=== PATIENT | female | born 1935 | race Caucasian/White ===

== ENCOUNTER → 2016-06-16 | Outpatient (CLI) | payer OTHER ==
[~2016-06-16] MED LIST: ACET-1175 PO; ASPI81TA28 PO; LVQ250 PO; METO100T7 PO; OMEP40CA PO; PRAV40TA PO; SERT50TA PO; TZCSR180 PO
--- NOTE | 2016-06-16 11:29 | DIAGNOSTIC IMAGING REPORT ---
CHEST 2 VIEWS ROUTINE CLINICAL HISTORY: COUGH COMPARISON STUDY: No previous studies for comparison. FINDINGS: The heart remains enlarged. There is no lobar consolidation. There is mild pulmonary vascular congestion/fluid overload. Trace pleural effusions are suspected.[ IMPRESSION: Cardiomegaly and radiographic evidence of mild congestive failure/fluid overload. Trace pleural effusions. No lobar consolidation. Electronically signed by: Ernst Mclean M.D. 06/16/2016 11:28 AM Dictated Date/Time: 06/16/2016 11:27 AM
== END | disposition home or self-care (01) ==
LOC: C.RAD1850 11:15
PROVIDERS: ATTEND Family Medicine
DX: J45.901 Unspecified asthma with (acute) exacerbation (principal); I51.7 Cardiomegaly

== ENCOUNTER 2018-05-10 12:03 | Inpatient (IN) ==
--- NOTE | 2018-05-10 12:42 | XRay Report ---
XR chest 1V portable CLINICAL HISTORY: cough COMPARISON STUDY: 04/03/2016 FINDINGS: The heart remains enlarged. There is persistent elevation of the interstitium. Diagnostic c onsiderations include mild congestive failure versus chronic interstitial lung disease. There is no l obar consolidation. There are no large pleural effusions.[ IMPRESSION: 1. Cardiomegaly 2. Persistent elevation of the interstitium. Diagnostic considerations include mild congestive failur e versus chronic interstitial lung disease. Electronically signed by: Ernst Mclean M.D. 05/10/2018 12:41 PM
[2018-05-10 13:11] LABS: Alanine Aminotransferase 13 U/L (12-78); Albumin Level 3.2 gm/dl (3.4-5.0); Aspartate Aminotransferase 19 U/L (15-37); BUN Creatinine Ratio 12.7 (10-20); Blood Urea Nitrogen 11 mg/dl (7-18); Calcium 8.3 mg/dl (8.5-10.1); Carbon Dioxide 28 mmol/L (21-32); Chloride 103 mmol/L (98-107); Est GFR (Non-African American) 60.4; Glucose 131 mg/dl (70-99); INR 3.4 (0.9-1.1); Partial Thromboplastin Ratio 1.6; Partial Thromboplastin Time 42.5 Seconds (21.0-31.0); Potassium 3.1 mmol/L (3.5-5.1); Prothrombin Time 32.4 Seconds (9.0-12.0); Sodium 137 mmol/L (136-145)
[2018-05-10 13:15] LABS: Albumin Globulin Ratio 0.6 (0.9-2); Alkaline Phosphatase 166 U/L (45-117); Bilirubin,Total 0.8 mg/dl (0.2-1); Globulin 5.1 gm/dl (2.5-4.0); Total Protein 8.3 gm/dl (6.4-8.2); Troponin I < 0.015 ng/ml (0-0.045)
[2018-05-10 13:17] LABS: Hemoglobin 14.6 g/dL (12.0-16.0); Mean Corpuscular Hgb Conc 32.4 g/dL (32-36); Mean Corpuscular Volume 89.3 fL (80-100); RDW Coefficient of Variation 15.1 % (11.5-14.5); RDW Standard Deviation 48.4 fL (36.4-46.3); Red Blood Count 5.04 M/uL (4.2-5.4); White Blood Count 3.44 K/uL (4.8-10.8)
[2018-05-10 13:28] LABS: Platelet Count 74 K/uL (130-400)
[2018-05-10 13:32] LABS: Basophils # (auto) 0.01 K/uL (0-0.2); Basophils % (auto) 0.3 %; Immature Granulocytes # (auto) 0.02 K/uL (0.00-0.02); Immature Granulocytes % (auto) 0.6 %; Lymphocytes # (auto) 0.96 K/uL (1.2-3.4); Lymphocytes % (auto) 27.9 %; Monocytes # (auto) 0.97 K/uL (0.11-0.59); Monocytes % (auto) 28.2 %; Neutrophils # (auto) 1.48 K/uL (1.4-6.5); Toxic Vacuolation 1+
[2018-05-10] MEDS ORDERED: POTASSIUM CHLORIDE 20 MEQ TABCR PO STA (14:04)
[2018-05-10] MEDS ORDERED: ALBUT/IPRATROP 3MG/0.5MG NEB 3 ML VIAL NEB STA (14:04)
[2018-05-10] MEDS ORDERED: FUROSEMIDE 40 MG/4 ML VIAL IV STA (15:00)
--- NOTE | 2018-05-10 17:01 | History & Physical Report ---
Date of Service May 10, 2018 Assessment & Plan (1) Acute on chronic diastolic heart failure: EF on echo in 2016 showed EF 70% with moderate LVH and Grade 1 diastolic dysfunction. No baseline Lasix needed, though has had prior exacerbations. No known exacerbator for this episode. - Lasix 40mg IV given in ED - Monitor I&Os; weights - Tele - Low salt, fluid restricted diet - Monitor electrolytes & Cr (2) COPD exacerbation: Prior PFTs in note indicate FEV 0.5L, 29% predicted; severe obstructive defect. Not 100% a COPD exacerbation given she only has increased shortness of breath and cough, but no increased sputum production; however, given the severe nature, will treat. - Azithryomycin - Prednisone - DuoNebs standing & PRN - Procalcitonin to be sure it's not pneumonia (3) Hypoxia: No home O2. Likely due to above. - Monitor O2 - Wean as able (4) A-fib: With RVR. Normally her rates are 80-100 bpm per patient. Currently 110- 130. - Short-acting PO dilt, titrated to effect - Diltiazem IV pushes PRN - Continue home beta-scot; could increase as well if needed - Continue warfarin; INR was 3.4 on admission without signs of bleeding (5) HTN (hypertension): BP was 150/110 in the ED. She reports it is usually normal at home. - Monitor while on diltiazem and beta-scot - Diltiazem IV should help (6) Thrombocytopenia: Platelets were 74 on admission. Priors in my chart from 2016 were low- normal at ~120-140. Diff on admission did not show any morphologic issues. Likely due to acute illness. Low likelihood of destructive process with normal hemoglobin, kidney function, no fevers, and no signs of clots/bleeding. - Monitor platelets - If they don't return to normal by discharge, consider hematology consult (7) DVT prophylaxis: On warfarin for afib History of Present Illness Chief Complaint: Shortness of breath Primary Care Provider: Audrey Johnson PA-C 82yo F w/ hx of afib, CHF, and asthma who presents with shortness of breath over the last 3 weeks. Reports that shortness of breath waxes and wanes all the time, but it has been worse in the last 3 weeks after hurting her back the week before [place]. She reports that she came in because she saw her PCP today and she was told to come in. Reports some cough as well, though nothing productive. Has been using her Breo as prescribed and not using her DuoNebs too often. Otherwise denies fevers or chills. Allergies Allergy/AdvReac Type Severity Reaction Status Date / Time amoxicillin Allergy Intermediate SWELLING Unverified 05/10/18 14:26 Home Medications Home Medications Medication Instructions Recorded Confirmed Type acetaminophen [Tylenol] 325 mg PO Q4 PRN 05/10/18 05/10/18 History diltiazem HCl [Cartia XT] 240 mg PO QAM 05/10/18 05/10/18 History metoprolol succinate 25 mg PO QAM 05/10/18 05/10/18 History omeprazole 40 mg PO QAM 05/10/18 05/10/18 History pravastatin 40 mg PO QAM 05/10/18 05/10/18 History sertraline 50 mg PO HS 05/10/18 05/10/18 History warfarin 2.5 mg PO 5XWK 05/10/18 05/10/18 History warfarin 5 mg PO 2XWK 05/10/18 05/10/18 History Past Med/Surg History Medical History HTN (hypertension) (Chronic) SVT (supraventricular tachycardia) (Chronic) A-fib (Chronic) Acute respiratory failure (Acute 04/26/13) PNA (pneumonia) (Resolved) CHF (congestive heart failure) (Acute) COPD exacerbation (Acute) Acute kidney injury superimposed on chronic kidney disease Acute on chronic diastolic heart failure Surgical History Previous section (Resolved) Social History Feels Safe at Home: Yes Smoking Status: Never smoker Review of Systems Constitutional: no fever, no chills and no sweats Eyes: no diplopia Ear, Nose, Mouth, Throat: no ear trauma, no nasal discharge and no dental pain Respiratory: + cough and + dyspnea; no chest congestion Cardiovascular: no chest pain, no dyspnea on exertion, no palpitations and no syncope Gastrointestinal: no abdominal pain, no belching, no constipation, no diarrhea/ loose stools, no blood in stools and no melena Musculoskeletal: no back pain, no joint pain and no muscle weakness Integumentary: no rash, no skin ulcer and no erythema Neurologic: no generalized weakness, no loss of sensation, no numbness and no paresthesia Psychiatric: no depression and no anxiety Endocrine: no fatigue, no polydipsia and no polyphagia Physical Exam 2 Vital Signs (Past 24 Hours): Last Vital Signs Temp 36.7 C 05/10/18 12:15 Pulse 111 H 05/10/18 15:56 Resp 33 H 05/10/18 15:56 BP 152/117 H 05/10/18 15:56 Pulse Ox 96 05/10/18 15:56 Constitutional: WD/WN, vitals as above Eyes: EOM intact bilaterally; no conjunctival abnormality ENMT: external ear and nose normal, oropharynx normal Neck: trachea midline, no thyromegaly normal visual inspection Respiratory: + labored breathing, + cough and + tachypneic; no respiratory distress and no retractions Auscultation: + crackles, + rales and + wheezes Cardiovascular: Rate/Rhythm: + tachycardic; + abnormal rhythm Heart Sounds : normal S1 and normal S2 Vessels: no JVD Extremities: no edema Gastrointestinal (Abdomen): Inspection/Auscultation: abdomen normal to inspection; abdomen not distended Musculoskeletal: no cyanosis or clubbing, extremities motor strength 5/5 Skin: no rashes, warm and dry Neurologic: moves all extremities and awake Psychiatric: Orientation: alert, oriented to person and cooperative _ (1) A-fib Atrial fibrillation type: permanent Qualified Code(s): I48.2 - Chronic atrial fibrillation (2) HTN (hypertension) Hypertension type: essential hypertension Qualified Code(s): I10 - Essential (primary) hypertension
[2018-05-10] MEDS ORDERED: AZITHROMYCIN 250 MG TAB PO ONE (18:57)
[2018-05-10] MEDS ORDERED: dilTIAZem HCl 5 MG/ML 5 ML VIAL IV PRN (18:57)
[2018-05-10] MEDS ORDERED: ACETAMINOPHEN 325 MG TAB PO PRN (18:57)
[2018-05-10] MEDS: ALBUT/IPRATROP 3MG/0.5MG NEB 3 ML VIAL NEB SCH (19:46)
[2018-05-10] MEDS: predniSONE 20 MG TAB PO SCH (20:42)
[2018-05-10] MEDS: SERTRALINE HCL 50 MG TABLET PO SCH (20:42)
[2018-05-10] MEDS: dilTIAZem HCl 60 MG TAB PO SCH (20:43)
[2018-05-10] MEDS: PROMETHAZINE HCL 12.5 MG in SODIUM CHLORIDE 0.9% 50 ML IV PRN (21:32)
[2018-05-11] MEDS: dilTIAZem HCl 60 MG TAB PO SCH ×4 (01:39→21:07)
[2018-05-11 06:06] LABS: INR 2.9 (0.9-1.1); Prothrombin Time 27.6 Seconds (9.0-12.0)
[2018-05-11 06:26] LABS: Hematocrit (blood only) 42.6 % (37-47); Hemoglobin 13.5 g/dL (12.0-16.0); Mean Corpuscular Hgb Conc 31.7 g/dL (32-36); Mean Corpuscular Volume 89.9 fL (80-100); Mean Platelet Volume 13.2 fL (7.4-10.4); Platelet Count 85 K/uL (130-400); RDW Coefficient of Variation 15.1 % (11.5-14.5); Red Blood Count 4.74 M/uL (4.2-5.4); White Blood Count 2.14 K/uL (4.8-10.8)
[2018-05-11 06:27] LABS: BUN Creatinine Ratio 13.9 (10-20); Calcium 7.9 mg/dl (8.5-10.1); Creatinine Clr Calc Pharmacy 37.6 ml/min; Est GFR (Non-African American) 41.4; Magnesium 1.4 mg/dl (1.8-2.4); Potassium 3.6 mmol/L (3.5-5.1)
[2018-05-11] MEDS: ALBUT/IPRATROP 3MG/0.5MG NEB 3 ML VIAL NEB SCH ×4 (07:30→19:08)
[2018-05-11] MEDS: METOPROLOL SUCC 25MG EXT REL TAB PO SCH (08:19)
[2018-05-11] MEDS: PRAVASTATIN SOD 40 MG TAB PO SCH (08:19)
[2018-05-11] MEDS: predniSONE 20 MG TAB PO SCH (08:19)
[2018-05-11] MEDS: PANTOprazole 40 MG TAB PO SCH (08:19)
[2018-05-11] MEDS: MAGNESIUM SULFATE / D5W 1 GM/100 ML BAG IV SCH ×2 (08:20→09:32)
--- NOTE | 2018-05-11 13:13 | Hospitalist Progress Note ---
Date of Service May 11, 2018 Assessment & Plan (1) COPD exacerbation: Prior PFTs in note indicate FEV 0.5L, 29% predicted; severe obstructive defect. Not 100% a COPD exacerbation given she only has increased shortness of breath and cough, but no increased sputum production; however, given the severe nature, will treat. - Azithryomycin - Prednisone - DuoNebs standing & PRN - Continue home Breo - Procalcitonin was negative on 05/10, so will not adjust abx at this time (2) Acute on chronic diastolic heart failure: EF on echo in 2016 showed EF 70% with moderate LVH and Grade 1 diastolic dysfunction. No baseline Lasix needed, though has had prior exacerbations. No known exacerbator for this episode. - Lasix 40mg IV given in ED - Monitor I&Os; weights - Tele - Low salt, fluid restricted diet - Monitor electrolytes & Cr - On 05/11, appears to be euvolemic vs. mildly hypovolemic after the single ED dose - Hold any further Lasix (3) Hypoxia: No home O2. Likely due to above. - Monitor O2 - Wean as able (4) A-fib: With RVR. Normally her rates are 80-100 bpm per patient. Currently 110- 130. - Short-acting PO dilt, titrated to effect - Diltiazem IV pushes PRN - Continued home beta-scot; could increase as well if needed - Continue warfarin; INR was 3.4 on admission without signs of bleeding (5) HTN (hypertension): BP was 150/110 in the ED. She reports it is usually normal at home. - Monitor while on diltiazem and beta-scot - Improved as of 05/11 (6) CKD (chronic kidney disease) stage 2, GFR 60-89 ml/min: Baseline Cr. ~1.0 with eGRR ~60. At baseline on admission. - Monitor Cr - Avoid nephrotoxic medications (7) Thrombocytopenia: Platelets were 74 on admission. Priors in my chart from 2016 were low- normal at ~120-140. Diff on admission did not show any morphologic issues. Likely due to acute illness. Low likelihood of destructive process with normal hemoglobin, kidney function, no fevers, and no signs of clots/bleeding. - Monitor platelets - If they don't return to normal by discharge, consider hematology consult - Improving as of 05/11 (8) DVT prophylaxis: On warfarin for afib Physical Exam 2 Vital Signs (Past 24 Hours): Last Vital Signs Temp 36.7 C 05/11/18 11:45 Pulse 112 H 05/11/18 11:45 Resp 23 05/11/18 11:45 BP 132/74 05/11/18 11:45 Pulse Ox 93 05/11/18 11:45 Constitutional: WD/WN, vitals as above Eyes: EOM intact bilaterally; no conjunctival abnormality ENMT: external ear and nose normal, oropharynx normal Neck: trachea midline, no thyromegaly normal visual inspection Respiratory: + labored breathing, + cough and + tachypneic; no respiratory distress and no retractions Auscultation: + crackles, + rales and + wheezes Cardiovascular: Rate/Rhythm: + tachycardic; + abnormal rhythm Heart Sounds : normal S1 and normal S2 Vessels: no JVD Extremities: no edema Gastrointestinal (Abdomen): Inspection/Auscultation: abdomen normal to inspection; abdomen not distended Musculoskeletal: no cyanosis or clubbing, extremities motor strength 5/5 Skin: no rashes, warm and dry Neurologic: moves all extremities and awake Psychiatric: Orientation: alert, oriented to person and cooperative _ (1) A-fib Atrial fibrillation type: permanent Qualified Code(s): I48.2 - Chronic atrial fibrillation (2) HTN (hypertension) Hypertension type: essential hypertension Qualified Code(s): I10 - Essential (primary) hypertension
[2018-05-11] MEDS: FLUTICASONE/SALMETEROL 100/50 (ADVAIR) 14 PUFF/1 INHALER INH SCH (21:07)
[2018-05-11] MEDS: SERTRALINE HCL 50 MG TABLET PO SCH (21:08)
--- NOTE | 2018-05-11 22:40 | Emergency Department Note ---
Entered by Anson Bryan acting as a scribe for Precious Pedroza DO History of Present Illness General Chief complaint: Respiratory Problems Stated complaint: HARD BREATHING, COUGHING Time Seen by Provider: 05/10/18 13:49 Source: patient Limitations: no limitations History of Present Illness Provider complaint: SOB Onset (ago): month(s) (1) Location: chest (SOB) Pain Consistency: + other (worsening) Quality: + other (SOB) Associated symptoms: no chest pain and no fever/chills The patient is an 82 year old female who presents to the Emergency Room with complaints of worsening shortness of breath. The patient states that her breathing has been worsening since , 1 month ago. She then noticed an acute exacerbation of her breathing this past weekend, 5 days ago. The patient notes that she has nebulizers and inhalers at home, but has not been using them. She notes that she has been around her grandchildren recently, who may have been sick. She did get the influenza and pneumonia vaccinations in the past. The patient has been hospitalized for shortness of breath in the past, but has never needed to be intubated. She is on Coumadin secondary to a history of atrial fibrillation. Pt denies any additional cardiac hx including CHF. States she used to see a rn hemo dialysis but stopped going and her PCP writes for her medications. States she did get a flu shot this year and has previously had a pneumonia shot. Home Medications Home Medications Medication Instructions Recorded Confirmed Type acetaminophen [Tylenol] 325 mg PO Q4 PRN 05/10/18 05/10/18 History diltiazem HCl [Cartia XT] 240 mg PO QAM 05/10/18 05/10/18 History metoprolol succinate 25 mg PO QAM 05/10/18 05/10/18 History omeprazole 40 mg PO QAM 05/10/18 05/10/18 History pravastatin 40 mg PO QAM 05/10/18 05/10/18 History sertraline 50 mg PO HS 05/10/18 05/10/18 History warfarin 2.5 mg PO 5XWK 05/10/18 05/10/18 History warfarin 5 mg PO 2XWK 05/10/18 05/10/18 History fluticasone-vilanterol [Breo 1 inh INHALATION DAILY 05/11/18 05/11/18 History Ellipta] Allergies Allergy/AdvReac Type Severity Reaction Status Date / Time amoxicillin Allergy Intermediate SWELLING Verified 05/10/18 19:38 Past Med/Surg History Medical History HTN (hypertension) (Chronic) SVT (supraventricular tachycardia) (Chronic) A-fib (Chronic) Acute respiratory failure (Acute 04/26/13) PNA (pneumonia) (Resolved) CHF (congestive heart failure) (Acute) COPD exacerbation (Acute) Acute kidney injury superimposed on chronic kidney disease Acute on chronic diastolic heart failure Surgical History Previous section (Resolved) Family History Other Asthma Depression History of total knee replacement Hypertension Social History Current Living Situation: Family Other Information That Helps Us Care for You: No Feels Safe at Home: Yes Smoking Status: Never smoker Do You Dip or Chew Tobacco: No Second Hand Exposure: No Tobacco Cessation Education Requested by Patient: No Hx Alcohol Use: No Hx Substance Use: No Beliefs That Will Affect Care: None 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 and A total of 10 systems reviewed and were otherwise negative Physical Exam Vital Signs Vital Signs - 24 hr 05/11/18 00:13 05/11/18 03:59 05/11/18 07:31 Temperature 37.1 C 36.6 C Temperature Source Oral Oral Pulse Rate [Apical] 103 H 100 H Pulse Rate [Radial] 93 H Pulse Rhythm [Radial] Pulse Strength [Radial] Respiratory Rate 16 19 20 Respiratory Effort / Characteristics Spontaneous Respiratory Depth Respiratory Pattern Blood Pressure [Right Arm] 129/82 133/78 Blood Pressure Mean [Right Arm] 97 96 Blood Pressure Position [Right Arm] Lying Lying Pulse Oximetry 93 93 92 Pulse Oximetry [At Rest] Pulse Oximetry [Post Treatment/Recovery] Pulse Oximetry [with Activity] Oxygen Delivery Method Nasal Cannula Nasal Cannula Nasal Cannula Oxygen Flow Rate 3 2.5 3 Oxygen Flow Rate [At Rest] Oxygen Flow Rate [Post Treatment/Recovery] Oxygen Flow Rate [with Activity] 05/11/18 08:00 05/11/18 11:09 05/11/18 11:45 Temperature 36.5 C 36.7 C Temperature Source Oral Oral Pulse Rate [Apical] Pulse Rate [Radial] 119 H 87 112 H Pulse Rhythm [Radial] Regular Pulse Strength [Radial] Normal Respiratory Rate 18 20 23 Respiratory Effort / Characteristics Non-Labored Spontaneous Non-Labored Spontaneous Respiratory Depth Normal Respiratory Pattern Regular Blood Pressure [Right Arm] 133/87 132/74 Blood Pressure Mean [Right Arm] 102 93 Blood Pressure Position [Right Arm] Lying Pulse Oximetry 90 92 93 Pulse Oximetry [At Rest] Pulse Oximetry [Post Treatment/Recovery] Pulse Oximetry [with Activity] Oxygen Delivery Method Nasal Cannula Nasal Cannula Nasal Cannula Oxygen Flow Rate 3 3 Oxygen Flow Rate [At Rest] Oxygen Flow Rate [Post Treatment/Recovery] Oxygen Flow Rate [with Activity] 05/11/18 13:29 05/11/18 15:55 05/11/18 15:59 Temperature Temperature Source Pulse Rate [Apical] Pulse Rate [Radial] 86 Pulse Rhythm [Radial] Pulse Strength [Radial] Respiratory Rate 16 Respiratory Effort / Characteristics Spontaneous Respiratory Depth Respiratory Pattern Blood Pressure [Right Arm] Blood Pressure Mean [Right Arm] Blood Pressure Position [Right Arm] Pulse Oximetry 95 96 Pulse Oximetry [At Rest] 94 Pulse Oximetry [Post Treatment/Recovery] 94 Pulse Oximetry [with Activity] 87 L Oxygen Delivery Method Nasal Cannula Oxygen Flow Rate 3 Oxygen Flow Rate [At Rest] 3 Oxygen Flow Rate [Post Treatment/Recovery] 3 Oxygen Flow Rate [with Activity] 3 05/11/18 16:18 05/11/18 19:08 05/11/18 19:24 Temperature 36.7 C 36.5 C Temperature Source Oral Oral Pulse Rate [Apical] Pulse Rate [Radial] 102 H 104 H 108 H Pulse Rhythm [Radial] Pulse Strength [Radial] Respiratory Rate 23 18 21 Respiratory Effort / Characteristics Non-Labored Spontaneous Respiratory Depth Respiratory Pattern Blood Pressure [Right Arm] 120/67 116/74 Blood Pressure Mean [Right Arm] 84 88 Blood Pressure Position [Right Arm] Sitting Sitting Pulse Oximetry 97 95 94 Pulse Oximetry [At Rest] Pulse Oximetry [Post Treatment/Recovery] Pulse Oximetry [with Activity] Oxygen Delivery Method Nasal Cannula Nasal Cannula Nasal Cannula Oxygen Flow Rate 3.5 3 3.5 Oxygen Flow Rate [At Rest] Oxygen Flow Rate [Post Treatment/Recovery] Oxygen Flow Rate [with Activity] 05/11/18 20:00 Temperature Temperature Source Pulse Rate [Apical] Pulse Rate [Radial] Pulse Rhythm [Radial] Pulse Strength [Radial] Respiratory Rate Respiratory Effort / Characteristics Non-Labored Spontaneous Respiratory Depth Normal Respiratory Pattern Regular Blood Pressure [Right Arm] Blood Pressure Mean [Right Arm] Blood Pressure Position [Right Arm] Pulse Oximetry Pulse Oximetry [At Rest] Pulse Oximetry [Post Treatment/Recovery] Pulse Oximetry [with Activity] Oxygen Delivery Method Nasal Cannula Oxygen Flow Rate 3.5 Oxygen Flow Rate [At Rest] Oxygen Flow Rate [Post Treatment/Recovery] Oxygen Flow Rate [with Activity] GENERAL: alert, well appearing, well nourished, no distress, non-toxic EYE EXAM: normal conjunctiva, PERRL and EOM's grossly intact OROPHARYNX: no exudate, no erythema, lips, buccal mucosa, and tongue normal and mucous membranes are moist NECK: supple, no nuchal rigidity, no adenopathy, non-tender LUNGS: Coarse breath sounds bilaterally. Normal chest wall mechanics. No wheezes , rhonchi, or rales. HEART: no murmurs, S1 normal and S2 normal ABDOMEN: abdomen soft, non-tender, normo-active bowel sounds, no masses, no rebound or guarding. BACK: Back is symmetrical on inspection and there is no deformity, no midline tenderness, no CVA tenderness. SKIN: no rashes and no bruising UPPER EXTREMITIES: upper extremities are grossly normal. FROM, nml pulses b/l. LOWER EXTREMITIES: No pitting edema. FROM, nml pulses b/l. NEURO EXAM: Normal sensorium, cranial nerves II-XII grossly intact, normal speech, no gross weakness of arms, no gross weakness of legs. Course 1355: Past medical records reviewed. The patient was evaluated in room C11B, and a complete history and physical examination were performed. 1518: I updated the patient at this time. She is agreeable to hospital admission. Pt with increased HR likely from neb tx. 1544: I reviewed the patient's case with Dr. Blanca URBANO Hospitalist . she will evaluate the patient for further management. Lasix IV ordered. Reevaluation(s) Reevaluation #1: 1544: I reviewed the patient's case with Dr. Blanca URBANO Hospitalist . she will evaluate the patient for further management. Administered Medications Albuterol (Duoneb) 3 ml NEB QIDR [facility]AC[facility] Stop: 06/09/18 19:59 Last Admin: 05/11/18 19:08 Dose: 3 ml Admin: 05/11/18 15:55 Dose: 3 ml Admin: 05/11/18 11:08 Dose: 3 ml Admin: 05/11/18 07:30 Dose: 3 ml Admin: 05/10/18 19:46 Dose: 3 ml Diltiazem HCl (Cardizem) 60 mg PO Q6H [facility] Stop: 06/09/18 19:59 Last Admin: 05/11/18 21:07 Dose: 60 mg Admin: 05/11/18 14:10 Dose: 60 mg Admin: 05/11/18 08:19 Dose: 60 mg Admin: 05/11/18 01:39 Dose: 60 mg Admin: 05/10/18 20:43 Dose: 60 mg Promethazine HCl 12.5 mg/ (Sodium Chloride) 50.5 mls @ 204 mls/hr IV Q6H PRN PRN Reason: Nausea And Vomiting Stop: 06/09/18 20:33 Last Infusion: 05/10/18 21:59 Dose: 0 mls/hr Admin: 05/10/18 21:32 Dose: 204 mls/hr Metoprolol Succinate (Toprol Xl) [facility] [place] Stop: 06/10/18 08:59 Last Admin: 05/11/18 08:19 Dose: 25 mg Pantoprazole Sodium (Protonix) 40 mg PO QAM [facility] Stop: 06/10/18 08:59 Last Admin: 05/11/18 08:19 Dose: 40 mg Pravastatin Sodium (Pravachol) 40 mg PO QAM [facility] Stop: 06/10/18 08:59 Last Admin: 05/11/18 08:19 Dose: 40 mg Prednisone (Prednisone) 40 mg PO DAILY [facility] Stop: 06/09/18 18:56 Last Admin: 05/11/18 08:19 Dose: 40 mg Admin: 05/10/18 20:42 Dose: 40 mg Fluticasone/Salmeterol (Advair Diskus 100/50) 1 puffs INH BID [facility] Stop: 06/10/18 20:59 Last Admin: 05/11/18 21:07 Dose: 1 puffs Sertraline HCl (Zoloft) 50 mg PO HS [facility] Stop: 06/09/18 20:59 Last Admin: 05/11/18 21:08 Dose: 50 mg Admin: 05/10/18 20:42 Dose: 50 mg Discontinued Medications Albuterol (Duoneb) 3 ml NEB NOW STA Stop: 05/10/18 14:05 Last Admin: 05/10/18 14:17 Dose: 3 ml Azithromycin (Zithromax) 500 mg PO NOW ONE Stop: 05/10/18 18:58 Last Admin: 05/10/18 20:43 Dose: 500 mg Furosemide (Lasix) 40 mg IV NOW STA Stop: 05/10/18 15:01 Last Admin: 05/10/18 15:56 Dose: 40 mg Magnesium Sulfate/Dextrose (Magnesium Sulfate / D5w) 1 gm in 100 mls @ 100 mls/ hr IV Q1H [facility] Stop: 05/11/18 09:59 Last Infusion: 05/11/18 10:46 Dose: 0 mls/hr Admin: 05/11/18 09:32 Dose: 100 mls/hr Infusion: 05/11/18 09:32 Dose: 0 mls/hr Admin: 05/11/18 08:20 Dose: 100 mls/hr Potassium Chloride (Klor-Con M20) 40 meq PO NOW STA Stop: 05/10/18 14:05 Last Admin: 05/10/18 14:15 Dose: 40 meq Medical Decision Making Differential Diagnosis Differential diagnosis: Etiologies such as infections, reactive airway disease, COPD, pneumonia, pleural effusion, pulmonary edema, ARDS, pneumothorax, CHF, cardiac ischemia, cardiac tamponade, dysrhythmia, anemia, pulmonary embolism, musculoskeletal, gastrointestinal process, as well as others were entertained. Home Medications Current Medication List: was personally reviewed by me Laboratory Data Attestation: I reviewed the patient's lab results. Result diagrams: 05/11/18 05:21 05/11/18 05:21 Lab Results 05/10/18 05/10/18 05/10/18 Range/Units 12:25 12:25 12:25 WBC 3.44 L (4.8-10.8) K/uL RBC 5.04 (4.2-5.4) M/uL Hgb 14.6 (12.0-16.0) g/dL Hct 45.0 (37-47) % MCV 89.3 (80-100) fL MCH 29.0 (25-34) pg MCHC 32.4 (32-36) g/dL RDW Std Deviation 48.4 H (36.4-46.3) fL RDW Coeff of Kathleen 15.1 H (11.5-14.5) % Plt Count 74 L (130-400) K/uL MPV 13.0 H (7.4-10.4) fL Immature Gran % (Auto) 0.6 % Neut % (Auto) 43.0 % Lymph % (Auto) 27.9 % [place] % (Auto) 28.2 % Eos % (Auto) 0.0 % Baso % (Auto) 0.3 % Immature Gran # (Auto) 0.02 (0.00-0.02) K/uL Neut # (Auto) 1.48 (1.4-6.5) K/uL Lymph # (Auto) 0.96 L (1.2-3.4) K/uL [place] # (Auto) 0.97 H (0.11-0.59) K/uL Eos # (Auto) 0.00 (0-0.5) K/uL Baso # (Auto) 0.01 (0-0.2) K/uL Toxic Vacuolation 1+ Platelet Estimate Decreased (Normal) PT 32.4 H (9.0-12.0) Seconds INR 3.4 H (0.9-1.1) APTT 42.5 H (21.0-31.0) Seconds PTT Ratio 1.6 Sodium 137 (136-145) mmol/L Potassium 3.1 L (3.5-5.1) mmol/L Chloride 103 (98-107) mmol/L Carbon Dioxide 28 (21-32) mmol/L Anion Gap 6.0 (3-11) BUN 11 (7-18) mg/dl Creatinine 0.90 (0.6-1.2) mg/dl Est Cr Clr Drug Dosing Not Reportable Est GFR ( Amer) 70.0 Est GFR (Non-Af Amer) 60.4 BUN/Creatinine Ratio 12.7 (10-20) Glucose 131 H (70-99) mg/dl Calcium 8.3 L (8.5-10.1) mg/dl Magnesium (1.8-2.4) mg/dl Total Bilirubin 0.8 (0.2-1) mg/dl AST 19 (15-37) U/L ALT 13 (12-78) U/L Alkaline Phosphatase 166 H (45-117) U/L Troponin I < 0.015 (0-0.045) ng/ml NT-Pro-B Natriuret Pep (0-1800) pg/ml Total Protein 8.3 H (6.4-8.2) gm/dl Albumin 3.2 L (3.4-5.0) gm/dl Globulin 5.1 H (2.5-4.0) gm/dl Albumin/Globulin Ratio 0.6 L (0.9-2) Procalcitonin 05/10/18 05/10/18 05/10/18 Range/Units 12:25 19:08 20:03 WBC (4.8-10.8) K/uL RBC (4.2-5.4) M/uL Hgb (12.0-16.0) g/dL Hct (37-47) % MCV (80-100) fL MCH (25-34) pg MCHC (32-36) g/dL RDW Std Deviation (36.4-46.3) fL RDW Coeff of Kathleen (11.5-14.5) % Plt Count (130-400) K/uL MPV (7.4-10.4) fL Immature Gran % (Auto) % Neut % (Auto) % Lymph % (Auto) % [place] % (Auto) % Eos % (Auto) % Baso % (Auto) % Immature Gran # (Auto) (0.00-0.02) K/uL Neut # (Auto) (1.4-6.5) K/uL Lymph # (Auto) (1.2-3.4) K/uL [place] # (Auto) (0.11-0.59) K/uL Eos # (Auto) (0-0.5) K/uL Baso # (Auto) (0-0.2) K/uL Toxic Vacuolation Platelet Estimate (Normal) PT (9.0-12.0) Seconds INR (0.9-1.1) APTT (21.0-31.0) Seconds PTT Ratio Sodium (136-145) mmol/L Potassium (3.5-5.1) mmol/L Chloride (98-107) mmol/L Carbon Dioxide (21-32) mmol/L Anion Gap (3-11) BUN (7-18) mg/dl Creatinine (0.6-1.2) mg/dl Est Cr Clr Drug Dosing Est GFR ( Amer) Est GFR (Non-Af Amer) BUN/Creatinine Ratio (10-20) Glucose (70-99) mg/dl Calcium (8.5-10.1) mg/dl Magnesium (1.8-2.4) mg/dl Total Bilirubin (0.2-1) mg/dl AST (15-37) U/L ALT (12-78) U/L Alkaline Phosphatase (45-117) U/L Troponin I (0-0.045) ng/ml NT-Pro-B Natriuret Pep 6633 H (0-1800) pg/ml Total Protein (6.4-8.2) gm/dl Albumin (3.4-5.0) gm/dl Globulin (2.5-4.0) gm/dl Albumin/Globulin Ratio (0.9-2) Procalcitonin Cancelled < 0.05 05/11/18 05/11/18 05/11/18 Range/Units 05:21 05:21 05:21 WBC 2.14 L (4.8-10.8) K/uL RBC 4.74 (4.2-5.4) M/uL Hgb 13.5 (12.0-16.0) g/dL Hct 42.6 (37-47) % MCV 89.9 (80-100) fL MCH 28.5 (25-34) pg MCHC 31.7 L (32-36) g/dL RDW Std Deviation 50.0 H (36.4-46.3) fL RDW Coeff of Kathleen 15.1 H (11.5-14.5) % Plt Count 85 L (130-400) K/uL MPV 13.2 H (7.4-10.4) fL Immature Gran % (Auto) % Neut % (Auto) % Lymph % (Auto) % [place] % (Auto) % Eos % (Auto) % Baso % (Auto) % Immature Gran # (Auto) (0.00-0.02) K/uL Neut # (Auto) (1.4-6.5) K/uL Lymph # (Auto) (1.2-3.4) K/uL [place] # (Auto) (0.11-0.59) K/uL Eos # (Auto) (0-0.5) K/uL Baso # (Auto) (0-0.2) K/uL Toxic Vacuolation Platelet Estimate Decreased (Normal) PT 27.6 H (9.0-12.0) Seconds INR 2.9 H (0.9-1.1) APTT (21.0-31.0) Seconds PTT Ratio Sodium 138 (136-145) mmol/L Potassium 3.6 D (3.5-5.1) mmol/L Chloride 102 (98-107) mmol/L Carbon Dioxide 31 (21-32) mmol/L Anion Gap 5.0 (3-11) BUN 17 D (7-18) mg/dl Creatinine 1.23 H D (0.6-1.2) mg/dl Est Cr Clr Drug Dosing 37.6 Est GFR ( Amer) 48.0 Est GFR (Non-Af Amer) 41.4 BUN/Creatinine Ratio 13.9 (10-20) Glucose 144 H (70-99) mg/dl Calcium 7.9 L (8.5-10.1) mg/dl Magnesium 1.4 L (1.8-2.4) mg/dl Total Bilirubin (0.2-1) mg/dl AST (15-37) U/L ALT (12-78) U/L Alkaline Phosphatase (45-117) U/L Troponin I (0-0.045) ng/ml NT-Pro-B Natriuret Pep (0-1800) pg/ml Total Protein (6.4-8.2) gm/dl Albumin (3.4-5.0) gm/dl Globulin (2.5-4.0) gm/dl Albumin/Globulin Ratio (0.9-2) Procalcitonin Imaging Data Attestation: I personally reviewed and interpreted this imaging study as follows : Radiologist's Impression: XR chest 1V portable CLINICAL HISTORY: cough COMPARISON STUDY: 04/03/2016 FINDINGS: The heart remains enlarged. There is persistent elevation of the interstitium. Diagnostic considerations include mild congestive failure versus chronic interstitial lung disease. There is no lobar consolidation. There are no large pleural effusions.[ IMPRESSION: 1. Cardiomegaly 2. Persistent elevation of the interstitium. Diagnostic considerations include mild congestive failure versus chronic interstitial lung disease. Electronically signed by: Ernst Mclean M.D. 05/10/2018 12:41 PM ECG Data Attestation: I personally reviewed and interpreted this ECG as follows: Indication: SOB/dyspnea Rate (beats per minute): 125 Rhythm: atrial fibrillation Findings: + other (prolonged QTC); no acute ischemic change Blood Pressure Blood Pressure Findings: Elevated blood pressure Blood Pressure Disposition: further management by hospitalist MDM Narrative Pt presented with SOB and coarse breath sounds that are possible multifactorial. No signoficant improvement with duoneb and cxr and elevated BNP suggestive of CHF. Given age and cardiac hx as well as chronicity of symptoms, I feel CHF is more likely. Potassium was repleted and IV lasix given in the ED. Pt was hypoxic on RA and doesn't wear oxygen at home. INR supratherapeutic here making PE less likely. Pt afebrile and no evidence of focal consolidation. I think pneumonia less likely. Pt felt improved with oxygen in place. Some RVR noted with her chronic a.fib, likely some iatrogenic from neb tx. Pt and family aware of all results and were in agreement with the plan. Case discussed with hospitalist for additional evaluation and treatment. Impression & Plan Dyspnea, CHF (congestive heart failure), Hypoxia, Thrombocytopenia, Atrial fibrillation, Acute hypokalemia Discharge Plan Visit Data *Final* Discharge Date/Time: 05/10/18 17:42 Chief Complaint: Respiratory Problems Stated Complaint: HARD BREATHING, COUGHING ED Provider: Precious Pedroza Discharge Problem: Dyspnea, CHF (congestive heart failure), Hypoxia, Thrombocytopenia, Atrial fibrillation, Acute hypokalemia Patient Disposition: Admitted As Inpatient Discharge Instructions Interventions: ED Discharge Assessment Last Done: 05/10/18 17:42 The scribe's documentation has been prepared under my direction and personally reviewed by me in its entirety. I confirm that the note above accurately reflects all work, treatment, procedures, and medical decision making performed by me.
[2018-05-12] MEDS: dilTIAZem HCl 60 MG TAB PO SCH ×4 (02:34→20:07)
[2018-05-12 06:08] LABS: INR 2.1 (0.9-1.1)
[2018-05-12 06:16] LABS: BUN Creatinine Ratio 19.2 (10-20); Calcium 7.8 mg/dl (8.5-10.1); Creatinine Clr Calc Pharmacy 24.9 ml/min; Est GFR (African American) 28.9; Est GFR (Non-African American) 24.9; Potassium 3.4 mmol/L (3.5-5.1)
[2018-05-12 06:18] LABS: Hematocrit (blood only) 40.9 % (37-47); Hemoglobin 13.1 g/dL (12.0-16.0); Mean Corpuscular Volume 89.3 fL (80-100); Mean Platelet Volume 11.6 fL (7.4-10.4); Platelet Count 77 K/uL (130-400); RDW Coefficient of Variation 15.4 % (11.5-14.5); RDW Standard Deviation 49.5 fL (36.4-46.3); Red Blood Count 4.58 M/uL (4.2-5.4); White Blood Count 5.81 K/uL (4.8-10.8)
[2018-05-12] MEDS: ALBUT/IPRATROP 3MG/0.5MG NEB 3 ML VIAL NEB SCH ×4 (07:02→19:07)
[2018-05-12] MEDS ORDERED: SODIUM CHLORIDE 0.9% 1000ML 500 ML IV ONE (07:27)
[2018-05-12] MEDS: PRAVASTATIN SOD 40 MG TAB PO SCH (07:52)
[2018-05-12] MEDS: predniSONE 20 MG TAB PO SCH (07:52)
[2018-05-12] MEDS: PANTOprazole 40 MG TAB PO SCH (07:52)
[2018-05-12] MEDS: FLUTICASONE/SALMETEROL 100/50 (ADVAIR) 14 PUFF/1 INHALER INH SCH ×2 (07:52→20:07)
[2018-05-12] MEDS: METOPROLOL SUCC 25MG EXT REL TAB PO SCH (07:52)
[2018-05-12] MEDS: PROMETHAZINE HCL 12.5 MG in SODIUM CHLORIDE 0.9% 50 ML IV PRN (08:40)
[2018-05-12] MEDS ORDERED: METOPROLOL SUCC 25MG EXT REL TAB PO STA (08:43)
[2018-05-12] MEDS: METOPROLOL SUCC 50MG EXT REL TAB PO SCH ×3 (10:04→11:59)
--- NOTE | 2018-05-12 11:43 | Pulmonary Consultation ---
Date of Consultation May 12, 2018 Assessment & Plan (1) CHF (congestive heart failure): Impression: 1. Chronic persistent asthma. 2. Congestive heart failure, pulmonary vascular congestion noted on the CAT scan. 3. Mucoid impaction. 4. Tracheal bronchomalacia. 5. 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 6. History of A. fib. 7. Multiple pulmonary nodules, of unknown etiology. too small to evaluate. 8. AK I. Plan: 1. Change steroids to IV Solu-Medrol 40 mg IV every 6 hours. Expect slow progression. The patient has been feeling ill for the past 8 days. 2. Treatment of CHF and A. fib as you are doing. 3. Add low-dose of Xanax 0.25 mg p.o. twice daily. 4. Given her tracheomalacia, she would benefit from positive pressure ventilation nocturnally. 5. Continue with oxygen. 6. The patient last admission to the hospital with respiratory distress was 2 years ago, does not appear to be frequent, likely she will represent grade A. Obstructive lung disease. 7. Watch BUN and creatinine, hold off diuresis. Thank you, will follow. Heart failure chronicity: unspecified Heart failure type: unspecified Qualified Code(s): I50.9 - Heart failure, unspecified History of Present Illness Reason for Consultation: Shortness of breath Requesting Physician: Dr. Stein Attending Physician: Alonzo Stein MD History of Present Illness Dear Dr. Stein: Thank you for the kind referral of Mrs. gonzalez to pulmonary service. This is 82- year-old female with a history of asthma, has been followed by Dr. ospina as an outpatient, history of CHF, A. fib, chronic kidney disease, presented to the hospital with increasing shortness of breath for the past 8 days, as well as found to have persistent wheezing. The patient started on prednisone 40 mg p.o. daily, admitted to the hospital for further management. She did have a dry cough and difficulty raising her sputum, her exercise capacity was even for a few feet. The patient could not sleep in supine position and she has to raise her head with a pillow. She denies any chest pain, no epigastric pain, no heartburn, no abdominal pain, no change in bowel movements or urine habits. Denies any increased swelling in her lower extremities although she did have edema in the past. No constitutional symptoms, no fever, no recent travel or sick contact. She has been taking her medications properly, and she does have bronchodilators on as-needed basis. Recently was prescribed Advair but it made her feel worse. Review of system was unremarkable except for the above, patient is non-smoker lifetime but she does have secondhand exposure to smoking Via her family whom she lived with for 40 years. She lives with her son who is non-smoker as well. Denies any industrial exposure in the past. Family history is not contributing to her current illness. Allergies Allergy/AdvReac Type Severity Reaction Status Date / Time amoxicillin Allergy Intermediate SWELLING Verified 05/10/18 19:38 Home Medications Home Medications Medication Instructions Recorded Confirmed Type acetaminophen [Tylenol] 325 mg PO Q4 PRN 05/10/18 05/10/18 History diltiazem HCl [Cartia XT] 240 mg PO QAM 05/10/18 05/10/18 History metoprolol succinate 25 mg PO QAM 05/10/18 05/10/18 History omeprazole 40 mg PO QAM 05/10/18 05/10/18 History pravastatin 40 mg PO QAM 05/10/18 05/10/18 History sertraline 50 mg PO HS 05/10/18 05/10/18 History warfarin 2.5 mg PO 5XWK 05/10/18 05/10/18 History warfarin 5 mg PO 2XWK 05/10/18 05/10/18 History fluticasone-vilanterol [Breo 1 inh INHALATION DAILY 05/11/18 05/11/18 History Ellipta] Patient History Medical History HTN (hypertension) (Chronic) SVT (supraventricular tachycardia) (Chronic) A-fib (Chronic) Acute respiratory failure (Acute 04/26/13) PNA (pneumonia) (Resolved) CHF (congestive heart failure) (Acute) COPD exacerbation (Acute) Acute kidney injury superimposed on chronic kidney disease Acute on chronic diastolic heart failure Surgical History Previous section (Resolved) Family History Other Asthma Depression History of total knee replacement Hypertension Social History Current Living Situation: Family Other Information That Helps Us Care for You: No Feels Safe at Home: Yes Smoking Status: Never smoker Do You Dip or Chew Tobacco: No Second Hand Exposure: No Tobacco Cessation Education Requested by Patient: No Hx Alcohol Use: No Hx Substance Use: No Beliefs That Will Affect Care: None 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 Physical Exam 2 Vital Signs (Past 24 Hours): Last Vital Signs Temp 36.7 C 05/12/18 06:55 Pulse 108 H 05/12/18 11:08 Resp 16 05/12/18 11:08 BP 136/87 05/12/18 06:55 Pulse Ox 93 05/12/18 11:08 Physical Exam: Vital signs are stable, S1-S2, A. fib, bilateral diffuse wheezing, upper airway louder wheezing was audible, abdomen is benign, no edema , arthritic changes in the periphery. No rash. Neurologically she is competent and intact. Results & Data Laboratory Results Labs has been reviewed which showed stable CBC, INR is 2.1, BUN and creatinine 36 and 1.87. This is increasing from her admission creatinine which was normal. Diagnostic Findings CAT scan of the chest was reviewed which showed bronchiectatic changes, pulmonary hypertension, pulmonary vascular congestion, loculated old pleural effusion on the right, mucoid impaction. Tracheal bronchomalacia.
[2018-05-12] MEDS: methylPREDNISolone 40 MG in SYRINGE 0 ML IV SCH ×3 (11:59→22:10)
[2018-05-12] MEDS: ALPRAZolam 0.25 MG TABLET PO SCH ×2 (12:00→22:10)
--- NOTE | 2018-05-12 12:01 | CT Scan Report ---
CT chest wo con CT DOSE: 752.04 mGy.cm CLINICAL HISTORY: 82 years-old Female with high resolution for ILD. Chronic shortness of breath with reported interstitial lung disease and chronic cough TECHNIQUE: Multiaxial CT images of the chest were performed without contrast. A dose lowering techni que was utilized adhering to the principles of ALARA. COMPARISON: Chest radiographs 05/10/2018 an chest radiographs 06/16/2016. FINDINGS: Heterogeneous appearance of the thyroid. Mild multichamber cardiac enlargement with minimal coronary arterial calcifications. Mild calcification of the thoracic aorta. No aneurysm. Dilation of the main pulmonary artery, measuring 3.5 cm transversely. There are several prominent air tracheal lymph nodes measuring up to 1.7 x 0.8 cm, likely physiologic. Trace right pleural effusion. No pneumothorax. Bilateral bronchial wall thickening with multifocal mu cus plugging. Decreased AP dimension about the distal thoracic trachea may reflect underlying tracheo malacia. Calcifications of the tracheobronchial tree are noted. Areas of mild bibasilar traction bron chiectasis are noted in addition to subpleural reticulation which is most pronounced within the mid a nd lower lung zones. 5 mm solid nodule of the left lower lobe, image 146 series 4. Multifocal scatter ed tree-in-bud nodules with ill-defined centrilobular groundglass opacities are noted throughout the right lung there are a few scattered calcified granulomata noted. Scattered calcified granulomata. Mi ld mosaic attenuation about the lung bases suggest air-trapping. No significant honeycombing. With ad ditional scattered solid nodules throughout the left lung are seen measuring up to 3 mm. No acute process of the imaged upper abdomen. Soft tissues appear to be within normal limits. The min eralized appearance of the bones with degenerative changes of the shoulders and spine. Healed remote bilateral rib fractures. Burst fracture of the T6 vertebral body with moderate paravertebral edema valentine ggests acute etiology. 5 mm retropulsion about the superior aspect of the posterior endplate results in mild central canal and moderate bilateral foraminal narrowing at C6-C7 level. This finding is new from comparison radiographs. T4 and T5 compression deformities a technically age-indeterminate howeve r appear similar to comparison radiographs. IMPRESSION: 1. Multifocal tree-in-bud nodules with ill-defined centrilobular groundglass opacities are noted pred ominantly throughout the right lung suggestive of bronchiolitis with nonspecific infectious or inflam matory pneumonitis. Correlate clinically to exclude aspiration pneumonitis. 2. Trace right pleural effusion. 3. Moderate tracheobronchial secretions with suggested tracheomalacia. 4. Mid and lower lung zone subpleural reticulation with mild bibasilar traction bronchiectasis sugges ts NSIP pattern of interstitial lung disease. No associated honeycombing. 5. Mild air trapping of the bilateral lung bases. 6. Cardiomegaly. 7. Acute appearing burst fracture of the T6 vertebral body with 5 mm retropulsion results in mild janny tral canal and moderate bilateral foraminal narrowing. Electronically signed by: Ben Dyer M.D. 05/12/2018 12:01 PM
--- NOTE | 2018-05-12 13:31 | Hospitalist Progress Note ---
Date of Service May 12, 2018 Assessment & Plan (1) COPD exacerbation: Prior PFTs in note indicate FEV 0.5L, 29% predicted; severe obstructive defect. Not 100% a COPD exacerbation given she only has increased shortness of breath and cough, but no increased sputum production; however, given the severe nature, will treat. - Azithryomycin - Steroids - DuoNebs standing & PRN - Continue home Breo (Advair in our formulary) - Procalcitonin was negative on 05/10, so will not adjust abx at this time - O2 PRN - Noctural positive pressure for tracheomalacia (2) Acute on chronic diastolic heart failure: EF on echo on 05/11 showed EF 55-60% with moderate LVH and Grade 1 diastolic dysfunction. No baseline Lasix needed, though has had prior exacerbations. No known exacerbator for this episode. - Lasix 40mg IV given in ED - Monitor I&Os; weights - Tele - Low salt, fluid restricted diet - Monitor electrolytes & Cr - On 05/12, appears to be euvolemic after the single ED dose - Hold any further Lasix given YULIANA (3) Hypoxia: No home O2. Likely due to above. - Monitor O2 - Wean as able (4) CKD (chronic kidney disease) stage 2, GFR 60-89 ml/min: Baseline Cr. ~1.0 with eGRR ~60. At baseline on admission. Now with YULIANA as Cr up to 1.9 on 05/12. Only received the 1 dose of IV Lasix in the ED. - Gentle IV bolus - Monitor Cr - Avoid nephrotoxic medications (5) A-fib: With RVR. Normally her rates are 80-100 bpm per patient. Currently 100- 130. - Short-acting PO dilt, titrated to effect - Diltiazem IV pushes PRN - Continued home beta-scot; increased to 50mg daily on 05/12 - Continued warfarin; INR was 3.4 on admission without signs of bleeding (6) HTN (hypertension): BP was 150/110 in the ED. She reports it is usually normal at home. - Monitor while on diltiazem and beta-scot - Improved as of 05/11 (7) Thrombocytopenia: Platelets were 74 on admission. Priors in my chart from 2016 were low- normal at ~120-140. Diff on admission did not show any morphologic issues. Likely due to acute illness. Low likelihood of destructive process with normal hemoglobin, no fevers, and no signs of clots/bleeding. - Monitor platelets - If they don't return to normal by discharge, consider hematology consult or outpatient follow up (8) DVT prophylaxis: On warfarin for afib Subjective 82yo F w/ hx of COPD and CHF who presents with shortness of breath. Still not feeling dramatically better. Still with stable shortness of breath. Reports no fevers/chills, chest pain, abdominal pain, nausea, or vomiting. Physical Exam 2 Vital Signs (Past 24 Hours): Last Vital Signs Temp 37 C 05/12/18 12:00 Pulse 118 H 05/12/18 12:00 Resp 22 05/12/18 12:00 BP 118/85 05/12/18 12:00 Pulse Ox 94 05/12/18 12:00 Constitutional: WD/WN, vitals as above Eyes: EOM intact bilaterally; no conjunctival abnormality ENMT: external ear and nose normal, oropharynx normal Neck: trachea midline, no thyromegaly normal visual inspection Respiratory: + labored breathing, + cough and + tachypneic; no respiratory distress and no retractions Auscultation: + crackles, + rales and + wheezes Cardiovascular: Rate/Rhythm: + tachycardic; + abnormal rhythm Heart Sounds : normal S1 and normal S2 Vessels: no JVD Extremities: no edema Gastrointestinal (Abdomen): Inspection/Auscultation: abdomen normal to inspection; abdomen not distended Musculoskeletal: no cyanosis or clubbing, extremities motor strength 5/5 Skin: no rashes, warm and dry Neurologic: moves all extremities and awake Psychiatric: Orientation: alert, oriented to person and cooperative _ (1) A-fib Atrial fibrillation type: permanent Qualified Code(s): I48.2 - Chronic atrial fibrillation (2) HTN (hypertension) Hypertension type: essential hypertension Qualified Code(s): I10 - Essential (primary) hypertension
[2018-05-12 15:41] LABS: Creatinine Clr Calc Pharmacy 21.8 ml/min; Est GFR (African American) 24.7; Est GFR (Non-African American) 21.3
[2018-05-12] MEDS ORDERED: WARFARIN SOD 2.5 MG TAB PO SCH (16:00)
[2018-05-12] MEDS: SERTRALINE HCL 50 MG TABLET PO SCH (20:07)
[2018-05-13] MEDS: dilTIAZem HCl 60 MG TAB PO SCH ×4 (02:04→20:13)
[2018-05-13 06:25] LABS: INR 1.6 (0.9-1.1); Prothrombin Time 15.6 Seconds (9.0-12.0)
[2018-05-13] MEDS: methylPREDNISolone 40 MG in SYRINGE 0 ML IV SCH ×4 (06:26→22:21)
[2018-05-13 06:31] LABS: Hematocrit (blood only) 41.3 % (37-47); Hemoglobin 13.1 g/dL (12.0-16.0); Mean Corpuscular Hgb Conc 31.7 g/dL (32-36); Mean Corpuscular Volume 91.2 fL (80-100); Mean Platelet Volume 13.3 fL (7.4-10.4); Platelet Count 82 K/uL (130-400); RDW Coefficient of Variation 15.2 % (11.5-14.5); RDW Standard Deviation 50.9 fL (36.4-46.3); Red Blood Count 4.53 M/uL (4.2-5.4); White Blood Count 4.48 K/uL (4.8-10.8)
[2018-05-13 06:39] LABS: BUN Creatinine Ratio 24.5 (10-20); Calcium 7.9 mg/dl (8.5-10.1); Creatinine Clr Calc Pharmacy 26.9 ml/min; Est GFR (African American) 30.9; Est GFR (Non-African American) 26.7; Magnesium 2.1 mg/dl (1.8-2.4); Potassium 3.8 mmol/L (3.5-5.1)
[2018-05-13] MEDS: ALBUT/IPRATROP 3MG/0.5MG NEB 3 ML VIAL NEB SCH ×2 (06:56→11:13)
[2018-05-13] MEDS: PRAVASTATIN SOD 40 MG TAB PO SCH (07:29)
[2018-05-13] MEDS: PANTOprazole 40 MG TAB PO SCH (07:29)
[2018-05-13] MEDS: FLUTICASONE/SALMETEROL 100/50 (ADVAIR) 14 PUFF/1 INHALER INH SCH ×2 (07:29→20:13)
[2018-05-13] MEDS: METOPROLOL SUCC 50MG EXT REL TAB PO SCH (07:29)
[2018-05-13] MEDS: ALPRAZolam 0.25 MG TABLET PO SCH ×2 (10:43→22:21)
--- NOTE | 2018-05-13 15:03 | Hospitalist Progress Note ---
Date of Service May 13, 2018 Assessment & Plan (1) COPD exacerbation: Prior PFTs in note indicate FEV 0.5L, 29% predicted; severe obstructive defect. Not 100% a COPD exacerbation given she only has increased shortness of breath and cough, but no increased sputum production; however, given the severe nature, will treat. - Azithryomycin - Steroids - Continue Advair (On home Breo, but Advair in our formulary) - Xopenex PRN - Procalcitonin was negative on 05/10, so will not adjust abx at this time - Noctural positive pressure for tracheomalacia recommended by pulm and declined by patient. - O2 PRN - On 05/13, still needed O2 to stay above 89% with ambulation. Will likely need home O2 on discharge. - Dr. Veliz thinks she can go to oral steroid taper on 05/14 and possibly discharge. (2) Acute on chronic diastolic heart failure: EF on echo on 05/11 showed EF 55-60% with moderate LVH and Grade 1 diastolic dysfunction. No baseline Lasix needed, though has had prior exacerbations. - Lasix 40mg IV given in ED on 05/10 - On 05/12, appeared to be euvolemic after the single ED dose of Lasix - Hold any further Lasix given YULIANA - On 05/13, feeling much better. Honestly, don't feel there was much component of CHF to her shortness of breath. Mostly COPD as above. (3) Hypoxia: No home O2. Likely due to above. - Monitor O2 - Wean as able (4) CKD (chronic kidney disease) stage 2, GFR 60-89 ml/min: Baseline Cr. ~1.0 with eGRR ~60. At baseline on admission. With YULIANA as Cr up to 1.9 on 05/12. Only received the 1 dose of IV Lasix in the ED. - Gentle IV bolus on 05/12 - Cr improved as of 05/13. Holding any further IV Lasix. (5) A-fib: With RVR. Normally her rates are 80-100 bpm per patient. Currently 100- 130. - Short-acting PO dilt, titrated to effect - Diltiazem IV pushes PRN - Continued home beta-scot; increased to 50mg daily on 05/12 - Switched DuoNeb to Xopenex on 05/13 as her HR was still tough to control on the DuoNebs - Consider cards consult if still not able to control HR on Xopenex only - Continued warfarin; INR was 3.4 on admission without signs of bleeding -> INR downtrending; will increase warfarin to 5mg daily until back to therapeutic. Should discharge on home dosing with close [facility] follow up. (6) HTN (hypertension): BP was 150/110 in the ED. She reports it is usually normal at home. - Monitor while on diltiazem and beta-scot - Improved as of 05/11 (7) Thrombocytopenia: Platelets were 74 on admission. Priors in my chart from 2016 were low- normal at ~120-140. Diff on admission did not show any morphologic issues. Likely due to acute illness. Low likelihood of destructive process with normal hemoglobin, no fevers, and no signs of clots/bleeding. - Monitor platelets - If they don't return to normal by discharge, consider hematology consult or outpatient follow up (8) DVT prophylaxis: On warfarin for afib Dispo: Would like to go home tomorrow (05/14). Will need to control HR and probably need to arrange home O2. Subjective 82yo F w/ hx of COPD and CHF who presents with shortness of breath. Feeling significantly better today. Would really like to go home. Reports no fevers/chills, chest pain, abdominal pain, nausea, or vomiting. Physical Exam 2 Vital Signs (Past 24 Hours): Last Vital Signs Temp 37.1 C 05/13/18 11:36 Pulse 113 H 05/13/18 11:36 Resp 33 H 05/13/18 11:36 BP 132/83 05/13/18 11:36 Pulse Ox 89 L 05/13/18 11:36 Constitutional: WD/WN, vitals as above Eyes: EOM intact bilaterally; no conjunctival abnormality ENMT: external ear and nose normal, oropharynx normal Neck: trachea midline, no thyromegaly normal visual inspection Respiratory: + labored breathing, + cough and + tachypneic; no respiratory distress and no retractions Auscultation: + crackles, + rales and + wheezes Cardiovascular: Rate/Rhythm: + tachycardic; + abnormal rhythm Heart Sounds : normal S1 and normal S2 Vessels: no JVD Extremities: no edema Gastrointestinal (Abdomen): Inspection/Auscultation: abdomen normal to inspection; abdomen not distended Musculoskeletal: no cyanosis or clubbing, extremities motor strength 5/5 Skin: no rashes, warm and dry Neurologic: moves all extremities and awake Psychiatric: Orientation: alert, oriented to person and cooperative _ (1) A-fib Atrial fibrillation type: permanent Qualified Code(s): I48.2 - Chronic atrial fibrillation (2) HTN (hypertension) Hypertension type: essential hypertension Qualified Code(s): I10 - Essential (primary) hypertension
[2018-05-13] MEDS ORDERED: LEVALBUTEROL 0.31MG/3 ML VIAL NEB PRN (15:13)
[2018-05-13] MEDS ORDERED: WARFARIN SOD 7.5 MG TAB PO ONE (16:00)
--- NOTE | 2018-05-13 16:56 | Pulmonology Progress Note ---
Date of Service May 13, 2018 Assessment & Plan (1) CHF (congestive heart failure): Impression: 1. Chronic persistent asthma. 2. Congestive heart failure, pulmonary vascular congestion noted on the CAT scan. 3. Mucoid impaction. 4. Tracheal bronchomalacia. 5. 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 6. History of A. fib. 7. Multiple pulmonary nodules, of unknown etiology. too small to evaluate. 8. AK I. Plan: 1. Continue Solu-Medrol 40 mg IV every 6 hours for another 24 hours. 2. Treatment of CHF and A. fib as you are doing. 3. Xanax 0.25 mg p.o. twice daily seems to help her. It can be stopped after 5 days. 4. Given her tracheomalacia, she would benefit from positive pressure ventilation nocturnally, evaluation as an outpatient. 5. Two-step trending pulse oximetry. 6. Continue bronchodilators. 7. Anticipate discharge soon. Thank you, will follow. Heart failure chronicity: unspecified Heart failure type: unspecified Qualified Code(s): I50.9 - Heart failure, unspecified Subjective Feeling better today, she had the best night sleep according to her, denies any pain, cough without sputum production, still having wheezing with movement. Physical Exam 2 Vital Signs (Past 24 Hours): Last Vital Signs Temp 36.7 C 05/13/18 15:02 Pulse 108 H 05/13/18 15:02 Resp 24 05/13/18 15:02 BP 116/67 05/13/18 15:02 Pulse Ox 90 05/13/18 15:02 Physical Exam: Vital signs are stable, S1-S2 A. fib, lungs with scattered wheezing, abdomen is benign, no edema. Results & Data Laboratory Results Labs were reviewed which showed leukopenia, INR 4.6, BUN and creatinine 43 and 1.7.
[2018-05-13] MEDS: SERTRALINE HCL 50 MG TABLET PO SCH (20:13)
[2018-05-14] MEDS: dilTIAZem HCl 60 MG TAB PO SCH ×4 (02:03→19:36)
[2018-05-14] MEDS: methylPREDNISolone 40 MG in SYRINGE 0 ML IV SCH ×4 (05:40→22:09)
[2018-05-14 08:01] LABS: Hematocrit (blood only) 44.9 % (37-47); Hemoglobin 14.2 g/dL (12.0-16.0); Mean Corpuscular Hgb Conc 31.6 g/dL (32-36); Mean Platelet Volume 12.9 fL (7.4-10.4); Platelet Count 102 K/uL (130-400); RDW Coefficient of Variation 15.2 % (11.5-14.5); RDW Standard Deviation 49.8 fL (36.4-46.3); Red Blood Count 4.99 M/uL (4.2-5.4); White Blood Count 6.76 K/uL (4.8-10.8)
[2018-05-14 08:08] LABS: INR 2.2 (0.9-1.1); Prothrombin Time 20.9 Seconds (9.0-12.0)
[2018-05-14] MEDS: PANTOprazole 40 MG TAB PO SCH (08:12)
[2018-05-14] MEDS: FLUTICASONE/SALMETEROL 100/50 (ADVAIR) 14 PUFF/1 INHALER INH SCH ×2 (08:12→19:37)
[2018-05-14] MEDS: PRAVASTATIN SOD 40 MG TAB PO SCH (08:12)
[2018-05-14] MEDS: METOPROLOL SUCC 50MG EXT REL TAB PO SCH (08:13)
[2018-05-14 08:39] LABS: BUN Creatinine Ratio 25.2 (10-20); Calcium 8.5 mg/dl (8.5-10.1); Creatinine Clr Calc Pharmacy 21.5 ml/min; Est GFR (African American) 22.9; Est GFR (Non-African American) 19.7; Potassium 3.7 mmol/L (3.5-5.1)
[2018-05-14 08:46] LABS: Calcium 8.4 mg/dl (8.5-10.1); Creatinine Clr Calc Pharmacy 21.7 ml/min; Est GFR (African American) 23.1; Est GFR (Non-African American) 19.9; Potassium 3.6 mmol/L (3.5-5.1)
[2018-05-14] MEDS: ALPRAZolam 0.25 MG TABLET PO SCH ×2 (11:20→22:09)
--- NOTE | 2018-05-14 11:51 | Progress Note ---
DATE: 05/14/2018 TIME: 11:20 a.m. SUBJECTIVE: The patient states that she is feeling better. She indicates she is less short of breath. She states she has very little cough. She does not bring up any phlegm. She denies chest pains. The patient reportedly was able to ambulate to the restroom without too much difficulty, even though she has had a lot of wheezing. She admits to having numerous falls over the course of several years. Complicating this is she has been on long-term warfarin therapy. The patient has had breathing troubles for somewhere between 6 and 10 years. She pretty much uses just p.r.n. medicines at home. She states she usually does not wheeze like she is currently. OBJECTIVE: GENERAL: The patient was in a recliner chair. She was comfortable at rest. VITAL SIGNS: Temperature is 36.5. She has had no fevers during this hospital stay. NECK: The patient has a very large neck. She has a dorsal kyphosis. HEART: Heart rate is 98 per minute. The rhythm is irregular and reflects atrial fibrillation. Blood pressure 122/85. Respiratory rate is 20 breaths per minute. LUNGS: Diffuse wheezes are heard bilaterally, both anteriorly and posteriorly. She sounds very tight. Saturation is 94% on 2 liters. EXTREMITIES: Showed no cyanosis, clubbing or edema. LABORATORY DATA: White count is 6.76. Hemoglobin 14.2. Platelets 102,000. INR is 2.2. Electrolytes show sodium 136, potassium 3.6, chloride 97, bicarbonate 30. BUN 58, creatinine 2.25. It is notable that the creatinine was 1.23 on admission. BUN on admission was 17. Blood sugar this morning was up to 182. ProBNP was severely elevated at 4263. CAT scan of the chest was reviewed. It does show what appears to be mucus plugging. It does suggest tracheomalacia. There is a small nodule in the left lower lobe measuring 5 mm. Bronchiolitis was suggested. Interstitial lung disease was also suggested. Echocardiogram was done soon after admission. This showed ejection fraction of 55-60%. There was normal RV size and function. The study was borderline for pulmonary hypertension with estimated pulmonary artery systolic pressure of 35-40. Diastolic dysfunction was reported. There is severe left atrial enlargement. IMPRESSION: 1. Asthma with exacerbation. 2. Diastolic congestive heart failure. 3. Bronchiolitis. 4. Interstitial lung disease. 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 COMMENTS: The patient did have a sleep study done back on 08/27/2014. Unfortunately, she had no sleep at all and no information was obtained. Pulmonary function testing last done 12/24/2015 showed a forced vital capacity of 44% with an FEV1 of 40% and the FEV1/FVC ratio was mildly reduced to 68%. This reflects a combined pattern of obstruction and restriction. The patient remains very tight. She has neb treatments ordered, but only p.r.n. I believe she should be on levalbuterol and ipratropium every 6 hours. This was discussed with Dr. Mcdonnell. Her renal function is markedly abnormal. She is not on diuretic therapy. She may need a renal evaluation or at least some mild hydration 1st as a trial. Would continue the methylprednisolone in light of the severe wheezing, but would consider decreasing perhaps to every 8 or 12 hours. This may improve the blood sugars and might also improve the renal dysfunction. The patient is anxious for discharge today, but she clearly is not ready for that.
[2018-05-14] MEDS ORDERED: SODIUM CHLORIDE 0.9% 1000ML 1,000 ML IV ONE (12:10)
[2018-05-14] MEDS ORDERED: SODIUM CHLORIDE 0.9% 1000ML 1,000 ML IV SCH (12:15)
[2018-05-14] MEDS ORDERED: PHARMACY GLYCEMIC MGMT CONSULT PRN (13:38)
[2018-05-14] MEDS: IPRATROPIUM BROMIDE NEB SOLN 0.02% 2.5 ML VIAL INH SCH ×2 (13:51→18:48)
[2018-05-14] MEDS: LEVALBUTEROL HCL 0.63 MG/3 ML NEB NEB SCH ×2 (13:51→18:48)
[2018-05-14] MEDS ORDERED: DEXTROSE 50% 50 ML SYRINGE IV PRN (13:52)
[2018-05-14] MEDS ORDERED: CARBOHYDRATES FOR HYPOGLYCEMIA PO PRN (13:52)
[2018-05-14] MEDS ORDERED: GLUCOSE 10 TABS/TUBE PO PRN (13:52)
[2018-05-14] MEDS ORDERED: GLUCOSE 40% GEL 15 GM TUBE PO PRN (13:52)
[2018-05-14] MEDS ORDERED: GLUCAGON FOR INJ 1 MG VIAL SQ PRN (13:52)
[2018-05-14] MEDS ORDERED: XOPENEX/ATROVENT 0.63mg/0.5MG NEB COMBO NEB SCH (14:00)
--- NOTE | 2018-05-14 14:04 | Pharmacy Report ---
Glycemic Control Consultation - Date of Service May 14, 2018 - Scope Scope: Glycemic Pharmacist consulted by Dr Mcdonnell on 05/14/17 for glycemic control and to write orders per [facility] inpatient glycemic control protocol - Objective Weight: 104.1 kg Accuchecks BSG (last 24hrs): 05/14/18 05/14/18 07:20 07:54 Glucose 155 H 182 H Laboratory Data (last 24hrs): 05/14/18 05/14/18 07:20 07:54 Potassium 3.7 3.6 Carbon Dioxide 28 30 Anion Gap 11.0 9.0 Creatinine 2.27 H D 2.25 H Est Cr Clr Drug Dosing 21.5 21.7 - Recent Pertinent Medications Outpatient Anti-diabetic Regimen: * N/A * A1c = PENDING Risk Factors for Insulin Resistance: * Steroids: solumedrol IV 40 mg q6H/ possible taper? * Diet: Heart Healthy - Assessment & Plan Assessment & Plan: ASSESSMENT: * 82 yo female admitted on solumedrol 40 mg q6H for COPD exacerbation * Fasting BSGs have been trending up and were 182 this AM. No other BSGs obtained * Possible taper of steroids soon and limited knowledge of BSGs/outpatient control, not known to be diabetic , therefore do not want to be aggressive initially * Will start with scale lantus up to weight based stress dose of 1 and add correction factor for now. If post-prandial BSGs elevated start carb ratio of 1 g unit per 10 grams of CHO consumed PLAN FOR INPATIENT GLYCEMIC CONTROL: * Basal insulin * Lantus * Hold if BSG <140 * If BSG 140-180: 5 units * If BSG >180: 10 units * Bolus insulin * NovoLog per scale ACHS or Q6hrs while NPO * Goal Range: Low 110 mg/dL - High 160 mg/dL * Correction Factor: 25 mg/dL/unit * Nutritional / Prandial insulin per carb ratio of 1 unit per 10 grams CHO consumed if post-prandial BSGs elevated * Please note that the plan above was derived based on current level of insulin resistance and hospital stress. These recommendations are appropriate for inpatient admission only. Plan of care upon discharge will need to be reassessed to avoid potential outpatient hypo/hyperglycemia. Thank you.
[2018-05-14] MEDS: INSULIN GLARGINE 100 UNIT/ML VIAL SC SCH ×2 (14:41→21:04)
--- NOTE | 2018-05-14 15:09 | Hospitalist Progress Note ---
Date of Service May 14, 2018 Assessment & Plan (1) COPD exacerbation: (2) Acute on chronic diastolic heart failure: (3) Hypoxia: (4) CKD (chronic kidney disease) stage 2, GFR 60-89 ml/min: (5) A-fib: (6) HTN (hypertension): (7) Thrombocytopenia: (8) DVT prophylaxis: 82yo F w/ hx of afib, CHF, and asthma admitted on May 10, 2018 because of COPD exacerbation associated with shortness of breath over the last 3 weeks. Was thought to have acute on chronic diastolic heart failure upon admission however currently patient looks dry and worsening kidney function EF on echo in 2016 showed EF 70% with moderate LVH and Grade 1 diastolic dysfunction. No baseline Lasix needed, though has had prior exacerbations. No known exacerbator for this episode. Lasix 40mg IV given in ED, Monitor I&Os; weights, recommend fluid intake and will give gentle IV fluid because of worsening kidney function and she looks dry COPD exacerbation: I believe this is the major since upon this admission, patient still has diffused wheezing, Prior PFTs in note indicate FEV 0.5L, 29% predicted; severe obstructive defect. Make sure Xopenex and Atrovent scheduled every 6 hours . continue steroid for now Continue Azithryomycin, Prednisone, Hypoxia: Likely secondary to COPD exacerbation, see above A-fib With RVR. Normally her rates are 80-100 bpm per patient. Currently 110- 130., cont Short-acting PO dilt, titrated to effect Diltiazem IV pushes PRN, Continue home beta-scot; could increase as well if needed, Continue warfarin; INR was 3.4 on admission without signs of bleeding HTN accelerated upon admission is better, Possible acute on chronic kidney failure, with elevated BUN/creatinine, which she has been continue getting higher, will encourage oral intake, give gentle IV fluid, follow-up renal function Thrombocytopenia: Stable will continue follow-up, DVT prophylaxis: On warfarin for afib Discussed with the patient, answered all questions, Subjective Sitting up in a chair, Conversational, however has diffuse wheezing, occasional cough, denies any back pain, denies any recent fall Denied fevers/chills, chest pain, abdominal pain, nausea, or vomiting. Review of Systems Constitutional: Positive weakness, or fatigue Respiratory: See HPI, Cardiac: No chest pain, No orthopnea, No PND, No claudication, No palpitations , Abdomen: No pain, No nausea, No vomiting, No diarrhea, Musculoskeletal: No joint pain, No muscle pain, No swelling, : No dysuria, No urinary frequency, No incontinence, No hematuria Neurologic: No paralysis, No weakness, No numbness/tingling, Heme: No abnormal bleeding/bruising, No clotting problems, No swollen lymph nodes, No night sweats Skin: No rash, No itch, No new/changing skin lesions, No color change, No bleeding Respiratory: + cough and + dyspnea; no chest congestion Physical Exam 2 Vital Signs (Past 24 Hours): Last Vital Signs Temp 36.5 C 05/14/18 12:11 Pulse 92 H 05/14/18 13:51 Resp 18 05/14/18 13:51 BP 135/68 05/14/18 12:11 Pulse Ox 95 05/14/18 13:51 Physical Exam: General Appearance: WD/WN, no apparent distress, pleasant conversational, Eyes: normal inspection, PERRL, EOMI, sclerae normal ENT: normal ENT inspection, hearing grossly normal, pharynx normal Neck: Obvious kyphosis, supple, no adenopathy, thyroid normal, no JVD, Respiratory/Chest: chest non-tender, decreased breath sounds, diffused wheezing , no crackle Cardiovascular: regular rate, rhythm, no JVD, no murmur Abdomen: normal bowel sounds, non tender, soft, no organomegaly, Extremities: normal range of motion, non-tender, normal inspection, no pedal edema, no calf tenderness, normal capillary refill , pelvis stable, Neurologic/Psychiatric: flake drier II-XII nml as tested, no motor/sensory deficits, alert, normal mood/affect, oriented x 3 Skin: normal color, warm/dry, no rash Lymphatic: no adenopathy Results & Data Laboratory Results Laboratory Results - last 24 hr 05/14/18 05/14/18 05/14/18 07:20 07:20 07:20 WBC 6.76 RBC 4.99 Hgb 14.2 Hct 44.9 MCV 90.0 MCH 28.5 MCHC 31.6 L RDW Std Deviation 49.8 H RDW Coeff of Kathleen 15.2 H Plt Count 102 L MPV 12.9 H PT 20.9 H INR 2.2 H Sodium 137 Potassium 3.7 Chloride 99 Carbon Dioxide 28 Anion Gap 11.0 BUN 57 H Creatinine 2.27 H D Est Cr Clr Drug Dosing 21.5 Est GFR ( Amer) 22.9 Est GFR (Non-Af Amer) 19.7 BUN/Creatinine Ratio 25.2 H Glucose 155 H POC Glucose Calcium 8.5 NT-Pro-B Natriuret Pep 4210 H 05/14/18 05/14/18 07:54 14:14 WBC RBC Hgb Hct MCV MCH MCHC RDW Std Deviation RDW Coeff of Kathleen Plt Count MPV PT INR Sodium 136 Potassium 3.6 Chloride 97 L Carbon Dioxide 30 Anion Gap 9.0 BUN 58 H Creatinine 2.25 H Est Cr Clr Drug Dosing 21.7 Est GFR ( Amer) 23.1 Est GFR (Non-Af Amer) 19.9 BUN/Creatinine Ratio 26.0 H Glucose 182 H POC Glucose 172 H Calcium 8.4 L NT-Pro-B Natriuret Pep 4263 H _ (1) A-fib Atrial fibrillation type: permanent Qualified Code(s): I48.2 - Chronic atrial fibrillation (2) HTN (hypertension) Hypertension type: essential hypertension Qualified Code(s): I10 - Essential (primary) hypertension
[2018-05-14] MEDS ORDERED: WARFARIN SOD 5 MG TAB PO SCH (16:00)
[2018-05-14] MEDS: INSULIN ASPART 100 UNITS/ML 3 ML PEN SC SCH ×2 (17:16→21:04)
[2018-05-14] MEDS: SERTRALINE HCL 50 MG TABLET PO SCH (19:37)
[2018-05-14] MEDS ORDERED: COUGH DROP (SUGAR FREE) LOZ 24 LOZ/1 BOX BUCCAL STA (22:07)
[2018-05-14] MEDS ORDERED: COUGH DROP (SUGAR FREE) LOZ 24 LOZ/1 BOX BUCCAL ONE (22:08)
[2018-05-15] MEDS: LEVALBUTEROL HCL 0.63 MG/3 ML NEB NEB SCH ×4 (01:53→19:13)
[2018-05-15] MEDS: IPRATROPIUM BROMIDE NEB SOLN 0.02% 2.5 ML VIAL INH SCH ×4 (01:53→19:12)
[2018-05-15] MEDS: dilTIAZem HCl 60 MG TAB PO SCH ×4 (01:59→20:36)
[2018-05-15] MEDS: methylPREDNISolone 40 MG in SYRINGE 0 ML IV SCH ×3 (06:00→23:34)
[2018-05-15 06:34] LABS: INR 3.2 (0.9-1.1); Prothrombin Time 30.6 Seconds (9.0-12.0)
[2018-05-15 06:59] LABS: BUN Creatinine Ratio 31.9 (10-20); Creatinine Clr Calc Pharmacy 24.1 ml/min; Est GFR (African American) 27.1; Est GFR (Non-African American) 23.4; Magnesium 2.1 mg/dl (1.8-2.4)
[2018-05-15 07:01] LABS: Hematocrit (blood only) 42.7 % (37-47); Hemoglobin 13.5 g/dL (12.0-16.0); Mean Corpuscular Hgb Conc 31.6 g/dL (32-36); Mean Corpuscular Volume 90.5 fL (80-100); Mean Platelet Volume 12.7 fL (7.4-10.4); Platelet Count 101 K/uL (130-400); RDW Coefficient of Variation 14.9 % (11.5-14.5); RDW Standard Deviation 49.2 fL (36.4-46.3); Red Blood Count 4.72 M/uL (4.2-5.4); White Blood Count 6.06 K/uL (4.8-10.8)
[2018-05-15 07:02] LABS: Immature Granulocytes # (auto) 0.05 K/uL (0.00-0.02); Immature Granulocytes % (auto) 0.8 %; Lymphocytes # (auto) 0.22 K/uL (1.2-3.4); Lymphocytes % (auto) 3.6 %; Monocytes # (auto) 0.14 K/uL (0.11-0.59); Monocytes % (auto) 2.3 %; Neutrophils # (auto) 5.65 K/uL (1.4-6.5); Neutrophils % (auto) 93.3 %
[2018-05-15 07:04] LABS: Phosphorus 3.8 mg/dl (2.5-4.9)
[2018-05-15 08:09] LABS: Estimated Average Glucose 134 mg/dl
[2018-05-15] MEDS: METOPROLOL SUCC 50MG EXT REL TAB PO SCH (08:12)
[2018-05-15] MEDS: FLUTICASONE/SALMETEROL 100/50 (ADVAIR) 14 PUFF/1 INHALER INH SCH ×2 (08:13→20:37)
[2018-05-15] MEDS: PRAVASTATIN SOD 40 MG TAB PO SCH (08:13)
[2018-05-15] MEDS: PANTOprazole 40 MG TAB PO SCH (08:13)
[2018-05-15] MEDS: INSULIN ASPART 100 UNITS/ML 3 ML PEN SC SCH ×4 (08:14→20:38)
[2018-05-15] MEDS: ALPRAZolam 0.25 MG TABLET PO SCH ×2 (10:56→20:45)
--- NOTE | 2018-05-15 12:44 | Hospitalist Progress Note ---
Date of Service May 15, 2018 Assessment & Plan (1) COPD exacerbation: (2) Acute on chronic diastolic heart failure: (3) Hypoxia: (4) CKD (chronic kidney disease) stage 2, GFR 60-89 ml/min: (5) A-fib: (6) HTN (hypertension): (7) Thrombocytopenia: (8) DVT prophylaxis: 82yo F w/ hx of afib, CHF, and asthma admitted on May 10, 2018 because of COPD exacerbation associated with shortness of breath over the last 3 weeks. Has been continue stable and improving Was thought to have acute on chronic diastolic heart failure upon admission however currently patient looks dry and worsening kidney function EF on echo in 2016 showed EF 70% with moderate LVH and Grade 1 diastolic dysfunction. No baseline Lasix needed, though has had prior exacerbations. Lasix 40mg IV given in ED, Monitor I&Os; weights, Yesterday recommended fluid intake and will give gentle IV fluid because of worsening kidney function and she looks dry Renal function improving therefore will discontinue IV fluid, COPD exacerbation: I believe this is the major since upon this admission, patient still has diffused wheezing, Was having significant wheezing yesterday, improved today Prior PFTs in note indicate FEV 0.5L, 29% predicted; severe obstructive defect. Make sure Xopenex and Atrovent scheduled every 6 hours . continue steroid for now Continue Azithryomycin, Prednisone, Hypoxia: Likely secondary to COPD exacerbation, see above, now is 90% in room air, possible need to two-step evaluation prior to discharge to home A-fib With RVR. Normally her rates are 80-100 bpm per patient. Currently 110-130., cont Short-acting PO dilt, titrated to effect Diltiazem IV pushes PRN, Continue home beta-scot, Continue warfarin; INR today is 3.2, will continue monitoring HTN accelerated upon admission is better, Possible acute on chronic kidney failure, with elevated BUN/creatinine, which she has been continue getting higher, Kidney function improves after IV fluid and encourage fluid intake, will encourage oral intake, Dc'ed IV fluid, follow-up renal function Thrombocytopenia: Stable will continue follow-up, DVT prophylaxis: On warfarin for afib Discussed with the patient, answered all questions, PT OT feel okay to go home with home health care, Continue increase activity out of bed and walk, need assessment of oxygen need upon discharge, Transfer to [facility] today Subjective Generally feeling better, conversational, less wheezing, occasional cough, However reported dyspnea on exertions when up and walk associated with wheezing , denies any back pain, denies any recent fall Denied fevers/chills, chest pain, abdominal pain, nausea, or vomiting. Review of Systems Constitutional: Positive weakness, or fatigue Respiratory: See HPI, Cardiac: No chest pain, No orthopnea, No PND, No claudication, No palpitations , Abdomen: No pain, No nausea, No vomiting, No diarrhea, Musculoskeletal: No joint pain, No muscle pain, No swelling, : No dysuria, No urinary frequency, No incontinence, No hematuria Neurologic: No paralysis, No weakness, No numbness/tingling, Heme: No abnormal bleeding/bruising, No clotting problems, No swollen lymph nodes, No night sweats Skin: No rash, No itch, No new/changing skin lesions, No color change, No bleeding Respiratory: + cough and + dyspnea; no chest congestion Physical Exam 2 Vital Signs (Past 24 Hours): Last Vital Signs Temp 36.7 C 05/15/18 11:29 Pulse 98 H 05/15/18 11:29 Resp 22 05/15/18 11:29 BP 134/84 05/15/18 11: Pulse Ox 90 05/15/18 11:29 Physical Exam: General Appearance: WD/WN, no apparent distress, pleasant conversational, Eyes: normal inspection, PERRL, EOMI, sclerae normal ENT: normal ENT inspection, hearing grossly normal, pharynx normal Neck: Obvious kyphosis, supple, no adenopathy, thyroid normal, no JVD, Respiratory/Chest: chest non-tender, decreased breath sounds, occasional wheezing, no crackle Cardiovascular: regular rate, rhythm, no JVD, no murmur Abdomen: normal bowel sounds, non tender, soft, no organomegaly, Extremities: normal range of motion, non-tender, normal inspection, Trace edema, no calf tenderness, normal capillary refill, pelvis stable, 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, no motor/sensory deficits, alert, normal mood/affect, oriented x 3 Skin: normal color, warm/dry, no rash Lymphatic: no adenopathy Results & Data Laboratory Results Laboratory Results - last 24 hr 05/14/18 05/14/18 05/14/18 14:14 16:16 21:02 WBC RBC Hgb Hct MCV MCH MCHC RDW Std Deviation RDW Coeff of Kathleen Plt Count MPV Immature Gran % (Auto) Neut % (Auto) Lymph % (Auto) [place] % (Auto) Eos % (Auto) Baso % (Auto) Immature Gran # (Auto) Neut # (Auto) Lymph # (Auto) [place] # (Auto) Eos # (Auto) Baso # (Auto) Platelet Estimate PT INR Sodium Potassium Chloride Carbon Dioxide Anion Gap BUN Creatinine Est Cr Clr Drug Dosing Est GFR ( Amer) Est GFR (Non-Af Amer) BUN/Creatinine Ratio Glucose POC Glucose 172 H 176 H 224 H Estimat Average Glucose Hemoglobin A1c Calcium Phosphorus Magnesium NT-Pro-B Natriuret Pep 05/15/18 05/15/18 05/15/18 05:54 05:54 05:54 WBC 6.06 RBC 4.72 Hgb 13.5 Hct 42.7 MCV 90.5 MCH 28.6 MCHC 31.6 L RDW Std Deviation 49.2 H RDW Coeff of Kathleen 14.9 H Plt Count 101 L MPV 12.7 H Immature Gran % (Auto) 0.8 Neut % (Auto) 93.3 Lymph % (Auto) 3.6 [place] % (Auto) 2.3 Eos % (Auto) 0.0 Baso % (Auto) 0.0 Immature Gran # (Auto) 0.05 H Neut # (Auto) 5.65 Lymph # (Auto) 0.22 L [place] # (Auto) 0.14 Eos # (Auto) 0.00 Baso # (Auto) 0.00 Platelet Estimate Decreased PT 30.6 H INR 3.2 H Sodium 137 Potassium 4.0 Chloride 101 Carbon Dioxide 29 Anion Gap 7.0 BUN 63 H Creatinine 1.97 H Est Cr Clr Drug Dosing 24.1 Est GFR ( Amer) 27.1 Est GFR (Non-Af Amer) 23.4 BUN/Creatinine Ratio 31.9 H Glucose 173 H POC Glucose Estimat Average Glucose Hemoglobin A1c Calcium 8.0 L Phosphorus 3.8 Magnesium 2.1 NT-Pro-B Natriuret Pep 4233 H 05/15/18 05/15/18 05/15/18 05:54 07:32 11:09 WBC RBC Hgb Hct MCV MCH MCHC RDW Std Deviation RDW Coeff of Kathleen Plt Count MPV Immature Gran % (Auto) Neut % (Auto) Lymph % (Auto) [place] % (Auto) Eos % (Auto) Baso % (Auto) Immature Gran # (Auto) Neut # (Auto) Lymph # (Auto) [place] # (Auto) Eos # (Auto) Baso # (Auto) Platelet Estimate PT INR Sodium Potassium Chloride Carbon Dioxide Anion Gap BUN Creatinine Est Cr Clr Drug Dosing Est GFR ( Amer) Est GFR (Non-Af Amer) BUN/Creatinine Ratio Glucose POC Glucose 154 H 179 H Estimat Average Glucose 134 Hemoglobin A1c 6.3 H Calcium Phosphorus Magnesium NT-Pro-B Natriuret Pep _ (1) A-fib Atrial fibrillation type: permanent Qualified Code(s): I48.2 - Chronic atrial fibrillation (2) HTN (hypertension) Hypertension type: essential hypertension Qualified Code(s): I10 - Essential (primary) hypertension
[2018-05-15] MEDS ORDERED: INSULIN GLARGINE SOLOSTAR 100 UNITS/ML 3 ML PEN SC ONE (12:45)
--- NOTE | 2018-05-15 15:15 | Pharmacy Report ---
Pharmacy Glycemic Short Note 2 - Date of Service May 15, 2018 - Glycemic Short BSG Results (Last 24 hours): 05/14/18 05/14/18 05/15/18 16:16 21:02 05:54 Glucose 173 H POC Glucose 176 H 224 H 05/15/18 05/15/18 07:32 11:09 Glucose POC Glucose 154 H 179 H OUTPATIENT ANTIDIABETIC REGIMEN: * N/A * HbA1c 6.3%- represent pre-diabetes ASSESSMENT: * Patient's A1c 6.3%- suggests pre-diabetes but given patient's age may be appropriate without outpatient intervention * BSGs 172-224 over last 24 hours, patient received 15 units of lantus * Fasting BSG still elevated this morning- will increase lantus today * Will tighten carb ratio slightly due to BSGs above goal PLAN FOR INPATIENT GLYCEMIC CONTROL: * Hold outpatient oral diabetes medications * Basal insulin * Lantus scale * 5 units <140 mg/dl * 10 units >180 mg/dl * Bolus insulin * NovoLog per scale ACHS or Q6hrs while NPO * Goal Range: Low 110 mg/dL - High 160 mg/dL * Correction Factor: 25 mg/dL/unit * Nutritional / Prandial insulin per carb ratio of 1 unit per 12 grams CHO consumed PLAN FOR DISCHARGE: * Patient's A1c 6.3%- suggests pre-diabetes, given patient age diet A1c may be appropriate. * Conversation with patient's outpatient provider regarding diet/lifestyle changes if needed.
[2018-05-15] MEDS ORDERED: WARFARIN SOD 2.5 MG TAB PO SCH (16:00)
--- NOTE | 2018-05-15 17:35 | Progress Note ---
DATE: 05/15/2018 Time is 5:40 p.m. SUBJECTIVE: The patient states she feels much better today. She states she is less short of breath. She states her cough is less. OBJECTIVE: GENERAL: The patient was sleeping when I came in to the room. She awakened readily and she oriented. VITAL SIGNS: Temperature is 36.5. She has had no fevers. CARDIOVASCULAR: Heart rate was 106. Rhythm was irregular. It was compatible with atrial fibrillation. Blood pressure 115/74. RESPIRATORY: Respiratory rate is 20. She continues to have moderate wheezes bilaterally, these are slightly less than yesterday. Saturation today is 91% on 2 L. EXTREMITIES: Showed nonpitting edema bilaterally. LABORATORY DATA: White count is 6.06, hemoglobin 13.5, platelets 101,000. INR today is 3.2. Electrolytes show sodium 137, potassium 4, chloride 101, bicarbonate 29, BUN was 63, with a creatinine of 1.97. Prior creatinine was 2.25, so it did reflect some improvement. Prior BUN had been 58 and thus that had increased today. IMPRESSION: 1. Asthma exacerbation. 2. Diastolic congestive heart failure. 3. Bronchiolitis. 4. Interstitial lung disease. 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 COMMENTS AND RECOMMENDATIONS: The patient is slightly improved. I believe the methylprednisolone can be decreased to q.12 h. She is getting the levalbuterol and ipratropium every 6 hours, and I believe that is helping her as well. She has been getting alprazolam q.12 h. I believe that should be decreased or made just p.r.n.
[2018-05-15] MEDS: SERTRALINE HCL 50 MG TABLET PO SCH (20:37)
[2018-05-15] MEDS: INSULIN GLARGINE 100 UNIT/ML VIAL SC SCH (20:37)
[2018-05-16] MEDS: dilTIAZem HCl 60 MG TAB PO SCH ×4 (01:49→20:34)
[2018-05-16] MEDS: LEVALBUTEROL HCL 0.63 MG/3 ML NEB NEB SCH ×4 (01:50→19:21)
[2018-05-16] MEDS: IPRATROPIUM BROMIDE NEB SOLN 0.02% 2.5 ML VIAL INH SCH ×4 (01:50→19:21)
[2018-05-16 07:16] LABS: Basophils # (auto) 0.01 K/uL (0-0.2); Basophils % (auto) 0.1 %; Hematocrit (blood only) 43.7 % (37-47); Hemoglobin 14.1 g/dL (12.0-16.0); Immature Granulocytes # (auto) 0.11 K/uL (0.00-0.02); Immature Granulocytes % (auto) 1.4 %; Lymphocytes # (auto) 0.35 K/uL (1.2-3.4); Lymphocytes % (auto) 4.4 %; Mean Corpuscular Hgb Conc 32.3 g/dL (32-36); Mean Corpuscular Volume 89.7 fL (80-100); Mean Platelet Volume 11.5 fL (7.4-10.4); Monocytes # (auto) 0.23 K/uL (0.11-0.59); Monocytes % (auto) 2.9 %; Neutrophils # (auto) 7.24 K/uL (1.4-6.5); Neutrophils % (auto) 91.2 %; Platelet Count 105 K/uL (130-400); RDW Coefficient of Variation 15.1 % (11.5-14.5); RDW Standard Deviation 49.8 fL (36.4-46.3); Red Blood Count 4.87 M/uL (4.2-5.4); White Blood Count 7.94 K/uL (4.8-10.8)
[2018-05-16 07:40] LABS: Prothrombin Time 38.6 Seconds (9.0-12.0)
[2018-05-16 07:41] LABS: INR 4.1 (0.9-1.1)
[2018-05-16 07:50] LABS: BUN Creatinine Ratio 30.9 (10-20); Calcium 8.1 mg/dl (8.5-10.1); Creatinine Clr Calc Pharmacy 23.7 ml/min; Est GFR (African American) 26.7; Magnesium 2.2 mg/dl (1.8-2.4); Potassium 4.1 mmol/L (3.5-5.1)
[2018-05-16 07:55] LABS: Phosphorus 4.1 mg/dl (2.5-4.9)
[2018-05-16] MEDS: FLUTICASONE/SALMETEROL 100/50 (ADVAIR) 14 PUFF/1 INHALER INH SCH ×2 (07:58→20:34)
[2018-05-16] MEDS: METOPROLOL SUCC 50MG EXT REL TAB PO SCH (08:27)
[2018-05-16] MEDS: PRAVASTATIN SOD 40 MG TAB PO SCH (08:27)
[2018-05-16] MEDS: PANTOprazole 40 MG TAB PO SCH (08:27)
[2018-05-16] MEDS: INSULIN GLARGINE 100 UNIT/ML VIAL SC SCH ×2 (08:31→20:35)
[2018-05-16] MEDS: INSULIN ASPART 100 UNITS/ML 3 ML PEN SC SCH ×4 (08:32→20:35)
[2018-05-16] MEDS: ALPRAZolam 0.25 MG TABLET PO SCH ×2 (10:34→20:35)
[2018-05-16] MEDS: methylPREDNISolone 40 MG in SYRINGE 0 ML IV SCH (12:09)
--- NOTE | 2018-05-16 14:18 | Progress Note ---
DATE: 05/16/2018 TIME: 1:30 p.m. SUBJECTIVE: The patient claims that she is feeling better. Her nurse thinks that she is a little less short of breath walking to the bathroom. Nursing staff did notice that her saturations are down to 86% or 87% after coming back from the bathroom. She does recover fairly quickly. Patient is very anxious for discharge. I think she tends to minimize her symptoms, however. OBJECTIVE: GENERAL: The patient appeared comfortable at rest. She told me she has been walking in the hallway with therapy or someone. She claims she did fine. VITAL SIGNS: Temperature is 36.2. CARDIOVASCULAR: Heart rate is 102. The rhythm is irregularly irregular and compatible with atrial fibrillation. Blood pressure 128/84. RESPIRATORY: Respiratory rate is 20. Oxygen saturation on room air at rest is 92%. Diffuse wheezes are again heard bilaterally on expiration. They might be slightly improved compared with yesterday in terms of better airflow. GASTROINTESTINAL: The abdomen is soft. She is obese. EXTREMITIES: Show no cyanosis or clubbing. LABORATORY DATA: White count of 7.94, hemoglobin 14.1, platelets 105,000. The platelets appear to be chronically low. INR today is 4.1. Glucose is 146. BUN today is 62 with a creatinine of 2.0. These are very similar to yesterday. The proBNP today is 4534. Yesterday it was 4233. IMPRESSION: 1. Asthma exacerbation. 2. Diastolic congestive heart failure. 3. Tracheomalacia. 4. Bronchiolitis. 5. Interstitial lung disease. COMMENTS/RECOMMENDATIONS: Patient is improving slowly. She is still on methylprednisolone 40 q.12. She is anticipating discharge tomorrow. She obviously will need some prednisone at the time of discharge. It remains to be seen how well she will be tomorrow. I will repeat a chest x-ray. Would suggest doing a 2 step. She seems somewhat resistant to having oxygen at home, but if her saturations go very low, I would think she should have it. The patient for now is on nebulizer treatments. She appears to probably need a nebulizer at home unless she improves a lot between now and the time of discharge.
--- NOTE | 2018-05-16 14:19 | Pharmacy Report ---
Pharmacy Glycemic Short Note 2 - Date of Service May 16, 2018 - Glycemic Short BSG Results (Last 24 hours): 05/15/18 05/15/18 05/16/18 17:16 20:04 07:03 Glucose 158 H POC Glucose 138 H 168 H 05/16/18 05/16/18 07:19 11:37 Glucose POC Glucose 160 H 146 H OUTPATIENT ANTIDIABETIC REGIMEN: * N/A * HbA1c 6.3%- represent pre-diabetes ASSESSMENT: * Ms. Navarro's BSGs over the previous 24hrs have been well controlled: 179-138- 280-692-570ts/dL. She required 32 units of insulin yesterday, 05/15/18. GCs have been reduced to SM 40mg q12. PLAN FOR INPATIENT GLYCEMIC CONTROL: * Basal insulin * Lantus scale * 5 units <140 mg/dl * 10 units >/=140 mg/dl * Bolus insulin * NovoLog per scale ACHS or Q6hrs while NPO * Goal Range: Low 110 mg/dL - High 160 mg/dL * Correction Factor: 25 mg/dL/unit * Nutritional / Prandial insulin per carb ratio of 1 unit per 12 grams CHO consumed PLAN FOR DISCHARGE: * Patient's A1c 6.3%- suggests pre-diabetes, given patient age A1c may be appropriate. * Conversation with patient's outpatient provider regarding diet/lifestyle changes if needed.
--- NOTE | 2018-05-16 15:26 | Hospitalist Progress Note ---
Date of Service May 16, 2018 Assessment & Plan (1) COPD exacerbation: (2) Acute on chronic diastolic heart failure: (3) Hypoxia: (4) CKD (chronic kidney disease) stage 2, GFR 60-89 ml/min: (5) A-fib: (6) HTN (hypertension): (7) Thrombocytopenia: (8) DVT prophylaxis: 82yo F w/ hx of afib, CHF, and asthma admitted on May 10, 2018 because of COPD exacerbation associated with shortness of breath over the last 3 weeks. Has been continue stable and improving Was thought to have acute on chronic diastolic heart failure upon admission however currently patient looks dry and worsening kidney function EF on echo in 2016 showed EF 70% with moderate LVH and Grade 1 diastolic dysfunction. No baseline Lasix needed, though has had prior exacerbations. Lasix 40mg IV given in ED, Monitor I&Os; weights, 2 days ago, recommendeded fluid intake and will give gentle IV fluid because of worsening kidney function and she looks dry Renal function, improving, IV fluid, DC'ed, yesterday creatinine 1.9 today 2.0 COPD exacerbation: I believe this is the major since upon this admission, patient still has diffused wheezing, Was having significant wheezing yesterday, improved today Prior PFTs in note indicate FEV 0.5L, 29% predicted; severe obstructive defect. Make sure Xopenex and Atrovent scheduled every 6 hours . continue steroid for now Continue Azithryomycin, Prednisone, current dose of prednisone is 30 twice daily, Hypoxia: Likely secondary to COPD exacerbation, see above, now is 90% in room air, possible need to two-step evaluation prior to discharge to home A-fib With RVR. Normally her rates are 80-100 bpm per patient. Currently 110-130., cont Short-acting PO dilt, titrated to effect Diltiazem IV pushes PRN, Continue home beta-scot, Hypertherapeutic INR, INR today is 4.1, will continue monitoring, hold Coumadin , tomorrow morning lab ordered, HTN accelerated upon admission is better, Possible acute on chronic kidney failure, with elevated BUN/creatinine, which she has been continu relative to stable Kidney function improves after IV fluid and encourage fluid intake, will encourage oral intake, Dc'ed IV fluid, follow-up renal function Thrombocytopenia: Stable will continue follow-up, DVT prophylaxis: On warfarin for afib Discussed with the patient, answered all questions, PT OT feel okay to go home with home health care, Continue increase activity out of bed and walk, need assessment of oxygen need upon discharge, Transfer to [facility] today Subjective Generally continue doing good, conversational, less wheezing, occasional cough , still have dyspnea on exertions when up and walk associated with wheezing, denies any back pain, denies any recent fall Denies any sign of bleeding or bluish Denied fevers/chills, chest pain, abdominal pain, nausea, or vomiting. Review of Systems Constitutional: Positive weakness, or fatigue Respiratory: See HPI, Cardiac: No chest pain, No orthopnea, No PND, No claudication, No palpitations , Abdomen: No pain, No nausea, No vomiting, No diarrhea, Musculoskeletal: No joint pain, No muscle pain, No swelling, : No dysuria, No urinary frequency, No incontinence, No hematuria Neurologic: No paralysis, No weakness, No numbness/tingling, Heme: No abnormal bleeding/bruising, No clotting problems, No swollen lymph nodes, No night sweats Skin: No rash, No itch, No new/changing skin lesions, No color change, No bleeding Physical Exam 2 Vital Signs (Past 24 Hours): Last Vital Signs Temp 36.2 C L 05/16/18 07:10 Pulse 90 05/16/18 14:16 Resp 20 05/16/18 14:16 BP 128/84 05/16/18 13:30 Pulse Ox 91 05/16/18 14:16 Physical Exam: General Appearance: WD/WN, no apparent distress, pleasant conversational, Eyes: normal inspection, PERRL, EOMI, sclerae normal ENT: normal ENT inspection, hearing grossly normal, pharynx normal Neck: Obvious kyphosis, supple, no adenopathy, thyroid normal, no JVD, Respiratory/Chest: chest non-tender, decreased breath sounds, occasional wheezing, no crackle Cardiovascular: regular rate, rhythm, no JVD, no murmur Abdomen: normal bowel sounds, non tender, soft, no organomegaly, Extremities: normal range of motion, non-tender, normal inspection, no pedal edema, no calf tenderness, normal capillary refill , pelvis stable, 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, no motor/sensory deficits, alert, normal mood/affect, oriented x 3 Skin: normal color, warm/dry, no rash Lymphatic: no adenopathy Results & Data Laboratory Results Laboratory Results - last 24 hr 05/15/18 05/15/18 05/16/18 17:16 20:04 07:03 WBC 7.94 RBC 4.87 Hgb 14.1 Hct 43.7 MCV 89.7 MCH 29.0 MCHC 32.3 RDW Std Deviation 49.8 H RDW Coeff of Kathleen 15.1 H Plt Count 105 L MPV 11.5 H Immature Gran % (Auto) 1.4 Neut % (Auto) 91.2 Lymph % (Auto) 4.4 [place] % (Auto) 2.9 Eos % (Auto) 0.0 Baso % (Auto) 0.1 Immature Gran # (Auto) 0.11 H Neut # (Auto) 7.24 H Lymph # (Auto) 0.35 L [place] # (Auto) 0.23 Eos # (Auto) 0.00 Baso # (Auto) 0.01 PT INR Sodium Potassium Chloride Carbon Dioxide Anion Gap BUN Creatinine Est Cr Clr Drug Dosing Est GFR ( Amer) Est GFR (Non-Af Amer) BUN/Creatinine Ratio Glucose POC Glucose 138 H 168 H Calcium Phosphorus Magnesium NT-Pro-B Natriuret Pep 05/16/18 05/16/18 05/16/18 07:03 07:03 07:19 WBC RBC Hgb Hct MCV MCH MCHC RDW Std Deviation RDW Coeff of Kathleen Plt Count MPV Immature Gran % (Auto) Neut % (Auto) Lymph % (Auto) [place] % (Auto) Eos % (Auto) Baso % (Auto) Immature Gran # (Auto) Neut # (Auto) Lymph # (Auto) [place] # (Auto) Eos # (Auto) Baso # (Auto) PT 38.6 H INR 4.1 H Sodium 139 Potassium 4.1 Chloride 103 Carbon Dioxide 28 Anion Gap 8.0 BUN 62 H Creatinine 2.00 H Est Cr Clr Drug Dosing 23.7 Est GFR ( Amer) 26.7 Est GFR (Non-Af Amer) 23.0 BUN/Creatinine Ratio 30.9 H Glucose 158 H POC Glucose 160 H Calcium 8.1 L Phosphorus 4.1 Magnesium 2.2 NT-Pro-B Natriuret Pep 4534 H 05/16/18 11:37 WBC RBC Hgb Hct MCV MCH MCHC RDW Std Deviation RDW Coeff of Kathleen Plt Count MPV Immature Gran % (Auto) Neut % (Auto) Lymph % (Auto) [place] % (Auto) Eos % (Auto) Baso % (Auto) Immature Gran # (Auto) Neut # (Auto) Lymph # (Auto) [place] # (Auto) Eos # (Auto) Baso # (Auto) PT INR Sodium Potassium Chloride Carbon Dioxide Anion Gap BUN Creatinine Est Cr Clr Drug Dosing Est GFR ( Amer) Est GFR (Non-Af Amer) BUN/Creatinine Ratio Glucose POC Glucose 146 H Calcium Phosphorus Magnesium NT-Pro-B Natriuret Pep _ (1) A-fib Atrial fibrillation type: permanent Qualified Code(s): I48.2 - Chronic atrial fibrillation (2) HTN (hypertension) Hypertension type: essential hypertension Qualified Code(s): I10 - Essential (primary) hypertension
[2018-05-16] MEDS: SERTRALINE HCL 50 MG TABLET PO SCH (20:33)
[2018-05-16] MEDS: predniSONE 10 MG TABLET PO SCH (20:33)
[2018-05-17] MEDS: IPRATROPIUM BROMIDE NEB SOLN 0.02% 2.5 ML VIAL INH SCH ×2 (01:33→07:06)
[2018-05-17] MEDS: LEVALBUTEROL HCL 0.63 MG/3 ML NEB NEB SCH ×2 (01:33→07:06)
[2018-05-17] MEDS: dilTIAZem HCl 60 MG TAB PO SCH ×3 (01:40→14:15)
[2018-05-17 06:40] LABS: INR 3.7 (0.9-1.1)
[2018-05-17 07:00] LABS: BUN Creatinine Ratio 33.2 (10-20); Calcium 8.3 mg/dl (8.5-10.1); Creatinine Clr Calc Pharmacy 26.3 ml/min; Est GFR (African American) 30.5; Est GFR (Non-African American) 26.3; Potassium 3.7 mmol/L (3.5-5.1)
[2018-05-17 07:01] LABS: Phosphorus 3.8 mg/dl (2.5-4.9)
[2018-05-17] MEDS: FLUTICASONE/SALMETEROL 100/50 (ADVAIR) 14 PUFF/1 INHALER INH SCH (08:15)
[2018-05-17] MEDS: PRAVASTATIN SOD 40 MG TAB PO SCH (08:15)
[2018-05-17] MEDS: predniSONE 10 MG TABLET PO SCH (08:15)
[2018-05-17] MEDS: METOPROLOL SUCC 50MG EXT REL TAB PO SCH (08:15)
[2018-05-17] MEDS: PANTOprazole 40 MG TAB PO SCH (08:15)
--- NOTE | 2018-05-17 08:19 | XRay Report ---
XR chest 2V routine HISTORY: wheezing COMPARISON: Chest 05/10/2018. FINDINGS: Old, healed bilateral rib fractures. The heart is normal in size. No new focal lung consoli dations to suggest pneumonia. No evidence for pulmonary edema. Mild right lateral pleural thickening. Mild interstitial thickening most pronounced at the lung bases. This is similar to the prior study a nd favors chronic interstitial change. Severe compression fractures within the upper thoracic spine r emain unchanged. Therefore, these are considered to be old. IMPRESSION: No significant change compared to the prior study. No acute process. Chronic changes as described abo ve. Electronically signed by: Savage Melendez M.D. 05/17/2018 8:18 AM
[2018-05-17] MEDS: INSULIN GLARGINE 100 UNIT/ML VIAL SC SCH (08:52)
[2018-05-17] MEDS: INSULIN ASPART 100 UNITS/ML 3 ML PEN SC SCH ×2 (08:54→12:49)
[2018-05-17] MEDS: ALPRAZolam 0.25 MG TABLET PO SCH (11:00)
--- NOTE | 2018-05-17 12:49 | Discharge Summary ---
Date of Service May 17, 2018 Admission HPI Per Admitting Provider 82yo F w/ hx of afib, CHF, and asthma who presents with shortness of breath over the last 3 weeks. Reports that shortness of breath waxes and wanes all the time, but it has been worse in the last 3 weeks after hurting her back the week before [facility]. She reports that she came in because she saw her PCP today and she was told to come in. Reports some cough as well, though nothing productive. Has been using her Breo as prescribed and not using her DuoNebs too often. Otherwise denies fevers or chills. Principal Diagnosis no Discharge Data Allergies Allergy/AdvReac Type Severity Reaction Status Date / Time amoxicillin Allergy Intermediate SWELLING Verified 05/10/18 19:38 Consultations 05/10/18 15:46 ED Decision to Admit Stat 05/12/18 08:43 Consult Pulmonology Routine Ordered Studies 05/12/18 10:29 CT chest wo con Routine Hospital Course (1) COPD exacerbation: (2) Acute on chronic diastolic heart failure: (3) Hypoxia: (4) CKD (chronic kidney disease) stage 2, GFR 60-89 ml/min: (5) A-fib: (6) HTN (hypertension): (7) Thrombocytopenia: (8) DVT prophylaxis: 82yo F w/ hx of afib, CHF, and asthma admitted on May 10, 2018 because of COPD exacerbation associated with shortness of breath over the last 3 weeks. Has been continue stable and improving Was thought to have acute on chronic diastolic heart failure upon admission however currently patient looks dry and worsening kidney function EF on echo in 2016 showed EF 70% with moderate LVH and Grade 1 diastolic dysfunction. No baseline Lasix needed, though has had prior exacerbations. Lasix 40mg IV given in ED, Monitor I&Os; weights, no more Lasix, have been watch renal function, creatinine 1.6 today from 1.9 from 2.0 COPD exacerbation: I believe this is the major since upon this admission, patient still has some wheezing, Was having significant wheezing yesterday, improves Prior PFTs in note indicate FEV 0.5L, 29% predicted; severe obstructive defect. Make sure Xopenex and Atrovent scheduled every 6 hours . had been on Azithryomycin, Prednisone, cwas on prednisone is 30 twice daily, will discharge home with 30 mg prednisone p.o. daily need to continue nebulizing treatment with Xopenex and Atrovent scheduled every 6 hours after discharging gave Rx of nebulizing machine to use at home you do not need oxygen to home now Prior to discharge, 2 step was done, A-fib With RVR. Normally her rates are 80-100 bpm per patient. Currently 110-130., cont Short-acting PO dilt, titrated to effect Diltiazem IV pushes PRN, Continue home beta-scot, Hypertherapeutic INR, yesteday was 4.1, today is 3.7, recommedn to hold coumadin today, can restart home dose tomorrow, need to check INR , BMP on monday home health care, need to send the results to pcp, Have give prescription to have lab studies on Monday per home health care, and report the results to the PCP, home health care also teach make sure patient doing nebulizer treatment at home, HTN accelerated upon admission is better, Possible acute on chronic kidney failure, with elevated BUN/creatinine, which she has been continu relative to stable Kidney function improves after IV fluid and encourage fluid intake, will encourage oral intake, Dc'ed IV fluid, follow-up renal function, which has been improving, Thrombocytopenia: Stable will continue follow-up, need to keep him on patient on Coumadin, PCP please really follow-up DVT prophylaxis: On warfarin for afib Discussed with the patient, answered all questions, PT OT feel okay to go home with home health care, Will discharge patient home today Subjective upon discharge Generally continue doing good, conversational, less wheezing, occasional cough , no dyspnea on exertions denies any back pain, denies any recent fall Denies any sign of bleeding or bluish Denied fevers/chills, chest pain, abdominal pain, nausea, or vomiting. Review of Systems Constitutional: Positive weakness, or fatigue Respiratory: See HPI, Cardiac: No chest pain, No orthopnea, No PND, No claudication, No palpitations , Abdomen: No pain, No nausea, No vomiting, No diarrhea, Musculoskeletal: No joint pain, No muscle pain, No swelling, : No dysuria, No urinary frequency, No incontinence, No hematuria Neurologic: No paralysis, No weakness, No numbness/tingling, Heme: No abnormal bleeding/bruising, No clotting problems, No swollen lymph nodes, No night sweats Skin: No rash, No itch, No new/changing skin lesions, No color change, No bleeding Physical Exam upon discharge General Appearance: WD/WN, no apparent distress, pleasant conversational, Eyes: normal inspection, PERRL, EOMI, sclerae normal ENT: normal ENT inspection, hearing grossly normal, pharynx normal Neck: Obvious kyphosis, supple, no adenopathy, thyroid normal, no JVD, Respiratory/Chest: chest non-tender, decreased breath sounds, occasional wheezing, no crackle Cardiovascular: regular rate, rhythm, no JVD, no murmur Abdomen: normal bowel sounds, non tender, soft, no organomegaly, Extremities: normal range of motion, non-tender, normal inspection, no pedal edema, no calf tenderness, normal capillary refill , pelvis stable, Neurologic/Psychiatric: contract officer II-XII nml as tested, no motor/sensory deficits, alert, normal mood/affect, oriented x 3 Skin: normal color, warm/dry, no rash Lymphatic: no adenopathy Laboratory Results - last 24 hr 05/16/18 05/16/18 05/17/18 16:22 20:28 05:50 PT 35.0 H INR 3.7 H Sodium Potassium Chloride Carbon Dioxide Anion Gap BUN Creatinine Est Cr Clr Drug Dosing Est GFR ( Amer) Est GFR (Non-Af Amer) BUN/Creatinine Ratio Glucose POC Glucose 159 H 143 H Calcium Phosphorus Magnesium 05/17/18 05/17/18 05/17/18 05:50 05:50 07:40 PT INR Sodium 140 Cancelled Potassium 3.7 Cancelled Chloride 103 Cancelled Carbon Dioxide 26 Cancelled Anion Gap 10.0 Cancelled BUN 59 H Cancelled Creatinine 1.78 H Cancelled Est Cr Clr Drug Dosing 26.3 Cancelled Est GFR ( Amer) 30.5 Cancelled Est GFR (Non-Af Amer) 26.3 Cancelled BUN/Creatinine Ratio 33.2 H Cancelled Glucose 151 H Cancelled POC Glucose 131 H Calcium 8.3 L Cancelled Phosphorus 3.8 Magnesium 2.2 05/17/18 11:43 PT INR Sodium Potassium Chloride Carbon Dioxide Anion Gap BUN Creatinine Est Cr Clr Drug Dosing Est GFR ( Amer) Est GFR (Non-Af Amer) BUN/Creatinine Ratio Glucose POC Glucose 181 H Calcium Phosphorus Magnesium Total Time Total Time Spent Total Time Spent (In Minutes): 35 Total Time Includes: Examination of the Patient, Discharge Planning, Medication Reconciliation and Communication With Other Providers Discharge Plan Discharge Items Patient Disposition: Home - Home Health Services Reason For Visit: CHF EXACERBATION Discharge Diagnosis: copd exac Hypertherapeutic INR Condition: Fair Discharge Goals: Decrease discomfort, Diagnostic testing and Improve disease control Activity: Resume your previous activity Non-emergency contact: Primary Care Provider and Drop Tester Call non-emergency contact if: you have any medication questions and your temperature is above 100.5 Follow-up/Referrals: Audrey Johnson PA-C [Primary Care Provider] - 05/24/18 4:10 pm (Please, follow up with Audrey Johnson PA-C on May 24 at 4:10 pm. *If you need to change this appointment, call the office at [phone].) Diet: Heart Healthy Addtl Provider Instructions: you have COPD exacerbation: you need to continue nebulizing treatment with Xopenex and Atrovent scheduled every 6 hours after discharging I give you Rx of nebulizing machine to use at home will continue prednisone is 30 daily for 6 days you do not need oxygen to home now you was having Hypertherapeutic INR, yesteday was 4.1, today is 3.7, recommedn to hold coumadin today, can restart home dose tomorrow, need to check INR , BMP on monday with pcp, report the result to pcp Have give prescription to have lab studies on Monday per home health care, and report the results to the PCP, home health care also teach make sure patient doing nebulizer treatment at home, you need to follow up with your primary care physician in 1 week, - take medication as instructed, never overdose or any misuse, or take with alcohol, because misuse of medicine may cause organ damage or , call me , or your primary care physician if have questions of discharge medicaitons. - call your primary care physician, or go to local emergency room if has any fever/chill, chest pain, shortness of breathing, nausea/vomiting/abdominal pain , facial droop/slurry speech/local weakness, or if has any questions. - fall precaution - diet as instructed - you need to follow up with your subspecialist, such as Dr. Prakash Prescriptions: New prednisone 10 mg Tablet 30 mg PO DAILY 6 Days Qty: 18 RF: 0 alprazolam 0.25 mg Tablet 0.25 mg PO HS PRN (Reason: anxiety) 3 Days Qty: 3 RF: 0 levalbuterol HCl 0.63 mg/3 mL Solution For Nebulization 0.63 mg NEB Q6R 14 Days Qty: 30 RF: 0 ipratropium bromide 0.02 % Solution 0.5 mg Inhalation Q6R 14 Days Qty: 14 RF: 0 Continue pravastatin 40 mg tablet 40 mg PO QAM RF: 0 diltiazem HCl 240 mg capsule,extended release 24hr 240 mg PO QAM RF: 0 warfarin 2.5 mg tablet 2.5 mg PO 5XWK RF: 0 omeprazole 40 mg capsule,delayed release(DR/EC) 40 mg PO QAM RF: 0 warfarin 5 mg tablet 5 mg PO 2XWK RF: 0 metoprolol succinate 25 mg tablet extended release 24 hr 25 mg PO QAM RF: 0 sertraline 50 mg tablet 50 mg PO HS RF: 0 acetaminophen [Tylenol] 325 mg Capsule 325 mg PO Q4 PRN (Reason: Pain) RF: 0 fluticasone-vilanterol 100-25 mcg/dose blister with device 1 inh Inhalation DAILY RF: 0 Stand-Alone Forms: [facility] Discharge Orders: Discharge Order (Routine); Ordered 05/17/18 Ordered By: Josh Mcdonnell Admission Data Admit Date/Time: 05/10/18 16:53 Attending Provider: Josh Mcdonnell Admit Provider: Alonzo Stein Primary Care Provider: Audrey Johnson Other Providers: Alonzo Stein ; Eleni Rios ; Anette Veliz Service: Medical Other Interventions: Discharge Summary Assessment (RN) Last Done: 05/17/18 12:18
== END 2018-05-17 16:48 | disposition home health service (06) | DRG 190 ==
LOC: ED 12:03 → SUATTDRO 16:53 → 2E 16:53 → 4E 05-15 14:03

== ENCOUNTER 2018-05-28 13:28 | Inpatient (IN) ==
[2018-05-28] MEDS ORDERED: ONDANSETRON INJ 2 MG/ML 2 ML VIAL ONE (13:59)
[2018-05-28] MEDS ORDERED: SODIUM CHLORIDE 0.9% 1000ML 500 ML IV ONE ×3 (14:20→16:04)
[2018-05-28 14:26] LABS: Albumin Level 2.1 gm/dl (3.4-5.0); BUN Creatinine Ratio 17.2 (10-20); Calcium 7.4 mg/dl (8.5-10.1); Creatinine Clr Calc Pharmacy 10.1 ml/min; Est GFR (African American) 10.3; Est GFR (Non-African American) 8.9; Potassium 3.2 mmol/L (3.5-5.1)
[2018-05-28 14:29] LABS: Albumin Globulin Ratio 0.4 (0.9-2); Globulin 4.7 gm/dl (2.5-4.0); Total Protein 6.8 gm/dl (6.4-8.2)
[2018-05-28 14:31] LABS: Hematocrit (blood only) 42.1 % (37-47); Hemoglobin 14.5 g/dL (12.0-16.0); Mean Corpuscular Hgb Conc 34.4 g/dL (32-36); Mean Corpuscular Volume 86.1 fL (80-100); RDW Coefficient of Variation 15.5 % (11.5-14.5); RDW Standard Deviation 47.7 fL (36.4-46.3); Red Blood Count 4.89 M/uL (4.2-5.4); White Blood Count 40.73 K/uL (4.8-10.8)
[2018-05-28 14:43] LABS: Magnesium 1.6 mg/dl (1.8-2.4); Troponin I 0.049 ng/ml (0-0.045)
--- NOTE | 2018-05-28 14:43 | XRay Report ---
XR chest 1V portable CLINICAL HISTORY: Weakness dyspnea COMPARISON STUDY: 05/17/2017 FINDINGS: Slightly progressive left basilar parenchymal infiltrate. Chronic changes right base. Mild cardiomegaly. Pulmonary apices are clear. IMPRESSION: Developing and are slightly progressive left basilar parenchymal infiltrate. Mild cardio megaly. The above report was generated using voice recognition software. It may contain grammatical, syntax or spelling errors. Electronically signed by: Jose Simon M.D. 05/28/2018 2:42 PM
[2018-05-28 14:47] LABS: Platelet Count 83 K/uL (130-400)
[2018-05-28 14:49] LABS: ALC (manual) 0.41 K/uL (1.2-3.4); Lymphocytes # (manual) 0.41 K/uL (1.2-3.4); Monocytes # (manual) 4.07 K/uL (0.11-0.59); RBC Morphology Unremarkable
[2018-05-28 14:50] LABS: Partial Thromboplastin Ratio 2.8
--- NOTE | 2018-05-28 14:54 | Emergency Department Note ---
Entered by Anson Bryan acting as a scribe for Jones Sainz DO History of Present Illness General Chief complaint: Weakness Stated complaint: WEAKNESS Source: patient Limitations: no limitations History of Present Illness Provider complaint: Diarrhea Onset (ago): day(s) (3) Location: buttocks (diarrhea) Pain Consistency: + intermittent Quality: + other (diarrhea) Associated symptoms: + loss of appetite Treatments prior to arrival: other (Immodium) The patient is an 83 year old female who presents to the Emergency Room with complaints of intermittent diarrhea for the past 3 days. The patient estimates that she has been having 6 bouts of diarrhea per day and feels generally unwell. She did take some Immodium and does feel that the diarrhea has "slowed down." The patient is currently complaining of nausea. The son at bedside adds that she has lost her appetite and has not eaten much in the past several days. They tried to feed her a piece of toast yesterday, which she quickly vomited back up. She was able to keep down some JELL-O this morning. Home Medications Home Medications Medication Instructions Recorded Confirmed Type acetaminophen [Tylenol] 325 mg PO Q4 PRN 05/10/18 05/28/18 History diltiazem HCl 240 mg PO QAM 05/10/18 05/28/18 History omeprazole 40 mg PO QAM 05/10/18 05/28/18 History pravastatin 40 mg PO QAM 05/10/18 05/28/18 History sertraline 50 mg PO QAM 05/10/18 05/28/18 History warfarin 2.5 mg PO [id number] 05/10/18 05/28/18 History warfarin 5 mg PO [id number] 05/10/18 05/28/18 History fluticasone-vilanterol 1 inh INHALATION DAILY 05/11/18 05/28/18 History ipratropium bromide 0.5 mg INHALATION Q6R 14 Days #14 05/17/18 05/28/18 Rx ml levalbuterol HCl 0.63 mg NEB Q6R 14 Days #30 ml 05/17/18 05/28/18 Rx metoprolol succinate 50 mg PO DAILY 05/28/18 05/28/18 History Allergies Allergy/AdvReac Type Severity Reaction Status Date / Time amoxicillin Allergy Intermediate SWELLING Verified 05/28/18 15:44 Past Med/Surg History Medical History HTN (hypertension) (Chronic) SVT (supraventricular tachycardia) (Chronic) A-fib (Chronic) Acute respiratory failure (Acute 04/26/13) PNA (pneumonia) (Resolved) CHF (congestive heart failure) (Acute) COPD exacerbation (Acute) Acute kidney injury superimposed on chronic kidney disease Acute on chronic diastolic heart failure Surgical History Previous section (Resolved) Family History Other Asthma Depression History of total knee replacement Hypertension Social History Current Living Situation: Family Current Living Situation Comment: Lives with son Other Information That Helps Us Care for You: No Feels Safe at Home: Yes Safety Concerns: Feels Safe At This Time Smoking Status: Never smoker Second Hand Exposure: No Hx Alcohol Use: No Hx Substance Use: No Beliefs That Will Affect Care: None Communication Ability: Effective Primer Charger Required: No Review of Systems See HPI for pertinent positives & negatives. and A total of 10 systems reviewed and were otherwise negative Physical Exam Vital Signs Vital Signs - 24 hr 05/28/18 13:49 05/28/18 14:03 05/28/18 14:30 Temperature 36.5 C Temperature Source Oral Sepsis Recent Fever Within 48 Hours No Sepsis New/Unexplained Change in Mental Status No Sepsis Action Taken by Nursing No Action Required Pulse Rate 116 H 125 H 120 H Pulse Rate [Finger] Pulse Rhythm Irregular Pulse Rhythm [Finger] Pulse Strength Normal Pulse Strength [Finger] Respiratory Rate 24 23 24 Respiratory Effort / Characteristics Non-Labored Spontaneous Respiratory Depth Normal Respiratory Pattern Regular Blood Pressure 109/59 L 103/77 Blood Pressure [Right Arm] Blood Pressure Mean 75 85 Blood Pressure Mean [Right Arm] Blood Pressure Position Lying Blood Pressure Position [Right Arm] Pulse Oximetry 95 92 90 Oxygen Delivery Method Nasal Cannula Nasal Cannula Nasal Cannula Oxygen Flow Rate 4 4 4 05/28/18 14:31 05/28/18 14:32 05/28/18 15:08 Temperature Temperature Source Sepsis Recent Fever Within 48 Hours Sepsis New/Unexplained Change in Mental Status Sepsis Action Taken by Nursing Pulse Rate 116 H 117 H 108 H Pulse Rate [Finger] Pulse Rhythm Pulse Rhythm [Finger] Pulse Strength Pulse Strength [Finger] Respiratory Rate 24 24 26 H Respiratory Effort / Characteristics Respiratory Depth Respiratory Pattern Blood Pressure 109/72 Blood Pressure [Right Arm] Blood Pressure Mean 84 Blood Pressure Mean [Right Arm] Blood Pressure Position Blood Pressure Position [Right Arm] Pulse Oximetry 94 93 Oxygen Delivery Method Nasal Cannula Oxygen Flow Rate 4 05/28/18 15:10 05/28/18 15:30 05/28/18 16:00 Temperature Temperature Source Sepsis Recent Fever Within 48 Hours Sepsis New/Unexplained Change in Mental Status Sepsis Action Taken by Nursing Pulse Rate 108 H 120 H Pulse Rate [Finger] 123 H Pulse Rhythm Pulse Rhythm [Finger] Pulse Strength Pulse Strength [Finger] Respiratory Rate 19 24 23 Respiratory Effort / Characteristics Respiratory Depth Respiratory Pattern Blood Pressure Blood Pressure [Right Arm] Blood Pressure Mean Blood Pressure Mean [Right Arm] Blood Pressure Position Blood Pressure Position [Right Arm] Pulse Oximetry Oxygen Delivery Method Oxygen Flow Rate 05/28/18 16:15 05/28/18 16:30 05/28/18 16:45 Temperature Temperature Source Sepsis Recent Fever Within 48 Hours Sepsis New/Unexplained Change in Mental Status Sepsis Action Taken by Nursing Pulse Rate 115 H 113 H 114 H Pulse Rate [Finger] Pulse Rhythm Pulse Rhythm [Finger] Pulse Strength Pulse Strength [Finger] Respiratory Rate 24 24 24 Respiratory Effort / Characteristics Respiratory Depth Respiratory Pattern Blood Pressure Blood Pressure [Right Arm] Blood Pressure Mean Blood Pressure Mean [Right Arm] Blood Pressure Position Blood Pressure Position [Right Arm] Pulse Oximetry Oxygen Delivery Method Oxygen Flow Rate 05/28/18 16:50 05/28/18 17:00 05/28/18 17:01 Temperature Temperature Source Sepsis Recent Fever Within 48 Hours Sepsis New/Unexplained Change in Mental Status Sepsis Action Taken by Nursing Pulse Rate 113 H 127 H 125 H Pulse Rate [Finger] Pulse Rhythm Pulse Rhythm [Finger] Pulse Strength Pulse Strength [Finger] Respiratory Rate 24 27 H 26 H Respiratory Effort / Characteristics Respiratory Depth Respiratory Pattern Blood Pressure 74/42 L 75/51 L Blood Pressure [Right Arm] Blood Pressure Mean 52 59 Blood Pressure Mean [Right Arm] Blood Pressure Position Blood Pressure Position [Right Arm] Pulse Oximetry Oxygen Delivery Method Oxygen Flow Rate 05/28/18 17:15 05/28/18 17:30 05/28/18 17:31 Temperature Temperature Source Sepsis Recent Fever Within 48 Hours Sepsis New/Unexplained Change in Mental Status Sepsis Action Taken by Nursing Pulse Rate 131 H 110 H 126 H Pulse Rate [Finger] Pulse Rhythm Pulse Rhythm [Finger] Pulse Strength Pulse Strength [Finger] Respiratory Rate 23 27 H 24 Respiratory Effort / Characteristics Respiratory Depth Respiratory Pattern Blood Pressure 79/61 L Blood Pressure [Right Arm] Blood Pressure Mean 67 Blood Pressure Mean [Right Arm] Blood Pressure Position Blood Pressure Position [Right Arm] Pulse Oximetry Oxygen Delivery Method Oxygen Flow Rate 05/28/18 17:45 05/28/18 17:46 05/28/18 17:47 Temperature Temperature Source Sepsis Recent Fever Within 48 Hours Sepsis New/Unexplained Change in Mental Status Sepsis Action Taken by Nursing Pulse Rate 117 H 129 H Pulse Rate [Finger] 122 H Pulse Rhythm Pulse Rhythm [Finger] Pulse Strength Pulse Strength [Finger] Respiratory Rate 25 H 26 H 18 Respiratory Effort / Characteristics Respiratory Depth Normal Respiratory Pattern Blood Pressure 100/75 Blood Pressure [Right Arm] 100/75 Blood Pressure Mean 83 Blood Pressure Mean [Right Arm] 83 Blood Pressure Position Blood Pressure Position [Right Arm] Pulse Oximetry 95 94 Oxygen Delivery Method Nasal Cannula Oxygen Flow Rate 3 05/28/18 18:00 05/28/18 18:01 05/28/18 18:04 Temperature Temperature Source Sepsis Recent Fever Within 48 Hours Sepsis New/Unexplained Change in Mental Status Sepsis Action Taken by Nursing Pulse Rate 124 H 130 H 118 H Pulse Rate [Finger] Pulse Rhythm Pulse Rhythm [Finger] Pulse Strength Pulse Strength [Finger] Respiratory Rate 21 53 H 25 H Respiratory Effort / Characteristics Respiratory Depth Respiratory Pattern Blood Pressure 79/45 L 80/60 L Blood Pressure [Right Arm] Blood Pressure Mean 56 66 Blood Pressure Mean [Right Arm] Blood Pressure Position Blood Pressure Position [Right Arm] Pulse Oximetry 92 94 Oxygen Delivery Method Oxygen Flow Rate 05/28/18 18:09 05/28/18 18:15 05/28/18 18:30 Temperature Temperature Source Sepsis Recent Fever Within 48 Hours Sepsis New/Unexplained Change in Mental Status Sepsis Action Taken by Nursing Pulse Rate 117 H 124 H Pulse Rate [Finger] 120 H Pulse Rhythm Pulse Rhythm [Finger] Pulse Strength Pulse Strength [Finger] Respiratory Rate 47 H 15 Respiratory Effort / Characteristics Respiratory Depth Respiratory Pattern Blood Pressure Blood Pressure [Right Arm] 80/60 L Blood Pressure Mean Blood Pressure Mean [Right Arm] 66 Blood Pressure Position Blood Pressure Position [Right Arm] Pulse Oximetry 96 94 90 Oxygen Delivery Method Nasal Cannula Oxygen Flow Rate 3 05/28/18 18:31 05/28/18 18:44 05/28/18 18:45 Temperature Temperature Source Sepsis Recent Fever Within 48 Hours Sepsis New/Unexplained Change in Mental Status Sepsis Action Taken by Nursing Pulse Rate 129 H 135 H Pulse Rate [Finger] 122 H Pulse Rhythm Pulse Rhythm [Finger] Pulse Strength Pulse Strength [Finger] Respiratory Rate 23 24 53 H Respiratory Effort / Characteristics Respiratory Depth Normal Respiratory Pattern Blood Pressure 79/54 L Blood Pressure [Right Arm] 79/54 L Blood Pressure Mean 62 Blood Pressure Mean [Right Arm] 62 Blood Pressure Position Blood Pressure Position [Right Arm] Pulse Oximetry 94 96 88 L Oxygen Delivery Method Oxymask Oxygen Flow Rate 3 05/28/18 18:46 05/28/18 19:00 05/28/18 19:01 Temperature Temperature Source Sepsis Recent Fever Within 48 Hours Sepsis New/Unexplained Change in Mental Status Sepsis Action Taken by Nursing Pulse Rate 119 H 128 H 110 H Pulse Rate [Finger] Pulse Rhythm Pulse Rhythm [Finger] Pulse Strength Pulse Strength [Finger] Respiratory Rate 53 H 53 H 52 H Respiratory Effort / Characteristics Respiratory Depth Respiratory Pattern Blood Pressure 111/36 L 95/60 L Blood Pressure [Right Arm] Blood Pressure Mean 61 71 Blood Pressure Mean [Right Arm] Blood Pressure Position Blood Pressure Position [Right Arm] Pulse Oximetry 93 94 Oxygen Delivery Method Oxygen Flow Rate 05/28/18 19:55 Temperature 36.3 C L Temperature Source Oral Sepsis Recent Fever Within 48 Hours Sepsis New/Unexplained Change in Mental Status Sepsis Action Taken by Nursing Pulse Rate Pulse Rate [Finger] 120 H Pulse Rhythm Pulse Rhythm [Finger] Regular Pulse Strength Pulse Strength [Finger] Normal Respiratory Rate 22 Respiratory Effort / Characteristics Non-Labored Spontaneous Respiratory Depth Normal Respiratory Pattern Regular Blood Pressure Blood Pressure [Right Arm] 113/74 Blood Pressure Mean Blood Pressure Mean [Right Arm] 87 Blood Pressure Position Blood Pressure Position [Right Arm] Lying Pulse Oximetry 93 Oxygen Delivery Method Nasal Cannula Oxygen Flow Rate 3 GENERAL: Patient is awake alert in no acute distress patient is resting comfortably and showing no signs of anxiety EYES: The conjunctivae are clear. The pupils are round and reactive. EARS, NOSE, MOUTH AND THROAT: Mucous members are dry. NECK: The neck is nontender and supple. RESPIRATORY: Shallow respirations were noted throughout. There were diminished breath sounds noted throughout with rales in all lung alaniz. CARDIOVASCULAR: Regular rate and rhythm noted there no murmurs rubs or gallops normal S1 normal S2 GASTROINTESTINAL: The abdomen is mildly distended and diffusely tender. There is no guarding or rigidity. MUSCULOSKELETAL/EXTREMITIES: There is no evidence of gross deformity full range of motion is noted in the hips and shoulders SKIN: There is no obvious evidence of any rash. Trace pedal edema was noted bilaterally. NEUROLOGIC: Patient is awake alert and oriented x3. Course 1434: Past medical records reviewed. The patient was evaluated in room A7, and a complete history and physical examination were performed. 1531: I Updated the patient at this time. She is resting in bed. 1550: I reviewed the patient's case with Dr. Denny URBANO Hospitalist. She will evaluate the patient for further management. Reevaluation(s) Reevaluation #1: 1550: I reviewed the patient's case with Dr. Denny URBANO Hospitalist. She will evaluate the patient for further management. Administered Medications Sodium Chloride (Nss 1000ml) 1,000 mls @ 125 mls/hr IV .Q8H JACOB Stop: 06/27/18 18:59 Last Admin: 05/28/18 19:13 Dose: 125 mls/hr Aztreonam 1,000 mg/ Dextrose 110 mls @ 100 mls/hr IV Q8H JACOB; Protocol Stop: 06/04/18 19:59 Last Admin: 05/28/18 20:18 Dose: 100 mls/hr Vancomycin HCl 1,750 mg/ (Sodium Chloride) 535 mls @ 200 mls/hr IV ONE ONE Stop: 05/28/18 22:55 Last Admin: 05/28/18 20:19 Dose: 200 mls/hr Phytonadione 5 mg/ Sodium (Chloride) 50.5 mls @ 101 mls/hr IV ONE ONE Stop: 05/28/18 20:59 Last Admin: 05/28/18 20:26 Dose: 101 mls/hr Discontinued Medications Sodium Chloride (Nss 1000ml) 500 mls @ 999 mls/hr IV .Q31M ONE Stop: 05/28/18 14:50 Last Infusion: 05/28/18 15:12 Dose: 0 mls/hr Admin: 05/28/18 14:23 Dose: 999 mls/hr Sodium Chloride (Nss 1000ml) 500 mls @ 999 mls/hr IV .Q31M ONE Stop: 05/28/18 15:28 Last Infusion: 05/28/18 15:52 Dose: 0 mls/hr Admin: 05/28/18 15:11 Dose: 999 mls/hr Cefoxitin Sodium (Mefoxin) 2,000 mg in 60 mls @ 100 mls/hr IV NOW STA Stop: 05/28/18 16:25 Last Infusion: 05/28/18 16:53 Dose: 0 mls/hr Admin: 05/28/18 16:14 Dose: 100 mls/hr Magnesium Sulfate/Dextrose (Magnesium Sulfate / D5w) 1 gm in 100 mls @ 100 mls/ hr IV ONE ONE Stop: 05/28/18 16:50 Last Infusion: 05/28/18 17:56 Dose: 0 mls/hr Admin: 05/28/18 16:44 Dose: 100 mls/hr Sodium Chloride (Nss 1000ml) 500 mls @ 999 mls/hr IV .Q31M ONE Stop: 05/28/18 16:34 Last Infusion: 05/28/18 17:29 Dose: 0 mls/hr Admin: 05/28/18 16:57 Dose: 999 mls/hr Magnesium Sulfate/Dextrose (Magnesium Sulfate / D5w) 1 gm in 100 mls @ 100 mls/ hr IV ONE ONE Stop: 05/28/18 19:59 Last Admin: 05/28/18 19:14 Dose: 100 mls/hr Pantoprazole Sodium 40 mg/ (Syringe) 10 mls @ 5 mls/min IV NOW ONE Stop: 05/28/18 19:16 Last Admin: 05/28/18 20:18 Dose: 5 mls/min Magnesium Sulfate/Dextrose (Magnesium Sulfate / D5w) Confirm Administered Dose 1 gm IV .STK-MED ONE Stop: 05/28/18 18:54 Last Admin: 05/28/18 20:03 Dose: Not Given Ondansetron HCl (Zofran) Confirm Administered Dose 4 mg .ROUTE .STK-MED ONE Stop: 05/28/18 14:00 Last Admin: 05/28/18 14:02 Dose: 4 mg Potassium Chloride (Klor-Con M10) 10 meq PO NOW STA Stop: 05/28/18 19:17 Last Admin: 05/28/18 20:28 Dose: 10 meq Raspberry (Raspberry) 5 ml PO ONE ONE Stop: 05/28/18 16:16 Last Admin: 05/28/18 16:34 Dose: 5 ml Vancomycin HCl (Vancomycin Hcl) 125 mg PO NOW STA Stop: 05/28/18 16:05 Last Admin: 05/28/18 16:34 Dose: 125 mg Medical Decision Making Differential Diagnosis Differential diagnosis: Etiologies such as gastroenteritis, food borne illness, infections, appendicitis , diverticulitis, inflammatory bowel disease, obstruction, GI bleed, biliary pathology, cardiac process, intracranial process, as well as others were entertained Medical Records Attestation: I reviewed the patient's medical records. Home Medications Current Medication List: was personally reviewed by me Laboratory Data Attestation: I reviewed the patient's lab results. Result diagrams: 05/28/18 13:56 05/28/18 13:56 Lab Results 05/28/18 05/28/18 05/28/18 Range/Units 13:56 13:56 13:56 WBC 40.73 H* (4.8-10.8) K/uL RBC 4.89 (4.2-5.4) M/uL Hgb 14.5 (12.0-16.0) g/dL Hct 42.1 (37-47) % MCV 86.1 (80-100) fL MCH 29.7 (25-34) pg MCHC 34.4 (32-36) g/dL RDW Std Deviation 47.7 H (36.4-46.3) fL RDW Coeff of Kathleen 15.5 H (11.5-14.5) % Plt Count 83 L (130-400) K/uL Neutrophils % (Manual) 89.0 % Lymphocytes % (Manual) 1.0 % Monocytes % (Manual) 10.0 % Neutrophils # (Manual) 36.25 H (1.4-6.5) K/uL Total Absolute Neuts 36.25 H (1.4-6.5) K/uL Lymphocytes # (Manual) 0.41 L (1.2-3.4) K/uL Total Abs Lymphocytes 0.41 L (1.2-3.4) K/uL Monocytes # (Manual) 4.07 H (0.11-0.59) K/uL RBC Morphology Unremarkable PT 100.0 H (9.0-12.0) Seconds INR > 11.0 H* (0.9-1.1) APTT 73.4 H* (21.0-31.0) Seconds PTT Ratio 2.8 Sodium 134 L (136-145) mmol/L Potassium 3.2 L (3.5-5.1) mmol/L Chloride 96 L (98-107) mmol/L Carbon Dioxide 20 L (21-32) mmol/L Anion Gap 18.0 H (3-11) BUN 75 H (7-18) mg/dl Creatinine 4.36 H (0.6-1.2) mg/dl Est Cr Clr Drug Dosing 10.1 ml/min Est GFR ( Amer) 10.3 Est GFR (Non-Af Amer) 8.9 BUN/Creatinine Ratio 17.2 (10-20) Glucose 136 H (70-99) mg/dl Lactate (0.4-2.0) mmol/L Calcium 7.4 L (8.5-10.1) mg/dl Magnesium 1.6 L (1.8-2.4) mg/dl Total Bilirubin 1.0 (0.2-1) mg/dl AST 10 L (15-37) U/L ALT 12 (12-78) U/L Alkaline Phosphatase 136 H (45-117) U/L Troponin I 0.049 H* (0-0.045) ng/ml Total Protein 6.8 (6.4-8.2) gm/dl Albumin 2.1 L (3.4-5.0) gm/dl Globulin 4.7 H (2.5-4.0) gm/dl Albumin/Globulin Ratio 0.4 L (0.9-2) Lipase (73-393) U/L TSH 1.060 (0.300-4.500) uIu/ml Urine Color Urine Appearance (Clear) Urine pH (4.5-7.5) Ur Specific [place] (1.000-1.030) Urine Protein (Negative) Urine Glucose (UA) (Negative) Urine Ketones (Negative) Urine Blood (Negative) Urine Nitrite (Negative) Urine Bilirubin (Negative) Urine Urobilinogen (Negative) Ur Leukocyte Esterase (Negative) Urine RBC (0-4) /hpf Urine WBC (0-5) /hpf Ur Epithelial Cells (0-5) /lpf Ur Renal Epithelial Cell (0-5) /lpf Amorphous Sediment (None Prsent) Urine Bacteria (Negative) 05/28/18 05/28/18 05/28/18 Range/Units 13:56 16:05 19:38 WBC (4.8-10.8) K/uL RBC (4.2-5.4) M/uL Hgb (12.0-16.0) g/dL Hct (37-47) % MCV (80-100) fL MCH (25-34) pg MCHC (32-36) g/dL RDW Std Deviation (36.4-46.3) fL RDW Coeff of Kathleen (11.5-14.5) % Plt Count (130-400) K/uL Neutrophils % (Manual) % Lymphocytes % (Manual) % Monocytes % (Manual) % Neutrophils # (Manual) (1.4-6.5) K/uL Total Absolute Neuts (1.4-6.5) K/uL Lymphocytes # (Manual) (1.2-3.4) K/uL Total Abs Lymphocytes (1.2-3.4) K/uL Monocytes # (Manual) (0.11-0.59) K/uL RBC Morphology PT (9.0-12.0) Seconds INR (0.9-1.1) APTT (21.0-31.0) Seconds PTT Ratio Sodium (136-145) mmol/L Potassium (3.5-5.1) mmol/L Chloride (98-107) mmol/L Carbon Dioxide (21-32) mmol/L Anion Gap (3-11) BUN (7-18) mg/dl Creatinine (0.6-1.2) mg/dl Est Cr Clr Drug Dosing ml/min Est GFR ( Amer) Est GFR (Non-Af Amer) BUN/Creatinine Ratio (10-20) Glucose (70-99) mg/dl Lactate (0.4-2.0) mmol/L Calcium (8.5-10.1) mg/dl Magnesium Cancelled (1.8-2.4) mg/dl Total Bilirubin (0.2-1) mg/dl AST (15-37) U/L ALT (12-78) U/L Alkaline Phosphatase (45-117) U/L Troponin I (0-0.045) ng/ml Total Protein (6.4-8.2) gm/dl Albumin (3.4-5.0) gm/dl Globulin (2.5-4.0) gm/dl Albumin/Globulin Ratio (0.9-2) Lipase 40 L (73-393) U/L TSH (0.300-4.500) uIu/ml Urine Color Brown Urine Appearance Slightly Cloudy H (Clear) Urine pH (4.5-7.5) Ur Specific [place] 1.023 (1.000-1.030) Urine Protein (Negative) Urine Glucose (UA) (Negative) Urine Ketones (Negative) Urine Blood (Negative) Urine Nitrite (Negative) Urine Bilirubin (Negative) Urine Urobilinogen (Negative) Ur Leukocyte Esterase (Negative) Urine RBC >30 H (0-4) /hpf Urine WBC 10-30 H (0-5) /hpf Ur Epithelial Cells >30 H (0-5) /lpf Ur Renal Epithelial Cell 5-10 H (0-5) /lpf Amorphous Sediment Present H (None Prsent) Urine Bacteria 1+ H (Negative) 05/28/18 Range/Units 19:39 WBC (4.8-10.8) K/uL RBC (4.2-5.4) M/uL Hgb (12.0-16.0) g/dL Hct (37-47) % MCV (80-100) fL MCH (25-34) pg MCHC (32-36) g/dL RDW Std Deviation (36.4-46.3) fL RDW Coeff of Kathleen (11.5-14.5) % Plt Count (130-400) K/uL Neutrophils % (Manual) % Lymphocytes % (Manual) % Monocytes % (Manual) % Neutrophils # (Manual) (1.4-6.5) K/uL Total Absolute Neuts (1.4-6.5) K/uL Lymphocytes # (Manual) (1.2-3.4) K/uL Total Abs Lymphocytes (1.2-3.4) K/uL Monocytes # (Manual) (0.11-0.59) K/uL RBC Morphology PT (9.0-12.0) Seconds INR (0.9-1.1) APTT (21.0-31.0) Seconds PTT Ratio Sodium (136-145) mmol/L Potassium (3.5-5.1) mmol/L Chloride (98-107) mmol/L Carbon Dioxide (21-32) mmol/L Anion Gap (3-11) BUN (7-18) mg/dl Creatinine (0.6-1.2) mg/dl Est Cr Clr Drug Dosing ml/min Est GFR ( Amer) Est GFR (Non-Af Amer) BUN/Creatinine Ratio (10-20) Glucose (70-99) mg/dl Lactate 2.5 H* (0.4-2.0) mmol/L Calcium (8.5-10.1) mg/dl Magnesium (1.8-2.4) mg/dl Total Bilirubin (0.2-1) mg/dl AST (15-37) U/L ALT (12-78) U/L Alkaline Phosphatase (45-117) U/L Troponin I (0-0.045) ng/ml Total Protein (6.4-8.2) gm/dl Albumin (3.4-5.0) gm/dl Globulin (2.5-4.0) gm/dl Albumin/Globulin Ratio (0.9-2) Lipase (73-393) U/L TSH (0.300-4.500) uIu/ml Urine Color Urine Appearance (Clear) Urine pH (4.5-7.5) Ur Specific [place] (1.000-1.030) Urine Protein (Negative) Urine Glucose (UA) (Negative) Urine Ketones (Negative) Urine Blood (Negative) Urine Nitrite (Negative) Urine Bilirubin (Negative) Urine Urobilinogen (Negative) Ur Leukocyte Esterase (Negative) Urine RBC (0-4) /hpf Urine WBC (0-5) /hpf Ur Epithelial Cells (0-5) /lpf Ur Renal Epithelial Cell (0-5) /lpf Amorphous Sediment (None Prsent) Urine Bacteria (Negative) Imaging Data Attestation: I personally reviewed and interpreted this imaging study as follows : Radiologist's Impression: CT SCAN OF THE ABDOMEN AND PELVIS WITHOUT CONTRAST CLINICAL HISTORY: Diffuse abdominal pain and diarrhea COMPARISON STUDY: No previous studies for comparison. TECHNIQUE: CT scan of the abdomen and pelvis was performed from the lung bases to the proximal femurs. Images are reviewed in the axial, sagittal, and coronal planes. IV contrast was not administered for this examination. A dose lowering technique was utilized adhering to the principles of ALARA. CT DOSE: 1498.17 mGy.cm FINDINGS: Lower chest: There are by basilar opacities, likely representing areas of atelectasis/scarring. Liver: The unenhanced liver is normal in size, contour, and attenuation. There is no intrahepatic biliary ductal dilatation. Gallbladder: The gallbladder is distended. No calculi are visualized. Spleen: Normal in size and attenuation. Pancreas: Unremarkable. Adrenal glands: Unremarkable. Kidneys: The unenhanced kidneys are normal in size without hydronephrosis. There is no contour deforming renal mass lesion. No renal calculi are identified. Bowel: Apparent gastric wall thickening is likely secondary to a nondistended stomach. There are no findings to indicate acute diverticulitis. There are no findings to indicate acute appendicitis. There is gaseous distention of the right and transverse colon. There is a transition zone at the left mid abdominal level. No discrete mass is visualized on this study performed without the benefit of intravenous or oral contrast. There is no small bowel dilatation. There is fluid present within the rectosigmoid. Peritoneum: There is no intraperitoneal free air or abdominal ascites. Vasculature: The abdominal aorta is normal in course and caliber. Adenopathy: None. Pelvic viscera: There is a 21 mm left ovarian cyst Skeletal structures: There is an old right ischio pubic ring fracture. There is right iliopsoas atrophy. IMPRESSION: 1. Gaseous distention of the right and transverse colon measuring up to 7 cm. No obstructing mass is visualized given the limitations of a study performed without intravenous or oral contrast. 2. No evidence of small bowel dilatation 3. Distended gallbladder. No calculi identified. 4. No evidence of acute appendicitis. No evidence of acute diverticulitis. 5. 21 mm left ovarian cyst Electronically signed by: Ernst Mclean M.D. 05/28/2018 3:20 PM XR chest 1V portable CLINICAL HISTORY: Weakness dyspnea COMPARISON STUDY: 05/17/2017 FINDINGS: Slightly progressive left basilar parenchymal infiltrate. Chronic changes right base. Mild cardiomegaly. Pulmonary apices are clear. IMPRESSION: Developing and are slightly progressive left basilar parenchymal infiltrate. Mild cardiomegaly. The above report was generated using voice recognition software. It may contain grammatical, syntax or spelling errors. Electronically signed by: Jose Simon M.D. 05/28/2018 2:42 PM ECG Data Attestation: I personally reviewed and interpreted this ECG as follows: Rate (beats per minute): 113 Rhythm: atrial fibrillation Findings: no ST depression, no ST elevation and no ectopy Comparison ECG Date: from (02/23/2017) Change: no significant change Blood Pressure Blood Pressure Findings: Normal blood pressure MDM Narrative The patient is an 83-year-old female who presented to the emergency department for an evaluation of diarrhea. The patient's had ongoing diarrhea ever since discharge from our facility. She appears to be having signs of renal failure as well as severe dehydration but also has a history of pulmonary edema. The patient was given IV fluids in the emergency department. She was reevaluated multiple times. A Payne catheter was placed. The patient was also found to have a very high white blood cell count. She was treated with IV antibiotics. I am also very concerned that this may represent C. difficile infection. I discussed the patient's laboratory and radiographic studies with her. I discussed her case with the on-call [facility] hospitalist as well as the magneto repairer. Impression & Plan Renal failure, Diarrhea, Abdominal pain, Acute dehydration, Elevated INR Discharge Plan Visit Data *Final* Discharge Date/Time: 05/28/18 19:22 Chief Complaint: Weakness Stated Complaint: WEAKNESS ED Provider: Jones Sainz Discharge Problem: Renal failure, Diarrhea, Abdominal pain, Acute dehydration, Elevated INR Patient Disposition: Admitted As Inpatient Discharge Instructions Interventions: ED Discharge Assessment Last Done: 05/28/18 19:22 The scribe's documentation has been prepared under my direction and personally reviewed by me in its entirety. I confirm that the note above accurately reflects all work, treatment, procedures, and medical decision making performed by me.
[2018-05-28 15:20] LABS: INR > 11.0 (0.9-1.1)
[2018-05-28 15:21] LABS: Partial Thromboplastin Time 73.4 Seconds (21.0-31.0)
--- NOTE | 2018-05-28 15:21 | CT Scan Report ---
CT SCAN OF THE ABDOMEN AND PELVIS WITHOUT CONTRAST CLINICAL HISTORY: Diffuse abdominal pain and diarrhea COMPARISON STUDY: No previous studies for comparison. TECHNIQUE: CT scan of the abdomen and pelvis was performed from the lung bases to the proximal femurs . Images are reviewed in the axial, sagittal, and coronal planes. IV contrast was not administered fo r this examination. A dose lowering technique was utilized adhering to the principles of ALARA. CT DOSE: 1498.17 mGy.cm FINDINGS: Lower chest: There are by basilar opacities, likely representing areas of atelectasis/scarring. Liver: The unenhanced liver is normal in size, contour, and attenuation. There is no intrahepatic zeus iary ductal dilatation. Gallbladder: The gallbladder is distended. No calculi are visualized. Spleen: Normal in size and attenuation. Pancreas: Unremarkable. Adrenal glands: Unremarkable. Kidneys: The unenhanced kidneys are normal in size without hydronephrosis. There is no contour deform ing renal mass lesion. No renal calculi are identified. Bowel: Apparent gastric wall thickening is likely secondary to a nondistended stomach. There are no f indings to indicate acute diverticulitis. There are no findings to indicate acute appendicitis. There is gaseous distention of the right and transverse colon. There is a transition zone at the left mid abdominal level. No discrete mass is visualized on this study performed without the benefit of intrav enous or oral contrast. There is no small bowel dilatation. There is fluid present within the rectosi gmoid. Peritoneum: There is no intraperitoneal free air or abdominal ascites. Vasculature: The abdominal aorta is normal in course and caliber. Adenopathy: None. Pelvic viscera: There is a 21 mm left ovarian cyst Skeletal structures: There is an old right ischio pubic ring fracture. There is right iliopsoas atrop hy. IMPRESSION: 1. Gaseous distention of the right and transverse colon measuring up to 7 cm. No obstructing mass is visualized given the limitations of a study performed without intravenous or oral contrast. 2. No evidence of small bowel dilatation 3. Distended gallbladder. No calculi identified. 4. No evidence of acute appendicitis. No evidence of acute diverticulitis. 5. 21 mm left ovarian cyst Electronically signed by: Ernst Mclean M.D. 05/28/2018 3:20 PM
[2018-05-28] MEDS ORDERED: cefOXitin 2,000 MG/60 ML BAG IV STA (15:50)
[2018-05-28] MEDS ORDERED: MAGNESIUM SULFATE / D5W 1 GM/100 ML BAG IV ONE ×2 (15:51→19:00)
[2018-05-28] MEDS ORDERED: VANCOMYCIN HCL 125 MG/2.5ML SOLN PO STA (16:04)
[2018-05-28] MEDS ORDERED: RASPBERRY SYRUP 5 ML UDP PO ONE (16:15)
[2018-05-28 16:29] LABS: Appearance Urine Slightly Cloudy (Clear); Color Urine Brown
[2018-05-28 16:30] LABS: Specific Gravity Urine 1.023 (1.000-1.030)
[2018-05-28 16:32] LABS: Bacteria Urine 1+ (Negative); RBC Urine >30 /hpf (0-4)
[2018-05-28 16:33] LABS: Amorphous Sediment Urine Present (None Prsent)
[2018-05-28] MEDS ORDERED: RASPBERRY SYRUP 5 ML UDP PO SCH (18:00)
[2018-05-28] MEDS ORDERED: LEVALBUTEROL HCL 1.25 MG/3 ML NEB NEB PRN (18:37)
[2018-05-28] MEDS ORDERED: LEVALBUTEROL HCL 0.63 MG/3 ML NEB NEB SCH (18:45)
[2018-05-28] MEDS ORDERED: ICU PROTOCOL FOR HYPERGLYCEMIA PRN ×2 (18:49→20:04)
[2018-05-28] MEDS ORDERED: ICU ELECTROLYTE REPLACEMENT PROTOCOL PRN (18:49)
[2018-05-28] MEDS ORDERED: MAGNESIUM SULFATE 1GM / D5W BAG IV ONE (18:53)
[2018-05-28] MEDS ORDERED: SODIUM CHLORIDE 0.9% 1000ML 1,000 ML IV SCH (19:00)
[2018-05-28] MEDS ORDERED: PANTOprazole 40 MG in SYRINGE 0 ML IV ONE (19:15)
[2018-05-28] MEDS ORDERED: POTASSIUM CHLORIDE 10 MEQ TABCR PO STA (19:16)
--- NOTE | 2018-05-28 19:26 | Critical Care Consultation ---
Date of Consultation May 28, 2018 Assessment & Plan (1) Renal failure: (2) Diarrhea: 83yoF with hx of COPD, Diastolic CHF, Afib on warfarin, CKD stage 2 and HTN presented with weakness in the setting of diarrhea x 1 week. Admitted to the ICU for concern of septic shock likely in the setting of C. diff colitis. NEURO: CAM ICU: negative CARDIAC/VASCULAR: Hypotension likely septic shock in the setting of C.diff colitis; Elevated troponin in the setting of likely demand ischemia and Afib w/ RVR PMHx: CHF and Afib on coumadin ECHO 05/11/18: Ef 55-60%, diastolic dysfunction, borderline pulm hypertension PASP 34-40mmHG, severe LA enlargement, mild concentric LVH, mild MR EKG: Rate 113 AFib with RVR QTc 567 Troponin elevated to 0.049 Received 1.5L of NS bolus On Normosol 100mls/hr Start on phenylephrine Continue to trend troponin PULM: Hx of COPD (not on oxygen yet but per son had appt for 2 step tomorrow) Prior PFTs - FEV 0.5L, 29% predicted; severe obstructive defect On 3L NC CXR: mild cardiomegaly, L basilar parenchymal infiltrate? Continue levalbuterol and ipratropium GI: Concern for C.diff colitis WBC 40.7 LFT wnl except Alk phos of 166 (but improved from 186 of previous admission) C.diff and Lipase pending Abdomen/pelvis CT: gaseous distention of R and transverse colon 7cm, gall bladder distension Started on vanc PO 500mg Q6H and flagyl IV On protonix 40mg daily HH diet Surgery consulted RENAL/LYTES: Acute on chronic RF likely in the setting of septic shock PMHX: CKD stage 2 BUN/Cr 75/4.36 (baseline Cr 1.7) On Normosol 100mls/hr Monitor BMP : Payne - draining tea colored urine ENDO: TSH wnl BSG checks and SSI per ICU protocol HEME: Coagulopathy in the setting of sepsis PMHx: thrombocytopenia H&H wnl Plt ct 83 (around baseline) INR 11, PT 100, PTT 73.4 On Warfarin at home for Afib - held Monitor Coags closely ID: Concern for septic shock in the setting of C.diff colitis WBC 40.7 Lactate pending Blood and urine cultures pending MRSA swab pending On PO Vanc and IV flagyl for C.diff concern On Aztreonam 1g Q8H LINES: Will obtain central line in addition to PIVs and Kailee to closely monitor BP DVT prop: SCDs only, chemical contraindicated Code status: DNR Dispo: pending clinical improvement (3) CHF (congestive heart failure): (4) Thrombocytopenia: (5) Atrial fibrillation: (6) Acute hypokalemia: (7) CKD (chronic kidney disease) stage 2, GFR 60-89 ml/min: (8) Hypoxia: (9) HTN (hypertension): (10) COPD (chronic obstructive pulmonary disease): Supervising Physician Co-Signing Physician Notes Dr. Jackson was resident physician during care of patient. I separately evaluated patient for mane portions of the history and the exam. I was present during the critical portion of medical decision making, and I discussed the case with the resident. I generally agree with the findings and plan. Patient with presumptive severe C. difficile colitis with septic shock given high gap metabolic acidosis. Volume expansion has increased patient's blood pressure. We will initially use phenylephrine for vasoactive support in the setting of A. fib with RVR. Last echo was reassuring approximately 3 weeks ago however there is a history of congestive heart failure will place CVL to trend CVP's. Had extensive discussion with the patient and the patient's son regarding CODE STATUS as well as long-term wishes. She would not want dialysis under any circumstances she is comfortable with short-term mechanical ventilation should it be a correctable situation and she is also comfortable with exploratory laparotomy with total colectomy in the event she becomes worse with fulminant C. difficile colitis. I did emphasize to the patient and the family that she would be a poor surgical candidate and this would be a last ditch effort and attempt to save her life and she would be likely be facing a permanent colostomy and she understands the risks. I have personally spent 85 minutes of critical care time in the direct management of this patient. This is a life/limb threatening event. This includes time spent evaluating patient, direct bedside care, chart review, placing orders, interpretation of diagnostic studies, discussion with consultants, patient, and/or family members regarding treatment decisions, as well as other required patient management activities. This time is exclusive of all separately billable procedures, and teaching time and separate from and in addition to any other critical care service time. History of Present Illness History of Present Illness 83yoF with hx of COPD, CHF, Afib, CKD stage 2 and HTN presented with weakness in the setting of diarrhea. Per patient had diarrhea for the past week. Was having about 4 loose watery, foul smelling, brown BMs per day. Bowel movements were not dark brown or black or bloody. A/w nausea, fatigue, decreased appetite , chronic dry cough. Last urinated about 2 days ago. Denies any f/c, sore throat , rhinorrhea, cp, palpitations, sob, abdominal pain, vomiting, EDWARDS/dizziness. Of note: pt was recently hospitalized for dyspnea and discharged on 05/17. Allergies Allergy/AdvReac Type Severity Reaction Status Date / Time amoxicillin Allergy Intermediate SWELLING Verified 05/28/18 15:44 Home Medications Home Medications Medication Instructions Recorded Confirmed Type acetaminophen [Tylenol] 325 mg PO Q4 PRN 05/10/18 05/28/18 History diltiazem HCl 240 mg PO QAM 05/10/18 05/28/18 History omeprazole 40 mg PO QAM 05/10/18 05/28/18 History pravastatin 40 mg PO QAM 05/10/18 05/28/18 History sertraline 50 mg PO QAM 05/10/18 05/28/18 History warfarin 2.5 mg PO 6XWK 05/10/18 05/28/18 History warfarin 5 mg PO 2XWK 05/10/18 05/28/18 History fluticasone-vilanterol 1 inh INHALATION DAILY 05/11/18 05/28/18 History ipratropium bromide 0.5 mg INHALATION Q6R 14 Days #14 05/17/18 05/28/18 Rx ml levalbuterol HCl 0.63 mg NEB Q6R 14 Days #30 ml 05/17/18 05/28/18 Rx metoprolol succinate 50 mg PO DAILY 05/28/18 05/28/18 History Patient History Medical History HTN (hypertension) (Chronic) SVT (supraventricular tachycardia) (Chronic) A-fib (Chronic) Acute respiratory failure (Acute 04/26/13) PNA (pneumonia) (Resolved) CHF (congestive heart failure) (Acute) COPD exacerbation (Acute) Acute kidney injury superimposed on chronic kidney disease Acute on chronic diastolic heart failure Surgical History Previous section (Resolved) Family History Other Asthma Depression History of total knee replacement Hypertension Social History Current Living Situation: Family Current Living Situation Comment: Lives with son Other Information That Helps Us Care for You: No Feels Safe at Home: Yes Safety Concerns: Feels Safe At This Time Smoking Status: Never smoker Second Hand Exposure: No Hx Alcohol Use: No Hx Substance Use: No Beliefs That Will Affect Care: None Communication Ability: Effective Seismic Engineer Required: No Review of Systems As per HPI Physical Exam 2 Vital Signs (Past 24 Hours): Last Vital Signs Temp 36.5 C 05/28/18 13:49 Pulse 110 H 05/28/18 19:01 Resp 52 H 05/28/18 19:01 BP 95/60 L 05/28/18 19:01 Pulse Ox 94 05/28/18 19:01 Physical Exam: General: In NAD, speaking in full sentences and resting in bed CV: tachycardic with irregular rhythm, no m/r/g Pulm: diffuse rhonchi, equal but coarse breath sounds Abdomen: +BS, distended, tympanic, non-TTP in all quadrants LE: No LE edema or calf tenderness Neuro: Alert and oriented x 4 Results & Data Laboratory Results Abnormal lab results 05/28/18 05/28/18 05/28/18 Range/Units 13:56 13:56 13:56 WBC 40.73 H* (4.8-10.8) K/uL RDW Std Deviation 47.7 H (36.4-46.3) fL RDW Coeff of Kathleen 15.5 H (11.5-14.5) % Plt Count 83 L (130-400) K/uL Neutrophils # (Manual) 36.25 H (1.4-6.5) K/uL Total Absolute Neuts 36.25 H (1.4-6.5) K/uL Lymphocytes # (Manual) 0.41 L (1.2-3.4) K/uL Total Abs Lymphocytes 0.41 L (1.2-3.4) K/uL Monocytes # (Manual) 4.07 H (0.11-0.59) K/uL PT 100.0 H (9.0-12.0) Seconds INR > 11.0 H* (0.9-1.1) APTT 73.4 H* (21.0-31.0) Seconds Sodium 134 L (136-145) mmol/L Potassium 3.2 L (3.5-5.1) mmol/L Chloride 96 L (98-107) mmol/L Carbon Dioxide 20 L (21-32) mmol/L Anion Gap 18.0 H (3-11) BUN 75 H (7-18) mg/dl Creatinine 4.36 H (0.6-1.2) mg/dl Glucose 136 H (70-99) mg/dl Calcium 7.4 L (8.5-10.1) mg/dl Magnesium 1.6 L (1.8-2.4) mg/dl AST 10 L (15-37) U/L Alkaline Phosphatase 136 H (45-117) U/L Troponin I 0.049 H* (0-0.045) ng/ml Albumin 2.1 L (3.4-5.0) gm/dl Globulin 4.7 H (2.5-4.0) gm/dl Albumin/Globulin Ratio 0.4 L (0.9-2) Urine Appearance (Clear) Urine RBC (0-4) /hpf Urine WBC (0-5) /hpf Ur Epithelial Cells (0-5) /lpf Ur Renal Epithelial Cell (0-5) /lpf Amorphous Sediment (None Prsent) Urine Bacteria (Negative) 05/28/18 Range/Units 16:05 WBC (4.8-10.8) K/uL RDW Std Deviation (36.4-46.3) fL RDW Coeff of Kathleen (11.5-14.5) % Plt Count (130-400) K/uL Neutrophils # (Manual) (1.4-6.5) K/uL Total Absolute Neuts (1.4-6.5) K/uL Lymphocytes # (Manual) (1.2-3.4) K/uL Total Abs Lymphocytes (1.2-3.4) K/uL Monocytes # (Manual) (0.11-0.59) K/uL PT (9.0-12.0) Seconds INR (0.9-1.1) APTT (21.0-31.0) Seconds Sodium (136-145) mmol/L Potassium (3.5-5.1) mmol/L Chloride (98-107) mmol/L Carbon Dioxide (21-32) mmol/L Anion Gap (3-11) BUN (7-18) mg/dl Creatinine (0.6-1.2) mg/dl Glucose (70-99) mg/dl Calcium (8.5-10.1) mg/dl Magnesium (1.8-2.4) mg/dl AST (15-37) U/L Alkaline Phosphatase (45-117) U/L Troponin I (0-0.045) ng/ml Albumin (3.4-5.0) gm/dl Globulin (2.5-4.0) gm/dl Albumin/Globulin Ratio (0.9-2) Urine Appearance Slightly Cloudy H (Clear) Urine RBC >30 H (0-4) /hpf Urine WBC 10-30 H (0-5) /hpf Ur Epithelial Cells >30 H (0-5) /lpf Ur Renal Epithelial Cell 5-10 H (0-5) /lpf Amorphous Sediment Present H (None Prsent) Urine Bacteria 1+ H (Negative) Diagnostic Findings CT SCAN OF THE ABDOMEN AND PELVIS WITHOUT CONTRAST CLINICAL HISTORY: Diffuse abdominal pain and diarrhea COMPARISON STUDY: No previous studies for comparison. TECHNIQUE: CT scan of the abdomen and pelvis was performed from the lung bases to the proximal femurs. Images are reviewed in the axial, sagittal, and coronal planes. IV contrast was not administered for this examination. A dose lowering technique was utilized adhering to the principles of ALARA. CT DOSE: 1498.17 mGy.cm FINDINGS: Lower chest: There are by basilar opacities, likely representing areas of atelectasis/scarring. Liver: The unenhanced liver is normal in size, contour, and attenuation. There is no intrahepatic biliary ductal dilatation. Gallbladder: The gallbladder is distended. No calculi are visualized. Spleen: Normal in size and attenuation. Pancreas: Unremarkable. Adrenal glands: Unremarkable. Kidneys: The unenhanced kidneys are normal in size without hydronephrosis. There is no contour deforming renal mass lesion. No renal calculi are identified. Bowel: Apparent gastric wall thickening is likely secondary to a nondistended stomach. There are no findings to indicate acute diverticulitis. There are no findings to indicate acute appendicitis. There is gaseous distention of the right and transverse colon. There is a transition zone at the left mid abdominal level. No discrete mass is visualized on this study performed without the benefit of intravenous or oral contrast. There is no small bowel dilatation. There is fluid present within the rectosigmoid. Peritoneum: There is no intraperitoneal free air or abdominal ascites. Vasculature: The abdominal aorta is normal in course and caliber. Adenopathy: None. Pelvic viscera: There is a 21 mm left ovarian cyst Skeletal structures: There is an old right ischio pubic ring fracture. There is right iliopsoas atrophy. IMPRESSION: 1. Gaseous distention of the right and transverse colon measuring up to 7 cm. No obstructing mass is visualized given the limitations of a study performed without intravenous or oral contrast. 2. No evidence of small bowel dilatation 3. Distended gallbladder. No calculi identified. 4. No evidence of acute appendicitis. No evidence of acute diverticulitis. 5. 21 mm left ovarian cyst XR chest 1V portable CLINICAL HISTORY: Weakness dyspnea COMPARISON STUDY: 05/17/2017 FINDINGS: Slightly progressive left basilar parenchymal infiltrate. Chronic changes right base. Mild cardiomegaly. Pulmonary apices are clear. IMPRESSION: Developing and are slightly progressive left basilar parenchymal infiltrate. Mild cardiomegaly. Medications Administered Current Inpatient Medications Sodium Chloride (Nss 1000ml) 1,000 mls @ 125 mls/hr IV .Q8H [facility] Stop: 06/27/18 18:59 Last Admin: 05/28/18 19:13 Dose: 125 mls/hr Aztreonam 1,000 mg/ Dextrose 110 mls @ 100 mls/hr IV Q8H [facility] Stop: 06/04/18 18:44 Magnesium Sulfate/Dextrose (Magnesium Sulfate / D5w) 1 gm in 100 mls @ 100 mls/ hr IV ONE ONE Stop: 05/28/18 19:59 Last Admin: 05/28/18 19:14 Dose: 100 mls/hr Pantoprazole Sodium 40 mg/ (Syringe) 10 mls @ 5 mls/min IV DAILY@1100 JACOB Stop: 06/28/18 10:59 Ipratropium [place] (Atrovent 0.02% 0.5mg/2.5ml) 0.5 mg INH UD JACOB Stop: 06/27/18 18:44 Levalbuterol HCl (Xopenex 1.25mg/0.5ml Neb) 1.25 mg NEB Q6H PRN PRN Reason: wheezing Stop: 06/27/18 18:44 Levalbuterol HCl (Xopenex 1.25mg/3ml Neb) 1.25 mg NEB Q6R [facility]ACOB Stop: 06/27/18 19:59 Miscellaneous (Levalbuterol/Ipratropium 0.63mg) 1 ea NEB Q6R [facility]AC[facility] Stop: 06/27/18 19:59 Miscellaneous ([facility] Electrolyte Replacement Protocol) 1 ea N/A UD PRN PRN Reason: for e-lyte repletion Stop: 06/04/18 18:48 Miscellaneous ([facility] Protocol For Hyperglycemia) 1 ea N/A PRN PRN; Protocol PRN Reason: Hyperglycemia Protocol Stop: 05/30/18 18:48 Miscellaneous Information (Pharmacy Consult) 1 ea N/A NOW STA Stop: 05/28/18 19:00 Raspberry (Raspberry) 5 ml PO Q6 JACOB Stop: 06/11/18 17:59 ECG Rate (beats per minute): 113 Rhythm: atrial fibrillation Resident Activity Tracking Resident Involvement: Resident Care Provided Care Provided: Adult [facility] Medicine _ (1) CHF (congestive heart failure) Heart failure chronicity: unspecified Heart failure type: unspecified Qualified Code(s): I50.9 - Heart failure, unspecified (2) Atrial fibrillation Atrial fibrillation type: chronic Qualified Code(s): I48.2 - Chronic atrial fibrillation (3) Diarrhea Diarrhea type: (4) Renal failure Acute renal failure type: Chronic kidney disease stage: Renal failure chronicity: (5) HTN (hypertension) Hypertension type: essential hypertension Qualified Code(s): I10 - Essential (primary) hypertension
[2018-05-28] MEDS ORDERED: VANCOMYCIN CONSULT ACTIVE PRN (19:43)
[2018-05-28] MEDS ORDERED: XOPENEX/ATROVENT 0.63mg/0.5MG NEB COMBO NEB SCH (20:00)
[2018-05-28] MEDS ORDERED: ACETAMINOPHEN 325 MG TAB PO PRN (20:04)
[2018-05-28] MEDS ORDERED: VANCOMYCIN HCL 1,750 MG in SODIUM CHLORIDE 0.9% 500 ML IV ONE (20:15)
[2018-05-28] MEDS: AZTREONAM 1,000 MG in DEXTROSE 5% 100 ML IV SCH (20:18)
[2018-05-28] MEDS ORDERED: PHYTONADIONE 5 MG in SODIUM CHLORIDE 0.9% 50 ML IV ONE (20:30)
[2018-05-28] MEDS: IPRATROPIUM BROMIDE NEB SOLN 0.02% 2.5 ML VIAL INH SCH (20:43)
[2018-05-28] MEDS: LEVALBUTEROL HCL 1.25 MG/3 ML NEB NEB SCH (20:44)
[2018-05-28 20:47] LABS: Troponin I 0.049 ng/ml (0-0.045)
--- NOTE | 2018-05-28 20:56 | History and Physical Report ---
DATE OF ADMISSION: 05/28/2018 This is a level 3 inpatient admission, 35 minutes. CHIEF COMPLAINT: Diarrhea for 3 days, abdominal pain. HISTORY OF PRESENT ILLNESS: The patient is an 83-year-old white female with a significant past medical history of CHF, thrombocytopenia, AFib on Coumadin, hypokalemia, CKD stage II, hypertension, broken wrist, SVT, asthma, kidney stone, COPD. Comes to the hospital Emergency Department because of the above chief complaint. Patient was admitted to this hospital and was discharged on 05/17/2018 which was 11 days ago because of CHF exacerbation and COPD exacerbation. She was having AFib with rapid ventricular response as well. She was having ytbhl-qi-swszanw kidney failure in a previous admission. The patient reported after discharge she has been doing fair until 3 days ago she developed intermittent diarrhea associated with diffuse abdominal pain. There was 3 bouts of diarrhea every day. She was feeling generalized weakness. She tried some Imodium, was not of help. Associated with nauseation, no vomiting. She also reported not able to keep food down. In the Emergency Room, the patient was found hypotensive, blood pressure at 80s, heart rate up to 128-140. She was found to have pneumonia and antibiotic was started. She is getting IV fluid. She was found to have vjpil-yz-nwthqir kidney failure, BUN 75, creatinine 4.3. Associated with troponin mild elevation. She was found to have elevated INR as well. When I interviewed with the patient, she was awake, alert, orientated, conversational, confirmed me the above information. Denied fever, chills, mild nauseation, no vomiting. Still has mild diffuse abdominal pain and diarrhea, denied blood in the stool, denied any sign of bleeding. Denied chest pain, palpitation, or lower extremity swelling. Patient did report some cough, some white sputum. Denied blood. Denied yellow sputum. Denied facial droop, slurry speeches, or local weakness. Denied dysuria, urgency, or frequencies. Denied skin rashes. REVIEW OF SYSTEMS: Please see HPI, otherwise 14-point organ system review were negative. PAST MEDICAL HISTORY: Like I mentioned above include, 1. Hypertension, chronic SVT, atrial fibrillation on Coumadin. 2. History of acute respiratory failure. 3. History of pneumonia. 4. Congestive heart failure exacerbation. 5. Chronic obstructive pulmonary disease exacerbation. 6. History of mahrd-qt-rvwtten kidney injury. 7. History of lphbo-ku-jgyhcfw diastolic CHF. SOCIAL HISTORY: Denied history of tobacco abuse disorder, denied history of alcohol abuse disorder, denied illicit drug abuse. The patient currently lives with family. PAST SURGICAL HISTORY: Includes history of . FAMILY HISTORY: Include asthma, depression, total knee replacement, and hypertension. MEDICATIONS: Currently she is taking at home, which include Tylenol 325 mg p.o. 4 hours p.r.n. for fever or pain, Cardizem 240 mg p.o. q.a.m., fluticasone vilanterol one inhaler daily, ipratropium bromide 0.5 mg inhaler q. 6 hours, Xopenex 0.63 mg nebulizer treatment q. 6 hours as needed, Toprol 50 mg p.o. daily, omeprazole 40 mg p.o. q.a.m., pravastatin 40 mg p.o. q.a.m., Sertraline 50 mg p.o. q.a.m., Coumadin 2.5 mg p.o. 6 times per week and then 5 mg p.o. 1 time per week. ALLERGIES: AMOXICILLIN. PHYSICAL EXAMINATION: VITAL SIGNS: Temperature is 36.5, heart rate is 125, respiratory rate 24, pulse ox was 96% on 4 liter, blood pressure currently is 80/60. GENERAL: The patient is a white female, awake, alert and orientated, conversational, follows all commands. HEAD: Normocephalic. EYES: Pupils equal, round, responds to light. EARS: Normal. NOSE: Normal. NECK: Supple. Thyroid no enlargement. LUNGS: There was wet cough and rales. The patient had sporadic wheezing. Bilateral lower lungs have fine crackle. ABDOMEN: Mildly distended, mildly tender. No rebounds. No guarding. Bilateral CVA was nontender. LOWER EXTREMITIES: No obvious swelling. There was no clubbing, no cyanosis, NEUROLOGICAL EVALUATION: Cranial nerves II-XII was intact. There were no focal deficits. SKIN: Has no rashes. LABORATORY STUDIES: WBC 14, hemoglobin 14, platelet 83,000. Sodium 134, potassium 3.2, BUN 75, creatinine 4.3. Blood glucose 136, troponin 0.049, total protein 6.8, albumin 2.1. TSH 1.06. EKG shows AFib with rapid ventricular response, heart rate at 113. IMAGING STUDIES: Chest x-ray shows developing and slightly progressive left base parenchymal infiltration. Abdominal CT studies shows gaseous distention on the right and transverse colon measuring up to 7 cm. No obstruction. No obstructing mass. No evidence of small bowel dilatation. There was distended gallbladder. No calculi identified. No evidence of acute appendicitis or evidence of diverticulitis. There was 21 mm left ovarian cyst. Lower chest CT studies shows basilar opacity likely representing atelectasis or scarring. ASSESSMENT: An 83-year-old white female with the conditions as seen below: 1. Possible sepsis associated with hypotension, severe leukocytosis with possible source of pneumonia or C. diff from diarrhea. 2. Leukocytosis, possible pneumonia. 3. Abdominal pain, diarrhea with recent hospital stay, is checking for C. diff now. 4. Tfexp-dj-lehwfyo kidney failure with significant elevated BUN and creatinine. Currently, BUN 75, creatinine 4.3 from recent creatinine was 1.24. 5. Thrombocytopenia. 6. Coumadin coagulopathy with INR more than 11. 7. Hypokalemia. 8. Hypomagnesemia. 9. Elevated troponin likely from troponin leakage secondary to acute kidney failure. 10. Atrial fibrillation with rapid ventricular response. 11. Hypotensive. 12. History of congestive heart failure. 13. History of hypertension. 14. History of kidney stone. 15. History of chronic obstructive pulmonary disease. PLAN: 1. Because patient has possible multiple organ failure with yutvr-af-mskafjy kidney failure and severe leukocytosis with possible source of infection, associated with hypotensive, plus her age and other comorbidities such as significant elevated INR, I feel patient is critically ill and needs to be admitted to the ICU. Had communication with ICU service, has requested metal template maker consultation. 2. ED physician has started IV fluid, so far 1.5 liter. In terms of sepsis, need to be on plenty of fluid resuscitation. However, patient's bilateral lower lung has some fine crackles already, so will give gentle IV fluid infusion. 3. Patient possibly has hospital acquired pneumonia with recent hospital stay. Will send blood culture, urine culture, sputum culture. Continue antibiotic with vancomycin and Zosyn. Because of allergy to amoxicillin, I will give vancomycin and Azactam. 4. For the diarrhea, we will send stool culture, check stool Hemoccult, follow up C. diff results. 5. We will continue nebulizer treatment with Xopenex. Because has AFib with tachycardia, AFib with rapid ventricular response, want to avoid albuterol and will use Xopenex. 6. We will replace potassium cautiously because of kxjms-pc-kqvnecm kidney failure, for now. 7. Because no obvious signs of bleeding or bluish, INR is 11, I will not give any vitamin K or FFP for now, however, we will monitor INR level. 8. We will monitor kidney function, acute kidney failure likely because of dehydration secondary to diarrhea. We will continue gentle IV fluid and follow up renal function. Will watch electrolytes. Like I mentioned, elevated troponin with history of CHF and currently is on bnupl-nr-kahvxdc kidney failure. Troponin likely is from the leakage of the troponin. However, I will follow up troponin level in 2-3 sets. 9. Gastrointestinal prophylaxis will be Protonix IV. Deep venous thrombosis prophylaxis, will not need it for now because INR is more than 11. 10. The patient was to follow up with PCP, was supposed to have a 2-step oxygen level evaluated to assess the need of home O2 or not by PCP tomorrow, however, not able to do it for now. We will keep in mind and have it arranged or evaluated before discharge, Has sign out to ICU team. I discussed with patient and patient's son Shad at the bedside. The patient requested DNR. MESSI
[2018-05-28] MEDS: NORMOSOL-R 1,000 ML IV SCH (21:30)
[2018-05-28] MEDS: metroNIDAZOLE 500 MG/100 ML BAG IV SCH (21:31)
--- NOTE | 2018-05-28 22:27 | Procedure Note ---
Procedure Note Date of Service May 28, 2018 Procedure: Internal Jugular Central Line Placement Attending: Dr. Erickson APC: Ashish Renee PA-C Indication: Central Drug Administration, Poor Venous Access, Multiple Lab Draws Necessary, etc. Anesthesia: Lidocaine 1% Consent was signed and placed on the chart prior to procedure. Indication, risks , and benefits were explained at length. A time-out was completed verifying correct patient, procedure, site, positioning , and implants(s) or special equipment if applicable. Patients RIGHT Neck was cleansed and draped in the typical sterile fashion using Chloraprep. The Internal Jugular Vein and Carotid Artery were identified using ultrasound. The superficial tissue was anesthetized using 5 mL of 1% lidocaine without epinephrine under direct visualization with the ultrasound. After adequate anesthetization was achieved, the Internal Jugular vein was cannulated under direct ultrasound guidance using an introducer needle on a syringe. Good venous blood return was maintained prior to removal of syringe from introducer needle. Using Seldinger Technique, a guide wire was advanced through the introducer needle without resistance. The introducer needle was removed and ultrasound images were obtained of the guide wire within the Internal Jugular Vein and saved to the patients medical record. No skin incision was made given the patient's thin skin and elevated INR with risk for persistent bleeding. The dilator was advanced to the vessel without resistance. The dilator was exchanged for the triple lumen catheter which was advanced into the vessel without resistance. The guide wire was removed intact from the catheter without issue. Claves were placed on each catheter tip with confirmation of good blood flow from each lumen. Each port was easily flushed with sterile saline. The catheter was placed at 15 cm and sutured in place. BioPatch was applied to the catheter and a sterile Tegaderm dressing was applied over the catheter with careful attention to sterility. Patient tolerated procedure well. No immediate complications were met. Post procedure x-ray was completed, placement was appropriate and no pneumothorax was noted. Images obtained are saved for permanent record Procedural Ultrasound Guidance: Procedure Date: 05/28/2018 Indication: CVP Monitoring, Pressors, Multiple Labs Attending: Dr. Erickson APC: Ashish Renee PA-C Artery AND Vein visualized: YES Compressible Vein: YES Guidewire or Short Catheter seen in vein prior to dilation: YES Line confirmed in Vein with ultrasound: YES Images obtained are saved for permanent record.
--- NOTE | 2018-05-28 22:34 | XRay Report ---
SINGLE VIEW CHEST CLINICAL HISTORY: Central venous catheter placement. FINDINGS: An AP, portable, upright chest radiograph is compared to study performed earlier the same d ay 05/28/2018. Correlation is made with chest CT dated 05/12/2018. The examination is degraded by ellen ble technique and patient rotation. A right internal jugular central venous catheter has been placed. The tip projects over the SVC. The heart is enlarged and there is atherosclerotic calcification of t he thoracic aorta. The pulmonary vasculature is noncongested. Chronic interstitial thickening is fadi lar to previous. There is bibasilar scarring/atelectasis. No airspace consolidation or large pleural effusion is identified. No pneumothorax is seen. The skeletal structures are osteopenic. There are he aled bilateral rib fractures. IMPRESSION: 1. A right internal jugular central venous catheter has been placed as above. No pneumothorax is seen post procedure. 2. Cardiomegaly without radiographic evidence of congestive failure. 3. No airspace consolidation or large pleural effusion is identified. Electronically signed by: João Banegas M.D. 05/28/2018 10:33 PM
[2018-05-28] MEDS ORDERED: ONDANSETRON INJ 2 MG/ML 2 ML VIAL IV STA (23:04)
--- NOTE | 2018-05-28 23:05 | Procedure Note ---
Procedure Note Date of Service May 28, 2018 Procedure: Arterial Line Placement Attending: Dr. Erickson APC: Ashish Renee PA-C Indication: Monitoring on Pressors Anesthesia: Lidocaine 1% Consent was signed and placed on the chart prior to procedure. Indication, risks , and benefits were explained at length. A time-out was completed verifying correct patient, procedure, site, positioning , and implant(s) or special equipment if applicable. Allens test was performed to ensure adequate perfusion. Patients RIGTH wrist was prepped and draped in the usual sterile fashion. Ultrasound guidance was used to aid needle placement. A 20g Arrow arterial line was introduced into the RIGHT Radial artery. I was unable to thread catheter successfully. 3 separate attempts were made without success. Procedure was aborted. Blood Loss: Minimal Complications: None Procedural Ultrasound Guidance: Procedure Date: 05/28/2018 Indication: Pressure Monitoring Attending: Dr. Erickson APC: Ashish Renee PA-C Artery Identified: YES Line confirmed in Artery with ultrasound: NO Complications: NONE Patient tolerated procedure: WELL
[2018-05-28] MEDS: VANCOMYCIN HCL 500 MG/10 ML SOLN PO SCH (23:26)
[2018-05-28] MEDS: RASPBERRY SYRUP 5 ML UDP PO SCH (23:26)
[2018-05-28] MEDS ORDERED: NORMOSOL-R 500 ML IV ONE (23:59)
[2018-05-29] MEDS ORDERED: NORMOSOL-R 500 ML IV ONE ×4 (00:54→13:41)
[2018-05-29] MEDS: LEVALBUTEROL HCL 1.25 MG/3 ML NEB NEB SCH ×4 (03:01→19:10)
[2018-05-29] MEDS: IPRATROPIUM BROMIDE NEB SOLN 0.02% 2.5 ML VIAL INH SCH ×4 (03:01→19:09)
[2018-05-29] MEDS: AZTREONAM 1,000 MG in DEXTROSE 5% 100 ML IV SCH (03:46)
[2018-05-29] MEDS: NORMOSOL-R 1,000 ML IV SCH ×2 (03:47→09:08)
[2018-05-29 04:42] LABS: Hematocrit (blood only) 36.2 % (37-47); Hemoglobin 11.9 g/dL (12.0-16.0); Mean Corpuscular Hgb Conc 32.9 g/dL (32-36); Mean Platelet Volume 12.4 fL (7.4-10.4); Platelet Count 79 K/uL (130-400); RDW Coefficient of Variation 15.5 % (11.5-14.5); Red Blood Count 4.21 M/uL (4.2-5.4); White Blood Count 26.64 K/uL (4.8-10.8)
[2018-05-29 04:47] LABS: INR 1.7 (0.9-1.1); Prothrombin Time 16.4 Seconds (9.0-12.0)
[2018-05-29 05:10] LABS: Albumin Level 1.7 gm/dl (3.4-5.0); BUN Creatinine Ratio 15.5 (10-20); Bilirubin Direct 0.6 mg/dl (0-0.2); Calcium 6.5 mg/dl (8.5-10.1); Creatinine Clr Calc Pharmacy 9.7 ml/min; Est GFR (African American) 9.5; Est GFR (Non-African American) 8.2; Magnesium 2.3 mg/dl (1.8-2.4); Phosphorus 5.5 mg/dl (2.5-4.9); Potassium 3.2 mmol/L (3.5-5.1); Total Protein 5.3 gm/dl (6.4-8.2); Troponin I 0.04 ng/ml (0-0.045)
[2018-05-29] MEDS ORDERED: POTASSIUM CHLORIDE / WTR 20 MEQ/100 ML PLCT IV ONE (05:30)
[2018-05-29] MEDS ORDERED: Heparin IV Standard *NO* Bolus IV ONE (05:33)
[2018-05-29 05:38] LABS: ALC (manual) 0.24 K/uL (1.2-3.4); Hypogranular Neutrophils 1+; Lymphocytes # (manual) 0.24 K/uL (1.2-3.4); Lymphocytes % (manual) 0.9 %; Monocytes # (manual) 3.97 K/uL (0.11-0.59); Monocytes % (manual) 14.9 %; Neutrophils % (manual) 84.2 %
[2018-05-29 05:44] LABS: Partial Thromboplastin Ratio 1.6; Partial Thromboplastin Time 41.8 Seconds (21.0-31.0)
[2018-05-29] MEDS: metroNIDAZOLE 500 MG/100 ML BAG IV SCH ×3 (05:45→21:51)
[2018-05-29] MEDS: RASPBERRY SYRUP 5 ML UDP PO SCH ×4 (05:46→23:12)
[2018-05-29] MEDS: VANCOMYCIN HCL 500 MG/10 ML SOLN PO SCH ×4 (05:46→23:12)
[2018-05-29] MEDS: HEPARIN STANDARD DEXTROSE 25,000 UNITS/500 ML IV SCH (05:59)
--- NOTE | 2018-05-29 06:47 | Surgery Consultation ---
Date of Consultation May 29, 2018 Assessment & Plan (1) Renal failure: pt is a 83 year old female who was admitted to ICU for acute renal failure , IMP: acute renal failure, caused ? now pt has no abdominal pain, no bloody stool, no diarrhea for last 12 hours, lactate down to 1.7 from 2.6, WBC down to 26,000 from 40,000, BUN 70, Cr, 4.6 no surgical intervention now, ID consult GI consult, pt has refused dialysis catheter insertion will F/U (2) Diarrhea: History of Present Illness Attending Physician: Josh Mcdonnell MD, PhD, [facility] COMPLAINT: Diarrhea for 3 days, abdominal pain. HISTORY OF PRESENT ILLNESS: The patient is an 83-year-old white female with a significant past medical history of CHF, thrombocytopenia, AFib on Coumadin, hypokalemia, CKD stage II, hypertension, broken wrist, SVT, asthma, kidney stone, COPD. Comes to the hospital Emergency Department because of the above chief complaint. Patient was admitted to this hospital and was discharged on 05/17/2018 which was 11 days ago because of CHF exacerbation and COPD exacerbation. She was having AFib with rapid ventricular response as well. She was having [id number] kidney failure in a previous admission. The patient reported after discharge she has been doing fair until 3 days ago she developed intermittent diarrhea associated with diffuse abdominal pain. There was 3 bouts of diarrhea every day. She was feeling generalized weakness. She tried some Imodium, was not of help. Associated with nauseation, no vomiting. She also reported not able to keep food down. In the Emergency Room, the patient was found hypotensive, blood pressure at 80s, heart rate up to 128-140. She was found to have pneumonia and antibiotic was started. She is getting IV fluid. She was found to have [id number] kidney failure, BUN 75, creatinine 4.3. Associated with troponin mild elevation. She was found to have elevated INR as well. When I interviewed with the patient, she was awake, alert, orientated, conversational, confirmed me the above information. Denied fever, chills, mild nauseation, no vomiting. Still has mild diffuse abdominal pain and diarrhea, denied blood in the stool, denied any sign of bleeding. Denied chest pain, palpitation, or lower extremity swelling. Patient did report some cough, some white sputum. Denied blood. Denied yellow sputum. Denied facial droop, slurry speeches, or local weakness. Denied dysuria, urgency, or frequencies. Denied skin rashes. I reviewed pt's H/P with pt, now, pt has no abdominal pain, some nausea, no vomiting, no diarrhea since in ICU, no fever, no bloody stool, pt refused for dialysis catheter insertion. REVIEW OF SYSTEMS: Please see HPI, otherwise 14-point organ system review were negative. PAST MEDICAL HISTORY: Like I mentioned above include, 1. Hypertension, chronic SVT, atrial fibrillation on Coumadin. 2. History of acute respiratory failure. 3. History of pneumonia. 4. Congestive heart failure exacerbation. 5. Chronic obstructive pulmonary disease exacerbation. 6. History of utpli-bq-dfsvqzo kidney injury. 7. History of ekmla-fb-[id number] diastolic CHF. SOCIAL HISTORY: Denied history of tobacco abuse disorder, denied history of alcohol abuse disorder, denied illicit drug abuse. The patient currently lives with family. PAST SURGICAL HISTORY: Includes history of . FAMILY HISTORY: Include asthma, depression, total knee replacement, and hypertension. MEDICATIONS: Currently she is taking at home, which include Tylenol 325 mg p.o. 4 hours p.r.n. for fever or pain, Cardizem 240 mg p.o. q.a.m., fluticasone vilanterol one inhaler daily, ipratropium bromide 0.5 mg inhaler q. 6 hours, Xopenex 0.63 mg nebulizer treatment q. 6 hours as needed, Toprol 50 mg p.o. daily, omeprazole 40 mg p.o. q.a.m., pravastatin 40 mg p.o. q.a.m., Sertraline 50 mg p.o. q.a.m., Coumadin 2.5 mg p.o. 6 times per week and then 5 mg p.o. 1 time per week. ALLERGIES: AMOXICILLIN. Allergies Allergy/AdvReac Type Severity Reaction Status Date / Time amoxicillin Allergy Intermediate SWELLING Verified 05/28/18 15:44 Home Medications Home Medications Medication Instructions Recorded Confirmed Type acetaminophen [Tylenol] 325 mg PO Q4 PRN 05/10/18 05/28/18 History diltiazem HCl 240 mg PO QAM 05/10/18 05/28/18 History omeprazole 40 mg PO QAM 05/10/18 05/28/18 History pravastatin 40 mg PO QAM 05/10/18 05/28/18 History sertraline 50 mg PO QAM 05/10/18 05/28/18 History warfarin 2.5 mg PO 6XWK 05/10/18 05/28/18 History warfarin 5 mg PO 2XWK 05/10/18 05/28/18 History fluticasone-vilanterol 1 inh INHALATION DAILY 05/11/18 05/28/18 History ipratropium bromide 0.5 mg INHALATION Q6R 14 Days #14 05/17/18 05/28/18 Rx ml levalbuterol HCl 0.63 mg NEB Q6R 14 Days #30 ml 05/17/18 05/28/18 Rx metoprolol succinate 50 mg PO DAILY 05/28/18 05/28/18 History Patient History Medical History HTN (hypertension) (Chronic) SVT (supraventricular tachycardia) (Chronic) A-fib (Chronic) Acute respiratory failure (Acute 04/26/13) PNA (pneumonia) (Resolved) CHF (congestive heart failure) (Acute) COPD exacerbation (Acute) Acute kidney injury superimposed on chronic kidney disease Acute on chronic diastolic heart failure Surgical History Previous section (Resolved) Family History Other Asthma Depression History of total knee replacement Hypertension Social History Current Living Situation: Family Current Living Situation Comment: Lives with son Other Information That Helps Us Care for You: No Feels Safe at Home: Yes Safety Concerns: Feels Safe At This Time Smoking Status: Never smoker Second Hand Exposure: No Hx Alcohol Use: No Hx Substance Use: No Beliefs That Will Affect Care: None Communication Ability: Effective Stenciler Required: No Review of Systems Constitutional: as per Subjective / HPI Ear, Nose, Mouth, Throat: as per Subjective / HPI Respiratory: as per Subjective / HPI COPD, respiratory failure Cardiovascular: as per Subjective / HPI Additional Comments: CHF, SVT, A-Fib Gastrointestinal: as per Subjective / HPI Genitourinary (Female): as per Subjective / HPI Musculoskeletal: as per Subjective / HPI Neurologic: as per Subjective / HPI Psychiatric: as per Subjective / HPI Endocrine: as per Subjective / HPI DM Hematologic / Lymphatic: as per Subjective / HPI Physical Exam 2 Vital Signs (Past 24 Hours): Last Vital Signs Temp 36.8 C 05/29/18 04:00 Pulse 118 H 05/29/18 06:00 Resp 22 05/29/18 06:00 BP 106/64 05/29/18 06:00 Pulse Ox 94 05/29/18 06:00 Constitutional: WD/WN, vitals as above well developed and well nourished Neck: trachea midline, no thyromegaly a central line at right side neck Respiratory: normal respiratory effort, lungs clear to auscultation normal respiratory effort Cardiovascular: RRR, no murmur, no edema Rate/Rhythm: + tachycardic Heart Sounds: normal S1 and normal S2 Gastrointestinal (Abdomen): normal bowel sounds, soft, nontender, no hepatosplenomegaly Percussion/Palpation: abdomen soft abdomen, no tenderness, no distend, BS+ Musculoskeletal: no edema at lower legs Skin: no rashes, warm and dry Neurologic: awake Psychiatric: Orientation: alert and oriented x 3 Lymphatic: no cervical or axillary lymphadenopathy Results & Data Laboratory Results Abnormal lab results 05/28/18 05/28/18 05/28/18 Range/Units 13:56 13:56 13:56 WBC 40.73 H* (4.8-10.8) K/uL Hgb (12.0-16.0) g/dL Hct (37-47) % RDW Std Deviation 47.7 H (36.4-46.3) fL RDW Coeff of Kathleen 15.5 H (11.5-14.5) % Plt Count 83 L (130-400) K/uL MPV (7.4-10.4) fL Neutrophils # (Manual) 36.25 H (1.4-6.5) K/uL Total Absolute Neuts 36.25 H (1.4-6.5) K/uL Lymphocytes # (Manual) 0.41 L (1.2-3.4) K/uL Total Abs Lymphocytes 0.41 L (1.2-3.4) K/uL Monocytes # (Manual) 4.07 H (0.11-0.59) K/uL PT 100.0 H (9.0-12.0) Seconds INR > 11.0 H* (0.9-1.1) APTT 73.4 H* (21.0-31.0) Seconds Sodium 134 L (136-145) mmol/L Potassium 3.2 L (3.5-5.1) mmol/L Chloride 96 L (98-107) mmol/L Carbon Dioxide 20 L (21-32) mmol/L Anion Gap 18.0 H (3-11) BUN 75 H (7-18) mg/dl Creatinine 4.36 H (0.6-1.2) mg/dl Glucose 136 H (70-99) mg/dl POC Glucose (70-99) Lactate (0.4-2.0) mmol/L Calcium 7.4 L (8.5-10.1) mg/dl Phosphorus (2.5-4.9) mg/dl Magnesium 1.6 L (1.8-2.4) mg/dl Direct Bilirubin (0-0.2) mg/dl AST 10 L (15-37) U/L ALT (12-78) U/L Alkaline Phosphatase 136 H (45-117) U/L Troponin I 0.049 H* (0-0.045) ng/ml Total Protein (6.4-8.2) gm/dl Albumin 2.1 L (3.4-5.0) gm/dl Globulin 4.7 H (2.5-4.0) gm/dl Albumin/Globulin Ratio 0.4 L (0.9-2) Lipase (73-393) U/L Urine Appearance (Clear) Urine RBC (0-4) /hpf Urine WBC (0-5) /hpf Ur Epithelial Cells (0-5) /lpf Ur Renal Epithelial Cell (0-5) /lpf Amorphous Sediment (None Prsent) Urine Bacteria (Negative) 05/28/18 05/28/18 05/28/18 Range/Units 16:05 19:38 19:39 WBC (4.8-10.8) K/uL Hgb (12.0-16.0) g/dL Hct (37-47) % RDW Std Deviation (36.4-46.3) fL RDW Coeff of Kathleen (11.5-14.5) % Plt Count (130-400) K/uL MPV (7.4-10.4) fL Neutrophils # (Manual) (1.4-6.5) K/uL Total Absolute Neuts (1.4-6.5) K/uL Lymphocytes # (Manual) (1.2-3.4) K/uL Total Abs Lymphocytes (1.2-3.4) K/uL Monocytes # (Manual) (0.11-0.59) K/uL PT (9.0-12.0) Seconds INR (0.9-1.1) APTT (21.0-31.0) Seconds Sodium (136-145) mmol/L Potassium (3.5-5.1) mmol/L Chloride (98-107) mmol/L Carbon Dioxide (21-32) mmol/L Anion Gap (3-11) BUN (7-18) mg/dl Creatinine (0.6-1.2) mg/dl Glucose (70-99) mg/dl POC Glucose (70-99) Lactate 2.5 H* (0.4-2.0) mmol/L Calcium (8.5-10.1) mg/dl Phosphorus (2.5-4.9) mg/dl Magnesium (1.8-2.4) mg/dl Direct Bilirubin (0-0.2) mg/dl AST (15-37) U/L ALT (12-78) U/L Alkaline Phosphatase (45-117) U/L Troponin I 0.049 H* (0-0.045) ng/ml Total Protein (6.4-8.2) gm/dl Albumin (3.4-5.0) gm/dl Globulin (2.5-4.0) gm/dl Albumin/Globulin Ratio (0.9-2) Lipase 40 L (73-393) U/L Urine Appearance Slightly Cloudy H (Clear) Urine RBC >30 H (0-4) /hpf Urine WBC 10-30 H (0-5) /hpf Ur Epithelial Cells >30 H (0-5) /lpf Ur Renal Epithelial Cell 5-10 H (0-5) /lpf Amorphous Sediment Present H (None Prsent) Urine Bacteria 1+ H (Negative) 05/28/18 05/29/18 05/29/18 Range/Units 21:35 04:29 04:29 WBC (4.8-10.8) K/uL Hgb (12.0-16.0) g/dL Hct (37-47) % RDW Std Deviation (36.4-46.3) fL RDW Coeff of Kathleen (11.5-14.5) % Plt Count (130-400) K/uL MPV (7.4-10.4) fL Neutrophils # (Manual) (1.4-6.5) K/uL Total Absolute Neuts (1.4-6.5) K/uL Lymphocytes # (Manual) (1.2-3.4) K/uL Total Abs Lymphocytes (1.2-3.4) K/uL Monocytes # (Manual) (0.11-0.59) K/uL PT 16.4 H (9.0-12.0) Seconds INR 1.7 H (0.9-1.1) APTT (21.0-31.0) Seconds Sodium 134 L (136-145) mmol/L Potassium 3.2 L (3.5-5.1) mmol/L Chloride (98-107) mmol/L Carbon Dioxide (21-32) mmol/L Anion Gap 12.0 H (3-11) BUN 72 H (7-18) mg/dl Creatinine 4.65 H* (0.6-1.2) mg/dl Glucose 125 H (70-99) mg/dl POC Glucose 148 H (70-99) Lactate (0.4-2.0) mmol/L Calcium 6.5 L (8.5-10.1) mg/dl Phosphorus 5.5 H (2.5-4.9) mg/dl Magnesium (1.8-2.4) mg/dl Direct Bilirubin 0.6 H (0-0.2) mg/dl AST 11 L (15-37) U/L ALT 9 L (12-78) U/L Alkaline Phosphatase (45-117) U/L Troponin I (0-0.045) ng/ml Total Protein 5.3 L D (6.4-8.2) gm/dl Albumin 1.7 L (3.4-5.0) gm/dl Globulin (2.5-4.0) gm/dl Albumin/Globulin Ratio (0.9-2) Lipase (73-393) U/L Urine Appearance (Clear) Urine RBC (0-4) /hpf Urine WBC (0-5) /hpf Ur Epithelial Cells (0-5) /lpf Ur Renal Epithelial Cell (0-5) /lpf Amorphous Sediment (None Prsent) Urine Bacteria (Negative) 05/29/18 05/29/18 Range/Units 04:29 04:29 WBC 26.64 H D (4.8-10.8) K/uL Hgb 11.9 L (12.0-16.0) g/dL Hct 36.2 L (37-47) % RDW Std Deviation 48.0 H (36.4-46.3) fL RDW Coeff of Kathleen 15.5 H (11.5-14.5) % Plt Count 79 L (130-400) K/uL MPV 12.4 H (7.4-10.4) fL Neutrophils # (Manual) 22.43 H (1.4-6.5) K/uL Total Absolute Neuts 22.43 H (1.4-6.5) K/uL Lymphocytes # (Manual) 0.24 L (1.2-3.4) K/uL Total Abs Lymphocytes 0.24 L (1.2-3.4) K/uL Monocytes # (Manual) 3.97 H (0.11-0.59) K/uL PT (9.0-12.0) Seconds INR (0.9-1.1) APTT 41.8 H (21.0-31.0) Seconds Sodium (136-145) mmol/L Potassium (3.5-5.1) mmol/L Chloride (98-107) mmol/L Carbon Dioxide (21-32) mmol/L Anion Gap (3-11) BUN (7-18) mg/dl Creatinine (0.6-1.2) mg/dl Glucose (70-99) mg/dl POC Glucose (70-99) Lactate (0.4-2.0) mmol/L Calcium (8.5-10.1) mg/dl Phosphorus (2.5-4.9) mg/dl Magnesium (1.8-2.4) mg/dl Direct Bilirubin (0-0.2) mg/dl AST (15-37) U/L ALT (12-78) U/L Alkaline Phosphatase (45-117) U/L Troponin I (0-0.045) ng/ml Total Protein (6.4-8.2) gm/dl Albumin (3.4-5.0) gm/dl Globulin (2.5-4.0) gm/dl Albumin/Globulin Ratio (0.9-2) Lipase (73-393) U/L Urine Appearance (Clear) Urine RBC (0-4) /hpf Urine WBC (0-5) /hpf Ur Epithelial Cells (0-5) /lpf Ur Renal Epithelial Cell (0-5) /lpf Amorphous Sediment (None Prsent) Urine Bacteria (Negative) Diagnostic Findings CT SCAN OF THE ABDOMEN AND PELVIS WITHOUT CONTRAST CLINICAL HISTORY: Diffuse abdominal pain and diarrhea COMPARISON STUDY: No previous studies for comparison. TECHNIQUE: CT scan of the abdomen and pelvis was performed from the lung bases to the proximal femurs. Images are reviewed in the axial, sagittal, and coronal planes. IV contrast was not administered for this examination. A dose lowering technique was utilized adhering to the principles of ALARA. CT DOSE: 1498.17 mGy.cm FINDINGS: Lower chest: There are by basilar opacities, likely representing areas of atelectasis/scarring. Liver: The unenhanced liver is normal in size, contour, and attenuation. There is no intrahepatic biliary ductal dilatation. Gallbladder: The gallbladder is distended. No calculi are visualized. Spleen: Normal in size and attenuation. Pancreas: Unremarkable. Adrenal glands: Unremarkable. Kidneys: The unenhanced kidneys are normal in size without hydronephrosis. There is no contour deforming renal mass lesion. No renal calculi are identified. Bowel: Apparent gastric wall thickening is likely secondary to a nondistended stomach. There are no findings to indicate acute diverticulitis. There are no findings to indicate acute appendicitis. There is gaseous distention of the right and transverse colon. There is a transition zone at the left mid abdominal level. No discrete mass is visualized on this study performed without the benefit of intravenous or oral contrast. There is no small bowel dilatation. There is fluid present within the rectosigmoid. Peritoneum: There is no intraperitoneal free air or abdominal ascites. Vasculature: The abdominal aorta is normal in course and caliber. Adenopathy: None. Pelvic viscera: There is a 21 mm left ovarian cyst Skeletal structures: There is an old right ischio pubic ring fracture. There is right iliopsoas atrophy. IMPRESSION: 1. Gaseous distention of the right and transverse colon measuring up to 7 cm. No obstructing mass is visualized given the limitations of a study performed without intravenous or oral contrast. 2. No evidence of small bowel dilatation 3. Distended gallbladder. No calculi identified. 4. No evidence of acute appendicitis. No evidence of acute diverticulitis. 5. 21 mm left ovarian cyst _ (1) Renal failure Acute renal failure type: Chronic kidney disease stage: Renal failure chronicity: (2) Diarrhea Diarrhea type:
[2018-05-29] MEDS ORDERED: METOPROLOL TARTRATE 1 MG/ML VIAL IV STA (08:42)
--- NOTE | 2018-05-29 09:10 | Critical Care Progress Note ---
Date of Service May 29, 2018 Assessment & Plan (1) Renal failure: (2) Diarrhea: 83yoF with hx of COPD, Diastolic CHF, Afib on warfarin, CKD stage 2 and HTN presented with weakness in the setting of diarrhea x 1 week. Admitted to the ICU for concern of septic shock likely in the setting of C. diff colitis. NEURO: CAM ICU: negative CARDIAC/VASCULAR: Improving hypotension but remains tachycardic in the setting of Afib. Initial concern for septic shock in the setting of C.diff colitis; Elevated troponin in the setting of likely demand ischemia and Afib w/RVR - downtrended PMHx: CHF and Afib on coumadin ECHO 05/11/18: Ef 55-60%, diastolic dysfunction, borderline pulm hypertension PASP 34-40mmHG, severe LA enlargement, mild concentric LVH, mild MR EKG: Rate 113 AFib with RVR QTc 567 -> repeat 119 Afib with RVR QTc 475 Troponin elevated to 0.049 -> 0.040 Received 1.5L of NS bolus On Normosol 100mls/hr On Heparin drip for Afib Restarted on home rate control medications: Diltiazem 60mg QID and metoprolol succinate 50mg daily PULM: Hx of COPD (not on oxygen yet but per son had appt for 2 step 05/29) Prior PFTs - FEV 0.5L, 29% predicted; severe obstructive defect On 3L NC CXR: mild cardiomegaly without concern of congestive failure Continue levalbuterol and ipratropium GI: Concern for C.diff colitis WBC 40.7 -> 26.6 LFT wnl except direct bilirubin of 0.6 Lipase wnl C.diff pending Continue vanc PO 500mg Q6H and flagyl IV 500mg Q8H On protonix 40mg daily Given compazine 10mg IV for nausea x 1 HH diet Surgery consulted: no intervention at this time for possible C.diff colitis RENAL/LYTES: Acute on chronic RF likely in the setting of septic shock PMHX: CKD stage 2 BUN/Cr 75/4.36 -> 72/4.65 (baseline Cr 1.7) UOP 348cc rate 0.24cc/kg/hr (gradually decreasing UOP 8cc so far this shift) On Normosol 100mls/hr Renal US ordered Nephrology consulted Monitor BMP : Oliguric Payne in place ENDO: TSH wnl BSG checks and SSI per ICU protocol HEME: Improving coagulopathy in the setting of sepsis PMHx: thrombocytopenia Hgb 14.5 -> 11.9 (pt likely hemoconcentrated on arrival in the setting of signficant dehydration) Plt ct 83 -> 79 (around baseline) INR 11 -> 1.7, PT 100 -> 64, PTT 73.4 -> 41.8 On Warfarin at home for Afib - held Received Vit K 5mg x 1 Monitor CBC and Coags closely ID: Concern for septic shock in the setting of C.diff colitis WBC 40.7 -> 26.6 Lactate 2.5 -> 1.7 Blood and urine cultures pending MRSA swab neg Influenza neg On PO Vanc and IV flagyl for C.diff concern LINES: R IJ Central Line PIV x 1 DVT prop: SCDs only, chemical contraindicated Code status: DNR Dispo: pending clinical improvement (3) CHF (congestive heart failure): (4) Thrombocytopenia: (5) Atrial fibrillation: (6) Acute hypokalemia: (7) CKD (chronic kidney disease) stage 2, GFR 60-89 ml/min: (8) Hypoxia: (9) HTN (hypertension): (10) COPD (chronic obstructive pulmonary disease): Supervising Physician Co-Signing Physician Notes Dr. Jackson was resident physician during care of patient. I separately evaluated patient for mane portions of the history and the exam. I was present during the critical portion of medical decision making, and I discussed the case with the resident. I generally agree with the findings and plan. Hemodynamics improved will restart home rate control medications. Started heparin for atrial fibrillation. Discontinued all antibiotics with the exception of treatment for presumptive C. difficile. Reviewed general surgery consult. Awaiting results of influenza screening cautious fluid repletion trending CVP's. I have personally spent 45 minutes of critical care time in the direct management of this patient. This is a life/limb threatening event. This includes time spent evaluating patient, direct bedside care, chart review, placing orders, interpretation of diagnostic studies, discussion with consultants, patient, and/or family members regarding treatment decisions, as well as other required patient management activities. This time is exclusive of all separately billable procedures, and teaching time and separate from and in addition to any other critical care service time. Subjective This AM pt reported feeling tired and cold. She was also nauseous with breakfast but denied any fever, EDWARDS/dizziness, cp, sob, vomiting, diarrhea, abdominal pain. Payne: UOP 50cc ON and 8cc so far this shift +7.2L Physical Exam 2 Vital Signs (Past 24 Hours): Last Vital Signs Temp 36.8 C 05/29/18 04:00 Pulse 133 H 05/29/18 09:09 Resp 16 05/29/18 07:13 BP 103/71 05/29/18 09:09 Pulse Ox 114 H 05/29/18 07:13 Physical Exam: General: In NAD, speaking in full sentences and resting in bed CV: tachycardic with irregular rhythm, no m/r/g Pulm: bibasilar crackles appreciated, equal breath sounds bilaterally Abdomen: +BS, less-distended, non-TTP in all quadrants LE: No LE edema or calf tenderness Neuro: Alert and oriented x 4 Results & Data Laboratory Results Abnormal lab results 05/28/18 05/28/18 05/28/18 Range/Units 13:56 13:56 13:56 WBC 40.73 H* (4.8-10.8) K/uL Hgb (12.0-16.0) g/dL Hct (37-47) % RDW Std Deviation 47.7 H (36.4-46.3) fL RDW Coeff of Kathleen 15.5 H (11.5-14.5) % Plt Count 83 L (130-400) K/uL MPV (7.4-10.4) fL Neutrophils # (Manual) 36.25 H (1.4-6.5) K/uL Total Absolute Neuts 36.25 H (1.4-6.5) K/uL Lymphocytes # (Manual) 0.41 L (1.2-3.4) K/uL Total Abs Lymphocytes 0.41 L (1.2-3.4) K/uL Monocytes # (Manual) 4.07 H (0.11-0.59) K/uL PT 100.0 H (9.0-12.0) Seconds INR > 11.0 H* (0.9-1.1) APTT 73.4 H* (21.0-31.0) Seconds Sodium 134 L (136-145) mmol/L Potassium 3.2 L (3.5-5.1) mmol/L Chloride 96 L (98-107) mmol/L Carbon Dioxide 20 L (21-32) mmol/L Anion Gap 18.0 H (3-11) BUN 75 H (7-18) mg/dl Creatinine 4.36 H (0.6-1.2) mg/dl Glucose 136 H (70-99) mg/dl POC Glucose (70-99) Lactate (0.4-2.0) mmol/L Calcium 7.4 L (8.5-10.1) mg/dl Phosphorus (2.5-4.9) mg/dl Magnesium 1.6 L (1.8-2.4) mg/dl Direct Bilirubin (0-0.2) mg/dl AST 10 L (15-37) U/L ALT (12-78) U/L Alkaline Phosphatase 136 H (45-117) U/L Troponin I 0.049 H* (0-0.045) ng/ml Total Protein (6.4-8.2) gm/dl Albumin 2.1 L (3.4-5.0) gm/dl Globulin 4.7 H (2.5-4.0) gm/dl Albumin/Globulin Ratio 0.4 L (0.9-2) Lipase (73-393) U/L Urine Appearance (Clear) Urine RBC (0-4) /hpf Urine WBC (0-5) /hpf Ur Epithelial Cells (0-5) /lpf Ur Renal Epithelial Cell (0-5) /lpf Amorphous Sediment (None Prsent) Urine Bacteria (Negative) 05/28/18 05/28/18 05/28/18 Range/Units 16:05 19:38 19:39 WBC (4.8-10.8) K/uL Hgb (12.0-16.0) g/dL Hct (37-47) % RDW Std Deviation (36.4-46.3) fL RDW Coeff of Kathleen (11.5-14.5) % Plt Count (130-400) K/uL MPV (7.4-10.4) fL Neutrophils # (Manual) (1.4-6.5) K/uL Total Absolute Neuts (1.4-6.5) K/uL Lymphocytes # (Manual) (1.2-3.4) K/uL Total Abs Lymphocytes (1.2-3.4) K/uL Monocytes # (Manual) (0.11-0.59) K/uL PT (9.0-12.0) Seconds INR (0.9-1.1) APTT (21.0-31.0) Seconds Sodium (136-145) mmol/L Potassium (3.5-5.1) mmol/L Chloride (98-107) mmol/L Carbon Dioxide (21-32) mmol/L Anion Gap (3-11) BUN (7-18) mg/dl Creatinine (0.6-1.2) mg/dl Glucose (70-99) mg/dl POC Glucose (70-99) Lactate 2.5 H* (0.4-2.0) mmol/L Calcium (8.5-10.1) mg/dl Phosphorus (2.5-4.9) mg/dl Magnesium (1.8-2.4) mg/dl Direct Bilirubin (0-0.2) mg/dl AST (15-37) U/L ALT (12-78) U/L Alkaline Phosphatase (45-117) U/L Troponin I 0.049 H* (0-0.045) ng/ml Total Protein (6.4-8.2) gm/dl Albumin (3.4-5.0) gm/dl Globulin (2.5-4.0) gm/dl Albumin/Globulin Ratio (0.9-2) Lipase 40 L (73-393) U/L Urine Appearance Slightly Cloudy H (Clear) Urine RBC >30 H (0-4) /hpf Urine WBC 10-30 H (0-5) /hpf Ur Epithelial Cells >30 H (0-5) /lpf Ur Renal Epithelial Cell 5-10 H (0-5) /lpf Amorphous Sediment Present H (None Prsent) Urine Bacteria 1+ H (Negative) 05/28/18 05/29/18 05/29/18 Range/Units 21:35 04:29 04:29 WBC (4.8-10.8) K/uL Hgb (12.0-16.0) g/dL Hct (37-47) % RDW Std Deviation (36.4-46.3) fL RDW Coeff of Kathleen (11.5-14.5) % Plt Count (130-400) K/uL MPV (7.4-10.4) fL Neutrophils # (Manual) (1.4-6.5) K/uL Total Absolute Neuts (1.4-6.5) K/uL Lymphocytes # (Manual) (1.2-3.4) K/uL Total Abs Lymphocytes (1.2-3.4) K/uL Monocytes # (Manual) (0.11-0.59) K/uL PT 16.4 H (9.0-12.0) Seconds INR 1.7 H (0.9-1.1) APTT (21.0-31.0) Seconds Sodium 134 L (136-145) mmol/L Potassium 3.2 L (3.5-5.1) mmol/L Chloride (98-107) mmol/L Carbon Dioxide (21-32) mmol/L Anion Gap 12.0 H (3-11) BUN 72 H (7-18) mg/dl Creatinine 4.65 H* (0.6-1.2) mg/dl Glucose 125 H (70-99) mg/dl POC Glucose 148 H (70-99) Lactate (0.4-2.0) mmol/L Calcium 6.5 L (8.5-10.1) mg/dl Phosphorus 5.5 H (2.5-4.9) mg/dl Magnesium (1.8-2.4) mg/dl Direct Bilirubin 0.6 H (0-0.2) mg/dl AST 11 L (15-37) U/L ALT 9 L (12-78) U/L Alkaline Phosphatase (45-117) U/L Troponin I (0-0.045) ng/ml Total Protein 5.3 L D (6.4-8.2) gm/dl Albumin 1.7 L (3.4-5.0) gm/dl Globulin (2.5-4.0) gm/dl Albumin/Globulin Ratio (0.9-2) Lipase (73-393) U/L Urine Appearance (Clear) Urine RBC (0-4) /hpf Urine WBC (0-5) /hpf Ur Epithelial Cells (0-5) /lpf Ur Renal Epithelial Cell (0-5) /lpf Amorphous Sediment (None Prsent) Urine Bacteria (Negative) 05/29/18 05/29/18 Range/Units 04:29 04:29 WBC 26.64 H D (4.8-10.8) K/uL Hgb 11.9 L (12.0-16.0) g/dL Hct 36.2 L (37-47) % RDW Std Deviation 48.0 H (36.4-46.3) fL RDW Coeff of Kathleen 15.5 H (11.5-14.5) % Plt Count 79 L (130-400) K/uL MPV 12.4 H (7.4-10.4) fL Neutrophils # (Manual) 22.43 H (1.4-6.5) K/uL Total Absolute Neuts 22.43 H (1.4-6.5) K/uL Lymphocytes # (Manual) 0.24 L (1.2-3.4) K/uL Total Abs Lymphocytes 0.24 L (1.2-3.4) K/uL Monocytes # (Manual) 3.97 H (0.11-0.59) K/uL PT (9.0-12.0) Seconds INR (0.9-1.1) APTT 41.8 H (21.0-31.0) Seconds Sodium (136-145) mmol/L Potassium (3.5-5.1) mmol/L Chloride (98-107) mmol/L Carbon Dioxide (21-32) mmol/L Anion Gap (3-11) BUN (7-18) mg/dl Creatinine (0.6-1.2) mg/dl Glucose (70-99) mg/dl POC Glucose (70-99) Lactate (0.4-2.0) mmol/L Calcium (8.5-10.1) mg/dl Phosphorus (2.5-4.9) mg/dl Magnesium (1.8-2.4) mg/dl Direct Bilirubin (0-0.2) mg/dl AST (15-37) U/L ALT (12-78) U/L Alkaline Phosphatase (45-117) U/L Troponin I (0-0.045) ng/ml Total Protein (6.4-8.2) gm/dl Albumin (3.4-5.0) gm/dl Globulin (2.5-4.0) gm/dl Albumin/Globulin Ratio (0.9-2) Lipase (73-393) U/L Urine Appearance (Clear) Urine RBC (0-4) /hpf Urine WBC (0-5) /hpf Ur Epithelial Cells (0-5) /lpf Ur Renal Epithelial Cell (0-5) /lpf Amorphous Sediment (None Prsent) Urine Bacteria (Negative) Medications Administered Current Inpatient Medications Acetaminophen (Tylenol) 325 mg PO Q4 PRN PRN Reason: Pain Diltiazem HCl (Cardizem) 60 mg PO QID JACOB Stop: 06/28/18 10:14 Metronidazole (Flagyl) 500 mg in 100 mls @ 100 mls/hr IV Q8 JACOB Stop: 06/07/18 20:44 Last Infusion: 05/29/18 07:01 Dose: Infused Parenteral Electrolytes (Normosol-R) 1,000 mls @ 100 mls/hr IV .Q10H JACOB Stop: 06/27/18 20:44 Last Admin: 05/29/18 09:08 Dose: 100 mls/hr Heparin Sodium/Dextrose (Heparin Sodium/Dextrose) 25,000 units in 500 mls @ 23 mls/hr IV .[id number] JACOB; Protocol Stop: 06/28/18 05:42 Last Titration: 05/29/18 07:02 Dose: 1,150 units/hr, 23 mls/hr Ipratropium [place] (Atrovent 0.02% 0.5mg/2.5ml) 0.5 mg INH Q6R JACOB Stop: 06/27/18 19:59 Last Admin: 05/29/18 07:09 Dose: 0.5 mg Levalbuterol HCl (Xopenex 1.25mg/3ml Neb) 1.25 mg NEB Q6H PRN PRN Reason: wheezing Stop: 06/27/18 18:44 Levalbuterol HCl (Xopenex 1.25mg/3ml Neb) 1.25 mg NEB Q6R JACOB Stop: 06/27/18 19:59 Last Admin: 05/29/18 07:09 Dose: 1.25 mg Metoprolol Succinate (Toprol Xl) 50 mg PO QAM [facility] Stop: 06/28/18 10:14 Miscellaneous (Icu Protocol For Hyperglycemia) 1 ea N/A PRN PRN; Protocol PRN Reason: Hyperglycemia Protocol Stop: 05/30/18 20:03 Raspberry (Raspberry) 5 ml PO Q6 [facility] Stop: 06/12/18 00:00 Last Admin: 05/29/18 05:46 Dose: 5 ml Vancomycin HCl (Vancomycin Hcl) 500 mg PO Q6 [facility] Stop: 06/08/18 00:00 Last Admin: 05/29/18 05:46 Dose: 500 mg Resident Activity Tracking Resident Involvement: Resident Care Provided Care Provided: [facility] Medicine _ (1) CHF (congestive heart failure) Heart failure chronicity: unspecified Heart failure type: unspecified Qualified Code(s): I50.9 - Heart failure, unspecified (2) Atrial fibrillation Atrial fibrillation type: chronic Qualified Code(s): I48.2 - Chronic atrial fibrillation (3) Diarrhea Diarrhea type: (4) Renal failure Acute renal failure type: Chronic kidney disease stage: Renal failure chronicity: (5) HTN (hypertension) Hypertension type: essential hypertension Qualified Code(s): I10 - Essential (primary) hypertension
[2018-05-29] MEDS ORDERED: PROCHLORPERAZINE 10 MG in SYRINGE 8 ML IV ONE (10:30)
[2018-05-29] MEDS ORDERED: PANTOprazole 40 MG in SYRINGE 0 ML IV SCH (11:00)
[2018-05-29] MEDS: METOPROLOL SUCC 50MG EXT REL TAB PO SCH (11:28)
[2018-05-29] MEDS: dilTIAZem HCl 60 MG TAB PO SCH ×4 (11:28→21:51)
--- NOTE | 2018-05-29 11:47 | Ultrasound Report ---
RENAL ULTRASOUND HISTORY: anuric, elevated BUN/Cr COMPARISON: Abdomen and pelvis CT 05/28/2018. FINDINGS: Right kidney: 10.9 cm. No hydronephrosis. Normal corticomedullary differentiation. Mild cortical thin ramy/scarring. Left kidney: 11.1 cm. No hydronephrosis. Normal corticomedullary differentiation. Mild cortical thinn ing/scarring. Bladder: Decompressed by a Payne catheter and not well visualized. Distended gallbladder, unchanged. IMPRESSION: 1. No hydronephrosis. 2. Mild bilateral cortical thinning/scarring. 3. Distended gallbladder, unchanged. Electronically signed by: Savage Melendez M.D. 05/29/2018 11:46 AM
[2018-05-29 12:22] LABS: Partial Thromboplastin Time 52.5 Seconds (21.0-31.0)
[2018-05-29 12:28] LABS: Hemoglobin 12.9 g/dL (12.0-16.0); Mean Corpuscular Hgb Conc 33.1 g/dL (32-36); Mean Corpuscular Volume 86.7 fL (80-100); Mean Platelet Volume 12.8 fL (7.4-10.4); Platelet Count 84 K/uL (130-400); RDW Coefficient of Variation 15.6 % (11.5-14.5); RDW Standard Deviation 48.4 fL (36.4-46.3); White Blood Count 31.81 K/uL (4.8-10.8)
[2018-05-29 12:29] LABS: BUN Creatinine Ratio 14.5 (10-20); Calcium 7.4 mg/dl (8.5-10.1); Creatinine Clr Calc Pharmacy 9.2 ml/min; Est GFR (African American) 8.8; Est GFR (Non-African American) 7.6; Potassium 3.6 mmol/L (3.5-5.1)
[2018-05-29 12:31] LABS: ALC (manual) 0.25 K/uL (1.2-3.4); Echinocytes 1+; Hypogranular Neutrophils 1+; Lymphocytes # (manual) 0.25 K/uL (1.2-3.4); Lymphocytes % (manual) 0.8 %; Monocytes # (manual) 3.79 K/uL (0.11-0.59); Monocytes % (manual) 11.9 %; Neutrophils % (manual) 87.3 %
--- NOTE | 2018-05-29 12:52 | Hospitalist Progress Note ---
Date of Service May 29, 2018 Assessment & Plan (1) Renal failure: (2) Abdominal pain: (3) Acute dehydration: (4) Elevated INR: (5) COPD (chronic obstructive pulmonary disease): (6) Diarrhea: (7) CHF (congestive heart failure): (8) Thrombocytopenia: (9) Atrial fibrillation: (10) CKD (chronic kidney disease) stage 2, GFR 60-89 ml/min: (11) Acute hypokalemia: (12) Thrombocytopenia: An 83-year-old white female admitted to ICU on May 28, 2018 because of acute kidney failure with diarrhea severe leukocytosis and Coumadin intoxication Possible sepsis upon admission associated with hypotension, severe leukocytosis with possible C. diff from diarrhea. Leukocytosis, Source of infection could be pneumonia , however in abdominal CT in the emergency room, in the lower lung there was no obvious infiltration Abdominal pain, diarrhea with recent hospital stay, ICU team has started contact isolation and empirically treatment for possible C. difficile, no more abdominal pain no more diarrhea, [id number] kidney failure with significant elevated BUN and creatinine, today's worsening yesterday, Has ordered a nephrology consult and renal ultrasound, Thrombocytopenia. Coumadin coagulopathy with INR more than 11 0.11 today's INR is 1.7, she got 1 dose of vitamin K last night abn lytes: Hypokalemia. Hypomagnesemia. Elevated troponin upon admission likely from troponin leakage secondary to acute kidney, failure, or from sepsis Atrial fibrillation with rapid ventricular response, Cardizem drip if needed, and will have heparin drip when INR subtherapeutic Hypotensive on admission blood pressure improved History of congestive heart failure, need to watch fluid overload, History of hypertension. History of kidney stone. History of chronic obstructive pulmonary disease. Discussed with ICU team continue current care, with oral Vanco and IV Flagyl, keep reminding of other source of infection if no C. difficile, Patient's diarrhea significantly improved compared to yesterday, Patient is do not resuscitation Subjective Generally feeling better, however reports significant tired, And no appetite and not eating drinking yet No more diarrhea no more abdominal pain Review of Systems Constitutional: Positive weakness, or fatigue Respiratory: Occasional cough, sputum, no wheezing, or dyspnea on exertion Cardiac: No chest pain, No orthopnea, No PND, No claudication, No palpitations , Abdomen: No pain, No nausea, No vomiting, No diarrhea, No constipation, No GI bleeding Musculoskeletal: No joint pain, No muscle pain, No swelling, No calf pain, No problem reported : No dysuria, No urinary frequency, No incontinence, No hematuria Neurologic: No paralysis, No weakness, No numbness/tingling, No vertigo, No balance problems Psychiatric: No depression symptoms, No anhedonism, Heme: No abnormal bleeding/bruising, No clotting problems Skin: No rash, No itch, No new/changing skin lesions, No color change, No bleeding Physical Exam 2 Vital Signs (Past 24 Hours): Last Vital Signs Temp 36.5 C 05/29/18 08:00 Pulse 134 H 05/29/18 11:00 Resp 26 H 05/29/18 11:00 BP 132/81 05/29/18 11:00 Pulse Ox 92 05/29/18 11:00 Physical Exam: General Appearance: No acute distress, however look tired, WD/ WN, Eyes: normal inspection, PERRL, EOMI, sclerae normal ENT: normal ENT inspection, hearing grossly normal, pharynx normal Neck: Right IJ in place, supple, no adenopathy, thyroid normal, no JVD, Respiratory/Chest: chest non-tender, , no respiratory distress, no accessory muscle use, mild decrease breath sounds, no rales, wheezing Cardiovascular: regular rate, rhythm, no JVD, no murmur Abdomen: normal bowel sounds, non tender, soft, no organomegaly, Extremities: normal range of motion, non-tender, normal inspection, no pedal edema, no calf tenderness, normal capillary refill , pelvis stable, joint has no limited range of motion, capillary refill is normal, no cyanosis clubbing Neurologic/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, no motor/sensory deficits, alert, normal mood/affect, oriented x 3 Skin: normal color, warm/dry, no rash Lymphatic: no adenopathy Results & Data Laboratory Results Laboratory Results - last 24 hr 05/28/18 05/28/18 05/28/18 13:56 13:56 13:56 WBC 40.73 H* RBC 4.89 Hgb 14.5 Hct 42.1 MCV 86.1 MCH 29.7 MCHC 34.4 RDW Std Deviation 47.7 H RDW Coeff of Kathleen 15.5 H Plt Count 83 L MPV Neutrophils % (Manual) 89.0 Lymphocytes % (Manual) 1.0 Monocytes % (Manual) 10.0 Neutrophils # (Manual) 36.25 H Total Absolute Neuts 36.25 H Lymphocytes # (Manual) 0.41 L Total Abs Lymphocytes 0.41 L Monocytes # (Manual) 4.07 H Hypogranular Neuts Platelet Estimate RBC Morphology Unremarkable Echinocytes PT 100.0 H INR > 11.0 H* APTT 73.4 H* PTT Ratio 2.8 Sodium 134 L Potassium 3.2 L Chloride 96 L Carbon Dioxide 20 L Anion Gap 18.0 H BUN 75 H Creatinine 4.36 H Est Cr Clr Drug Dosing 10.1 Est GFR ( Amer) 10.3 Est GFR (Non-Af Amer) 8.9 BUN/Creatinine Ratio 17.2 Glucose 136 H POC Glucose Lactate Calcium 7.4 L Ionized Calcium Phosphorus Magnesium 1.6 L Total Bilirubin 1.0 Direct Bilirubin AST 10 L ALT 12 Alkaline Phosphatase 136 H Troponin I 0.049 H* Total Protein 6.8 Albumin 2.1 L Globulin 4.7 H Albumin/Globulin Ratio 0.4 L Lipase TSH 1.060 Urine Color Urine Appearance Urine pH Ur Specific [place] Urine Protein Urine Glucose (UA) Urine Ketones Urine Blood Urine Nitrite Urine Bilirubin Urine Urobilinogen Ur Leukocyte Esterase Urine RBC Urine WBC Ur Epithelial Cells Ur Renal Epithelial Cell Amorphous Sediment Urine Bacteria Nasal Screen MRSA (PCR) Random Vancomycin Influenza Type A Ag Influenza Type B Ag Blood Type Antibody Screen 05/28/18 05/28/18 05/28/18 13:56 16:05 19:30 WBC RBC Hgb Hct MCV MCH MCHC RDW Std Deviation RDW Coeff of Kathleen Plt Count MPV Neutrophils % (Manual) Lymphocytes % (Manual) Monocytes % (Manual) Neutrophils # (Manual) Total Absolute Neuts Lymphocytes # (Manual) Total Abs Lymphocytes Monocytes # (Manual) Hypogranular Neuts Platelet Estimate RBC Morphology Echinocytes PT INR APTT PTT Ratio Sodium Potassium Chloride Carbon Dioxide Anion Gap BUN Creatinine Est Cr Clr Drug Dosing Est GFR ( Amer) Est GFR (Non-Af Amer) BUN/Creatinine Ratio Glucose POC Glucose Lactate Calcium Ionized Calcium Phosphorus Magnesium Cancelled Total Bilirubin Direct Bilirubin AST ALT Alkaline Phosphatase Troponin I Total Protein Albumin Globulin Albumin/Globulin Ratio Lipase TSH Urine Color Brown Urine Appearance Slightly Cloudy H Urine pH Ur Specific [place] 1.023 Urine Protein Urine Glucose (UA) Urine Ketones Urine Blood Urine Nitrite Urine Bilirubin Urine Urobilinogen Ur Leukocyte Esterase Urine RBC >30 H Urine WBC 10-30 H Ur Epithelial Cells >30 H Ur Renal Epithelial Cell 5-10 H Amorphous Sediment Present H Urine Bacteria 1+ H Nasal Screen MRSA (PCR) Negative Random Vancomycin Influenza Type A Ag Influenza Type B Ag Blood Type Antibody Screen 05/28/18 05/28/18 05/28/18 19:38 19:39 21:35 WBC RBC Hgb Hct MCV MCH MCHC RDW Std Deviation RDW Coeff of Kathleen Plt Count MPV Neutrophils % (Manual) Lymphocytes % (Manual) Monocytes % (Manual) Neutrophils # (Manual) Total Absolute Neuts Lymphocytes # (Manual) Total Abs Lymphocytes Monocytes # (Manual) Hypogranular Neuts Platelet Estimate RBC Morphology Echinocytes PT INR APTT PTT Ratio Sodium Potassium Chloride Carbon Dioxide Anion Gap BUN Creatinine Est Cr Clr Drug Dosing Est GFR ( Amer) Est GFR (Non-Af Amer) BUN/Creatinine Ratio Glucose POC Glucose 148 H Lactate 2.5 H* Calcium Ionized Calcium Phosphorus Magnesium Total Bilirubin Direct Bilirubin AST ALT Alkaline Phosphatase Troponin I 0.049 H* Total Protein Albumin Globulin Albumin/Globulin Ratio Lipase 40 L TSH Urine Color Urine Appearance Urine pH Ur Specific [place] Urine Protein Urine Glucose (UA) Urine Ketones Urine Blood Urine Nitrite Urine Bilirubin Urine Urobilinogen Ur Leukocyte Esterase Urine RBC Urine WBC Ur Epithelial Cells Ur Renal Epithelial Cell Amorphous Sediment Urine Bacteria Nasal Screen MRSA (PCR) Random Vancomycin Influenza Type A Ag Influenza Type B Ag Blood Type Antibody Screen 05/28/18 05/29/18 05/29/18 21:37 01:32 04:29 WBC RBC Hgb Hct MCV MCH MCHC RDW Std Deviation RDW Coeff of [place] Plt Count MPV Neutrophils % (Manual) Lymphocytes % (Manual) Monocytes % (Manual) Neutrophils # (Manual) Total Absolute Neuts Lymphocytes # (Manual) Total Abs Lymphocytes Monocytes # (Manual) Hypogranular Neuts Platelet Estimate RBC Morphology Echinocytes PT 16.4 H INR 1.7 H APTT PTT Ratio Sodium Potassium Chloride Carbon Dioxide Anion Gap BUN Creatinine Est Cr Clr Drug Dosing Est GFR ( Amer) Est GFR (Non-Af Amer) BUN/Creatinine Ratio Glucose POC Glucose Lactate 1.8 Calcium Ionized Calcium Phosphorus Magnesium Total Bilirubin Direct Bilirubin AST ALT Alkaline Phosphatase Troponin I Total Protein Albumin Globulin Albumin/Globulin Ratio Lipase TSH Urine Color Urine Appearance Urine pH Ur Specific [place] Urine Protein Urine Glucose (UA) Urine Ketones Urine Blood Urine Nitrite Urine Bilirubin Urine Urobilinogen Ur Leukocyte Esterase Urine RBC Urine WBC Ur Epithelial Cells Ur Renal Epithelial Cell Amorphous Sediment Urine Bacteria Nasal Screen MRSA (PCR) Random Vancomycin Influenza Type A Ag Influenza Type B Ag Blood Type A Positive Antibody Screen NEGATIVE 05/29/18 05/29/18 05/29/18 04:29 04:29 04:29 WBC 26.64 H D RBC 4.21 Hgb 11.9 L Hct 36.2 L MCV 86.0 MCH 28.3 MCHC 32.9 RDW Std Deviation 48.0 H RDW Coeff of Kathleen 15.5 H Plt Count 79 L MPV 12.4 H Neutrophils % (Manual) 84.2 Lymphocytes % (Manual) 0.9 Monocytes % (Manual) 14.9 Neutrophils # (Manual) 22.43 H Total Absolute Neuts 22.43 H Lymphocytes # (Manual) 0.24 L Total Abs Lymphocytes 0.24 L Monocytes # (Manual) 3.97 H Hypogranular Neuts 1+ Platelet Estimate RBC Morphology Echinocytes PT INR APTT PTT Ratio Sodium 134 L Potassium 3.2 L Chloride 100 Carbon Dioxide 22 Anion Gap 12.0 H BUN 72 H Creatinine 4.65 H* Est Cr Clr Drug Dosing 9.7 Est GFR ( Amer) 9.5 Est GFR (Non-Af Amer) 8.2 BUN/Creatinine Ratio 15.5 Glucose 125 H POC Glucose Lactate Calcium 6.5 L Ionized Calcium Phosphorus 5.5 H Magnesium 2.3 Total Bilirubin 1.0 Direct Bilirubin 0.6 H AST 11 L ALT 9 L Alkaline Phosphatase 110 Troponin I 0.040 Total Protein 5.3 L D Albumin 1.7 L Globulin Albumin/Globulin Ratio Lipase TSH Urine Color Urine Appearance Urine pH Ur Specific [place] Urine Protein Urine Glucose (UA) Urine Ketones Urine Blood Urine Nitrite Urine Bilirubin Urine Urobilinogen Ur Leukocyte Esterase Urine RBC Urine WBC Ur Epithelial Cells Ur Renal Epithelial Cell Amorphous Sediment Urine Bacteria Nasal Screen MRSA (PCR) Random Vancomycin 23.0 Influenza Type A Ag Influenza Type B Ag Blood Type Antibody Screen 05/29/18 05/29/18 05/29/18 04:29 04:29 11:54 WBC 31.81 H* RBC 4.50 Hgb 12.9 Hct 39.0 MCV 86.7 MCH 28.7 MCHC 33.1 RDW Std Deviation 48.4 H RDW Coeff of [place] 15.6 H Plt Count 84 L MPV 12.8 H Neutrophils % (Manual) 87.3 Lymphocytes % (Manual) 0.8 Monocytes % (Manual) 11.9 Neutrophils # (Manual) 27.77 H Total Absolute Neuts 27.77 H Lymphocytes # (Manual) 0.25 L Total Abs Lymphocytes 0.25 L Monocytes # (Manual) 3.79 H Hypogranular Neuts 1+ Platelet Estimate Decreased RBC Morphology Echinocytes 1+ PT INR APTT 41.8 H PTT Ratio 1.6 Sodium Potassium Chloride Carbon Dioxide Anion Gap BUN Creatinine Est Cr Clr Drug Dosing Est GFR ( Amer) Est GFR (Non-Af Amer) BUN/Creatinine Ratio Glucose POC Glucose Lactate 1.7 Calcium Ionized Calcium Phosphorus Magnesium Total Bilirubin Direct Bilirubin AST ALT Alkaline Phosphatase Troponin I Total Protein Albumin Globulin Albumin/Globulin Ratio Lipase TSH Urine Color Urine Appearance Urine pH Ur Specific [place] Urine Protein Urine Glucose (UA) Urine Ketones Urine Blood Urine Nitrite Urine Bilirubin Urine Urobilinogen Ur Leukocyte Esterase Urine RBC Urine WBC Ur Epithelial Cells Ur Renal Epithelial Cell Amorphous Sediment Urine Bacteria Nasal Screen MRSA (PCR) Random Vancomycin Influenza Type A Ag Influenza Type B Ag Blood Type Antibody Screen 05/29/18 05/29/18 05/29/18 11:54 11:54 11:54 WBC RBC Hgb Hct MCV MCH MCHC RDW Std Deviation RDW Coeff of [place] Plt Count MPV Neutrophils % (Manual) Lymphocytes % (Manual) Monocytes % (Manual) Neutrophils # (Manual) Total Absolute Neuts Lymphocytes # (Manual) Total Abs Lymphocytes Monocytes # (Manual) Hypogranular Neuts Platelet Estimate RBC Morphology Echinocytes PT INR APTT PTT Ratio Sodium 134 L Potassium 3.6 Chloride 98 Carbon Dioxide 22 Anion Gap 14.0 H BUN 72 H Creatinine 4.95 H* D Est Cr Clr Drug Dosing 9.2 Est GFR ( Amer) 8.8 Est GFR (Non-Af Amer) 7.6 BUN/Creatinine Ratio 14.5 Glucose 130 H POC Glucose Lactate 2.4 H* Calcium 7.4 L Ionized Calcium 0.90 L Phosphorus Magnesium Total Bilirubin Direct Bilirubin AST ALT Alkaline Phosphatase Troponin I Total Protein Albumin Globulin Albumin/Globulin Ratio Lipase TSH Urine Color Urine Appearance Urine pH Ur Specific [place] Urine Protein Urine Glucose (UA) Urine Ketones Urine Blood Urine Nitrite Urine Bilirubin Urine Urobilinogen Ur Leukocyte Esterase Urine RBC Urine WBC Ur Epithelial Cells Ur Renal Epithelial Cell Amorphous Sediment Urine Bacteria Nasal Screen MRSA (PCR) Random Vancomycin Influenza Type A Ag Influenza Type B Ag Blood Type Antibody Screen 05/29/18 05/29/18 11:55 Unknown WBC RBC Hgb Hct MCV MCH MCHC RDW Std Deviation RDW Coeff of Kathleen Plt Count MPV Neutrophils % (Manual) Lymphocytes % (Manual) Monocytes % (Manual) Neutrophils # (Manual) Total Absolute Neuts Lymphocytes # (Manual) Total Abs Lymphocytes Monocytes # (Manual) Hypogranular Neuts Platelet Estimate RBC Morphology Echinocytes PT INR APTT 52.5 H* PTT Ratio 2.0 Sodium Potassium Chloride Carbon Dioxide Anion Gap BUN Creatinine Est Cr Clr Drug Dosing Est GFR ( Amer) Est GFR (Non-Af Amer) BUN/Creatinine Ratio Glucose POC Glucose Lactate Calcium Ionized Calcium Phosphorus Magnesium Total Bilirubin Direct Bilirubin AST ALT Alkaline Phosphatase Troponin I Total Protein Albumin Globulin Albumin/Globulin Ratio Lipase TSH Urine Color Urine Appearance Urine pH Ur Specific [place] Urine Protein Urine Glucose (UA) Urine Ketones Urine Blood Urine Nitrite Urine Bilirubin Urine Urobilinogen Ur Leukocyte Esterase Urine RBC Urine WBC Ur Epithelial Cells Ur Renal Epithelial Cell Amorphous Sediment Urine Bacteria Nasal Screen MRSA (PCR) Random Vancomycin Influenza Type A Ag Neg for Influ A Influenza Type B Ag Neg for Influ B Blood Type Antibody Screen Microbiology 05/28/18 16:05 Urine,Indwelling Cath Urine Culture - Preliminary Pin-point growth present, reincubating. _ (1) Renal failure Acute renal failure type: Chronic kidney disease stage: Renal failure chronicity: (2) Abdominal pain Abdominal location: (3) Diarrhea Diarrhea type: (4) CHF (congestive heart failure) Heart failure chronicity: unspecified Heart failure type: unspecified Qualified Code(s): I50.9 - Heart failure, unspecified (5) Atrial fibrillation Atrial fibrillation type: chronic Qualified Code(s): I48.2 - Chronic atrial fibrillation
--- NOTE | 2018-05-29 13:51 | Nephrology Consultation ---
Date of Consultation May 29, 2018 Assessment & Plan (1) Renal failure: Kayy has oligoanuric YULIANA on CKD. Metabolic profile is otherwise acceptable. CT abd/plv and renal US do not demonstrate obtstruction (studies were presonally reviewed). Baseline creatinine is 1.3 mg/dL. Clinical presentation is consistent with prerenal physiology related to decreased EAV in the setting of dehydration and sepsis, as well as septic ATN. UA/microscopy is notable for microscopic hematuria, pyuria, and 1+ bacteria following Payne placement. The patient has known dCHF and remains in atrial fibrillation at an increased rate. Overall, volume status appears acceptable. She does not demonstrate significant evidence of decompensated CHF by exam or CXR. Cautious use of IVF to encourage a continued positive fluid balance is encouraged. I would suggest avoiding mIVF. Suggest providing IV bolus of normosol for MAP < 65 or HR > 110 bpm, as tolerated. Unfortunately, CVP is unlikely to be a very accurate target for therapy. There is no emergent indication for dialysis. Potential indications for BENEFITS COORDINATOR were discussed in detail with the patient today. The procedure was reviewed. Kayy was clear in her refusal of dialysis. I/O's and metabolic profile will be provided regularly. UA/microscopy to be repeated within 24 hours. Medications are currently appropriately dosed for renal dysfunction. (2) Thrombocytopenia: -- Chronic -- No evidence of hemolytic anemic -- Continue to monitor (3) Atrial fibrillation: (4) COPD (chronic obstructive pulmonary disease): (5) Diarrhea: -- Clinical presentation consistent severe (life threatening) C diff colitis, unfortunately a stool sample has not been able to be obtained raising the concern for associated ileus -- ID consult pending -- Serial abdominal exams are being provided and surgical consultation is following -- Prognosis is guarded -- Current treatment includes IV metronidazole and PO vanco -- OK vanco to be considered if adequate response to current therapy is not achieved (6) CKD (chronic kidney disease) stage 2, GFR 60-89 ml/min: History of Present Illness Reason for Consultation: Acute renal insufficiency Requesting Physician: Josh Mcdonnell MD, PhD, [facility] Attending Physician: Josh Mcdonnell MD, PhD, [facility] History of Present Illness Kayy Navarro is a frail 83-year-old female admitted to the ICU with severe sepsis. She presented to the ICU yesterday with complaints of abdominal pain and diarrhea. Kayy describes 3-4 days of diarrhea, nausea, anorexia and abdominal discomfort. She denies fevers or chills. She denies melena or hematochezia. Oral intake has been poor. She denies sick contacts. She reports 3+ loose stool per day for 1-2 days. Approximately 2 days ago, she started to treat the symptoms with Imodium. The patient took 2 tablets per day. She has not had a bowel movement since prior to admission. She denies any vomiting. Currently, she is tolerating some fluids. Kayy was evaluated in the ICU this afternoon for evaluation of acute oligoanuric kidney injury. Baseline creatinine previously 1.3 mg/dL based on blood work obtained earlier this month. Creatinine was 4.3 mg/dL on presentation yesterday and has increased to ~5 mg/dL today. Thankfully, metabolic profile remains otherwise acceptable. The patient has been maintained in a net positive fluid balance with IV saline and normosol (+7.5 L). Past medical history is notable for diastolic CHF which does not require daily maintenance diuretic therapy, atrial fibrillation on chronic anticoagulation with Coumadin, COPD, chronic thrombocytopenia, dyslipidemia, hypertension. She was admitted to [facility] last month (discharged less than 2 weeks ago) with acute COPD and CHF exacerbation complicated by YULIANA. Creatinine improved to baseline with supportive care. The patient was hypotensive on admission. She remains tachypneic and tachycardic. BP has responded to IVF. Serum lactic acid initially improved from 2.5 to 1.7 mmol/L. It has increased slightly since that time. WBC count has also increased (40,000 --> 26,000 --> 21,000). Kayy is very tired. She was sleeping when I entered the room. She is not in distress. When awake she answers questions appropriately and demonstrates appropriate insight. She has repeatedly refused hemodialysis since admission. We discussed renal replacement therapy in YULIANA. She continues to refuse to consider dialysis. Kayy notes that her [id number] was treated with hemodialysis for ESRD and Kayy has decided that this treatment is not consistent with personal goals of care. She is DNR. Allergies Allergy/AdvReac Type Severity Reaction Status Date / Time amoxicillin Allergy Intermediate SWELLING Verified 05/28/18 15:44 Home Medications Home Medications Medication Instructions Recorded Confirmed Type acetaminophen [Tylenol] 325 mg PO Q4 PRN 05/10/18 05/28/18 History diltiazem HCl 240 mg PO QAM 05/10/18 05/28/18 History omeprazole 40 mg PO QAM 05/10/18 05/28/18 History pravastatin 40 mg PO QAM 05/10/18 05/28/18 History sertraline 50 mg PO QAM 05/10/18 05/28/18 History warfarin 2.5 mg PO [id number] 05/10/18 05/28/18 History warfarin 5 mg PO [id number] 05/10/18 05/28/18 History fluticasone-vilanterol 1 inh INHALATION DAILY 05/11/18 05/28/18 History ipratropium bromide 0.5 mg INHALATION Q6R 14 Days #14 05/17/18 05/28/18 Rx ml levalbuterol HCl 0.63 mg NEB Q6R 14 Days #30 ml 05/17/18 05/28/18 Rx metoprolol succinate 50 mg PO DAILY 05/28/18 05/28/18 History Patient History Medical History Renal failure (Acute) Diarrhea (Acute) HTN (hypertension) (Chronic) SVT (supraventricular tachycardia) (Chronic) A-fib (Chronic) Acute respiratory failure (Acute 04/26/13) PNA (pneumonia) (Resolved) CHF (congestive heart failure) (Acute) COPD exacerbation (Acute) Acute kidney injury superimposed on chronic kidney disease Acute on chronic diastolic heart failure Surgical History Previous section (Resolved) Family History Other Asthma Depression History of total knee replacement Hypertension Social History Current Living Situation: Family Current Living Situation Comment: Lives with son Other Information That Helps Us Care for You: No Feels Safe at Home: Yes Safety Concerns: Feels Safe At This Time Smoking Status: Never smoker Second Hand Exposure: No Hx Alcohol Use: No Hx Substance Use: No Beliefs That Will Affect Care: None Communication Ability: Effective Review of Systems Constitutional: + fatigue, + weakness and + anorexia; no fever Eyes: no problem reported Ear, Nose, Mouth, Throat: no problem reported Respiratory: no dyspnea and no problem reported Cardiovascular: + orthopnea; no chest pain and no palpitations Gastrointestinal: as per Subjective / HPI Genitourinary (Female): no problem reported Payne intact Musculoskeletal: no problem reported Integumentary: no problem reported Neurologic: no problem reported Psychiatric: no problem reported Hematologic / Lymphatic: no problem reported Physical Exam 2 Vital Signs (Past 24 Hours): Last Vital Signs Temp 36.5 C 05/29/18 08:00 Pulse 134 H 05/29/18 11:00 Resp 26 H 05/29/18 11:00 BP 132/81 05/29/18 11:00 Pulse Ox 92 05/29/18 11:00 Constitutional: + obese and + frail appearing; no acute distress Eyes: + anicteric sclerae; no conjunctival abnormality ENMT: Ears: no hearing impairment Mouth: + dry oral mucous membranes Neck: normal visual inspection and trachea midline Respiratory: + tachypneic; does not use accessory muscles Auscultation: lungs clear to auscultation bilaterally and + rales (few basilar) Cardiovascular: Rate/Rhythm: + tachycardic; + abnormal rhythm Heart Sounds : normal S1 and normal S2 Vessels: no JVD Extremities: no edema Gastrointestinal (Abdomen): Inspection/Auscultation: + abdomen distended and + hypoactive bowel sounds Percussion/Palpation: + abdomen tender (mild diffuse abdominal tenderness), abdomen soft and + tympanic to percussion; no guarding and abdomen not rigid Musculoskeletal: Extremities: no cyanosis and no petechiae Skin: normal turgor; no rashes Neurologic: Motor/Sensory: no tremor and no asterixis Results & Data Laboratory Results Laboratory Results - last 24 hr 05/28/18 05/28/18 05/28/18 13:56 13:56 13:56 WBC 40.73 H* RBC 4.89 Hgb 14.5 Hct 42.1 MCV 86.1 MCH 29.7 MCHC 34.4 RDW Std Deviation 47.7 H RDW Coeff of Kathleen 15.5 H Plt Count 83 L MPV Neutrophils % (Manual) 89.0 Lymphocytes % (Manual) 1.0 Monocytes % (Manual) 10.0 Neutrophils # (Manual) 36.25 H Total Absolute Neuts 36.25 H Lymphocytes # (Manual) 0.41 L Total Abs Lymphocytes 0.41 L Monocytes # (Manual) 4.07 H Hypogranular Neuts Platelet Estimate RBC Morphology Unremarkable Echinocytes PT 100.0 H INR > 11.0 H* APTT 73.4 H* PTT Ratio 2.8 Sodium 134 L Potassium 3.2 L Chloride 96 L Carbon Dioxide 20 L Anion Gap 18.0 H BUN 75 H Creatinine 4.36 H Est Cr Clr Drug Dosing 10.1 Est GFR ( Amer) 10.3 Est GFR (Non-Af Amer) 8.9 BUN/Creatinine Ratio 17.2 Glucose 136 H POC Glucose Lactate Calcium 7.4 L Ionized Calcium Phosphorus Magnesium 1.6 L Total Bilirubin 1.0 Direct Bilirubin AST 10 L ALT 12 Alkaline Phosphatase 136 H Troponin I 0.049 H* Total Protein 6.8 Albumin 2.1 L Globulin 4.7 H Albumin/Globulin Ratio 0.4 L Lipase TSH 1.060 Urine Color Urine Appearance Urine pH Ur Specific Hartman Urine Protein Urine Glucose (UA) Urine Ketones Urine Blood Urine Nitrite Urine Bilirubin Urine Urobilinogen Ur Leukocyte Esterase Urine RBC Urine WBC Ur Epithelial Cells Ur Renal Epithelial Cell Amorphous Sediment Urine Bacteria Nasal Screen MRSA (PCR) Random Vancomycin Influenza Type A Ag Influenza Type B Ag Blood Type Antibody Screen 05/28/18 05/28/18 05/28/18 13:56 16:05 19:30 WBC RBC Hgb Hct MCV MCH MCHC RDW Std Deviation RDW Coeff of Kathleen Plt Count MPV Neutrophils % (Manual) Lymphocytes % (Manual) Monocytes % (Manual) Neutrophils # (Manual) Total Absolute Neuts Lymphocytes # (Manual) Total Abs Lymphocytes Monocytes # (Manual) Hypogranular Neuts Platelet Estimate RBC Morphology Echinocytes PT INR APTT PTT Ratio Sodium Potassium Chloride Carbon Dioxide Anion Gap BUN Creatinine Est Cr Clr Drug Dosing Est GFR ( Amer) Est GFR (Non-Af Amer) BUN/Creatinine Ratio Glucose POC Glucose Lactate Calcium Ionized Calcium Phosphorus Magnesium Cancelled Total Bilirubin Direct Bilirubin AST ALT Alkaline Phosphatase Troponin I Total Protein Albumin Globulin Albumin/Globulin Ratio Lipase TSH Urine Color Brown Urine Appearance Slightly Cloudy H Urine pH Ur Specific Hartman 1.023 Urine Protein Urine Glucose (UA) Urine Ketones Urine Blood Urine Nitrite Urine Bilirubin Urine Urobilinogen Ur Leukocyte Esterase Urine RBC >30 H Urine WBC 10-30 H Ur Epithelial Cells >30 H Ur Renal Epithelial Cell 5-10 H Amorphous Sediment Present H Urine Bacteria 1+ H Nasal Screen MRSA (PCR) Negative Random Vancomycin Influenza Type A Ag Influenza Type B Ag Blood Type Antibody Screen 05/28/18 05/28/18 05/28/18 19:38 19:39 21:35 WBC RBC Hgb Hct MCV MCH MCHC RDW Std Deviation RDW Coeff of Kathleen Plt Count MPV Neutrophils % (Manual) Lymphocytes % (Manual) Monocytes % (Manual) Neutrophils # (Manual) Total Absolute Neuts Lymphocytes # (Manual) Total Abs Lymphocytes Monocytes # (Manual) Hypogranular Neuts Platelet Estimate RBC Morphology Echinocytes PT INR APTT PTT Ratio Sodium Potassium Chloride Carbon Dioxide Anion Gap BUN Creatinine Est Cr Clr Drug Dosing Est GFR ( Amer) Est GFR (Non-Af Amer) BUN/Creatinine Ratio Glucose POC Glucose 148 H Lactate 2.5 H* Calcium Ionized Calcium Phosphorus Magnesium Total Bilirubin Direct Bilirubin AST ALT Alkaline Phosphatase Troponin I 0.049 H* Total Protein Albumin Globulin Albumin/Globulin Ratio Lipase 40 L TSH Urine Color Urine Appearance Urine pH Ur Specific Hartman Urine Protein Urine Glucose (UA) Urine Ketones Urine Blood Urine Nitrite Urine Bilirubin Urine Urobilinogen Ur Leukocyte Esterase Urine RBC Urine WBC Ur Epithelial Cells Ur Renal Epithelial Cell Amorphous Sediment Urine Bacteria Nasal Screen MRSA (PCR) Random Vancomycin Influenza Type A Ag Influenza Type B Ag Blood Type Antibody Screen 05/28/18 05/29/18 05/29/18 21:37 01:32 04:29 WBC RBC Hgb Hct MCV MCH MCHC RDW Std Deviation RDW Coeff of Kathleen Plt Count MPV Neutrophils % (Manual) Lymphocytes % (Manual) Monocytes % (Manual) Neutrophils # (Manual) Total Absolute Neuts Lymphocytes # (Manual) Total Abs Lymphocytes Monocytes # (Manual) Hypogranular Neuts Platelet Estimate RBC Morphology Echinocytes PT 16.4 H INR 1.7 H APTT PTT Ratio Sodium Potassium Chloride Carbon Dioxide Anion Gap BUN Creatinine Est Cr Clr Drug Dosing Est GFR ( Amer) Est GFR (Non-Af Amer) BUN/Creatinine Ratio Glucose POC Glucose Lactate 1.8 Calcium Ionized Calcium Phosphorus Magnesium Total Bilirubin Direct Bilirubin AST ALT Alkaline Phosphatase Troponin I Total Protein Albumin Globulin Albumin/Globulin Ratio Lipase TSH Urine Color Urine Appearance Urine pH Ur Specific Hartman Urine Protein Urine Glucose (UA) Urine Ketones Urine Blood Urine Nitrite Urine Bilirubin Urine Urobilinogen Ur Leukocyte Esterase Urine RBC Urine WBC Ur Epithelial Cells Ur Renal Epithelial Cell Amorphous Sediment Urine Bacteria Nasal Screen MRSA (PCR) Random Vancomycin Influenza Type A Ag Influenza Type B Ag Blood Type A Positive Antibody Screen NEGATIVE 05/29/18 05/29/18 05/29/18 04:29 04:29 04:29 WBC 26.64 H D RBC 4.21 Hgb 11.9 L Hct 36.2 L MCV 86.0 MCH 28.3 MCHC 32.9 RDW Std Deviation 48.0 H RDW Coeff of Kathleen 15.5 H Plt Count 79 L MPV 12.4 H Neutrophils % (Manual) 84.2 Lymphocytes % (Manual) 0.9 Monocytes % (Manual) 14.9 Neutrophils # (Manual) 22.43 H Total Absolute Neuts 22.43 H Lymphocytes # (Manual) 0.24 L Total Abs Lymphocytes 0.24 L Monocytes # (Manual) 3.97 H Hypogranular Neuts 1+ Platelet Estimate RBC Morphology Echinocytes PT INR APTT PTT Ratio Sodium 134 L Potassium 3.2 L Chloride 100 Carbon Dioxide 22 Anion Gap 12.0 H BUN 72 H Creatinine 4.65 H* Est Cr Clr Drug Dosing 9.7 Est GFR ( Amer) 9.5 Est GFR (Non-Af Amer) 8.2 BUN/Creatinine Ratio 15.5 Glucose 125 H POC Glucose Lactate Calcium 6.5 L Ionized Calcium Phosphorus 5.5 H Magnesium 2.3 Total Bilirubin 1.0 Direct Bilirubin 0.6 H AST 11 L ALT 9 L Alkaline Phosphatase 110 Troponin I 0.040 Total Protein 5.3 L D Albumin 1.7 L Globulin Albumin/Globulin Ratio Lipase TSH Urine Color Urine Appearance Urine pH Ur Specific Hartman Urine Protein Urine Glucose (UA) Urine Ketones Urine Blood Urine Nitrite Urine Bilirubin Urine Urobilinogen Ur Leukocyte Esterase Urine RBC Urine WBC Ur Epithelial Cells Ur Renal Epithelial Cell Amorphous Sediment Urine Bacteria Nasal Screen MRSA (PCR) Random Vancomycin 23.0 Influenza Type A Ag Influenza Type B Ag Blood Type Antibody Screen 05/29/18 05/29/18 05/29/18 04:29 04:29 11:54 WBC 31.81 H* RBC 4.50 Hgb 12.9 Hct 39.0 MCV 86.7 MCH 28.7 MCHC 33.1 RDW Std Deviation 48.4 H RDW Coeff of Kathleen 15.6 H Plt Count 84 L MPV 12.8 H Neutrophils % (Manual) 87.3 Lymphocytes % (Manual) 0.8 Monocytes % (Manual) 11.9 Neutrophils # (Manual) 27.77 H Total Absolute Neuts 27.77 H Lymphocytes # (Manual) 0.25 L Total Abs Lymphocytes 0.25 L Monocytes # (Manual) 3.79 H Hypogranular Neuts 1+ Platelet Estimate Decreased RBC Morphology Echinocytes 1+ PT INR APTT 41.8 H PTT Ratio 1.6 Sodium Potassium Chloride Carbon Dioxide Anion Gap BUN Creatinine Est Cr Clr Drug Dosing Est GFR ( Amer) Est GFR (Non-Af Amer) BUN/Creatinine Ratio Glucose POC Glucose Lactate 1.7 Calcium Ionized Calcium Phosphorus Magnesium Total Bilirubin Direct Bilirubin AST ALT Alkaline Phosphatase Troponin I Total Protein Albumin Globulin Albumin/Globulin Ratio Lipase TSH Urine Color Urine Appearance Urine pH Ur Specific Hartman Urine Protein Urine Glucose (UA) Urine Ketones Urine Blood Urine Nitrite Urine Bilirubin Urine Urobilinogen Ur Leukocyte Esterase Urine RBC Urine WBC Ur Epithelial Cells Ur Renal Epithelial Cell Amorphous Sediment Urine Bacteria Nasal Screen MRSA (PCR) Random Vancomycin Influenza Type A Ag Influenza Type B Ag Blood Type Antibody Screen 05/29/18 05/29/18 05/29/18 11:54 11:54 11:54 WBC RBC Hgb Hct MCV MCH MCHC RDW Std Deviation RDW Coeff of Kathleen Plt Count MPV Neutrophils % (Manual) Lymphocytes % (Manual) Monocytes % (Manual) Neutrophils # (Manual) Total Absolute Neuts Lymphocytes # (Manual) Total Abs Lymphocytes Monocytes # (Manual) Hypogranular Neuts Platelet Estimate RBC Morphology Echinocytes PT INR APTT PTT Ratio Sodium 134 L Potassium 3.6 Chloride 98 Carbon Dioxide 22 Anion Gap 14.0 H BUN 72 H Creatinine 4.95 H* D Est Cr Clr Drug Dosing 9.2 Est GFR ( Amer) 8.8 Est GFR (Non-Af Amer) 7.6 BUN/Creatinine Ratio 14.5 Glucose 130 H POC Glucose Lactate 2.4 H* Calcium 7.4 L Ionized Calcium 0.90 L Phosphorus Magnesium Total Bilirubin Direct Bilirubin AST ALT Alkaline Phosphatase Troponin I Total Protein Albumin Globulin Albumin/Globulin Ratio Lipase TSH Urine Color Urine Appearance Urine pH Ur Specific Hartman Urine Protein Urine Glucose (UA) Urine Ketones Urine Blood Urine Nitrite Urine Bilirubin Urine Urobilinogen Ur Leukocyte Esterase Urine RBC Urine WBC Ur Epithelial Cells Ur Renal Epithelial Cell Amorphous Sediment Urine Bacteria Nasal Screen MRSA (PCR) Random Vancomycin Influenza Type A Ag Influenza Type B Ag Blood Type Antibody Screen 05/29/18 05/29/18 11:55 Unknown WBC RBC Hgb Hct MCV MCH MCHC RDW Std Deviation RDW Coeff of Kathlene Plt Count MPV Neutrophils % (Manual) Lymphocytes % (Manual) Monocytes % (Manual) Neutrophils # (Manual) Total Absolute Neuts Lymphocytes # (Manual) Total Abs Lymphocytes Monocytes # (Manual) Hypogranular Neuts Platelet Estimate RBC Morphology Echinocytes PT INR APTT 52.5 H* PTT Ratio 2.0 Sodium Potassium Chloride Carbon Dioxide Anion Gap BUN Creatinine Est Cr Clr Drug Dosing Est GFR ( Amer) Est GFR (Non-Af Amer) BUN/Creatinine Ratio Glucose POC Glucose Lactate Calcium Ionized Calcium Phosphorus Magnesium Total Bilirubin Direct Bilirubin AST ALT Alkaline Phosphatase Troponin I Total Protein Albumin Globulin Albumin/Globulin Ratio Lipase TSH Urine Color Urine Appearance Urine pH Ur Specific Hartman Urine Protein Urine Glucose (UA) Urine Ketones Urine Blood Urine Nitrite Urine Bilirubin Urine Urobilinogen Ur Leukocyte Esterase Urine RBC Urine WBC Ur Epithelial Cells Ur Renal Epithelial Cell Amorphous Sediment Urine Bacteria Nasal Screen MRSA (PCR) Random Vancomycin Influenza Type A Ag Neg for Influ A Influenza Type B Ag Neg for Influ B Blood Type Antibody Screen _ (1) Renal failure Acute renal failure type: Chronic kidney disease stage: Renal failure chronicity: (2) Atrial fibrillation Atrial fibrillation type: chronic Qualified Code(s): I48.2 - Chronic atrial fibrillation (3) Diarrhea Diarrhea type:
[2018-05-30] MEDS: IPRATROPIUM BROMIDE NEB SOLN 0.02% 2.5 ML VIAL INH SCH ×4 (01:58→19:54)
[2018-05-30] MEDS: LEVALBUTEROL HCL 1.25 MG/3 ML NEB NEB SCH ×3 (01:58→15:10)
[2018-05-30] MEDS: NORMOSOL-R 1,000 ML IV SCH ×2 (02:12→19:58)
[2018-05-30] MEDS ORDERED: NORMOSOL-R 500 ML IV ONE (03:22)
[2018-05-30] MEDS: HEPARIN STANDARD DEXTROSE 25,000 UNITS/500 ML IV SCH (04:07)
[2018-05-30 04:58] LABS: Platelet Count 75 K/uL (130-400)
[2018-05-30 05:00] LABS: INR 1.3 (0.9-1.1); Prothrombin Time 12.9 Seconds (9.0-12.0)
[2018-05-30 05:03] LABS: Hematocrit (blood only) 35.5 % (37-47); Hemoglobin 11.7 g/dL (12.0-16.0); Mean Corpuscular Volume 87.2 fL (80-100); Mean Platelet Volume 11.7 fL (7.4-10.4); RDW Coefficient of Variation 15.6 % (11.5-14.5); RDW Standard Deviation 49.2 fL (36.4-46.3); Red Blood Count 4.07 M/uL (4.2-5.4); White Blood Count 23.83 K/uL (4.8-10.8)
[2018-05-30 05:05] LABS: ALC (manual) 0.21 K/uL (1.2-3.4); Dohle Bodies 1+; Echinocytes 3+; Hypogranular Neutrophils 2+; Lymphocytes # (manual) 0.21 K/uL (1.2-3.4); Lymphocytes % (manual) 0.9 %; Monocytes # (manual) 2.07 K/uL (0.11-0.59); Monocytes % (manual) 8.7 %; Neutrophils % (manual) 90.4 %
[2018-05-30] MEDS: metroNIDAZOLE 500 MG/100 ML BAG IV SCH (05:12)
[2018-05-30] MEDS: VANCOMYCIN HCL 500 MG/10 ML SOLN PO SCH (05:12)
[2018-05-30] MEDS: RASPBERRY SYRUP 5 ML UDP PO SCH ×3 (05:12→18:21)
[2018-05-30 05:32] LABS: Albumin Level 1.7 gm/dl (3.4-5.0); BUN Creatinine Ratio 13.9 (10-20); Bilirubin Direct 0.5 mg/dl (0-0.2); Bilirubin,Total 0.8 mg/dl (0.2-1); Calcium 7.2 mg/dl (8.5-10.1); Creatinine Clr Calc Pharmacy 9.1 ml/min; Est GFR (African American) 8.8; Est GFR (Non-African American) 7.6; Magnesium 2.4 mg/dl (1.8-2.4); Phosphorus 5.6 mg/dl (2.5-4.9); Potassium 3.4 mmol/L (3.5-5.1); Total Protein 5.6 gm/dl (6.4-8.2)
[2018-05-30] MEDS ORDERED: POTASSIUM CHLORIDE / WTR 20 MEQ/100 ML PLCT IV ONE (06:00)
[2018-05-30 06:14] LABS: Partial Thromboplastin Ratio 3.2
[2018-05-30 06:21] LABS: Partial Thromboplastin Time 83.9 Seconds (21.0-31.0)
--- NOTE | 2018-05-30 08:01 | Critical Care Progress Note ---
Date of Service May 30, 2018 Assessment & Plan (1) Renal failure: (2) Diarrhea: 83yoF with hx of COPD, Diastolic CHF, Afib on warfarin, CKD stage 2 and HTN presented with weakness in the setting of diarrhea x 1 week. Admitted to the ICU for concern of septic shock likely in the setting of C. diff colitis. NOW HD stable. Remains in Afib with improved rate control. Continues to have worsening BUN/Cr. NEURO: CAM ICU: negative CARDIAC/VASCULAR: HD stable. In Afib with improved rate control Initial concern for septic shock in the setting of C.diff colitis; Elevated troponin in the setting of likely demand ischemia and Afib w/RVR - downtrended PMHx: CHF and Afib on coumadin ECHO 05/11/18: Ef 55-60%, diastolic dysfunction, borderline pulm hypertension PASP 34-40mmHG, severe LA enlargement, mild concentric LVH, mild MR EKG: Rate 113 AFib with RVR QTc 567 -> repeat 119 Afib with RVR QTc 475 Troponin elevated to 0.049 -> 0.040 On Normosol 30mls/hr (total IVF limit of 50cc) On Heparin drip for Afib Restarted on home rate control medications: Diltiazem 60mg QID and metoprolol succinate 50mg daily PULM: Hx of COPD (not on oxygen yet but per son had appt for 2 step 05/29) Prior PFTs - FEV 0.5L, 29% predicted; severe obstructive defect Remains on 3L NC CXR: mild cardiomegaly without concern of congestive failure Continue levalbuterol and ipratropium GI: Concern for C.diff colitis. AM nausea likely secondary to uremia vs. C.diff infection WBC 40.7 -> 26.6 -> 23.8 LFT wnl except direct bilirubin of 0.5 Lipase wnl C.diff pending - no BM yet On Vanc PO 500mg Q6H --> decreased to 125mg PO Q6H today and stopped flagyl IV 500mg Q8H today On protonix 40mg daily On compazine 10mg Q8H IV for nausea HH diet Surgery consulted: no intervention at this time for possible C.diff colitis RENAL/LYTES: Acute on chronic RF likely multifactorial ATN PMHX: CKD stage 2 BUN/Cr 72/4.65 -> 69/4.9 (baseline Cr 1.3) UOP 55cc in the past 24hrs Renal US: no hydronephrosis, mild bilateral cortical thinning/scarring, unchanged gallbladder distension On Normosol 30mls/hr (limiting total fluid intake to 50cc) Nephrology consulted Monitor BMP : Oliguric Payne in place UOP 55cc in the past 24hrs ENDO: TSH wnl random cortisol 39.9 BSG checks and SSI per ICU protocol HEME: Improving coagulopathy in the setting of sepsis PMHx: thrombocytopenia H& H stable Plt ct 79 --> 75 (around baseline) INR 11 -> 1.3, PT 100 -> 12.9, PTT 73.4 -> 83.9 (on heparin drip) On Warfarin at home for Afib - held Received Vit K 5mg x 1 Monitor CBC and Coags closely ID: Initial concern for septic shock in the setting of C.diff colitis - improving WBC 40.7 -> 26.6 -> 23.8 Lactate 2.5 -> 1.5 Blood culture NGTD Urine culture pinpoint growth - reincubated MRSA swab neg Influenza neg On PO Vanc and IV flagyl for C.diff concern LINES: R IJ Central Line PIV x 1 DVT prop: SCDs only, chemical contraindicated Code status: DNR Dispo: pending clinical improvement (3) CHF (congestive heart failure): (4) Thrombocytopenia: (5) Atrial fibrillation: (6) Acute hypokalemia: (7) CKD (chronic kidney disease) stage 2, GFR 60-89 ml/min: (8) Hypoxia: (9) HTN (hypertension): (10) COPD (chronic obstructive pulmonary disease): Supervising Physician Co-Signing Physician Notes Dr. Jackson was resident physician during care of patient. I separately evaluated patient for mane portions of the history and the exam. I was present during the critical portion of medical decision making, and I discussed the case with the resident. I generally agree with the findings and plan. Patient was discussed in multidisciplinary rounds Rate control improved, CVP within acceptable ranges. Run total fluid at 50 mL' s per hour. We will discontinue IV Flagyl scale back to oral vancomycin 125 by mouth we will empirically treat for full treatment course of presumptive C. difficile. Palate of care consult, I am concerned of her acute tubular necrosis and her unwillingness to undergo day this may lead to a poor outcome. I have personally spent 45 minutes of critical care time in the direct management of this patient. This is a life/limb threatening event. This includes time spent evaluating patient, direct bedside care, chart review, placing orders, interpretation of diagnostic studies, discussion with consultants, patient, and/or family members regarding treatment decisions, as well as other required patient management activities. This time is exclusive of all separately billable procedures, and teaching time and separate from and in addition to any other critical care service time. Subjective This AM pt reported feeling better. She reports chronic nausea prior to breakfast but denies any fever, EDWARDS/dizziness, cp, sob, vomiting, diarrhea, abdominal pain. Payne: UOP 55cc in the past 24hrs. Net +10.8L Physical Exam 2 Vital Signs (Past 24 Hours): Last Vital Signs Temp 36.7 C 05/30/18 04:00 Pulse 95 H 05/30/18 06:00 Resp 20 05/30/18 06:00 BP 97/54 L 05/30/18 06:00 Pulse Ox 93 05/30/18 06:00 Physical Exam: General: In NAD, resting in bed CV: mildly tachycardic with irregular rhythm, no m/r/g Pulm: bibasilar crackles LLL> RLL and mild rhonchi appreciated, equal breath sounds bilaterally Abdomen: +BS, non distended, non-TTP in all quadrants LE: No LE edema or calf tenderness Neuro: Alert and oriented x 4 Results & Data Laboratory Results Abnormal lab results 05/29/18 05/29/18 05/29/18 Range/Units 11:54 11:54 11:54 WBC 31.81 H* (4.8-10.8) K/uL RBC (4.2-5.4) M/uL Hgb (12.0-16.0) g/dL Hct (37-47) % RDW Std Deviation 48.4 H (36.4-46.3) fL RDW Coeff of Kathleen 15.6 H (11.5-14.5) % Plt Count 84 L (130-400) K/uL MPV 12.8 H (7.4-10.4) fL Neutrophils # (Manual) 27.77 H (1.4-6.5) K/uL Total Absolute Neuts 27.77 H (1.4-6.5) K/uL Lymphocytes # (Manual) 0.25 L (1.2-3.4) K/uL Total Abs Lymphocytes 0.25 L (1.2-3.4) K/uL Monocytes # (Manual) 3.79 H (0.11-0.59) K/uL PT (9.0-12.0) Seconds INR (0.9-1.1) APTT (21.0-31.0) Seconds Sodium 134 L (136-145) mmol/L Potassium (3.5-5.1) mmol/L Chloride (98-107) mmol/L Anion Gap 14.0 H (3-11) BUN 72 H (7-18) mg/dl Creatinine 4.95 H* D (0.6-1.2) mg/dl Glucose 130 H (70-99) mg/dl POC Glucose (70-99) Lactate 2.4 H* (0.4-2.0) mmol/L Calcium 7.4 L (8.5-10.1) mg/dl Ionized Calcium (1.12-1.32) mmol/L Phosphorus (2.5-4.9) mg/dl Direct Bilirubin (0-0.2) mg/dl AST (15-37) U/L ALT (12-78) U/L Total Protein (6.4-8.2) gm/dl Albumin (3.4-5.0) gm/dl Procalcitonin (0-0.5) ng/ml 05/29/18 05/29/18 05/29/18 Range/Units 11:54 11:55 16:02 WBC (4.8-10.8) K/uL RBC (4.2-5.4) M/uL Hgb (12.0-16.0) g/dL Hct (37-47) % RDW Std Deviation (36.4-46.3) fL RDW Coeff of Kathleen (11.5-14.5) % Plt Count (130-400) K/uL MPV (7.4-10.4) fL Neutrophils # (Manual) (1.4-6.5) K/uL Total Absolute Neuts (1.4-6.5) K/uL Lymphocytes # (Manual) (1.2-3.4) K/uL Total Abs Lymphocytes (1.2-3.4) K/uL Monocytes # (Manual) (0.11-0.59) K/uL PT (9.0-12.0) Seconds INR (0.9-1.1) APTT 52.5 H* (21.0-31.0) Seconds Sodium (136-145) mmol/L Potassium (3.5-5.1) mmol/L Chloride (98-107) mmol/L Anion Gap (3-11) BUN (7-18) mg/dl Creatinine (0.6-1.2) mg/dl Glucose (70-99) mg/dl POC Glucose 128 H (70-99) Lactate (0.4-2.0) mmol/L Calcium (8.5-10.1) mg/dl Ionized Calcium 0.90 L (1.12-1.32) mmol/L Phosphorus (2.5-4.9) mg/dl Direct Bilirubin (0-0.2) mg/dl AST (15-37) U/L ALT (12-78) U/L Total Protein (6.4-8.2) gm/dl Albumin (3.4-5.0) gm/dl Procalcitonin (0-0.5) ng/ml 05/29/18 05/30/18 05/30/18 Range/Units 22:01 04:32 04:32 WBC (4.8-10.8) K/uL RBC (4.2-5.4) M/uL Hgb (12.0-16.0) g/dL Hct (37-47) % RDW Std Deviation (36.4-46.3) fL RDW Coeff of Kathleen (11.5-14.5) % Plt Count (130-400) K/uL MPV (7.4-10.4) fL Neutrophils # (Manual) (1.4-6.5) K/uL Total Absolute Neuts (1.4-6.5) K/uL Lymphocytes # (Manual) (1.2-3.4) K/uL Total Abs Lymphocytes (1.2-3.4) K/uL Monocytes # (Manual) (0.11-0.59) K/uL PT 12.9 H (9.0-12.0) Seconds INR 1.3 H (0.9-1.1) APTT (21.0-31.0) Seconds Sodium 132 L (136-145) mmol/L Potassium 3.4 L (3.5-5.1) mmol/L Chloride 97 L (98-107) mmol/L Anion Gap (3-11) BUN 69 H (7-18) mg/dl Creatinine 4.99 H* (0.6-1.2) mg/dl Glucose 119 H (70-99) mg/dl POC Glucose 123 H (70-99) Lactate (0.4-2.0) mmol/L Calcium 7.2 L (8.5-10.1) mg/dl Ionized Calcium (1.12-1.32) mmol/L Phosphorus 5.6 H (2.5-4.9) mg/dl Direct Bilirubin 0.5 H (0-0.2) mg/dl AST 7 L (15-37) U/L ALT 11 L (12-78) U/L Total Protein 5.6 L (6.4-8.2) gm/dl Albumin 1.7 L (3.4-5.0) gm/dl Procalcitonin (0-0.5) ng/ml 05/30/18 05/30/18 05/30/18 Range/Units 04:32 04:32 04:32 WBC 23.83 H (4.8-10.8) K/uL RBC 4.07 L (4.2-5.4) M/uL Hgb 11.7 L (12.0-16.0) g/dL Hct 35.5 L (37-47) % RDW Std Deviation 49.2 H (36.4-46.3) fL RDW Coeff of Kathleen 15.6 H (11.5-14.5) % Plt Count 75 L (130-400) K/uL MPV 11.7 H (7.4-10.4) fL Neutrophils # (Manual) 21.54 H (1.4-6.5) K/uL Total Absolute Neuts 21.54 H (1.4-6.5) K/uL Lymphocytes # (Manual) 0.21 L (1.2-3.4) K/uL Total Abs Lymphocytes 0.21 L (1.2-3.4) K/uL Monocytes # (Manual) 2.07 H (0.11-0.59) K/uL PT (9.0-12.0) Seconds INR (0.9-1.1) APTT 83.9 H* (21.0-31.0) Seconds Sodium (136-145) mmol/L Potassium (3.5-5.1) mmol/L Chloride (98-107) mmol/L Anion Gap (3-11) BUN (7-18) mg/dl Creatinine (0.6-1.2) mg/dl Glucose (70-99) mg/dl POC Glucose (70-99) Lactate (0.4-2.0) mmol/L Calcium (8.5-10.1) mg/dl Ionized Calcium (1.12-1.32) mmol/L Phosphorus (2.5-4.9) mg/dl Direct Bilirubin (0-0.2) mg/dl AST (15-37) U/L ALT (12-78) U/L Total Protein (6.4-8.2) gm/dl Albumin (3.4-5.0) gm/dl Procalcitonin 1.83 H (0-0.5) ng/ml Diagnostic Findings RENAL ULTRASOUND HISTORY: anuric, elevated BUN/Cr COMPARISON: Abdomen and pelvis CT 05/28/2018. FINDINGS: Right kidney: 10.9 cm. No hydronephrosis. Normal corticomedullary differentiation. Mild cortical thinning/scarring. Left kidney: 11.1 cm. No hydronephrosis. Normal corticomedullary differentiation. Mild cortical thinning/scarring. Bladder: Decompressed by a Payne catheter and not well visualized. Distended gallbladder, unchanged. IMPRESSION: 1. No hydronephrosis. 2. Mild bilateral cortical thinning/scarring. 3. Distended gallbladder, unchanged. Medications Administered Current Inpatient Medications Acetaminophen (Tylenol) 325 mg PO Q4 PRN PRN Reason: Pain Diltiazem HCl (Cardizem) 60 mg PO QID JACOB Stop: 06/28/18 10:14 Last Admin: 05/30/18 09:15 Dose: 60 mg Heparin Sodium (Beef Lung) (Heparin Sod 10 Unit/Ml Flush) 5 ml FLUSH PRN PRN PRN Reason: Flush Stop: 06/29/18 00:31 Parenteral Electrolytes (Normosol-R) 1,000 mls @ 30 mls/hr IV .Q24H JACOB Stop: 06/27/18 20:44 Last Infusion: 05/30/18 09:16 Dose: 30 mls/hr Heparin Sodium/Dextrose (Heparin Sodium/Dextrose) 25,000 units in 500 mls @ 20 mls/hr IV .Q0M JACOB; Protocol Stop: 06/28/18 05:42 Last Titration: 05/30/18 07:00 Dose: 1,000 units/hr, 20 mls/hr Prochlorperazine 10 mg/ (Syringe) 10 mls @ 5 mls/min IV Q8H PRN PRN Reason: Nausea And Vomiting Stop: 06/29/18 09:13 Ipratropium [place] (Atrovent 0.02% 0.5mg/2.5ml) 0.5 mg INH Q6R JACOB Stop: 06/27/18 19:59 Last Admin: 05/30/18 08:47 Dose: 0.5 mg Levalbuterol HCl (Xopenex 1.25mg/3ml Neb) 1.25 mg NEB Q6H PRN PRN Reason: wheezing Stop: 06/27/18 18:44 Levalbuterol HCl (Xopenex 1.25mg/3ml Neb) 1.25 mg NEB Q6R JACOB Stop: 06/27/18 19:59 Last Admin: 05/30/18 08:47 Dose: 1.25 mg Metoprolol Succinate (Toprol Xl) 50 mg PO QAM JACOB Stop: 06/28/18 10:14 Last Admin: 05/30/18 09:15 Dose: 50 mg Miscellaneous (Icu Protocol For Hyperglycemia) 1 ea N/A PRN PRN; Protocol PRN Reason: Hyperglycemia Protocol Stop: 05/30/18 20:03 Raspberry (Raspberry) 5 ml PO Q6 JACOB Stop: 06/12/18 00:00 Last Admin: 05/30/18 05:12 Dose: 5 ml Vancomycin HCl (Vancomycin Hcl) 125 mg PO Q6 JACOB Stop: 06/08/18 00:00 Resident Activity Tracking Resident Involvement: Resident Care Provided Care Provided: [facility] Medicine _ (1) CHF (congestive heart failure) Heart failure chronicity: unspecified Heart failure type: unspecified Qualified Code(s): I50.9 - Heart failure, unspecified (2) Atrial fibrillation Atrial fibrillation type: chronic Qualified Code(s): I48.2 - Chronic atrial fibrillation (3) Diarrhea Diarrhea type: (4) Renal failure Acute renal failure type: Chronic kidney disease stage: Renal failure chronicity: (5) HTN (hypertension) Hypertension type: essential hypertension Qualified Code(s): I10 - Essential (primary) hypertension
--- NOTE | 2018-05-30 09:05 | Nephrology Progress Note ---
Date of Service May 30, 2018 Assessment & Plan (1) Renal failure: -- Oliguric but creatinine fairly stable -- Metabolic profile otherwise acceptable -- Clinical presentation consistent with multifactorial ATN -- UA/microscopy (microscopic hematuria, pyuria, and 1+ bacteria) will be repeated today with [place] -- Improved hemodynamics, WBC and lactate -- Overall volume status acceptable, suggest minimizing obligatory fluid intake -- Hold normosol infusion and provided fluid boluses PRN (MAP < 65 or HR > 110 bpm) -- HD will not be considered in the care plant at patient's request -- Repeat metabolic profile this afternoon -- Document strict I/O's -- Medications are currently appropriately dosed for renal dysfunction. (2) Thrombocytopenia: -- Chronic, stable -- No evidence of hemolytic anemic -- Continue to monitor coags and CBC (3) Atrial fibrillation: -- Reasonable rate control -- Patient appears asymptomatic (4) COPD (chronic obstructive pulmonary disease): (5) Diarrhea: -- Clinical presentation consistent severe C diff colitis -- Serial abdominal exams are being provided and surgical consultation is following -- Remains on IV metronidazole and PO vanco (6) CKD (chronic kidney disease) stage 2, GFR 60-89 ml/min: Subjective No acute events overnight. Remains afebrile. Abdomen less distended. Abdominal discomfort improving. No bowel movement. Nausea persists but appetite improving. Mild dyspnea with some improvement with nebs. O2 2-3 L/min. Denies chest pain or palpitations. Review of Systems All systems reviewed & are unremarkable except as noted in HPI & below Physical Exam 2 Vital Signs (Past 24 Hours): Last Vital Signs Temp 36.7 C 05/30/18 04:00 Pulse 105 H 05/30/18 08:46 Resp 18 05/30/18 08:46 BP 97/54 L 05/30/18 06:00 Pulse Ox 93 05/30/18 08:46 Constitutional: + obese and + frail appearing; no acute distress Eyes: + anicteric sclerae; no conjunctival abnormality ENMT: Ears: no hearing impairment Mouth: oral mucous membranes not dry Neck: normal visual inspection and trachea midline Respiratory: + tachypneic; does not use accessory muscles Auscultation: lungs clear to auscultation bilaterally and + rales (bibasilar) Cardiovascular: Rate/Rhythm: + tachycardic; + abnormal rhythm Heart Sounds : normal S1 and normal S2 Vessels: no JVD Extremities: no edema Gastrointestinal (Abdomen): Inspection/Auscultation: + abdomen distended and + hypoactive bowel sounds Percussion/Palpation: + abdomen tender (mild diffuse abdominal tenderness), abdomen soft and + tympanic to percussion; no guarding and abdomen not rigid Musculoskeletal: Extremities: no cyanosis and no petechiae Skin: normal turgor; no rashes Neurologic: Motor/Sensory: no tremor and no asterixis Genitourinary: Payne with small amount of concentrated urine Results & Data Laboratory Results Laboratory Results - last 24 hr 05/29/18 05/29/18 05/29/18 11:54 11:54 11:54 WBC 31.81 H* RBC 4.50 Hgb 12.9 Hct 39.0 MCV 86.7 MCH 28.7 MCHC 33.1 RDW Std Deviation 48.4 H RDW Coeff of Kathleen 15.6 H Plt Count 84 L MPV 12.8 H Neutrophils % (Manual) 87.3 Lymphocytes % (Manual) 0.8 Monocytes % (Manual) 11.9 Neutrophils # (Manual) 27.77 H Total Absolute Neuts 27.77 H Lymphocytes # (Manual) 0.25 L Total Abs Lymphocytes 0.25 L Monocytes # (Manual) 3.79 H Hypogranular Neuts 1+ Dohle Bodies Platelet Estimate Decreased Echinocytes 1+ PT INR APTT PTT Ratio Sodium 134 L Potassium 3.6 Chloride 98 Carbon Dioxide 22 Anion Gap 14.0 H BUN 72 H Creatinine 4.95 H* D Est Cr Clr Drug Dosing 9.2 Est GFR ( Amer) 8.8 Est GFR (Non-Af Amer) 7.6 BUN/Creatinine Ratio 14.5 Glucose 130 H POC Glucose Lactate 2.4 H* Calcium 7.4 L Ionized Calcium Phosphorus Magnesium Total Bilirubin Direct Bilirubin AST ALT Alkaline Phosphatase Total Protein Albumin Procalcitonin Random Cortisol Influenza Type A Ag Influenza Type B Ag 05/29/18 05/29/18 05/29/18 11:54 11:55 16:02 WBC RBC Hgb Hct MCV MCH MCHC RDW Std Deviation RDW Coeff of Kathleen Plt Count MPV Neutrophils % (Manual) Lymphocytes % (Manual) Monocytes % (Manual) Neutrophils # (Manual) Total Absolute Neuts Lymphocytes # (Manual) Total Abs Lymphocytes Monocytes # (Manual) Hypogranular Neuts Dohle Bodies Platelet Estimate Echinocytes PT INR APTT 52.5 H* PTT Ratio 2.0 Sodium Potassium Chloride Carbon Dioxide Anion Gap BUN Creatinine Est Cr Clr Drug Dosing Est GFR ( Amer) Est GFR (Non-Af Amer) BUN/Creatinine Ratio Glucose POC Glucose 128 H Lactate Calcium Ionized Calcium 0.90 L Phosphorus Magnesium Total Bilirubin Direct Bilirubin AST ALT Alkaline Phosphatase Total Protein Albumin Procalcitonin Random Cortisol Influenza Type A Ag Influenza Type B Ag 05/29/18 05/29/18 05/30/18 22:01 Unknown 04:32 WBC RBC Hgb Hct MCV MCH MCHC RDW Std Deviation RDW Coeff of Kathleen Plt Count MPV Neutrophils % (Manual) Lymphocytes % (Manual) Monocytes % (Manual) Neutrophils # (Manual) Total Absolute Neuts Lymphocytes # (Manual) Total Abs Lymphocytes Monocytes # (Manual) Hypogranular Neuts Dohle Bodies Platelet Estimate Echinocytes PT 12.9 H INR 1.3 H APTT PTT Ratio Sodium Potassium Chloride Carbon Dioxide Anion Gap BUN Creatinine Est Cr Clr Drug Dosing Est GFR ( Amer) Est GFR (Non-Af Amer) BUN/Creatinine Ratio Glucose POC Glucose 123 H Lactate Calcium Ionized Calcium Phosphorus Magnesium Total Bilirubin Direct Bilirubin AST ALT Alkaline Phosphatase Total Protein Albumin Procalcitonin Random Cortisol Influenza Type A Ag Neg for Influ A Influenza Type B Ag Neg for Influ B 05/30/18 05/30/18 05/30/18 04:32 04:32 04:32 WBC 23.83 H RBC 4.07 L Hgb 11.7 L Hct 35.5 L MCV 87.2 MCH 28.7 MCHC 33.0 RDW Std Deviation 49.2 H RDW Coeff of Kathleen 15.6 H Plt Count 75 L MPV 11.7 H Neutrophils % (Manual) 90.4 Lymphocytes % (Manual) 0.9 Monocytes % (Manual) 8.7 Neutrophils # (Manual) 21.54 H Total Absolute Neuts 21.54 H Lymphocytes # (Manual) 0.21 L Total Abs Lymphocytes 0.21 L Monocytes # (Manual) 2.07 H Hypogranular Neuts 2+ Dohle Bodies 1+ Platelet Estimate Echinocytes 3+ PT INR APTT PTT Ratio Sodium 132 L Potassium 3.4 L Chloride 97 L Carbon Dioxide 24 Anion Gap 11.0 BUN 69 H Creatinine 4.99 H* Est Cr Clr Drug Dosing 9.1 Est GFR ( Amer) 8.8 Est GFR (Non-Af Amer) 7.6 BUN/Creatinine Ratio 13.9 Glucose 119 H POC Glucose Lactate 1.5 Calcium 7.2 L Ionized Calcium Phosphorus 5.6 H Magnesium 2.4 Total Bilirubin 0.8 Direct Bilirubin 0.5 H AST 7 L ALT 11 L Alkaline Phosphatase 103 Total Protein 5.6 L Albumin 1.7 L Procalcitonin Random Cortisol Influenza Type A Ag Influenza Type B Ag 05/30/18 05/30/18 05/30/18 04:32 04:32 04:32 WBC RBC Hgb Hct MCV MCH MCHC RDW Std Deviation RDW Coeff of Kathleen Plt Count MPV Neutrophils % (Manual) Lymphocytes % (Manual) Monocytes % (Manual) Neutrophils # (Manual) Total Absolute Neuts Lymphocytes # (Manual) Total Abs Lymphocytes Monocytes # (Manual) Hypogranular Neuts Dohle Bodies Platelet Estimate Echinocytes PT INR APTT 83.9 H* PTT Ratio 3.2 Sodium Potassium Chloride Carbon Dioxide Anion Gap BUN Creatinine Est Cr Clr Drug Dosing Est GFR ( Amer) Est GFR (Non-Af Amer) BUN/Creatinine Ratio Glucose POC Glucose Lactate Calcium Ionized Calcium Phosphorus Magnesium Total Bilirubin Direct Bilirubin AST ALT Alkaline Phosphatase Total Protein Albumin Procalcitonin 1.83 H Random Cortisol 39.90 Influenza Type A Ag Influenza Type B Ag _ (1) Renal failure Acute renal failure type: Chronic kidney disease stage: Renal failure chronicity: (2) Atrial fibrillation Atrial fibrillation type: chronic Qualified Code(s): I48.2 - Chronic atrial fibrillation (3) Diarrhea Diarrhea type:
[2018-05-30] MEDS: METOPROLOL SUCC 50MG EXT REL TAB PO SCH (09:15)
[2018-05-30] MEDS: dilTIAZem HCl 60 MG TAB PO SCH ×4 (09:15→20:48)
[2018-05-30 09:46] LABS: Appearance Urine Cloudy (Clear); Bacteria Urine Automated Negative (Negative); Bilirubin Urine Negative (Negative); Color Urine Dark Yellow; Epithelial Cell Urine Auto >30 /lpf (0-5); Glucose Urine UA Negative (Negative); Ketones Urine Trace (Negative); Leukocyte Esterase Urine 2+ (Negative); Nitrite Urine Negative (Negative); Protein Urine 2+ (Negative); Specific Gravity Urine 1.019 (1.000-1.030); Urobilinogen Urine Negative (Negative); WBC Urine Automated >30 /hpf (0-5)
[2018-05-30 10:26] LABS: Cast Urine Automated 0 /lpf (0-5)
[2018-05-30 10:28] LABS: Amorphous Sediment Urine Present (None Prsent)
[2018-05-30] MEDS: VANCOMYCIN HCL 125 MG/2.5ML SOLN PO SCH ×2 (11:29→18:21)
[2018-05-30] MEDS: PROCHLORPERAZINE 10 MG in SYRINGE 8 ML IV PRN ×2 (11:34→19:58)
--- NOTE | 2018-05-30 11:55 | Surgery Progress Note ---
Date of Service May 30, 2018 Assessment & Plan (1) Abdominal pain: CT scan showing gaseous distention of right and transverse colon, no SBO Abdominal pain resolved + bowel movement this morning C. diff negative Leukocytosis improving 23K today afebrile Plan: No acute surgical intervention required at this time Continue conservative tx at this time: IV fluids per nephrology given ARF, pain management as needed, IV Zofran/compazine prn nausea Patient refusing dialysis in setting of ARF, palliative care consulted for care/ treatment goals repeat labs to monitor wbc SCDs and Heparin for DVT prophylaxis (2) Renal failure: Patient refusing dialysis Recommendations per nephrology Palliative care consult to discuss care/treatment goals (3) Diarrhea: Resolved C. diff negative Our services signing off, please call with questions or concerns Dr. Major had seen and examined the patient, agrees with above Subjective feeling better today denies of abdominal pain currently states she had a bowel movement this morning, diarrhea resolved no nausea or vomiting little appetite (low baseline appetite per patient) Physical Exam 2 Vital Signs (Past 24 Hours): Last Vital Signs Temp 36.7 C 05/30/18 07:00 Pulse 107 H 05/30/18 10:00 Resp 23 05/30/18 10:00 BP 120/62 05/30/18 10:00 Pulse Ox 92 05/30/18 10:00 Constitutional: WD/WN, vitals as above + obese; no acute distress Neck: trachea midline Respiratory: no respiratory distress, no labored breathing and no retractions Gastrointestinal (Abdomen): Inspection/Auscultation: abdomen not distended Percussion/Palpation: abdomen soft; abdomen nontender, no guarding and abdomen not rigid Skin: no rashes, warm and dry Psychiatric: A+Ox3, euthymic affect Results & Data Laboratory Results 05/30/18 05/30/18 05/30/18 Range/Units 09:30 09:20 09:20 WBC (4.8-10.8) K/uL RBC (4.2-5.4) M/uL Hgb (12.0-16.0) g/dL Hct (37-47) % MCV (80-100) fL MCH (25-34) pg MCHC (32-36) g/dL RDW Std Deviation (36.4-46.3) fL RDW Coeff of Kathleen (11.5-14.5) % Plt Count (130-400) K/uL MPV (7.4-10.4) fL Neutrophils % (Manual) % Lymphocytes % (Manual) % Monocytes % (Manual) % Neutrophils # (Manual) (1.4-6.5) K/uL Total Absolute Neuts (1.4-6.5) K/uL Lymphocytes # (Manual) (1.2-3.4) K/uL Total Abs Lymphocytes (1.2-3.4) K/uL Monocytes # (Manual) (0.11-0.59) K/uL Hypogranular Neuts Dohle Bodies Platelet Estimate (Normal) Echinocytes PT (9.0-12.0) Seconds INR (0.9-1.1) APTT (21.0-31.0) Seconds PTT Ratio Sodium (136-145) mmol/L Potassium (3.5-5.1) mmol/L Chloride (98-107) mmol/L Carbon Dioxide (21-32) mmol/L Anion Gap (3-11) BUN (7-18) mg/dl Creatinine (0.6-1.2) mg/dl Est Cr Clr Drug Dosing ml/min Est GFR ( Amer) Est GFR (Non-Af Amer) BUN/Creatinine Ratio (10-20) Glucose (70-99) mg/dl POC Glucose (70-99) Lactate (0.4-2.0) mmol/L Calcium (8.5-10.1) mg/dl Ionized Calcium (1.12-1.32) mmol/L Phosphorus (2.5-4.9) mg/dl Magnesium (1.8-2.4) mg/dl Total Bilirubin (0.2-1) mg/dl Direct Bilirubin (0-0.2) mg/dl AST (15-37) U/L ALT (12-78) U/L Alkaline Phosphatase (45-117) U/L Total Protein (6.4-8.2) gm/dl Albumin (3.4-5.0) gm/dl Procalcitonin (0-0.5) ng/ml Random Cortisol mcg/dl Urine Color Dark Yellow Urine Appearance Cloudy H (Clear) Urine pH 5.0 (4.5-7.5) Ur Specific [place] 1.019 (1.000-1.030) Urine Protein 2+ H (Negative) Urine Glucose (UA) Negative (Negative) Urine Ketones Trace H (Negative) Urine Blood 3+ H (Negative) Urine Nitrite Negative (Negative) Urine Bilirubin Negative (Negative) Urine Urobilinogen Negative (Negative) Ur Leukocyte Esterase 2+ H (Negative) Urine WBC (Auto) >30 H (0-5) /hpf Urine RBC (Auto) 5-10 H (0-4) /hpf U Hyaline Cast (Auto) 0 (0-5) /lpf U Epithel Cells (Auto) >30 H (0-5) /lpf Urine Bacteria (Auto) Negative (Negative) Ur Renal Epithelial Cell Not Reportable Amorphous Sediment Present H (None Prsent) Granular Casts 1-5 H (0) /lpf Urine Yeast Budding w/ Hyphae H (None Prsent) Ur Random Sodium 20 mmol/L Stl C. diff Tox B Gene Neg C.diff Toxin B (Neg) 05/30/18 05/30/18 05/30/18 Range/Units 04:32 04:32 04:32 WBC (4.8-10.8) K/uL RBC (4.2-5.4) M/uL Hgb (12.0-16.0) g/dL Hct (37-47) % MCV (80-100) fL MCH (25-34) pg MCHC (32-36) g/dL RDW Std Deviation (36.4-46.3) fL RDW Coeff of Kathleen (11.5-14.5) % Plt Count (130-400) K/uL MPV (7.4-10.4) fL Neutrophils % (Manual) % Lymphocytes % (Manual) % Monocytes % (Manual) % Neutrophils # (Manual) (1.4-6.5) K/uL Total Absolute Neuts (1.4-6.5) K/uL Lymphocytes # (Manual) (1.2-3.4) K/uL Total Abs Lymphocytes (1.2-3.4) K/uL Monocytes # (Manual) (0.11-0.59) K/uL Hypogranular Neuts Dohle Bodies Platelet Estimate (Normal) Echinocytes PT (9.0-12.0) Seconds INR (0.9-1.1) APTT 83.9 H* (21.0-31.0) Seconds PTT Ratio 3.2 Sodium (136-145) mmol/L Potassium (3.5-5.1) mmol/L Chloride (98-107) mmol/L Carbon Dioxide (21-32) mmol/L Anion Gap (3-11) BUN (7-18) mg/dl Creatinine (0.6-1.2) mg/dl Est Cr Clr Drug Dosing ml/min Est GFR ( Amer) Est GFR (Non-Af Amer) BUN/Creatinine Ratio (10-20) Glucose (70-99) mg/dl POC Glucose (70-99) Lactate (0.4-2.0) mmol/L Calcium (8.5-10.1) mg/dl Ionized Calcium (1.12-1.32) mmol/L Phosphorus (2.5-4.9) mg/dl Magnesium (1.8-2.4) mg/dl Total Bilirubin (0.2-1) mg/dl Direct Bilirubin (0-0.2) mg/dl AST (15-37) U/L ALT (12-78) U/L Alkaline Phosphatase (45-117) U/L Total Protein (6.4-8.2) gm/dl Albumin (3.4-5.0) gm/dl Procalcitonin 1.83 H (0-0.5) ng/ml Random Cortisol 39.90 mcg/dl Urine Color Urine Appearance (Clear) Urine pH (4.5-7.5) Ur Specific [place] (1.000-1.030) Urine Protein (Negative) Urine Glucose (UA) (Negative) Urine Ketones (Negative) Urine Blood (Negative) Urine Nitrite (Negative) Urine Bilirubin (Negative) Urine Urobilinogen (Negative) Ur Leukocyte Esterase (Negative) Urine WBC (Auto) (0-5) /hpf Urine RBC (Auto) (0-4) /hpf U Hyaline Cast (Auto) (0-5) /lpf U Epithel Cells (Auto) (0-5) /lpf Urine Bacteria (Auto) (Negative) Ur Renal Epithelial Cell Amorphous Sediment (None Prsent) Granular Casts (0) /lpf Urine Yeast (None Prsent) Ur Random Sodium mmol/L Stl C. diff Tox B Gene (Neg) 05/30/18 05/30/18 05/30/18 Range/Units 04:32 04:32 04:32 WBC 23.83 H (4.8-10.8) K/uL RBC 4.07 L (4.2-5.4) M/uL Hgb 11.7 L (12.0-16.0) g/dL Hct 35.5 L (37-47) % MCV 87.2 (80-100) fL MCH 28.7 (25-34) pg MCHC 33.0 (32-36) g/dL RDW Std Deviation 49.2 H (36.4-46.3) fL RDW Coeff of Kathleen 15.6 H (11.5-14.5) % Plt Count 75 L (130-400) K/uL MPV 11.7 H (7.4-10.4) fL Neutrophils % (Manual) 90.4 % Lymphocytes % (Manual) 0.9 % Monocytes % (Manual) 8.7 % Neutrophils # (Manual) 21.54 H (1.4-6.5) K/uL Total Absolute Neuts 21.54 H (1.4-6.5) K/uL Lymphocytes # (Manual) 0.21 L (1.2-3.4) K/uL Total Abs Lymphocytes 0.21 L (1.2-3.4) K/uL Monocytes # (Manual) 2.07 H (0.11-0.59) K/uL Hypogranular Neuts 2+ Dohle Bodies 1+ Platelet Estimate (Normal) Echinocytes 3+ PT (9.0-12.0) Seconds INR (0.9-1.1) APTT (21.0-31.0) Seconds PTT Ratio Sodium 132 L (136-145) mmol/L Potassium 3.4 L (3.5-5.1) mmol/L Chloride 97 L (98-107) mmol/L Carbon Dioxide 24 (21-32) mmol/L Anion Gap 11.0 (3-11) BUN 69 H (7-18) mg/dl Creatinine 4.99 H* (0.6-1.2) mg/dl Est Cr Clr Drug Dosing 9.1 ml/min Est GFR ( Amer) 8.8 Est GFR (Non-Af Amer) 7.6 BUN/Creatinine Ratio 13.9 (10-20) Glucose 119 H (70-99) mg/dl POC Glucose (70-99) Lactate 1.5 (0.4-2.0) mmol/L Calcium 7.2 L (8.5-10.1) mg/dl Ionized Calcium (1.12-1.32) mmol/L Phosphorus 5.6 H (2.5-4.9) mg/dl Magnesium 2.4 (1.8-2.4) mg/dl Total Bilirubin 0.8 (0.2-1) mg/dl Direct Bilirubin 0.5 H (0-0.2) mg/dl AST 7 L (15-37) U/L ALT 11 L (12-78) U/L Alkaline Phosphatase 103 (45-117) U/L Total Protein 5.6 L (6.4-8.2) gm/dl Albumin 1.7 L (3.4-5.0) gm/dl Procalcitonin (0-0.5) ng/ml Random Cortisol mcg/dl Urine Color Urine Appearance (Clear) Urine pH (4.5-7.5) Ur Specific [place] (1.000-1.030) Urine Protein (Negative) Urine Glucose (UA) (Negative) Urine Ketones (Negative) Urine Blood (Negative) Urine Nitrite (Negative) Urine Bilirubin (Negative) Urine Urobilinogen (Negative) Ur Leukocyte Esterase (Negative) Urine WBC (Auto) (0-5) /hpf Urine RBC (Auto) (0-4) /hpf U Hyaline Cast (Auto) (0-5) /lpf U Epithel Cells (Auto) (0-5) /lpf Urine Bacteria (Auto) (Negative) Ur Renal Epithelial Cell Amorphous Sediment (None Prsent) Granular Casts (0) /lpf Urine Yeast (None Prsent) Ur Random Sodium mmol/L Stl C. diff Tox B Gene (Neg) 05/30/18 05/29/18 05/29/18 Range/Units 04:32 22:01 16:02 WBC (4.8-10.8) K/uL RBC (4.2-5.4) M/uL Hgb (12.0-16.0) g/dL Hct (37-47) % MCV (80-100) fL MCH (25-34) pg MCHC (32-36) g/dL RDW Std Deviation (36.4-46.3) fL RDW Coeff of Kathleen (11.5-14.5) % Plt Count (130-400) K/uL MPV (7.4-10.4) fL Neutrophils % (Manual) % Lymphocytes % (Manual) % Monocytes % (Manual) % Neutrophils # (Manual) (1.4-6.5) K/uL Total Absolute Neuts (1.4-6.5) K/uL Lymphocytes # (Manual) (1.2-3.4) K/uL Total Abs Lymphocytes (1.2-3.4) K/uL Monocytes # (Manual) (0.11-0.59) K/uL Hypogranular Neuts Dohle Bodies Platelet Estimate (Normal) Echinocytes PT 12.9 H (9.0-12.0) Seconds INR 1.3 H (0.9-1.1) APTT (21.0-31.0) Seconds PTT Ratio Sodium (136-145) mmol/L Potassium (3.5-5.1) mmol/L Chloride (98-107) mmol/L Carbon Dioxide (21-32) mmol/L Anion Gap (3-11) BUN (7-18) mg/dl Creatinine (0.6-1.2) mg/dl Est Cr Clr Drug Dosing ml/min Est GFR ( Amer) Est GFR (Non-Af Amer) BUN/Creatinine Ratio (10-20) Glucose (70-99) mg/dl POC Glucose 123 H 128 H (70-99) Lactate (0.4-2.0) mmol/L Calcium (8.5-10.1) mg/dl Ionized Calcium (1.12-1.32) mmol/L Phosphorus (2.5-4.9) mg/dl Magnesium (1.8-2.4) mg/dl Total Bilirubin (0.2-1) mg/dl Direct Bilirubin (0-0.2) mg/dl AST (15-37) U/L ALT (12-78) U/L Alkaline Phosphatase (45-117) U/L Total Protein (6.4-8.2) gm/dl Albumin (3.4-5.0) gm/dl Procalcitonin (0-0.5) ng/ml Random Cortisol mcg/dl Urine Color Urine Appearance (Clear) Urine pH (4.5-7.5) Ur Specific [place] (1.000-1.030) Urine Protein (Negative) Urine Glucose (UA) (Negative) Urine Ketones (Negative) Urine Blood (Negative) Urine Nitrite (Negative) Urine Bilirubin (Negative) Urine Urobilinogen (Negative) Ur Leukocyte Esterase (Negative) Urine WBC (Auto) (0-5) /hpf Urine RBC (Auto) (0-4) /hpf U Hyaline Cast (Auto) (0-5) /lpf U Epithel Cells (Auto) (0-5) /lpf Urine Bacteria (Auto) (Negative) Ur Renal Epithelial Cell Amorphous Sediment (None Prsent) Granular Casts (0) /lpf Urine Yeast (None Prsent) Ur Random Sodium mmol/L Stl C. diff Tox B Gene (Neg) 05/29/18 05/29/18 05/29/18 Range/Units 11:55 11:54 11:54 WBC (4.8-10.8) K/uL RBC (4.2-5.4) M/uL Hgb (12.0-16.0) g/dL Hct (37-47) % MCV (80-100) fL MCH (25-34) pg MCHC (32-36) g/dL RDW Std Deviation (36.4-46.3) fL RDW Coeff of Kathleen (11.5-14.5) % Plt Count (130-400) K/uL MPV (7.4-10.4) fL Neutrophils % (Manual) % Lymphocytes % (Manual) % Monocytes % (Manual) % Neutrophils # (Manual) (1.4-6.5) K/uL Total Absolute Neuts (1.4-6.5) K/uL Lymphocytes # (Manual) (1.2-3.4) K/uL Total Abs Lymphocytes (1.2-3.4) K/uL Monocytes # (Manual) (0.11-0.59) K/uL Hypogranular Neuts Dohle Bodies Platelet Estimate (Normal) Echinocytes PT (9.0-12.0) Seconds INR (0.9-1.1) APTT 52.5 H* (21.0-31.0) Seconds PTT Ratio 2.0 Sodium (136-145) mmol/L Potassium (3.5-5.1) mmol/L Chloride (98-107) mmol/L Carbon Dioxide (21-32) mmol/L Anion Gap (3-11) BUN (7-18) mg/dl Creatinine (0.6-1.2) mg/dl Est Cr Clr Drug Dosing ml/min Est GFR ( Amer) Est GFR (Non-Af Amer) BUN/Creatinine Ratio (10-20) Glucose (70-99) mg/dl POC Glucose (70-99) Lactate 2.4 H* (0.4-2.0) mmol/L Calcium (8.5-10.1) mg/dl Ionized Calcium 0.90 L (1.12-1.32) mmol/L Phosphorus (2.5-4.9) mg/dl Magnesium (1.8-2.4) mg/dl Total Bilirubin (0.2-1) mg/dl Direct Bilirubin (0-0.2) mg/dl AST (15-37) U/L ALT (12-78) U/L Alkaline Phosphatase (45-117) U/L Total Protein (6.4-8.2) gm/dl Albumin (3.4-5.0) gm/dl Procalcitonin (0-0.5) ng/ml Random Cortisol mcg/dl Urine Color Urine Appearance (Clear) Urine pH (4.5-7.5) Ur Specific [place] (1.000-1.030) Urine Protein (Negative) Urine Glucose (UA) (Negative) Urine Ketones (Negative) Urine Blood (Negative) Urine Nitrite (Negative) Urine Bilirubin (Negative) Urine Urobilinogen (Negative) Ur Leukocyte Esterase (Negative) Urine WBC (Auto) (0-5) /hpf Urine RBC (Auto) (0-4) /hpf U Hyaline Cast (Auto) (0-5) /lpf U Epithel Cells (Auto) (0-5) /lpf Urine Bacteria (Auto) (Negative) Ur Renal Epithelial Cell Amorphous Sediment (None Prsent) Granular Casts (0) /lpf Urine Yeast (None Prsent) Ur Random Sodium mmol/L Stl C. diff Tox B Gene (Neg) 05/29/18 05/29/18 Range/Units 11:54 11:54 WBC 31.81 H* (4.8-10.8) K/uL RBC 4.50 (4.2-5.4) M/uL Hgb 12.9 (12.0-16.0) g/dL Hct 39.0 (37-47) % MCV 86.7 (80-100) fL MCH 28.7 (25-34) pg MCHC 33.1 (32-36) g/dL RDW Std Deviation 48.4 H (36.4-46.3) fL RDW Coeff of Kathleen 15.6 H (11.5-14.5) % Plt Count 84 L (130-400) K/uL MPV 12.8 H (7.4-10.4) fL Neutrophils % (Manual) 87.3 % Lymphocytes % (Manual) 0.8 % Monocytes % (Manual) 11.9 % Neutrophils # (Manual) 27.77 H (1.4-6.5) K/uL Total Absolute Neuts 27.77 H (1.4-6.5) K/uL Lymphocytes # (Manual) 0.25 L (1.2-3.4) K/uL Total Abs Lymphocytes 0.25 L (1.2-3.4) K/uL Monocytes # (Manual) 3.79 H (0.11-0.59) K/uL Hypogranular Neuts 1+ Dohle Bodies Platelet Estimate Decreased (Normal) Echinocytes 1+ PT (9.0-12.0) Seconds INR (0.9-1.1) APTT (21.0-31.0) Seconds PTT Ratio Sodium 134 L (136-145) mmol/L Potassium 3.6 (3.5-5.1) mmol/L Chloride 98 (98-107) mmol/L Carbon Dioxide 22 (21-32) mmol/L Anion Gap 14.0 H (3-11) BUN 72 H (7-18) mg/dl Creatinine 4.95 H* D (0.6-1.2) mg/dl Est Cr Clr Drug Dosing 9.2 ml/min Est GFR ( Amer) 8.8 Est GFR (Non-Af Amer) 7.6 BUN/Creatinine Ratio 14.5 (10-20) Glucose 130 H (70-99) mg/dl POC Glucose (70-99) Lactate (0.4-2.0) mmol/L Calcium 7.4 L (8.5-10.1) mg/dl Ionized Calcium (1.12-1.32) mmol/L Phosphorus (2.5-4.9) mg/dl Magnesium (1.8-2.4) mg/dl Total Bilirubin (0.2-1) mg/dl Direct Bilirubin (0-0.2) mg/dl AST (15-37) U/L ALT (12-78) U/L Alkaline Phosphatase (45-117) U/L Total Protein (6.4-8.2) gm/dl Albumin (3.4-5.0) gm/dl Procalcitonin (0-0.5) ng/ml Random Cortisol mcg/dl Urine Color Urine Appearance (Clear) Urine pH (4.5-7.5) Ur Specific [place] (1.000-1.030) Urine Protein (Negative) Urine Glucose (UA) (Negative) Urine Ketones (Negative) Urine Blood (Negative) Urine Nitrite (Negative) Urine Bilirubin (Negative) Urine Urobilinogen (Negative) Ur Leukocyte Esterase (Negative) Urine WBC (Auto) (0-5) /hpf Urine RBC (Auto) (0-4) /hpf U Hyaline Cast (Auto) (0-5) /lpf U Epithel Cells (Auto) (0-5) /lpf Urine Bacteria (Auto) (Negative) Ur Renal Epithelial Cell Amorphous Sediment (None Prsent) Granular Casts (0) /lpf Urine Yeast (None Prsent) Ur Random Sodium mmol/L Stl C. diff Tox B Gene (Neg) _ (1) Renal failure Acute renal failure type: Chronic kidney disease stage: Renal failure chronicity: (2) Diarrhea Diarrhea type: (3) Abdominal pain Abdominal location:
[2018-05-30 13:07] LABS: Partial Thromboplastin Ratio 2.5
[2018-05-30 13:43] LABS: Partial Thromboplastin Time 66.2 Seconds (21.0-31.0)
--- NOTE | 2018-05-30 13:53 | Hospitalist Progress Note ---
Date of Service May 30, 2018 Assessment & Plan (1) Renal failure: (2) Abdominal pain: (3) Acute dehydration: (4) Elevated INR: (5) COPD (chronic obstructive pulmonary disease): (6) Diarrhea: (7) CHF (congestive heart failure): (8) Thrombocytopenia: (9) Atrial fibrillation: (10) CKD (chronic kidney disease) stage 2, GFR 60-89 ml/min: (11) Acute hypokalemia: An 83-year-old white female admitted to ICU on May 28, 2018 because of acute kidney failure with diarrhea severe leukocytosis and Coumadin intoxication Possible sepsis upon admission associated with hypotension, severe leukocytosis with possible C. diff from diarrhea, later stool C. difficile was negative Leukocytosis, significantly improved Source of infection could be pneumonia , however in abdominal CT in the emergency room, in the lower lung there was no obvious infiltration With no pneumonia no C. difficile, infection source is unknown, however patient general condition improved, no fever or chills, no leukocytosis, blood cultures negative so far, Abdominal pain, diarrhea with recent hospital stay upon admission no more abdominal pain no more diarrhea, surgery input appreciated [id number] kidney failure with significant elevated BUN and creatinine upon admission, Has been continued worsening in 2 days Renal ultrasound was no hydro-nephrosis, Occupational Therapist Rehab Manager input appreciated, patient and family are sure not want to be on dialysis Thrombocytopenia, mild worsening, continue follow-up Coumadin coagulopathy with INR more than 11 0.11 today's INR is 1.7, she got 1 dose of vitamin K on the first day of admission, continue heparin drip abn lytes: Hypokalemia. Hypomagnesemia. will replace and follow Elevated troponin upon admission likely from troponin leakage secondary to acute kidney, failure, or from sepsis Atrial fibrillation with rapid ventricular response upon admission Heart rate reasonable for now Cardizem drip if needed, and continue heparin drip when INR subtherapeutic Hypotensive on admission, blood pressure improved History of congestive heart failure, need to watch fluid overload, History of hypertension. History of kidney stone. History of chronic obstructive pulmonary disease. Discussed with ICU team continue current care, Has requested palliative care consult Patient is do not resuscitation Subjective Generally feeling ok , however nursing staff reported significant decreased urine output, 10 cc in 1 shift recently Should no appetite No more diarrhea, no more abdominal pain Review of Systems Constitutional: Positive weakness, or fatigue Respiratory: Occasional cough, sputum, no wheezing, or dyspnea on exertion Cardiac: No chest pain, No orthopnea, Abdomen: No pain, No nausea, No vomiting, No diarrhea, No constipation Musculoskeletal: No joint pain, No muscle pain, No swelling, No calf pain, No problem reported : No dysuria, No urinary frequency, No incontinence, No hematuria Neurologic: No paralysis, No weakness, No numbness/tingling, No vertigo, No balance problems Psychiatric: No depression symptoms, No anhedonism, Heme: No abnormal bleeding/bruising, No clotting problems Skin: No rash, No itch, No new/changing skin lesions, Physical Exam 2 Vital Signs (Past 24 Hours): Last Vital Signs Temp 36.7 C 05/30/18 07:00 Pulse 107 H 05/30/18 10:00 Resp 23 05/30/18 10:00 BP 120/62 05/30/18 10:00 Pulse Ox 92 05/30/18 10:00 Physical Exam: General Appearance: No acute distress, pleasant, conversational , however look tired, WD/WN, Eyes: normal inspection, PERRL, EOMI, sclerae normal ENT: normal ENT inspection, hearing grossly normal, pharynx normal Neck: Right IJ in place, supple, no adenopathy, thyroid normal, no JVD, Respiratory/Chest: chest non-tender, , no respiratory distress, no accessory muscle use, mild decrease breath sounds, no rales, wheezing Cardiovascular: regular rate, rhythm, no JVD, no murmur Abdomen: normal bowel sounds, non tender, soft, no organomegaly, Extremities: normal range of motion, non-tender, normal inspection, no pedal edema, no calf tenderness, normal capillary refill , pelvis stable, joint has no limited range of motion, capillary refill is normal, no cyanosis clubbing Neurologic/Psychiatric: cement sprayer helper II-XII nml as tested, no motor/sensory deficits, alert, normal mood/affect, oriented x 3 Skin: normal color, warm/dry, no rash Lymphatic: no adenopathy Results & Data Laboratory Results Laboratory Results - last 24 hr 05/29/18 05/29/18 05/30/18 16:02 22:01 04:32 WBC RBC Hgb Hct MCV MCH MCHC RDW Std Deviation RDW Coeff of Kathleen Plt Count MPV Neutrophils % (Manual) Lymphocytes % (Manual) Monocytes % (Manual) Neutrophils # (Manual) Total Absolute Neuts Lymphocytes # (Manual) Total Abs Lymphocytes Monocytes # (Manual) Hypogranular Neuts Dohle Bodies Echinocytes PT 12.9 H INR 1.3 H APTT PTT Ratio Sodium Potassium Chloride Carbon Dioxide Anion Gap BUN Creatinine Est Cr Clr Drug Dosing Est GFR ( Amer) Est GFR (Non-Af Amer) BUN/Creatinine Ratio Glucose POC Glucose 128 H 123 H Lactate Calcium Phosphorus Magnesium Total Bilirubin Direct Bilirubin AST ALT Alkaline Phosphatase Total Protein Albumin Procalcitonin Random Cortisol Urine Color Urine Appearance Urine pH Ur Specific [place] Urine Protein Urine Glucose (UA) Urine Ketones Urine Blood Urine Nitrite Urine Bilirubin Urine Urobilinogen Ur Leukocyte Esterase Urine WBC (Auto) Urine RBC (Auto) U Hyaline Cast (Auto) U Epithel Cells (Auto) Urine Bacteria (Auto) Ur Renal Epithelial Cell Amorphous Sediment Granular Casts Urine Yeast Ur Random Sodium Stl C. diff Tox B Gene 05/30/18 05/30/18 05/30/18 04:32 04:32 04:32 WBC 23.83 H RBC 4.07 L Hgb 11.7 L Hct 35.5 L MCV 87.2 MCH 28.7 MCHC 33.0 RDW Std Deviation 49.2 H RDW Coeff of Kathleen 15.6 H Plt Count 75 L MPV 11.7 H Neutrophils % (Manual) 90.4 Lymphocytes % (Manual) 0.9 Monocytes % (Manual) 8.7 Neutrophils # (Manual) 21.54 H Total Absolute Neuts 21.54 H Lymphocytes # (Manual) 0.21 L Total Abs Lymphocytes 0.21 L Monocytes # (Manual) 2.07 H Hypogranular Neuts 2+ Dohle Bodies 1+ Echinocytes 3+ PT INR APTT PTT Ratio Sodium 132 L Potassium 3.4 L Chloride 97 L Carbon Dioxide 24 Anion Gap 11.0 BUN 69 H Creatinine 4.99 H* Est Cr Clr Drug Dosing 9.1 Est GFR ( Amer) 8.8 Est GFR (Non-Af Amer) 7.6 BUN/Creatinine Ratio 13.9 Glucose 119 H POC Glucose Lactate 1.5 Calcium 7.2 L Phosphorus 5.6 H Magnesium 2.4 Total Bilirubin 0.8 Direct Bilirubin 0.5 H AST 7 L ALT 11 L Alkaline Phosphatase 103 Total Protein 5.6 L Albumin 1.7 L Procalcitonin Random Cortisol Urine Color Urine Appearance Urine pH Ur Specific [place] Urine Protein Urine Glucose (UA) Urine Ketones Urine Blood Urine Nitrite Urine Bilirubin Urine Urobilinogen Ur Leukocyte Esterase Urine WBC (Auto) Urine RBC (Auto) U Hyaline Cast (Auto) U Epithel Cells (Auto) Urine Bacteria (Auto) Ur Renal Epithelial Cell Amorphous Sediment Granular Casts Urine Yeast Ur Random Sodium Stl C. diff Tox B Gene 05/30/18 05/30/18 05/30/18 04:32 04:32 04:32 WBC RBC Hgb Hct MCV MCH MCHC RDW Std Deviation RDW Coeff of Kathleen Plt Count MPV Neutrophils % (Manual) Lymphocytes % (Manual) Monocytes % (Manual) Neutrophils # (Manual) Total Absolute Neuts Lymphocytes # (Manual) Total Abs Lymphocytes Monocytes # (Manual) Hypogranular Neuts Dohle Bodies Echinocytes PT INR APTT 83.9 H* PTT Ratio 3.2 Sodium Potassium Chloride Carbon Dioxide Anion Gap BUN Creatinine Est Cr Clr Drug Dosing Est GFR ( Amer) Est GFR (Non-Af Amer) BUN/Creatinine Ratio Glucose POC Glucose Lactate Calcium Phosphorus Magnesium Total Bilirubin Direct Bilirubin AST ALT Alkaline Phosphatase Total Protein Albumin Procalcitonin 1.83 H Random Cortisol 39.90 Urine Color Urine Appearance Urine pH Ur Specific [place] Urine Protein Urine Glucose (UA) Urine Ketones Urine Blood Urine Nitrite Urine Bilirubin Urine Urobilinogen Ur Leukocyte Esterase Urine WBC (Auto) Urine RBC (Auto) U Hyaline Cast (Auto) U Epithel Cells (Auto) Urine Bacteria (Auto) Ur Renal Epithelial Cell Amorphous Sediment Granular Casts Urine Yeast Ur Random Sodium Stl C. diff Tox B Gene 05/30/18 05/30/18 05/30/18 09:20 09:20 09:30 WBC RBC Hgb Hct MCV MCH MCHC RDW Std Deviation RDW Coeff of Kathleen Plt Count MPV Neutrophils % (Manual) Lymphocytes % (Manual) Monocytes % (Manual) Neutrophils # (Manual) Total Absolute Neuts Lymphocytes # (Manual) Total Abs Lymphocytes Monocytes # (Manual) Hypogranular Neuts Dohle Bodies Echinocytes PT INR APTT PTT Ratio Sodium Potassium Chloride Carbon Dioxide Anion Gap BUN Creatinine Est Cr Clr Drug Dosing Est GFR ( Amer) Est GFR (Non-Af Amer) BUN/Creatinine Ratio Glucose POC Glucose Lactate Calcium Phosphorus Magnesium Total Bilirubin Direct Bilirubin AST ALT Alkaline Phosphatase Total Protein Albumin Procalcitonin Random Cortisol Urine Color Dark Yellow Urine Appearance Cloudy H Urine pH 5.0 Ur Specific [place] 1.019 Urine Protein 2+ H Urine Glucose (UA) Negative Urine Ketones Trace H Urine Blood 3+ H Urine Nitrite Negative Urine Bilirubin Negative Urine Urobilinogen Negative Ur Leukocyte Esterase 2+ H Urine WBC (Auto) >30 H Urine RBC (Auto) 5-10 H U Hyaline Cast (Auto) 0 U Epithel Cells (Auto) >30 H Urine Bacteria (Auto) Negative Ur Renal Epithelial Cell Not Reportable Amorphous Sediment Present H Granular Casts 1-5 H Urine Yeast Budding w/ Hyphae H Ur Random Sodium 20 Stl C. diff Tox B Gene Neg C.diff Toxin B 05/30/18 12:37 WBC RBC Hgb Hct MCV MCH MCHC RDW Std Deviation RDW Coeff of Kathleen Plt Count MPV Neutrophils % (Manual) Lymphocytes % (Manual) Monocytes % (Manual) Neutrophils # (Manual) Total Absolute Neuts Lymphocytes # (Manual) Total Abs Lymphocytes Monocytes # (Manual) Hypogranular Neuts Dohle Bodies Echinocytes PT INR APTT 66.2 H* PTT Ratio 2.5 Sodium Potassium Chloride Carbon Dioxide Anion Gap BUN Creatinine Est Cr Clr Drug Dosing Est GFR ( Amer) Est GFR (Non-Af Amer) BUN/Creatinine Ratio Glucose POC Glucose Lactate Calcium Phosphorus Magnesium Total Bilirubin Direct Bilirubin AST ALT Alkaline Phosphatase Total Protein Albumin Procalcitonin Random Cortisol Urine Color Urine Appearance Urine pH Ur Specific [place] Urine Protein Urine Glucose (UA) Urine Ketones Urine Blood Urine Nitrite Urine Bilirubin Urine Urobilinogen Ur Leukocyte Esterase Urine WBC (Auto) Urine RBC (Auto) U Hyaline Cast (Auto) U Epithel Cells (Auto) Urine Bacteria (Auto) Ur Renal Epithelial Cell Amorphous Sediment Granular Casts Urine Yeast Ur Random Sodium Stl C. diff Tox B Gene Microbiology 05/28/18 16:05 Urine,Indwelling Cath Urine Culture - Final Three types of organisms present, all low counts probable skin mich. No further identifications or sensitivities to follow. 05/28/18 15:20 Blood Blood Culture - Preliminary No growth to date. 05/28/18 13:56 Blood Blood Culture - Preliminary No growth to date. _ (1) Renal failure Acute renal failure type: Chronic kidney disease stage: Renal failure chronicity: (2) Abdominal pain Abdominal location: (3) Diarrhea Diarrhea type: (4) CHF (congestive heart failure) Heart failure chronicity: unspecified Heart failure type: unspecified Qualified Code(s): I50.9 - Heart failure, unspecified (5) Atrial fibrillation Atrial fibrillation type: chronic Qualified Code(s): I48.2 - Chronic atrial fibrillation
[2018-05-30] MEDS ORDERED: LEVALBUTEROL 1.25MG/0.5ML NEB NEB SCH (17:45)
[2018-05-30] MEDS: LEVALBUTEROL 1.25MG/0.5ML NEB NEB SCH (19:54)
[2018-05-31] MEDS: IPRATROPIUM BROMIDE NEB SOLN 0.02% 2.5 ML VIAL INH SCH ×4 (02:20→19:08)
[2018-05-31] MEDS: LEVALBUTEROL 1.25MG/0.5ML NEB NEB SCH ×4 (02:20→19:08)
[2018-05-31 04:27] LABS: Hematocrit (blood only) 34.1 % (37-47); Hemoglobin 11.1 g/dL (12.0-16.0); Mean Corpuscular Hgb Conc 32.6 g/dL (32-36); Mean Corpuscular Volume 86.3 fL (80-100); RDW Coefficient of Variation 15.6 % (11.5-14.5); RDW Standard Deviation 48.3 fL (36.4-46.3); Red Blood Count 3.95 M/uL (4.2-5.4); White Blood Count 19.17 K/uL (4.8-10.8)
[2018-05-31 04:52] LABS: Partial Thromboplastin Ratio 3.2
[2018-05-31 04:54] LABS: Basophils # (auto) 0.01 K/uL (0-0.2); Basophils % (auto) 0.1 %; Dohle Bodies 1+; Echinocytes 2+; Eosinophils # (auto) 0.02 K/uL (0-0.5); Eosinophils % (auto) 0.1 %; Hypogranular Neutrophils 2+; Immature Granulocytes # (auto) 0.24 K/uL (0.00-0.02); Immature Granulocytes % (auto) 1.3 %; Lymphocytes % (auto) 7.8 %; Mean Platelet Volume 11.8 fL (7.4-10.4); Monocytes # (auto) 2.34 K/uL (0.11-0.59); Monocytes % (auto) 12.2 %; Neutrophils # (auto) 15.06 K/uL (1.4-6.5); Neutrophils % (auto) 78.5 %; Platelet Count 77 K/uL (130-400)
[2018-05-31 05:02] LABS: Partial Thromboplastin Time 83.2 Seconds (21.0-31.0)
[2018-05-31 05:11] LABS: Albumin Globulin Ratio 0.5 (0.9-2); Albumin Level 1.8 gm/dl (3.4-5.0); Bilirubin,Total 0.8 mg/dl (0.2-1); Calcium 7.8 mg/dl (8.5-10.1); Creatinine Clr Calc Pharmacy 8.1 ml/min; Est GFR (African American) 7.3; Est GFR (Non-African American) 6.3; Globulin 3.6 gm/dl (2.5-4.0); Magnesium 2.2 mg/dl (1.8-2.4); Phosphorus 6.6 mg/dl (2.5-4.9); Potassium 3.5 mmol/L (3.5-5.1); Total Protein 5.4 gm/dl (6.4-8.2)
[2018-05-31] MEDS: HEPARIN STANDARD DEXTROSE 25,000 UNITS/500 ML IV SCH (06:02)
--- NOTE | 2018-05-31 08:00 | Critical Care Progress Note ---
Date of Service May 31, 2018 Assessment & Plan (1) Renal failure: (2) Diarrhea: 83yoF with hx of COPD, Diastolic CHF, Afib on warfarin, CKD stage 2 and HTN presented with weakness in the setting of diarrhea x 1 week. Admitted to the ICU for concern of septic shock likely in the setting of viral gastroenteritis vs. possible urinary fungal infection. Initial concern for C. diff but testing negative. NOW HD stable. Remains in Afib on heparin drop with improved rate control. Continues to have worsening BUN/Cr and remains oliguric. Plan for permacath placement and dialysis tomorrow. Pt and family agreeable to dialysis now. NEURO: CAM ICU: negative CARDIAC/VASCULAR: HD stable. In Afib with improved rate control Elevated troponin in the setting of likely demand ischemia and Afib w/RVR - downtrended PMHx: CHF and Afib on coumadin ECHO 05/11/18: Ef 55-60%, diastolic dysfunction, borderline pulm hypertension PASP 34-40mmHG, severe LA enlargement, mild concentric LVH, mild MR EKG: Rate 113 AFib with RVR QTc 567 -> repeat 119 Afib with RVR QTc 475 Troponin elevated to 0.049 -> 0.040 On Normosol 30mls/hr (total IVF limit of 50cc) On Heparin drip for Afib Restarted on home rate control medications: Diltiazem 60mg QID and metoprolol succinate 50mg daily PULM: Hx of COPD (not on oxygen yet but per son had appt for 2 step 05/29) Prior PFTs - FEV 0.5L, 29% predicted; severe obstructive defect Remains on 2L NC CXR: mild cardiomegaly without concern of congestive failure Continue levalbuterol and ipratropium GI: Decreased appetite and nausea likely secondary to worsening uremia WBC 40.7 -> 19.1 LFT wnl except direct bilirubin of 0.5 Lipase wnl C.diff negative Received PO vanc x 3 days and Flagyl x 2 days for initial concern of C.diff On protonix 40mg daily On compazine 10mg Q8H IV for nausea HH diet -> NPO at midnight on 06/01 for procedure Surgery consulted for colitis - no surgical intervention RENAL/LYTES: Acute on chronic RF likely multifactorial ATN. Possible fungal urinary infection PMHX: CKD stage 2 BUN/Cr 69/4.9 ->75/5.78 (baseline Cr 1.3) UOP 135cc in the past 24hrs Renal US: no hydronephrosis, mild bilateral cortical thinning/scarring, unchanged gallbladder distension Urine culture negative Fungal culture ordered Started on Diflucan 100mg QAM for possible fungal infection On Normosol 30mls/hr (limiting total fluid intake to 50cc) Nephrology consulted: plan for dialysis tomorrow Vascular surgery consulted: permacath placement tomorro Monitor BMP : Oliguric Payne in place UOP 135cc in the past 24hrs ENDO: TSH wnl random cortisol 39.9 BSG checks and SSI per ICU protocol HEME: Improving coagulopathy in the setting of sepsis PMHx: thrombocytopenia H& H stable Plt ct 77 (around baseline) INR 11 -> 1.3, PT 100 -> 12.9, PTT 73.4 -> 83.2 (on heparin drip) On Warfarin at home for Afib - held Received Vit K 5mg x 1 on admission Monitor CBC and Coags closely ID: Initial concern for septic shock in the setting of C.diff colitis but C.diff negative. Given diarrhea pt likely had viral gastroenteritis. Possible fungal urinary infection - culture pending WBC 40.7 -> 19.1 Lactate 2.5 -> 1.5 Blood culture NGTD Urine culture NG Fungal culture pending MRSA swab neg Influenza neg Received PO Vanc x 3 days and IV flagyl x 2 days for initial C.diff concern - DCED LINES: R IJ Central Line PIV x 1 DVT prop: SCDs only, chemical contraindicated Code status: DNR Dispo: To medical (3) CHF (congestive heart failure): (4) Thrombocytopenia: (5) Atrial fibrillation: (6) Acute hypokalemia: (7) CKD (chronic kidney disease) stage 2, GFR 60-89 ml/min: (8) Hypoxia: (9) HTN (hypertension): (10) COPD (chronic obstructive pulmonary disease): Supervising Physician Co-Signing Physician Notes Dr. Jackson was resident physician during care of patient. I separately evaluated patient for mane portions of the history and the exam. I was present during the critical portion of medical decision making, and I discussed the case with the resident. I generally agree with the findings and plan. Patient was discussed in multidisciplinary rounds C. difficile was negative. Adding fungal blood culture, empiric treatment with Diflucan for fungus in urine. Creatinine continues to climb. I am very concerned of a poor outcome given lack of urine production and creatinine continues to climb. If patient wants to transition to hospice care I believe the patient is in end-stage medical condition without meaningful chance of recovery. Clinical update: I discussed the patient with Dr. Zayas, she has decided to undergo a trial of dialysis. She is n.p.o. after midnight and will undergo permacath placement by vascular surgery. She is stable for downgrade to telemetry status. Subjective This AM pt reported feeling about the same. Pt's appetite has really decreased and she feels nauseous even with sibs of water now. Denies any fever/chills, EDWARDS/ dizziness, cp, sob, vomiting, diarrhea, abdominal pain, pain in legs. C. diff negative. Remains oliguric with worsening renal function. UOP 132cc in the past 24hrs. Net +12.9L. Plan for permacath and dialysis tomorrow. Physical Exam 2 Vital Signs (Past 24 Hours): Last Vital Signs Temp 36.5 C 05/31/18 00:00 Pulse 106 H 05/31/18 07:13 Resp 20 05/31/18 07:13 BP 108/66 05/31/18 07:01 Pulse Ox 91 05/31/18 07:13 Physical Exam: General: In NAD, resting in bed CV: mildly tachycardic with irregular rhythm, no m/r/g Pulm: bibasilar crackles and mild rhonchi appreciated, equal breath sounds bilaterally Abdomen: +BS, non distended, non-TTP in all quadrants LE: 1+ bilateral pretibial edema, no calf tenderness Neuro: Alert and oriented x 4 Results & Data Laboratory Results Abnormal lab results 05/30/18 05/30/18 05/30/18 Range/Units 09:20 12:37 16:31 WBC (4.8-10.8) K/uL RBC (4.2-5.4) M/uL Hgb (12.0-16.0) g/dL Hct (37-47) % RDW Std Deviation (36.4-46.3) fL RDW Coeff of Kathleen (11.5-14.5) % Plt Count (130-400) K/uL MPV (7.4-10.4) fL Immature Gran # (Auto) (0.00-0.02) K/uL Neut # (Auto) (1.4-6.5) K/uL [place] # (Auto) (0.11-0.59) K/uL APTT 66.2 H* (21.0-31.0) Seconds Sodium (136-145) mmol/L Chloride (98-107) mmol/L Anion Gap (3-11) BUN (7-18) mg/dl Creatinine (0.6-1.2) mg/dl POC Glucose 108 H (70-99) Calcium (8.5-10.1) mg/dl Phosphorus (2.5-4.9) mg/dl AST (15-37) U/L Total Protein (6.4-8.2) gm/dl Albumin (3.4-5.0) gm/dl Albumin/Globulin Ratio (0.9-2) Urine RBC (Auto) 5-10 H (0-4) /hpf Amorphous Sediment Present H (None Prsent) Granular Casts 1-5 H (0) /lpf Urine Yeast Budding w/ Hyphae H (None Prsent) 05/30/18 05/31/18 05/31/18 Range/Units 23:03 04:10 04:10 WBC 19.17 H (4.8-10.8) K/uL RBC 3.95 L (4.2-5.4) M/uL Hgb 11.1 L (12.0-16.0) g/dL Hct 34.1 L (37-47) % RDW Std Deviation 48.3 H (36.4-46.3) fL RDW Coeff of Kathleen 15.6 H (11.5-14.5) % Plt Count 77 L (130-400) K/uL MPV 11.8 H (7.4-10.4) fL Immature Gran # (Auto) 0.24 H (0.00-0.02) K/uL Neut # (Auto) 15.06 H (1.4-6.5) K/uL [place] # (Auto) 2.34 H (0.11-0.59) K/uL APTT (21.0-31.0) Seconds Sodium 132 L (136-145) mmol/L Chloride 97 L (98-107) mmol/L Anion Gap 12.0 H (3-11) BUN 75 H (7-18) mg/dl Creatinine 5.78 H* D (0.6-1.2) mg/dl POC Glucose 111 H (70-99) Calcium 7.8 L (8.5-10.1) mg/dl Phosphorus 6.6 H (2.5-4.9) mg/dl AST 7 L (15-37) U/L Total Protein 5.4 L (6.4-8.2) gm/dl Albumin 1.8 L (3.4-5.0) gm/dl Albumin/Globulin Ratio 0.5 L (0.9-2) Urine RBC (Auto) (0-4) /hpf Amorphous Sediment (None Prsent) Granular Casts (0) /lpf Urine Yeast (None Prsent) 05/31/18 Range/Units 04:10 WBC (4.8-10.8) K/uL RBC (4.2-5.4) M/uL Hgb (12.0-16.0) g/dL Hct (37-47) % RDW Std Deviation (36.4-46.3) fL RDW Coeff of Kathleen (11.5-14.5) % Plt Count (130-400) K/uL MPV (7.4-10.4) fL Immature Gran # (Auto) (0.00-0.02) K/uL Neut # (Auto) (1.4-6.5) K/uL [place] # (Auto) (0.11-0.59) K/uL APTT 83.2 H* (21.0-31.0) Seconds Sodium (136-145) mmol/L Chloride (98-107) mmol/L Anion Gap (3-11) BUN (7-18) mg/dl Creatinine (0.6-1.2) mg/dl POC Glucose (70-99) Calcium (8.5-10.1) mg/dl Phosphorus (2.5-4.9) mg/dl AST (15-37) U/L Total Protein (6.4-8.2) gm/dl Albumin (3.4-5.0) gm/dl Albumin/Globulin Ratio (0.9-2) Urine RBC (Auto) (0-4) /hpf Amorphous Sediment (None Prsent) Granular Casts (0) /lpf Urine Yeast (None Prsent) Medications Administered Current Inpatient Medications Acetaminophen (Tylenol) 325 mg PO Q4 PRN PRN Reason: Pain Diltiazem HCl (Cardizem) 60 mg PO QID [facility] Stop: 06/28/18 10:14 Last Admin: 05/31/18 09:22 Dose: 60 mg Fluconazole (Diflucan) 100 mg PO QAM [facility] Stop: 06/10/18 10:29 Heparin Sodium (Beef Lung) (Heparin Sod 10 Unit/Ml Flush) 5 ml FLUSH PRN PRN PRN Reason: Flush Stop: 06/29/18 00:31 Parenteral Electrolytes (Normosol-R) 1,000 mls @ 30 mls/hr IV .Q24H [facility] Stop: 06/27/18 20:44 Last Infusion: 05/31/18 06:51 Dose: 33 mls/hr Heparin Sodium/Dextrose (Heparin Sodium/Dextrose) 25,000 units in 500 mls @ 17 mls/hr IV .Q24H [facility]; Protocol Stop: 06/28/18 05:42 Last Titration: 05/31/18 06:51 Dose: 850 units/hr, 17 mls/hr Prochlorperazine 10 mg/ (Syringe) 10 mls @ 5 mls/min IV Q8H PRN PRN Reason: Nausea And Vomiting Stop: 06/29/18 09:13 Last Admin: 05/30/18 19:58 Dose: 5 mls/min Ipratropium [place] (Atrovent 0.02% 0.5mg/2.5ml) 0.5 mg INH Q6R [facility] Stop: 06/27/18 19:59 Last Admin: 05/31/18 07:13 Dose: 0.5 mg Levalbuterol HCl (Xopenex 1.25mg/3ml Neb) 1.25 mg NEB Q6H PRN PRN Reason: wheezing Stop: 06/27/18 18:44 Levalbuterol HCl (Xopenex 1.25mg/0.5ml Neb) 1.25 mg NEB Q6H [facility] Stop: 06/29/18 19:59 Last Admin: 05/31/18 07:13 Dose: 1.25 mg Metoprolol Succinate (Toprol Xl) 50 mg PO QAM [facility] Stop: 06/28/18 10:14 Last Admin: 05/31/18 09:22 Dose: 50 mg Miscellaneous (Pending Order) 1 ea N/A QS [facility] Stop: 06/29/18 15:59 Last Admin: 05/31/18 09:22 Dose: Not Given Resident Activity Tracking Resident Involvement: Resident Care Provided Care Provided: [facility] _ (1) CHF (congestive heart failure) Heart failure chronicity: unspecified Heart failure type: unspecified Qualified Code(s): I50.9 - Heart failure, unspecified (2) Atrial fibrillation Atrial fibrillation type: chronic Qualified Code(s): I48.2 - Chronic atrial fibrillation (3) Diarrhea Diarrhea type: (4) Renal failure Acute renal failure type: Chronic kidney disease stage: Renal failure chronicity: (5) HTN (hypertension) Hypertension type: essential hypertension Qualified Code(s): I10 - Essential (primary) hypertension
[2018-05-31] MEDS: METOPROLOL SUCC 50MG EXT REL TAB PO SCH (09:22)
[2018-05-31] MEDS: dilTIAZem HCl 60 MG TAB PO SCH ×4 (09:22→20:00)
--- NOTE | 2018-05-31 09:22 | Nephrology Progress Note ---
Date of Service May 31, 2018 Assessment & Plan (1) Renal failure: -- Oliguric -- Metabolic profile otherwise acceptable -- Clinical presentation consistent with multifactorial ATN -- UA/microscopy (microscopic hematuria, pyuria, and 1+ bacteria/yeast) -- Hemodynamics stable, oxygenating appropriately -- Stop mIVF and minimize obligatory intake -- Vascular surgery consulted for TDC placement -- NPO at midnight -- Repeat metabolic profile tomorrow AM -- Document strict I/O's -- Medications are currently appropriately dosed for renal dysfunction (2) Thrombocytopenia: -- Chronic, stable (3) Atrial fibrillation: -- Reasonable rate control -- Patient appears asymptomatic (4) COPD (chronic obstructive pulmonary disease): (5) Diarrhea: -- Clinical presentation consistent severe C diff colitis, however C diff testing negative -- ID consult appreciated (6) CKD (chronic kidney disease) stage 2, GFR 60-89 ml/min: Subjective No acute events overnight. Remains afebrile. Abdomen less distended. Abdominal discomfort significantly improved. Nausea persists. Denies significant dyspnea at this time. Kayy and I discussed her kidney dysfunction and prognosis in detail this morning. We reviewed the hemodialysis procedure. She expressed concerns about transportation. She also discussed her [id number]'s experience with hemodialysis. After our discussion, Kayy expressed that she would be agreeable to permcath placement and starting HD. Review of Systems All systems reviewed & are unremarkable except as noted in HPI & below Physical Exam 2 Vital Signs (Past 24 Hours): Last Vital Signs Temp 36.5 C 05/31/18 00:00 Pulse 106 H 05/31/18 07:13 Resp 20 05/31/18 07:13 BP 108/66 05/31/18 07:01 Pulse Ox 91 05/31/18 07:13 Constitutional: + obese and + frail appearing; no acute distress Eyes: + anicteric sclerae; no conjunctival abnormality ENMT: Ears: no hearing impairment Mouth: oral mucous membranes not dry Neck: normal visual inspection and trachea midline Respiratory: does not use accessory muscles Auscultation: lungs clear to auscultation bilaterally and + rales (bibasilar) Cardiovascular: Rate/Rhythm: + abnormal rhythm Heart Sounds: normal S1 and normal S2 Vessels: no JVD Extremities: no edema Gastrointestinal (Abdomen): Inspection/Auscultation: + abdomen distended Percussion/Palpation: abdomen soft and + tympanic to percussion; abdomen nontender, no guarding and abdomen not rigid Musculoskeletal: Extremities: no cyanosis and no petechiae Skin: normal turgor; no rashes Neurologic: Motor/Sensory: no tremor and no asterixis Results & Data Laboratory Results Laboratory Results - last 24 hr 05/30/18 05/30/18 05/30/18 09:20 09:20 09:30 WBC RBC Hgb Hct MCV MCH MCHC RDW Std Deviation RDW Coeff of Kathleen Plt Count MPV Immature Gran % (Auto) Neut % (Auto) Lymph % (Auto) [place] % (Auto) Eos % (Auto) Baso % (Auto) Immature Gran # (Auto) Neut # (Auto) Lymph # (Auto) [place] # (Auto) Eos # (Auto) Baso # (Auto) Hypogranular Neuts Dohle Bodies Echinocytes APTT PTT Ratio Sodium Potassium Chloride Carbon Dioxide Anion Gap BUN Creatinine Est Cr Clr Drug Dosing Est GFR ( Amer) Est GFR (Non-Af Amer) BUN/Creatinine Ratio Glucose POC Glucose Calcium Phosphorus Magnesium Total Bilirubin AST ALT Alkaline Phosphatase Total Protein Albumin Globulin Albumin/Globulin Ratio Urine Color Dark Yellow Urine Appearance Cloudy H Urine pH 5.0 Ur Specific [place] 1.019 Urine Protein 2+ H Urine Glucose (UA) Negative Urine Ketones Trace H Urine Blood 3+ H Urine Nitrite Negative Urine Bilirubin Negative Urine Urobilinogen Negative Ur Leukocyte Esterase 2+ H Urine WBC (Auto) >30 H Urine RBC (Auto) 5-10 H U Hyaline Cast (Auto) 0 U Epithel Cells (Auto) >30 H Urine Bacteria (Auto) Negative Ur Renal Epithelial Cell Not Reportable Amorphous Sediment Present H Granular Casts 1-5 H Urine Yeast Budding w/ Hyphae H Ur Random Sodium 20 Stl C. diff Tox B Gene Neg C.diff Toxin B 05/30/18 05/30/18 05/30/18 12:37 16:31 23:03 WBC RBC Hgb Hct MCV MCH MCHC RDW Std Deviation RDW Coeff of Kathleen Plt Count MPV Immature Gran % (Auto) Neut % (Auto) Lymph % (Auto) [place] % (Auto) Eos % (Auto) Baso % (Auto) Immature Gran # (Auto) Neut # (Auto) Lymph # (Auto) [place] # (Auto) Eos # (Auto) Baso # (Auto) Hypogranular Neuts Dohle Bodies Echinocytes APTT 66.2 H* PTT Ratio 2.5 Sodium Potassium Chloride Carbon Dioxide Anion Gap BUN Creatinine Est Cr Clr Drug Dosing Est GFR ( Amer) Est GFR (Non-Af Amer) BUN/Creatinine Ratio Glucose POC Glucose 108 H 111 H Calcium Phosphorus Magnesium Total Bilirubin AST ALT Alkaline Phosphatase Total Protein Albumin Globulin Albumin/Globulin Ratio Urine Color Urine Appearance Urine pH Ur Specific [place] Urine Protein Urine Glucose (UA) Urine Ketones Urine Blood Urine Nitrite Urine Bilirubin Urine Urobilinogen Ur Leukocyte Esterase Urine WBC (Auto) Urine RBC (Auto) U Hyaline Cast (Auto) U Epithel Cells (Auto) Urine Bacteria (Auto) Ur Renal Epithelial Cell Amorphous Sediment Granular Casts Urine Yeast Ur Random Sodium Stl C. diff Tox B Gene 05/31/18 05/31/18 05/31/18 04:10 04:10 04:10 WBC 19.17 H RBC 3.95 L Hgb 11.1 L Hct 34.1 L MCV 86.3 MCH 28.1 MCHC 32.6 RDW Std Deviation 48.3 H RDW Coeff of Kathleen 15.6 H Plt Count 77 L MPV 11.8 H Immature Gran % (Auto) 1.3 Neut % (Auto) 78.5 Lymph % (Auto) 7.8 [place] % (Auto) 12.2 Eos % (Auto) 0.1 Baso % (Auto) 0.1 Immature Gran # (Auto) 0.24 H Neut # (Auto) 15.06 H Lymph # (Auto) 1.50 [place] # (Auto) 2.34 H Eos # (Auto) 0.02 Baso # (Auto) 0.01 Hypogranular Neuts 2+ Dohle Bodies 1+ Echinocytes 2+ APTT 83.2 H* PTT Ratio 3.2 Sodium 132 L Potassium 3.5 Chloride 97 L Carbon Dioxide 23 Anion Gap 12.0 H BUN 75 H Creatinine 5.78 H* D Est Cr Clr Drug Dosing 8.1 Est GFR ( Amer) 7.3 Est GFR (Non-Af Amer) 6.3 BUN/Creatinine Ratio 13.0 Glucose 98 POC Glucose Calcium 7.8 L Phosphorus 6.6 H Magnesium 2.2 Total Bilirubin 0.8 AST 7 L ALT 12 Alkaline Phosphatase 98 Total Protein 5.4 L Albumin 1.8 L Globulin 3.6 Albumin/Globulin Ratio 0.5 L Urine Color Urine Appearance Urine pH Ur Specific [place] Urine Protein Urine Glucose (UA) Urine Ketones Urine Blood Urine Nitrite Urine Bilirubin Urine Urobilinogen Ur Leukocyte Esterase Urine WBC (Auto) Urine RBC (Auto) U Hyaline Cast (Auto) U Epithel Cells (Auto) Urine Bacteria (Auto) Ur Renal Epithelial Cell Amorphous Sediment Granular Casts Urine Yeast Ur Random Sodium Stl C. diff Tox B Gene 05/31/18 06:16 WBC RBC Hgb Hct MCV MCH MCHC RDW Std Deviation RDW Coeff of Kathleen Plt Count MPV Immature Gran % (Auto) Neut % (Auto) Lymph % (Auto) [place] % (Auto) Eos % (Auto) Baso % (Auto) Immature Gran # (Auto) Neut # (Auto) Lymph # (Auto) [place] # (Auto) Eos # (Auto) Baso # (Auto) Hypogranular Neuts Dohle Bodies Echinocytes APTT PTT Ratio Sodium Potassium Chloride Carbon Dioxide Anion Gap BUN Creatinine Est Cr Clr Drug Dosing Est GFR ( Amer) Est GFR (Non-Af Amer) BUN/Creatinine Ratio Glucose POC Glucose 95 Calcium Phosphorus Magnesium Total Bilirubin AST ALT Alkaline Phosphatase Total Protein Albumin Globulin Albumin/Globulin Ratio Urine Color Urine Appearance Urine pH Ur Specific [place] Urine Protein Urine Glucose (UA) Urine Ketones Urine Blood Urine Nitrite Urine Bilirubin Urine Urobilinogen Ur Leukocyte Esterase Urine WBC (Auto) Urine RBC (Auto) U Hyaline Cast (Auto) U Epithel Cells (Auto) Urine Bacteria (Auto) Ur Renal Epithelial Cell Amorphous Sediment Granular Casts Urine Yeast Ur Random Sodium Stl C. diff Tox B Gene _ (1) Renal failure Acute renal failure type: Chronic kidney disease stage: Renal failure chronicity: (2) Atrial fibrillation Atrial fibrillation type: chronic Qualified Code(s): I48.2 - Chronic atrial fibrillation (3) Diarrhea Diarrhea type:
[2018-05-31] MEDS: FLUCONAZOLE 100 MG TAB PO SCH (11:59)
--- NOTE | 2018-05-31 12:04 | Hospitalist Progress Note ---
Date of Service May 31, 2018 Assessment & Plan (1) Renal failure: (2) Abdominal pain: (3) Acute dehydration: (4) Elevated INR: (5) COPD (chronic obstructive pulmonary disease): (6) Diarrhea: (7) CHF (congestive heart failure): (8) Thrombocytopenia: (9) Atrial fibrillation: (10) CKD (chronic kidney disease) stage 2, GFR 60-89 ml/min: (11) Acute hypokalemia: An 83-year-old white female admitted to ICU on May 28, 2018 because of acute kidney failure with diarrhea severe leukocytosis and Coumadin intoxication Possible sepsis upon admission associated with hypotension, severe leukocytosis with possible C. diff from diarrhea, later stool C. difficile was negative Leukocytosis, has significantly improved Source of infection could be pneumonia upon admission, however in abdominal CT in the emergency room, in the lower lung there was no obvious infiltration With no pneumonia no C. difficile, infection source is unknown, has stopped on antibiotic, Possible fungal UTI, is on Diflucan, will follow up urine fungal culture, started from today Abdominal pain, diarrhea with recent hospital stay upon admission no more abdominal pain no more diarrhea, surgery input appreciated [id number] kidney failure significant continue getting worse, Renal ultrasound was no hydro-nephrosis, Intermediate Manager input appreciated, patient finally agreed on dialysis, N.p.o. midnight, and will place dialysis catheter tomorrow, Thrombocytopenia, persistent, continue follow-up Coumadin coagulopathy with INR more than 11 0.11 today's INR is 1.3, she got 1 dose of vitamin K on the first day of admission, continue heparin drip, keeping no abn lytes: Hypokalemia. Hypomagnesemia. will replace and follow Elevated troponin upon admission likely from troponin leakage secondary to acute kidney, failure, or from sepsis Atrial fibrillation with rapid ventricular response upon admission . Rate improved, Cardizem drip if needed, and continue heparin drip when INR subtherapeutic, no start Coumadin yet because patient is going to have PermCath tomorrow Hypotensive on admission, blood pressure improved History of congestive heart failure, need to watch fluid overload, History of hypertension. History of kidney stone. History of chronic obstructive pulmonary disease. Discussed with ICU team continue current care, I feel okay for patient to be off from ICU,, PT OT evaluation and treatment as ordered Subjective Generally feeling ok ,no appetite No diarrhea, no more abdominal pain, no fever and chills Review of Systems Constitutional: Positive weakness, or fatigue Respiratory: Occasional cough, sputum, no wheezing, or dyspnea on exertion Cardiac: No chest pain, No orthopnea, Abdomen: No pain, No nausea, No vomiting, No diarrhea, No constipation Musculoskeletal: No joint pain, No muscle pain, No swelling, No calf pain, No problem reported : No dysuria, No urinary frequency, No incontinence, No hematuria Neurologic: No paralysis, No weakness, No numbness/tingling, No vertigo, No balance problems Psychiatric: No depression symptoms, No anhedonism, Heme: No abnormal bleeding/bruising, No clotting problems Skin: No rash, No itch, No new/changing skin lesions, Physical Exam 2 Vital Signs (Past 24 Hours): Last Vital Signs Temp 36.5 C 05/31/18 00:00 Pulse 106 H 05/31/18 07:13 Resp 20 05/31/18 07:13 BP 108/66 05/31/18 07:01 Pulse Ox 91 05/31/18 07:13 Physical Exam: General Appearance: Looks tired, chronically ill looking, no acute distress, pleasant, conversational, WD/WN, Eyes: normal inspection, PERRL, EOMI, sclerae normal ENT: normal ENT inspection, hearing grossly normal, pharynx normal Neck: Right IJ in place, supple, no adenopathy, thyroid normal, no JVD, Respiratory/Chest: chest non-tender, , no respiratory distress, no accessory muscle use, mild decrease breath sounds, no rales, wheezing Cardiovascular: regular rate, rhythm, no JVD, no murmur Abdomen: normal bowel sounds, non tender, soft, no organomegaly, Extremities: normal range of motion, non-tender, normal inspection, no pedal edema, no calf tenderness, normal capillary refill , pelvis stable, joint has no limited range of motion, capillary refill is normal, no cyanosis clubbing Neurologic/Psychiatric: cleaner assistant II-XII nml as tested, no motor/sensory deficits, alert, normal mood/affect, oriented x 3 Skin: normal color, warm/dry, no rash Lymphatic: no adenopathy Results & Data Laboratory Results Laboratory Results - last 24 hr 05/30/18 05/30/18 05/30/18 12:37 16:31 23:03 WBC RBC Hgb Hct MCV MCH MCHC RDW Std Deviation RDW Coeff of Kathleen Plt Count MPV Immature Gran % (Auto) Neut % (Auto) Lymph % (Auto) [place] % (Auto) Eos % (Auto) Baso % (Auto) Immature Gran # (Auto) Neut # (Auto) Lymph # (Auto) [place] # (Auto) Eos # (Auto) Baso # (Auto) Hypogranular Neuts Dohle Bodies Echinocytes APTT 66.2 H* PTT Ratio 2.5 Sodium Potassium Chloride Carbon Dioxide Anion Gap BUN Creatinine Est Cr Clr Drug Dosing Est GFR ( Amer) Est GFR (Non-Af Amer) BUN/Creatinine Ratio Glucose POC Glucose 108 H 111 H Calcium Phosphorus Magnesium Total Bilirubin AST ALT Alkaline Phosphatase Total Protein Albumin Globulin Albumin/Globulin Ratio 05/31/18 05/31/18 05/31/18 04:10 04:10 04:10 WBC 19.17 H RBC 3.95 L Hgb 11.1 L Hct 34.1 L MCV 86.3 MCH 28.1 MCHC 32.6 RDW Std Deviation 48.3 H RDW Coeff of Kathleen 15.6 H Plt Count 77 L MPV 11.8 H Immature Gran % (Auto) 1.3 Neut % (Auto) 78.5 Lymph % (Auto) 7.8 [place] % (Auto) 12.2 Eos % (Auto) 0.1 Baso % (Auto) 0.1 Immature Gran # (Auto) 0.24 H Neut # (Auto) 15.06 H Lymph # (Auto) 1.50 [place] # (Auto) 2.34 H Eos # (Auto) 0.02 Baso # (Auto) 0.01 Hypogranular Neuts 2+ Dohle Bodies 1+ Echinocytes 2+ APTT 83.2 H* PTT Ratio 3.2 Sodium 132 L Potassium 3.5 Chloride 97 L Carbon Dioxide 23 Anion Gap 12.0 H BUN 75 H Creatinine 5.78 H* D Est Cr Clr Drug Dosing 8.1 Est GFR ( Amer) 7.3 Est GFR (Non-Af Amer) 6.3 BUN/Creatinine Ratio 13.0 Glucose 98 POC Glucose Calcium 7.8 L Phosphorus 6.6 H Magnesium 2.2 Total Bilirubin 0.8 AST 7 L ALT 12 Alkaline Phosphatase 98 Total Protein 5.4 L Albumin 1.8 L Globulin 3.6 Albumin/Globulin Ratio 0.5 L 05/31/18 06:16 WBC RBC Hgb Hct MCV MCH MCHC RDW Std Deviation RDW Coeff of Kathleen Plt Count MPV Immature Gran % (Auto) Neut % (Auto) Lymph % (Auto) [place] % (Auto) Eos % (Auto) Baso % (Auto) Immature Gran # (Auto) Neut # (Auto) Lymph # (Auto) [place] # (Auto) Eos # (Auto) Baso # (Auto) Hypogranular Neuts Dohle Bodies Echinocytes APTT PTT Ratio Sodium Potassium Chloride Carbon Dioxide Anion Gap BUN Creatinine Est Cr Clr Drug Dosing Est GFR ( Amer) Est GFR (Non-Af Amer) BUN/Creatinine Ratio Glucose POC Glucose 95 Calcium Phosphorus Magnesium Total Bilirubin AST ALT Alkaline Phosphatase Total Protein Albumin Globulin Albumin/Globulin Ratio Microbiology 05/31/18 08:35 Blood Fungal Smear - Final 05/28/18 16:05 Urine,Indwelling Cath Urine Culture - Final Three types of organisms present, all low counts probable skin mich. No further identifications or sensitivities to follow. 05/28/18 15:20 Blood Blood Culture - Preliminary No growth to date. 05/28/18 13:56 Blood Blood Culture - Preliminary No growth to date. _ (1) Renal failure Acute renal failure type: Chronic kidney disease stage: Renal failure chronicity: (2) Abdominal pain Abdominal location: (3) Diarrhea Diarrhea type: (4) CHF (congestive heart failure) Heart failure chronicity: unspecified Heart failure type: unspecified Qualified Code(s): I50.9 - Heart failure, unspecified (5) Atrial fibrillation Atrial fibrillation type: chronic Qualified Code(s): I48.2 - Chronic atrial fibrillation
[2018-05-31 12:19] LABS: Partial Thromboplastin Ratio 2.5
[2018-05-31 12:31] LABS: Partial Thromboplastin Time 65.5 Seconds (21.0-31.0)
--- NOTE | 2018-05-31 12:41 | Consultation ---
Date of Consultation May 31, 2018 Assessment & Plan (1) Renal failure: Patient does have a PermCath inserted tomorrow. I have discussed the risks options and benefits of the procedure with the patient. The patient understands the risks options and benefits and agrees to the procedure. Acute renal failure type: Chronic kidney disease stage: Renal failure chronicity: History of Present Illness Reason for Consultation: Acute renal failure Attending Physician: Josh Mcdonnell MD, PhD, [facility] History of Present Illness This is an 83-year-old female who was admitted with severe sepsis. She subsequently went into acute kidney injury now requiring dialysis. We are consulted for insertion of a PermCath. This will be done in the a.m. tomorrow. Allergies Allergy/AdvReac Type Severity Reaction Status Date / Time amoxicillin Allergy Intermediate SWELLING Verified 05/28/18 15:44 Home Medications Home Medications Medication Instructions Recorded Confirmed Type acetaminophen [Tylenol] 325 mg PO Q4 PRN 05/10/18 05/28/18 History diltiazem HCl 240 mg PO QAM 05/10/18 05/28/18 History omeprazole 40 mg PO QAM 05/10/18 05/28/18 History pravastatin 40 mg PO QAM 05/10/18 05/28/18 History sertraline 50 mg PO QAM 05/10/18 05/28/18 History warfarin 2.5 mg PO [id number] 05/10/18 05/28/18 History warfarin 5 mg PO [id number] 05/10/18 05/28/18 History fluticasone-vilanterol 1 inh INHALATION DAILY 05/11/18 05/28/18 History metoprolol succinate 50 mg PO DAILY 05/28/18 05/28/18 History Patient History Medical History Renal failure (Acute) Diarrhea (Acute) HTN (hypertension) (Chronic) SVT (supraventricular tachycardia) (Chronic) A-fib (Chronic) Acute respiratory failure (Acute 04/26/13) PNA (pneumonia) (Resolved) CHF (congestive heart failure) (Acute) COPD exacerbation (Acute) Acute kidney injury superimposed on chronic kidney disease Acute on chronic diastolic heart failure Surgical History Previous section (Resolved) Family History Other Asthma Depression History of total knee replacement Hypertension Social History Current Living Situation: Family Current Living Situation Comment: Lives with son Other Information That Helps Us Care for You: No Feels Safe at Home: Yes Safety Concerns: Feels Safe At This Time Smoking Status: Never smoker Second Hand Exposure: No Hx Alcohol Use: No Hx Substance Use: No Beliefs That Will Affect Care: None Communication Ability: Effective Review of Systems Constitutional: + malaise; no fever Respiratory: no problem reported Cardiovascular: + dyspnea at rest Gastrointestinal: + abdominal pain and + diarrhea/loose stools Neurologic: no generalized weakness Psychiatric: no confusion Physical Exam 2 Vital Signs (Past 24 Hours): Last Vital Signs Temp 36.5 C 05/31/18 00:00 Pulse 106 H 05/31/18 07:13 Resp 20 05/31/18 07:13 BP 108/66 05/31/18 07:01 Pulse Ox 91 05/31/18 07:13 Constitutional: WD/WN, vitals as above Respiratory: normal respiratory effort; no respiratory distress Cardiovascular: Rate/Rhythm: regular rate and regular rhythm Extremities: + edema Gastrointestinal (Abdomen): Inspection/Auscultation: abdomen normal to inspection Percussion/Palpation: abdomen soft; abdomen nontender Neurologic: normal touch/pain/proprioception and CN's II-XI intact bilaterally Psychiatric: Orientation: alert and oriented x 3
--- NOTE | 2018-05-31 12:58 | History & Physical Bridge Note ---
Date of Service May 31, 2018 History & Physical Bridge Note Patient for a left leg angio with possible intervention. I have discussed the risks options and benefits of the procedure with the patient and his . They understand the risks options and benefits and agrees to the procedure. I have examined the patient, reviewed the History & Physical and in the interval since the performance of the History & Physical I have noted the following changes of clinical significance: no changes noted
[2018-05-31] MEDS: NORMOSOL-R 1,000 ML IV SCH (13:05)
--- NOTE | 2018-05-31 13:06 | Palliative Care Consultation ---
Date of Consultation May 31, 2018 Assessment & Plan (1) Goals of care, counseling/discussion: -This 83 year old female with PMH COPD, chronic diastolic CHF, Afib on warfarin, CKD stage 2 and HTN presented with weakness in the setting of diarrhea x 1 week. Admitted to the ICU for concern of septic shock likely in the setting of viral gastroenteritis vs. possible urinary fungal infection. Initial concern for C. diff but testing negative. Remains in Afib on heparin drip with improved rate control. Continues to have worsening BUN/Cr and remains oliguric. Patient has been stating that she does not want dialysis and would be ok with transitioning to comfort if her kidneys did not improve. Palliative care consulted to establish goals of care. -I met with patient in room 108. She is awake, alert and oriented x4. Denies any complaints. Is pleasant and talkative. -Initially, patient stated she did not want dialysis and that she was "ready to ." She expressed that she knew people who had dialysis and she did not believe they had quality of life. Patient then met with Dr. Rocha and talked about dialysis further in detail and agreed that she would be okay to give HD a try. -I called and spoke with patient's daughter (with patient's permissions), Maureen. Maureen was glad to hear that her mother was going to give dialysis a try. -Patient does live with her son normally. Uncertain if she will be well enough to get to-and-from dialysis on her own or with family. Also uncertain if patient would be well enough to get on-and-off van transportation by herself. She may need SNF for rehab on discharge, possibly jg long-term placement. Case management following. -Patient is a DNR and wishes to remain DNR. -Will continue to follow for supportive care. (2) Renal failure: Acute renal failure type: Chronic kidney disease stage: Renal failure chronicity: (3) COPD (chronic obstructive pulmonary disease): (4) CHF (congestive heart failure): Heart failure chronicity: unspecified Heart failure type: unspecified Qualified Code(s): I50.9 - Heart failure, unspecified (5) Hypoxia: Supervising Physician Co-Signing Physician Notes Chart reviewed, patient seen and examined-no family at bedside. Patient discussed with RENNY Calderon PE: Patient awake and alert, mild distress due to increased work of breathing HEENT: EOMI, normal hearing Respiratory: Mild increased work of breathing, receiving a neb at this time, on O2 at 3 L CV: Tachycardic, no edema Abdomen: Soft, nontender Neuro: Alert and oriented Agree with above note, assessment and plan as per RENNY Calderon. Patient reiterated that she wants to give dialysis a try-dialysis is planned for tomorrow. Will continue to follow and assist patient and family with medical decision making. History of Present Illness Attending Physician: Josh Mcdonnell MD, PhD, [facility] History of Present Illness This 83 year old female with PMH COPD, chronic diastolic CHF, Afib on warfarin, CKD stage 2 and HTN presented with weakness in the setting of diarrhea x 1 week. Admitted to the ICU for concern of septic shock likely in the setting of viral gastroenteritis vs. possible urinary fungal infection. Initial concern for C. diff but testing negative. Remains in Afib on heparin drip with improved rate control. Continues to have worsening BUN/Cr and remains oliguric. Patient has been stating that she does not want dialysis and would be ok with transitioning to comfort if her kidneys did not improve. Palliative care consulted to establish goals of care. See A&P for details. Thank you kindly for this consult. I will follow as needed. Allergies Allergy/AdvReac Type Severity Reaction Status Date / Time amoxicillin Allergy Intermediate SWELLING Verified 05/28/18 15:44 Home Medications Home Medications Medication Instructions Recorded Confirmed Type acetaminophen [Tylenol] 325 mg PO Q4 PRN 05/10/18 05/28/18 History diltiazem HCl 240 mg PO QAM 05/10/18 05/28/18 History omeprazole 40 mg PO QAM 05/10/18 05/28/18 History pravastatin 40 mg PO QAM 05/10/18 05/28/18 History sertraline 50 mg PO QAM 05/10/18 05/28/18 History warfarin 2.5 mg PO 6XWK 05/10/18 05/28/18 History warfarin 5 mg PO 2XWK 05/10/18 05/28/18 History fluticasone-vilanterol 1 inh INHALATION DAILY 05/11/18 05/28/18 History metoprolol succinate 50 mg PO DAILY 05/28/18 05/28/18 History Patient History Medical History Renal failure (Acute) Diarrhea (Acute) HTN (hypertension) (Chronic) SVT (supraventricular tachycardia) (Chronic) A-fib (Chronic) Acute respiratory failure (Acute 04/26/13) PNA (pneumonia) (Resolved) CHF (congestive heart failure) (Acute) COPD exacerbation (Acute) Acute kidney injury superimposed on chronic kidney disease Acute on chronic diastolic heart failure Surgical History Previous section (Resolved) Family History Other Asthma Depression History of total knee replacement Hypertension Social History Current Living Situation: Family Current Living Situation Comment: Lives with son Other Information That Helps Us Care for You: No Feels Safe at Home: Yes Safety Concerns: Feels Safe At This Time Smoking Status: Never smoker Second Hand Exposure: No Hx Alcohol Use: No Hx Substance Use: No Beliefs That Will Affect Care: None Communication Ability: Effective Review of Systems Constitutional: + weakness Ear, Nose, Mouth, Throat: no dysphagia Respiratory: no cough and no dyspnea Cardiovascular: no chest pain and no edema Gastrointestinal: no abdominal pain, no nausea and no vomiting Integumentary: no problem reported Neurologic: no confusion Psychiatric: no depression and no anxiety Physical Exam 2 Vital Signs (Past 24 Hours): Last Vital Signs Temp 36.8 C 05/31/18 08:00 Pulse 101 H 05/31/18 12:01 Resp 25 H 05/31/18 12:01 BP 118/58 L 05/31/18 12:01 Pulse Ox 91 05/31/18 12:01 Constitutional: + obese and comfortable; no acute distress ENMT: Ears: no hearing impairment Neck: normal visual inspection and trachea midline Respiratory: normal respiratory effort; does not use accessory muscles Auscultation: + diminished lung sounds Cardiovascular: Rate/Rhythm: regular rate; + abnormal rhythm Vessels: dorsalis pedis pulses present; no JVD Extremities: no edema Gastrointestinal (Abdomen): Inspection/Auscultation: abdomen normal to inspection; abdomen not distended Percussion/Palpation: abdomen soft; abdomen nontender Skin: no rashes, warm and dry Neurologic: awake; not confused (but does seem mildly forgetful) Psychiatric: A+Ox3, euthymic affect Time Spent Midlevel 70 minutes with >50% of time spent at bedside with patient, on phone with family , and in collaboration with IDT to discuss condition and goals of care.
[2018-05-31] MEDS ORDERED: CLINDAMYCIN 600 MG in DEXTROSE 5% 50 ML IV SCH (18:23)
[2018-06-01] MEDS: LEVALBUTEROL 1.25MG/0.5ML NEB NEB SCH ×4 (02:42→19:33)
[2018-06-01] MEDS: IPRATROPIUM BROMIDE NEB SOLN 0.02% 2.5 ML VIAL INH SCH ×4 (02:42→19:33)
[2018-06-01 04:52] LABS: Hematocrit (blood only) 34.3 % (37-47); Hemoglobin 11.3 g/dL (12.0-16.0); Mean Corpuscular Hgb Conc 32.9 g/dL (32-36); Mean Corpuscular Volume 86.2 fL (80-100); RDW Coefficient of Variation 15.7 % (11.5-14.5); Red Blood Count 3.98 M/uL (4.2-5.4); White Blood Count 15.77 K/uL (4.8-10.8)
[2018-06-01 05:12] LABS: Mean Platelet Volume 11.4 fL (7.4-10.4); Platelet Count 75 K/uL (130-400)
[2018-06-01 05:14] LABS: Basophils # (auto) 0.02 K/uL (0-0.2); Basophils % (auto) 0.1 %; Echinocytes 1+; Eosinophils # (auto) 0.01 K/uL (0-0.5); Eosinophils % (auto) 0.1 %; Immature Granulocytes # (auto) 0.42 K/uL (0.00-0.02); Immature Granulocytes % (auto) 2.7 %; Lymphocytes # (auto) 1.76 K/uL (1.2-3.4); Lymphocytes % (auto) 11.2 %; Monocytes # (auto) 2.11 K/uL (0.11-0.59); Monocytes % (auto) 13.4 %; Neutrophils # (auto) 11.45 K/uL (1.4-6.5); Neutrophils % (auto) 72.5 %; Partial Thromboplastin Ratio 2.9
[2018-06-01 05:22] LABS: Partial Thromboplastin Time 75.8 Seconds (21.0-31.0)
[2018-06-01 05:23] LABS: BUN Creatinine Ratio 12.4 (10-20); Calcium 7.9 mg/dl (8.5-10.1); Creatinine Clr Calc Pharmacy 7.7 ml/min; Est GFR (African American) 6.7; Est GFR (Non-African American) 5.8; Magnesium 2.2 mg/dl (1.8-2.4); Phosphorus 7.5 mg/dl (2.5-4.9); Potassium 3.4 mmol/L (3.5-5.1)
[2018-06-01] MEDS ORDERED: CLINDAMYCIN 600 MG/54 ML BAG IV SCH (06:00)
[2018-06-01] MEDS: METOPROLOL SUCC 50MG EXT REL TAB PO SCH (08:21)
[2018-06-01] MEDS: dilTIAZem HCl 60 MG TAB PO SCH ×4 (08:21→20:11)
[2018-06-01] MEDS: FLUCONAZOLE 100 MG TAB PO SCH (08:22)
--- NOTE | 2018-06-01 09:09 | Nephrology Progress Note ---
Date of Service June 01, 2018 Assessment & Plan (1) Renal failure: -- Unfortunately, there has not been evidence of renal recovery -- Metabolic profile otherwise acceptable without emergent need for FINE UNHAIRER -- Clinical presentation consistent with multifactorial ATN -- Plan to proceed with TDC placement today -- Post catheter placement, can determine timing of first HD treatment (today vs tomorrow) -- UA/microscopy (microscopic hematuria, pyuria, and 1+ bacteria/yeast) -- Repeat metabolic profile tomorrow AM -- Document strict I/O's -- Medications are currently appropriately dosed for renal dysfunction (2) Thrombocytopenia: -- Stable -- Plt count acceptable for TDC placement (3) Atrial fibrillation: -- Reasonable rate control -- Remains asymptomatic -- Heparin gtt held for TDC placement (4) COPD (chronic obstructive pulmonary disease): (5) Diarrhea: -- Clinical presentation consistent severe C diff colitis, however C diff testing negative -- ID consult appreciated (6) CKD (chronic kidney disease) stage 2, GFR 60-89 ml/min: Subjective No acute events overnight. Kayy was seen and evaluated in her hospital room this morning prior to being taken to the OR. She feels well. She reports some apprehension regarding permcath placement but desire to proceed with hemodialysis. She denies significant dyspnea at rest. She denies fevers or chills. Review of Systems All systems reviewed & are unremarkable except as noted in HPI & below Constitutional: + fatigue, + weakness and + anorexia; no fever Cardiovascular: + orthopnea; no chest pain and no palpitations Gastrointestinal: as per Subjective / HPI Physical Exam 2 Vital Signs (Past 24 Hours): Last Vital Signs Temp 36.6 C 06/01/18 07:05 Pulse 83 06/01/18 08:20 Resp 24 06/01/18 07:05 BP 122/66 06/01/18 08:20 Pulse Ox 95 06/01/18 07:05 Constitutional: + obese and + frail appearing; no acute distress Eyes: + anicteric sclerae; no conjunctival abnormality ENMT: Ears: no hearing impairment Mouth: oral mucous membranes not dry Neck: normal visual inspection and trachea midline Respiratory: + tachypneic; does not use accessory muscles Auscultation: lungs clear to auscultation bilaterally and + rales (bibasilar) Cardiovascular: Rate/Rhythm: + abnormal rhythm Heart Sounds: normal S1 and normal S2 Vessels: + JVD Extremities: no edema Gastrointestinal (Abdomen): Inspection/Auscultation: + abdomen distended; no hypoactive bowel sounds Percussion/Palpation: abdomen soft and + tympanic to percussion; abdomen nontender, no guarding and abdomen not rigid Musculoskeletal: Extremities: no cyanosis and no petechiae Skin: normal turgor; no rashes Neurologic: Motor/Sensory: no tremor and no asterixis Results & Data Laboratory Results Laboratory Results - last 24 hr 05/31/18 06/01/18 06/01/18 11:48 04:33 04:33 WBC 15.77 H RBC 3.98 L Hgb 11.3 L Hct 34.3 L MCV 86.2 MCH 28.4 MCHC 32.9 RDW Std Deviation 49.0 H RDW Coeff of Kathleen 15.7 H Plt Count 75 L MPV 11.4 H Immature Gran % (Auto) 2.7 Neut % (Auto) 72.5 Lymph % (Auto) 11.2 [place] % (Auto) 13.4 Eos % (Auto) 0.1 Baso % (Auto) 0.1 Immature Gran # (Auto) 0.42 H Neut # (Auto) 11.45 H Lymph # (Auto) 1.76 [place] # (Auto) 2.11 H Eos # (Auto) 0.01 Baso # (Auto) 0.02 Echinocytes 1+ APTT 65.5 H* 75.8 H* PTT Ratio 2.5 2.9 Sodium Potassium Chloride Carbon Dioxide Anion Gap BUN Creatinine Est Cr Clr Drug Dosing Est GFR ( Amer) Est GFR (Non-Af Amer) BUN/Creatinine Ratio Glucose POC Glucose Calcium Phosphorus Magnesium 06/01/18 06/01/18 04:33 08:14 WBC RBC Hgb Hct MCV MCH MCHC RDW Std Deviation RDW Coeff of Kathleen Plt Count MPV Immature Gran % (Auto) Neut % (Auto) Lymph % (Auto) [place] % (Auto) Eos % (Auto) Baso % (Auto) Immature Gran # (Auto) Neut # (Auto) Lymph # (Auto) [place] # (Auto) Eos # (Auto) Baso # (Auto) Echinocytes APTT PTT Ratio Sodium 132 L Potassium 3.4 L Chloride 97 L Carbon Dioxide 21 Anion Gap 14.0 H BUN 77 H Creatinine 6.20 H* D Est Cr Clr Drug Dosing 7.7 Est GFR ( Amer) 6.7 Est GFR (Non-Af Amer) 5.8 BUN/Creatinine Ratio 12.4 Glucose 101 H POC Glucose 88 Calcium 7.9 L Phosphorus 7.5 H Magnesium 2.2 _ (1) Renal failure Acute renal failure type: Chronic kidney disease stage: Renal failure chronicity: (2) Atrial fibrillation Atrial fibrillation type: chronic Qualified Code(s): I48.2 - Chronic atrial fibrillation (3) Diarrhea Diarrhea type:
--- NOTE | 2018-06-01 09:13 | History & Physical Bridge Note ---
Date of Service June 01, 2018 History & Physical Bridge Note Patient for insertion of permcath today. I have discussed the risks options and benefits of the procedure with the patient. The patient understands the risks options and benefits and agrees to the procedure. I have examined the patient, reviewed the History & Physical and in the interval since the performance of the History & Physical I have noted the following changes of clinical significance: no changes noted
[2018-06-01] MEDS ORDERED: LIDOCAINE HCL 1% 20 ML VIAL ONE (09:23)
[2018-06-01] MEDS ORDERED: fentaNYL citrate 100 MCG/2 ML VIAL ONE (09:24)
[2018-06-01] MEDS ORDERED: MIDAZOLAM HCL 1 MG/ML 2ML VIAL ONE (09:24)
[2018-06-01] MEDS ORDERED: HEPARIN SOD (PORCINE) 5,000 UNITS/ML VIAL ONE (09:24)
--- NOTE | 2018-06-01 09:34 | Pre Anesthesia Assessment ---
Date of Service June 01, 2018 Pre Sedation Assessment Vital Signs Temp Pulse Pulse Pulse Resp BP BP 06/01/18 09:24 36.6 C 99 H 18 116/68 06/01/18 08:20 83 122/66 06/01/18 07:05 36.6 C 85 24 103/63 06/01/18 07:03 91 H 20 06/01/18 03:17 36.5 C 93 H 20 104/75 05/31/18 23:06 37.0 C 89 22 103/63 05/31/18 19:29 88 20 105/64 05/31/18 19:11 90 18 05/31/18 18:49 102 H 05/31/18 16:00 36.8 C 95 H 21 104/59 L 05/31/18 14:05 93 H 20 05/31/18 12:01 101 H 25 H 118/58 L 05/31/18 12:00 91 H 26 H 118/58 L 05/31/18 11:00 108 H 27 H 107/69 05/31/18 10:00 109 H 25 H 107/75 Pulse Ox 06/01/18 09:24 06/01/18 08:20 06/01/18 07:05 95 06/01/18 07:03 95 06/01/18 03:17 95 05/31/18 23:06 93 05/31/18 19:29 94 05/31/18 19:11 91 05/31/18 18:49 05/31/18 16:00 93 05/31/18 14:05 96 05/31/18 12:01 91 05/31/18 12:00 92 05/31/18 11:00 92 05/31/18 10:00 92 Cardiovascular + regular rate and + regular rhythm Respiratory + respiratory effort normal; no respiratory distress Pre-Sedation Airway Assessment Smoking Status: Never smoker Hx Sleep Apnea: No Short, Thick Neck: Yes Thyromental Distance: > or= 3.5 Finger Breadths Oral Cavity: + WNL Mallampati Class: III ASA: ASA4 NPO Status Date of Last Intake of Fluids: 06/01/18 Time of Last Intake of Fluids: 06:00 Date of Last Intake of Solid Food: 05/31/18 Time of Last Intake of Solid Foods: 20:00 Procedure Planning Contraindications for Sedation: none Current Medications Reviewed: Yes Notes The planned sedation has been discussed with the patient. Informed Consent was obtained. I have identified the patient, determined the appropriateness of sedation and have assessed the patient immediately prior to the procedure. All medicine(s) and interventions are by my order.
[2018-06-01] MEDS ORDERED: SODIUM CHLORIDE 0.9% 1000ML 1,000 ML IV PRN ×2 (09:53→16:00)
--- NOTE | 2018-06-01 10:07 | Post Operative Brief Note ---
Immediate Post Op Note v1 Date of Surgery June 01, 2018 Pre & Post Diagnosis Operation Date: 06/01/18 10:20 Pre-Op Diagnosis: acute renal failure Post-Op Diagnosis: acute renal failure Procedure Operation Date: 06/01/18 10:20 Actual Procedures p Insertion of Perm Catheter, Right Internal Jugular Approach, Ultrasound Localization Of Right Internal Jugular Vein, Fluoroscopy For Positioning, Moderate Concious Sedation 0949 to 1014(Right) - Luis Cotter MD Surgeon Luis Cotter MD Building Illuminating Engineer Dav Bond MD Estimated Blood Loss 3 Findings Consistent with Post-Op Diagnosis Anesthesia Type RN Sedation Complications none Disposition Accompanied Patient To Recovery: No Disposition: Recovery Room
--- NOTE | 2018-06-01 10:08 | Operative Report ---
Post Operative Report Pre & Post Diagnosis Operation Date: 06/01/18 10:20 Pre-Op Diagnosis: acute renal failure Post-Op Diagnosis: acute renal failure Procedure Operation Date: 06/01/18 10:20 Actual Procedures p Insertion of Perm Catheter, Right Internal Jugular Approach, Ultrasound Localization Of Right Internal Jugular Vein, Fluoroscopy For Positioning, Moderate Concious Sedation 0928 to 1044(Right) - Luis Cotter MD Surgeon Dr. Cyndee Bond MD Clinical Practice Consultant Viet Bond Estimated Blood Loss 3 Findings See Below pt has a patent right IJ Fluoro time 0.4min Rad 3mGy Specimens none Drains none Anesthesia Type RN Sedation Complications none Disposition Accompanied Patient To Recovery: No Disposition: Recovery Room Indications ESRD needing HD Description of Procedure Patient was takent to the angio suite and placed in the supine position. The right side of the neck and chest wall were prepped and draped in a sterile manner. Local anesthesia was then administered to the appropriate areas of the neck and chest wall. Ultrasound was then used to locate the right internal jugular vein. The vein compressed easily, had no filing defects, and was patent. The vein was then punctured under direct ultrasound imaging. A guidewire was then passed centrally under fluoroscopic imaging. A stab wound was then made in the anterior chest wall and a 19 cm permcath was passed from the stab wound on the chest wall to the puncture site on the neck. The puncture site was then dilated till the 14Fr peel away sheath was inserted. The permcath was then inserted through the sheath to a central position in the distal superior vena cava. The peel away sheath was then removed. The catheter was then sutured in place using nylon sutures. The puncture was then closed using a 4-0 Vicryl subcuticular suture. Dermabond was used for a dressing on the puncture site. Both ports aspirated and flushed easily and were then packed with heparin. A sterile dressing was applied to the catheter. The patient left the angio suite in good condition and tolerated the procedure well. Dr. Cotter was present for the procedure. I attest to the content of the Intraoperative Record and any orders documented therein. Any exceptions are noted below.
--- NOTE | 2018-06-01 10:28 | Post Anesthesia Assessment ---
Date of Service June 01, 2018 Post Sedation Assessment Vital Signs Temp Pulse Pulse Pulse Resp BP BP 06/01/18 10:14 87 26 H 97/64 L 06/01/18 10:10 86 24 82/48 L 06/01/18 10:05 85 16 89/45 L 06/01/18 10:00 89 12 85/50 L 06/01/18 09:55 90 17 101/58 L 06/01/18 09:50 90 12 96/77 L 06/01/18 09:45 99 H 16 113/67 06/01/18 09:44 87 12 116/67 06/01/18 09:24 36.6 C 99 H 18 116/68 06/01/18 08:20 83 122/66 06/01/18 07:05 36.6 C 85 24 103/63 06/01/18 07:03 91 H 20 06/01/18 03:17 36.5 C 93 H 20 104/75 05/31/18 23:06 37.0 C 89 22 103/63 05/31/18 19:29 88 20 105/64 05/31/18 19:11 90 18 05/31/18 18:49 102 H 05/31/18 16:00 36.8 C 95 H 21 104/59 L 05/31/18 14:05 93 H 20 05/31/18 12:01 101 H 25 H 118/58 L 05/31/18 12:00 91 H 26 H 118/58 L 05/31/18 11:00 108 H 27 H 107/69 Pulse Ox 06/01/18 10:14 94 06/01/18 10:10 94 06/01/18 10:05 94 06/01/18 10:00 96 06/01/18 09:55 97 06/01/18 09:50 96 06/01/18 09:45 95 06/01/18 09:44 97 06/01/18 09:24 06/01/18 08:20 06/01/18 07:05 95 06/01/18 07:03 95 06/01/18 03:17 95 05/31/18 23:06 93 05/31/18 19:29 94 05/31/18 19:11 91 05/31/18 18:49 05/31/18 16:00 93 02/14/19 14:05 96 05/31/18 12:01 91 05/31/18 12:00 92 05/31/18 11:00 92 Recovery Score Activity: Moves 4 extremities Respiration: Deep Breath/Cough Circulation: +/-20% PreAnes Value Consciousness: Arouseable (by name) Oxygen Saturation: O2 needed for >90% Post Anesthesia Score: 8 Discharge Sedation Level of Care: Fast Track Phase II Post Sedation Plan On clinical assessment, the patient appears to have tolerated the sedation without complications. Patient is recovering as anticipated. Patient will continue to be monitored by nursing and may be discharged when sedation discharge criteria are met per below protocol. Upon Completions of procedure and additional 15 minutes continue every 5 minute vital signs and the P.A.R. score; then discharge to a Phase I or Fast Track to Phase II per the following guidelines: * Discharge Patient to appropriate Phase II area if PAR is 8 or greater or return to pre- procedure baseline. The post - procedure orders will be as directed. * If PAR score is less than 8 or not return to pre-procedure baseline then patient will follow Phase I monitoring till PAR is reached for Phase II. The Phase I may be done in procedure room or may call to secure a Phase I area. * If naloxone or flumazenil are used for reversal, hold in Phase I for continued monitoring from when last reversal dose was given for a minimum of 60 minutes or longer pending the nurse and/or physician discretion of patient condition before discharge to Phase II. Please call the Sedation Physician to re-evaluate and complete post-note for discharge to Phase II area. Do NOT discharge from procedure sedation or Phase 1 until post- sedation evaluation note is complete by procedure /sedation MD Sedation Discharge Instructions to be given to the patient at discharge to home.
--- NOTE | 2018-06-01 12:11 | Hospitalist Progress Note ---
Date of Service June 01, 2018 Assessment & Plan (1) Renal failure: (2) Abdominal pain: (3) Acute dehydration: (4) Elevated INR: (5) COPD (chronic obstructive pulmonary disease): (6) Diarrhea: (7) CHF (congestive heart failure): (8) Thrombocytopenia: (9) Atrial fibrillation: (10) CKD (chronic kidney disease) stage 2, GFR 60-89 ml/min: (11) Acute hypokalemia: An 83-year-old white female admitted to ICU on May 28, 2018 because of acute kidney failure with diarrhea severe leukocytosis and Coumadin intoxication, now patient had a PermCath start is planning for dialysis Possible sepsis upon admission associated with hypotension, severe leukocytosis with possible C. diff from diarrhea, later stool C. difficile was negative Leukocytosis, has significantly improved Continue admission, source of infection could be pneumonia upon admission, however in abdominal CT in the emergency room, in the lower lung there was no obvious infiltration With no pneumonia no C. difficile, infection source is unknown, had stopped on antibiotic, Possible fungal UTI initially, Diflucan was started, urine negative was no yeast or fungal growing, will start Diflucan Abdominal pain, diarrhea with recent hospital stay upon admission no more abdominal pain no more diarrhea, surgery input appreciated [id number] kidney failure significant continue getting worse, Renal ultrasound was no hydro-nephrosis, Vamp Strap Ironer input appreciated, patient finally agreed on dialysis, N.p.o. midnight, and will place dialysis catheter tomorrow, Thrombocytopenia, persistent, platelets 75,000 today , continue follow-up Coumadin coagulopathy with INR more than 11 0.11 today's INR is 1.3, she got 1 dose of vitamin K on the first day of admission, continue heparin drip, continue , will resume Coumadin and stop heparin drip soon Elevated troponin upon admission likely from troponin leakage secondary to acute kidney, failure, or from sepsis Atrial fibrillation with rapid ventricular response upon admission . Rate improved, Hypotensive on admission, blood pressure improved History of congestive heart failure, need to watch fluid overload, History of hypertension. History of kidney stone. History of chronic obstructive pulmonary disease. Continue PCU, continue dialysis, PT OT evaluation and treatment as ordered Subjective Her PermCath done in the OR, mild oozing in the PermCath insertion area of blood generally feeling ok , awake alert orientated conversational Denies fever and chill, denies chest pain No diarrhea, no more abdominal pain Review of Systems Constitutional: Positive weakness, or fatigue Respiratory: Occasional cough, sputum, no wheezing, or dyspnea on exertion Cardiac: Denies palpitation, Abdomen: No pain, No nausea, No vomiting, No diarrhea, No constipation Musculoskeletal: No joint pain, No muscle pain, No swelling, No calf pain, No problem reported : No dysuria, No urinary frequency, No incontinence, No hematuria Neurologic: No paralysis, No weakness, No numbness/tingling, No vertigo, No balance problems Psychiatric: No depression symptoms, No anhedonism, Heme: No abnormal bleeding/bruising, No clotting problems Skin: No rash, No itch, No new/changing skin lesions, Physical Exam 2 Vital Signs (Past 24 Hours): Last Vital Signs Temp 36.8 C 06/01/18 10:40 Pulse 89 06/01/18 11:45 Resp 18 06/01/18 11:45 BP 111/62 06/01/18 11:45 Pulse Ox 96 06/01/18 11:45 Physical Exam: General Appearance: Looks tired, no acute distress, pleasant, conversational, WD/WN, Eyes: normal inspection, PERRL, EOMI, sclerae normal ENT: normal ENT inspection, hearing grossly normal, pharynx normal Neck: supple, no adenopathy, thyroid normal, no JVD, Respiratory/Chest: Right anterior chest wall has PermCath, with minimal wheezing of blood in the dress, chest non-tender, no respiratory distress, no accessory muscle use, mild decrease breath sounds, no rales, wheezing Cardiovascular: regular rate, rhythm, no JVD, no murmur Abdomen: normal bowel sounds, non tender, soft, no organomegaly, Extremities: normal range of motion, non-tender, normal inspection, no pedal edema, no calf tenderness, normal capillary refill , pelvis stable, joint has no limited range of motion, capillary refill is normal, no cyanosis clubbing Neurologic/Psychiatric: youth development professional II-XII nml as tested, no motor/sensory deficits, alert Skin: normal color, Lymphatic: no adenopathy Results & Data Laboratory Results Laboratory Results - last 24 hr 05/31/18 06/01/18 06/01/18 11:48 04:33 04:33 WBC 15.77 H RBC 3.98 L Hgb 11.3 L Hct 34.3 L MCV 86.2 MCH 28.4 MCHC 32.9 RDW Std Deviation 49.0 H RDW Coeff of Kathleen 15.7 H Plt Count 75 L MPV 11.4 H Immature Gran % (Auto) 2.7 Neut % (Auto) 72.5 Lymph % (Auto) 11.2 [place] % (Auto) 13.4 Eos % (Auto) 0.1 Baso % (Auto) 0.1 Immature Gran # (Auto) 0.42 H Neut # (Auto) 11.45 H Lymph # (Auto) 1.76 [place] # (Auto) 2.11 H Eos # (Auto) 0.01 Baso # (Auto) 0.02 Echinocytes 1+ APTT 65.5 H* 75.8 H* PTT Ratio 2.5 2.9 Sodium Potassium Chloride Carbon Dioxide Anion Gap BUN Creatinine Est Cr Clr Drug Dosing Est GFR ( Amer) Est GFR (Non-Af Amer) BUN/Creatinine Ratio Glucose POC Glucose Calcium Phosphorus Magnesium 06/01/18 06/01/18 04:33 08:14 WBC RBC Hgb Hct MCV MCH MCHC RDW Std Deviation RDW Coeff of Kathleen Plt Count MPV Immature Gran % (Auto) Neut % (Auto) Lymph % (Auto) [place] % (Auto) Eos % (Auto) Baso % (Auto) Immature Gran # (Auto) Neut # (Auto) Lymph # (Auto) [place] # (Auto) Eos # (Auto) Baso # (Auto) Echinocytes APTT PTT Ratio Sodium 132 L Potassium 3.4 L Chloride 97 L Carbon Dioxide 21 Anion Gap 14.0 H BUN 77 H Creatinine 6.20 H* D Est Cr Clr Drug Dosing 7.7 Est GFR ( Amer) 6.7 Est GFR (Non-Af Amer) 5.8 BUN/Creatinine Ratio 12.4 Glucose 101 H POC Glucose 88 Calcium 7.9 L Phosphorus 7.5 H Magnesium 2.2 Microbiology 05/31/18 08:35 Blood Fungal Smear - Final _ (1) Renal failure Acute renal failure type: Chronic kidney disease stage: Renal failure chronicity: (2) Abdominal pain Abdominal location: (3) Diarrhea Diarrhea type: (4) CHF (congestive heart failure) Heart failure chronicity: unspecified Heart failure type: unspecified Qualified Code(s): I50.9 - Heart failure, unspecified (5) Atrial fibrillation Atrial fibrillation type: chronic Qualified Code(s): I48.2 - Chronic atrial fibrillation
[2018-06-01 14:26] LABS: Partial Thromboplastin Ratio 1.7; Partial Thromboplastin Time 42.9 Seconds (21.0-31.0)
[2018-06-01] MEDS ORDERED: Heparin IV Low Dose *NO* Bolus IV SCH (15:25)
[2018-06-01] MEDS: HEPARIN LOW DOSE DEXTROSE 25,000 UNITS/500 ML IV SCH (16:32)
[2018-06-01] MEDS: NORMOSOL-R 1,000 ML IV SCH (16:50)
[2018-06-01 23:02] LABS: Partial Thromboplastin Ratio 2.8
[2018-06-01 23:07] LABS: Partial Thromboplastin Time 71.7 Seconds (21.0-31.0)
[2018-06-01 23:25] LABS: Hepatitis B Surface Antibody Non-Immune
[2018-06-01 23:36] LABS: Hepatitis B Surface Antigen Neg (Neg)
[2018-06-02] MEDS: LEVALBUTEROL 1.25MG/0.5ML NEB NEB SCH ×4 (02:10→18:58)
[2018-06-02] MEDS: IPRATROPIUM BROMIDE NEB SOLN 0.02% 2.5 ML VIAL INH SCH ×4 (02:10→18:58)
[2018-06-02 05:48] LABS: Hematocrit (blood only) 35.2 % (37-47); Hemoglobin 11.6 g/dL (12.0-16.0); Mean Corpuscular Volume 86.5 fL (80-100); Mean Platelet Volume 11.9 fL (7.4-10.4); Platelet Count 81 K/uL (130-400); RDW Coefficient of Variation 15.7 % (11.5-14.5); RDW Standard Deviation 48.8 fL (36.4-46.3); Red Blood Count 4.07 M/uL (4.2-5.4); White Blood Count 12.15 K/uL (4.8-10.8)
[2018-06-02 06:23] LABS: Basophils # (auto) 0.01 K/uL (0-0.2); Basophils % (auto) 0.1 %; Echinocytes 1+; Eosinophils # (auto) 0.02 K/uL (0-0.5); Eosinophils % (auto) 0.2 %; Hypogranular Neutrophils 1+; Immature Granulocytes # (auto) 0.41 K/uL (0.00-0.02); Immature Granulocytes % (auto) 3.4 %; Lymphocytes # (auto) 1.83 K/uL (1.2-3.4); Lymphocytes % (auto) 15.1 %; Monocytes % (auto) 12.3 %; Neutrophils # (auto) 8.38 K/uL (1.4-6.5); Neutrophils % (auto) 68.9 %
[2018-06-02 06:30] LABS: Calcium 7.9 mg/dl (8.5-10.1); Creatinine Clr Calc Pharmacy 9.2 ml/min; Est GFR (African American) 8.4; Est GFR (Non-African American) 7.2; Magnesium 2.1 mg/dl (1.8-2.4); Phosphorus 6.7 mg/dl (2.5-4.9); Potassium 3.5 mmol/L (3.5-5.1)
[2018-06-02 07:06] LABS: Partial Thromboplastin Ratio 2.4
[2018-06-02 07:24] LABS: Partial Thromboplastin Time 63.2 Seconds (21.0-31.0)
[2018-06-02] MEDS: METOPROLOL SUCC 50MG EXT REL TAB PO SCH (08:16)
[2018-06-02] MEDS: dilTIAZem HCl 60 MG TAB PO SCH ×4 (08:16→20:53)
--- NOTE | 2018-06-02 10:21 | Nephrology Progress Note ---
Date of Service June 02, 2018 Assessment & Plan (1) Renal failure: -- YULIANA consistent with septic and ischemic ATN -- Oliguric YULIANA -- No significant evidence of renal recovery -- TDC placed 06/02/18 -- First HD treatment completed yesterday -- Orders for second treatment today have been entered into the EMR and discussed with the dialysis nurse religion teacher (3 hrs, 300 Qb, 4 K, 2 L UF) -- Repeat metabolic profile tomorrow AM -- Document strict I/O's -- Medications are currently appropriately dosed for renal dysfunction (2) Thrombocytopenia: -- Stable (3) Atrial fibrillation: -- Reasonable rate control -- Remains asymptomatic -- Anticoagulation resumed (4) COPD (chronic obstructive pulmonary disease): (5) Diarrhea: -- Clinical presentation consistent severe C diff colitis, however C diff testing negative -- ID consult appreciated (6) CKD (chronic kidney disease) stage 2, GFR 60-89 ml/min: Subjective No acute events overnight. TDC was placed yesterday without complications. There was a small amount of oozing around the insertion site but this has improved. She completed 2 hours of HD without complications. Kayy is resting comfortably in bed this morning. She denies shortness of breath. She denies abdominal pain. No chest pain or palpitations. Generalized weakness persists. Appetite is fair. Review of Systems All systems reviewed & are unremarkable except as noted in HPI & below Physical Exam 2 Vital Signs (Past 24 Hours): Last Vital Signs Temp 36.8 C 06/02/18 07:53 Pulse 103 H 06/02/18 07:53 Resp 22 06/02/18 07:53 BP 119/77 06/02/18 07:53 Pulse Ox 95 06/02/18 07:53 Constitutional: + obese and + frail appearing; no acute distress Eyes: + anicteric sclerae; no conjunctival abnormality ENMT: Ears: no hearing impairment Mouth: oral mucous membranes not dry Neck: normal visual inspection and trachea midline RIJ TDC intact Respiratory: does not use accessory muscles Auscultation: lungs clear to auscultation bilaterally and + rales (bibasilar) Cardiovascular: Rate/Rhythm: + tachycardic; + abnormal rhythm Heart Sounds : normal S1 and normal S2 Vessels: + JVD Extremities: no edema Gastrointestinal (Abdomen): Inspection/Auscultation: + abdomen distended; no hypoactive bowel sounds Percussion/Palpation: abdomen soft; abdomen nontender and no guarding Musculoskeletal: Extremities: no cyanosis and no petechiae Skin: normal turgor; no rashes Neurologic: Motor/Sensory: no tremor and no asterixis Results & Data Laboratory Results Laboratory Results - last 24 hr 06/01/18 06/01/18 06/01/18 13:58 22:26 22:26 WBC RBC Hgb Hct MCV MCH MCHC RDW Std Deviation RDW Coeff of Kathleen Plt Count MPV Immature Gran % (Auto) Neut % (Auto) Lymph % (Auto) [place] % (Auto) Eos % (Auto) Baso % (Auto) Immature Gran # (Auto) Neut # (Auto) Lymph # (Auto) [place] # (Auto) Eos # (Auto) Baso # (Auto) Hypogranular Neuts Giant Platelets Echinocytes APTT 42.9 H 71.7 H* PTT Ratio 1.7 2.8 Sodium Potassium Chloride Carbon Dioxide Anion Gap BUN Creatinine Est Cr Clr Drug Dosing Est GFR ( Amer) Est GFR (Non-Af Amer) BUN/Creatinine Ratio Glucose POC Glucose Calcium Phosphorus Magnesium Hep Bs Antigen Neg Hep Bs Antibody Non-Immune Hep Bs Antibody, Quant < 3.10 L 06/02/18 06/02/18 06/02/18 05:11 05:11 05:11 WBC 12.15 H RBC 4.07 L Hgb 11.6 L Hct 35.2 L MCV 86.5 MCH 28.5 MCHC 33.0 RDW Std Deviation 48.8 H RDW Coeff of Kathleen 15.7 H Plt Count 81 L MPV 11.9 H Immature Gran % (Auto) 3.4 Neut % (Auto) 68.9 Lymph % (Auto) 15.1 [place] % (Auto) 12.3 Eos % (Auto) 0.2 Baso % (Auto) 0.1 Immature Gran # (Auto) 0.41 H Neut # (Auto) 8.38 H Lymph # (Auto) 1.83 [place] # (Auto) 1.50 H Eos # (Auto) 0.02 Baso # (Auto) 0.01 Hypogranular Neuts 1+ Giant Platelets 1+ Echinocytes 1+ APTT 63.2 H* PTT Ratio 2.4 Sodium 132 L Potassium 3.5 Chloride 99 Carbon Dioxide 21 Anion Gap 12.0 H BUN 52 H Creatinine 5.19 H* D Est Cr Clr Drug Dosing 9.2 Est GFR ( Amer) 8.4 Est GFR (Non-Af Amer) 7.2 BUN/Creatinine Ratio 10.0 Glucose 89 POC Glucose Calcium 7.9 L Phosphorus 6.7 H Magnesium 2.1 Hep Bs Antigen Hep Bs Antibody Hep Bs Antibody, Quant 06/02/18 07:35 WBC RBC Hgb Hct MCV MCH MCHC RDW Std Deviation RDW Coeff of Kathleen Plt Count MPV Immature Gran % (Auto) Neut % (Auto) Lymph % (Auto) [place] % (Auto) Eos % (Auto) Baso % (Auto) Immature Gran # (Auto) Neut # (Auto) Lymph # (Auto) [place] # (Auto) Eos # (Auto) Baso # (Auto) Hypogranular Neuts Giant Platelets Echinocytes APTT PTT Ratio Sodium Potassium Chloride Carbon Dioxide Anion Gap BUN Creatinine Est Cr Clr Drug Dosing Est GFR ( Amer) Est GFR (Non-Af Amer) BUN/Creatinine Ratio Glucose POC Glucose 181 H Calcium Phosphorus Magnesium Hep Bs Antigen Hep Bs Antibody Hep Bs Antibody, Quant _ (1) Renal failure Acute renal failure type: Chronic kidney disease stage: Renal failure chronicity: (2) Atrial fibrillation Atrial fibrillation type: chronic Qualified Code(s): I48.2 - Chronic atrial fibrillation (3) Diarrhea Diarrhea type:
--- NOTE | 2018-06-02 14:05 | Hospitalist Progress Note ---
Date of Service June 02, 2018 Assessment & Plan (1) Renal failure: (2) Abdominal pain: (3) Acute dehydration: (4) Elevated INR: (5) COPD (chronic obstructive pulmonary disease): (6) Diarrhea: (7) CHF (congestive heart failure): (8) Thrombocytopenia: (9) Atrial fibrillation: (10) CKD (chronic kidney disease) stage 2, GFR 60-89 ml/min: (11) Acute hypokalemia: An 83-year-old white female admitted to ICU on May 28, 2018 because of acute kidney failure with diarrhea severe leukocytosis and Coumadin intoxication, had a PermCath , started dialysis Possible sepsis upon admission associated with hypotension, severe leukocytosis with possible C. diff from diarrhea, later stool C. difficile was negative Leukocytosis, has significantly improved upon admission, source of infection could be pneumonia upon admission, however in abdominal CT in the emergency room, in the lower lung there was no obvious infiltration With no pneumonia no C. difficile, infection source is unknown, had stopped on antibiotic, Possible fungal UTI initially, Diflucan was started, urine negative was no yeast or fungal growing, had DC Diflucan Abdominal pain, diarrhea with recent hospital stay upon admission no more abdominal pain no more diarrhea, surgery input appreciated [id number] kidney failure significant continue getting worse, Renal ultrasound was no hydro-nephrosis, Cook Box Filler input appreciated, patient finally agreed on dialysis, Possible end-stage renal disease, currently is on dialysis Thrombocytopenia, stable, continue follow-up Coumadin coagulopathy with INR more than 11 upon admission , will restart Coumadin, check tomorrow INR, continue heparin drip until INR more than 2 Elevated troponin upon admission likely from troponin leakage secondary to acute kidney, failure, or from sepsis Atrial fibrillation with rapid ventricular response upon admission . Rate improved, Hypotensive on admission, blood pressure improved History of congestive heart failure, need to watch fluid overload, History of hypertension. History of kidney stone. History of chronic obstructive pulmonary disease. Continue PCU, continue dialysis, PT OT evaluation and treatment as ordered, returned case inspector consultation for discharge plan Subjective Generally feeling better than yesterday awake alert orientated conversational Denies fever and chill, denies chest pain No diarrhea, no more abdominal pain Review of Systems Constitutional: Positive weakness, or fatigue Respiratory: Occasional cough, sputum, no wheezing, or dyspnea on exertion Cardiac: Denies palpitation, Abdomen: No pain, No nausea, No vomiting, No diarrhea, No constipation Musculoskeletal: No joint pain, No muscle pain, No swelling, No calf pain, No problem reported : No dysuria, No urinary frequency, No incontinence, No hematuria Neurologic: No paralysis, No weakness, No numbness/tingling, No vertigo, No balance problems Psychiatric: No depression symptoms, No anhedonism, Heme: No abnormal bleeding/bruising, No clotting problems Skin: No rash, No itch, No new/changing skin lesions, Physical Exam 2 Vital Signs (Past 24 Hours): Last Vital Signs Temp 36.9 C 06/02/18 11:49 Pulse 91 H 06/02/18 13:45 Resp 20 06/02/18 13:45 BP 114/70 06/02/18 11:49 Pulse Ox 94 06/02/18 13:45 Physical Exam: General Appearance: Looks tired, however better than yesterday , no acute distress, pleasant, conversational, WD/WN, Eyes: normal inspection, PERRL, EOMI, sclerae normal ENT: normal ENT inspection, hearing grossly normal, pharynx normal Neck: supple, no adenopathy, thyroid normal, no JVD, Respiratory/Chest: Right anterior chest wall has PermCath, no more oozing of blood in the dress, chest non-tender, no respiratory distress, no accessory muscle use, mild decrease breath sounds, no rales, wheezing Cardiovascular: regular rate, rhythm, no JVD, no murmur Abdomen: normal bowel sounds, non tender, soft, no organomegaly, Extremities: normal range of motion, non-tender, normal inspection, trace pedal edema, no calf tenderness, normal capillary refill, pelvis stable, joint has no limited range of motion, capillary refill is normal, no cyanosis clubbing Neurologic/Psychiatric: mate relief II-XII nml as tested, no motor/sensory deficits, alert Skin: normal color, Lymphatic: no adenopathy Results & Data Laboratory Results Laboratory Results - last 24 hr 06/01/18 06/01/18 06/01/18 13:58 22:26 22:26 WBC RBC Hgb Hct MCV MCH MCHC RDW Std Deviation RDW Coeff of Kathleen Plt Count MPV Immature Gran % (Auto) Neut % (Auto) Lymph % (Auto) [place] % (Auto) Eos % (Auto) Baso % (Auto) Immature Gran # (Auto) Neut # (Auto) Lymph # (Auto) [place] # (Auto) Eos # (Auto) Baso # (Auto) Hypogranular Neuts Giant Platelets Echinocytes APTT 42.9 H 71.7 H* PTT Ratio 1.7 2.8 Sodium Potassium Chloride Carbon Dioxide Anion Gap BUN Creatinine Est Cr Clr Drug Dosing Est GFR ( Amer) Est GFR (Non-Af Amer) BUN/Creatinine Ratio Glucose POC Glucose Calcium Phosphorus Magnesium Hep Bs Antigen Neg Hep Bs Antibody Non-Immune Hep Bs Antibody, Quant < 3.10 L 06/02/18 06/02/18 06/02/18 05:11 05:11 05:11 WBC 12.15 H RBC 4.07 L Hgb 11.6 L Hct 35.2 L MCV 86.5 MCH 28.5 MCHC 33.0 RDW Std Deviation 48.8 H RDW Coeff of Kathleen 15.7 H Plt Count 81 L MPV 11.9 H Immature Gran % (Auto) 3.4 Neut % (Auto) 68.9 Lymph % (Auto) 15.1 [place] % (Auto) 12.3 Eos % (Auto) 0.2 Baso % (Auto) 0.1 Immature Gran # (Auto) 0.41 H Neut # (Auto) 8.38 H Lymph # (Auto) 1.83 [place] # (Auto) 1.50 H Eos # (Auto) 0.02 Baso # (Auto) 0.01 Hypogranular Neuts 1+ Giant Platelets 1+ Echinocytes 1+ APTT 63.2 H* PTT Ratio 2.4 Sodium 132 L Potassium 3.5 Chloride 99 Carbon Dioxide 21 Anion Gap 12.0 H BUN 52 H Creatinine 5.19 H* D Est Cr Clr Drug Dosing 9.2 Est GFR ( Amer) 8.4 Est GFR (Non-Af Amer) 7.2 BUN/Creatinine Ratio 10.0 Glucose 89 POC Glucose Calcium 7.9 L Phosphorus 6.7 H Magnesium 2.1 Hep Bs Antigen Hep Bs Antibody Hep Bs Antibody, Quant 06/02/18 06/02/18 07:35 11:15 WBC RBC Hgb Hct MCV MCH MCHC RDW Std Deviation RDW Coeff of Kathleen Plt Count MPV Immature Gran % (Auto) Neut % (Auto) Lymph % (Auto) [place] % (Auto) Eos % (Auto) Baso % (Auto) Immature Gran # (Auto) Neut # (Auto) Lymph # (Auto) [place] # (Auto) Eos # (Auto) Baso # (Auto) Hypogranular Neuts Giant Platelets Echinocytes APTT PTT Ratio Sodium Potassium Chloride Carbon Dioxide Anion Gap BUN Creatinine Est Cr Clr Drug Dosing Est GFR ( Amer) Est GFR (Non-Af Amer) BUN/Creatinine Ratio Glucose POC Glucose 181 H 136 H Calcium Phosphorus Magnesium Hep Bs Antigen Hep Bs Antibody Hep Bs Antibody, Quant Microbiology 05/31/18 08:35 Blood Fungal Smear - Final 05/31/18 08:35 Blood Fungal Culture - Preliminary No yeast or fungus isolated - Report 1, Additional Report to Follow. _ (1) Renal failure Acute renal failure type: Chronic kidney disease stage: Renal failure chronicity: (2) Abdominal pain Abdominal location: (3) Diarrhea Diarrhea type: (4) CHF (congestive heart failure) Heart failure chronicity: unspecified Heart failure type: unspecified Qualified Code(s): I50.9 - Heart failure, unspecified (5) Atrial fibrillation Atrial fibrillation type: chronic Qualified Code(s): I48.2 - Chronic atrial fibrillation
[2018-06-02] MEDS ORDERED: WARFARIN SOD 5 MG TAB PO SCH (16:00)
[2018-06-02] MEDS: NORMOSOL-R 1,000 ML IV SCH (17:22)
[2018-06-02] MEDS: HEPARIN LOW DOSE DEXTROSE 25,000 UNITS/500 ML IV SCH (17:26)
[2018-06-02 18:53] LABS: INR 2.9 (0.9-1.1)
[2018-06-02] MEDS: PROCHLORPERAZINE 10 MG in SYRINGE 8 ML IV PRN (19:51)
[2018-06-03] MEDS: IPRATROPIUM BROMIDE NEB SOLN 0.02% 2.5 ML VIAL INH SCH ×4 (01:57→19:19)
[2018-06-03] MEDS: LEVALBUTEROL 1.25MG/0.5ML NEB NEB SCH ×4 (01:57→19:19)
[2018-06-03 06:29] LABS: Partial Thromboplastin Ratio 1.6; Partial Thromboplastin Time 42.2 Seconds (21.0-31.0); Prothrombin Time 28.1 Seconds (9.0-12.0)
[2018-06-03] MEDS: METOPROLOL SUCC 50MG EXT REL TAB PO SCH (07:10)
[2018-06-03 08:07] LABS: BUN Creatinine Ratio 8.4 (10-20); Calcium 7.9 mg/dl (8.5-10.1); Creatinine Clr Calc Pharmacy 11.1 ml/min; Est GFR (African American) 10.2; Est GFR (Non-African American) 8.8; Potassium 3.3 mmol/L (3.5-5.1)
[2018-06-03 08:11] LABS: Phosphorus 4.9 mg/dl (2.5-4.9)
[2018-06-03] MEDS: dilTIAZem HCl 60 MG TAB PO SCH ×4 (08:15→21:02)
--- NOTE | 2018-06-03 09:55 | Nephrology Progress Note ---
Date of Service June 03, 2018 Assessment & Plan (1) Renal failure: -- Baseline creatinine ~1.3 mg/dL -- Remains relatively oliguric -- YULIANA consistent with septic and ischemic ATN -- TDC placed 06/01/18 -- First HD treatment completed 06/01/18 and second treatment yesterday -- Monitor for renal recovery -- Monitor metabolic profile daily -- Document strict I/O's; Payne may be discontinued per protocol -- Medications are currently appropriately dosed for renal dysfunction -- CT abd/plv did not demonstrate obstruction -- UA demonstrated microscopic hematuria, pyuria, and 1+ bacteria following Payne placement. UA/microscopy will be repeated today. (2) Thrombocytopenia: -- Has been chronic and stable for ~1 year -- Normal spleen on abdominal CT scan (3) Atrial fibrillation: -- Rate control has been reasonable -- TTE demonstrated LVEF 55-60% with mild LVH/diastolic dysfunction, PASP 35-40 -- Remains asymptomatic -- Anticoagulated with warfarin (supratherapuetic on admission) (4) COPD (chronic obstructive pulmonary disease): -- Severe COPD with asthma, follows with Dr. Reddy as outpatient -- Admitted to [facility] last month with COPD exacerbation, discharged on prednisone 30 mg daily x 6 days (5) Diarrhea: -- CT abdomen on admission demonstrating gaseous distention of right and transverse colon as well as some suspicion of gastritis: possible viral gastroenteritis? -- Diarrhea resolved with Imodium prior to admission, presented with evidence of mild ileus -- C diff testing negative and treatment (IV flagyl and oral vanco) stopped after 4 days of therapy -- ID consult appreciated: blood and urine cultures negative Kayy presented to [facility] with evidence of severe sepsis (tachycardia, tachpnea, notable with increased lactate, mental status changes and YULIANA). Hypotension related to infection and intravascular volume depletion. Clinical history suggests possible GI source of infection given diarrhea and abdominal pain. Blood and urine cultures negative. C diff negative. (6) CKD (chronic kidney disease) stage 2, GFR 60-89 ml/min: -- Baseline creatinine ~1.3 mg/dL -- Non-proteinuric at baseline -- Had not previously followed with a leather production worker Subjective No acute events overnight. Kayy is resting comfortably in bed this morning. She continues to feel weak. She is breathing comfortably at rest. Supplemental oxygen increased to 4 L/min. Kayy denies chest pain or palpitations. Appetite is fair. She remains afebrile. She denies abdominal pain. She reports a loose bowel movement. No melena or hematochezia. Tolerated 1.7 L UF with HD yesterday. Target of 2 L adjusted due to cramping in her legs during treatment. Kayy denies pain. Review of Systems All systems reviewed & are unremarkable except as noted in HPI & below Physical Exam 2 Vital Signs (Past 24 Hours): Last Vital Signs Temp 37.1 C 06/03/18 07:42 Pulse 97 H 06/03/18 07:42 Resp 16 06/03/18 07:42 BP 93/60 L 06/03/18 07:42 Pulse Ox 95 06/03/18 07:42 Constitutional: + obese and + frail appearing; no acute distress Eyes: + anicteric sclerae; no conjunctival abnormality ENMT: Ears: no hearing impairment Mouth: oral mucous membranes not dry Neck: normal visual inspection and trachea midline RIJ TDC intact Respiratory: does not use accessory muscles and not tachypneic Auscultation : lungs clear to auscultation bilaterally and + rales (bibasilar) Cardiovascular: Rate/Rhythm: + tachycardic; + abnormal rhythm Heart Sounds : normal S1 and normal S2 Extremities: + edema (increasing soft pitting LE and dependent edema) Gastrointestinal (Abdomen): Inspection/Auscultation: normal bowel sounds Percussion/Palpation: abdomen soft; abdomen nontender and no guarding Musculoskeletal: Extremities: no cyanosis and no petechiae Skin: no rashes Neurologic: Motor/Sensory: no tremor and no asterixis Genitourinary: Payne draining cloudy urine Results & Data Laboratory Results Laboratory Results - last 24 hr 06/02/18 06/02/18 06/03/18 11:15 18:29 05:52 PT 28.0 H INR 2.9 H APTT PTT Ratio Sodium 135 L Potassium 3.3 L Chloride 100 Carbon Dioxide 23 Anion Gap 13.0 H BUN 37 H Creatinine 4.39 H D Est Cr Clr Drug Dosing 11.1 Est GFR ( Amer) 10.2 Est GFR (Non-Af Amer) 8.8 BUN/Creatinine Ratio 8.4 L Glucose 132 H POC Glucose 136 H Calcium 7.9 L Phosphorus 4.9 D Magnesium 2.0 06/03/18 06/03/18 06/03/18 05:52 05:55 07:24 PT 28.1 H INR 3.0 H APTT 42.2 H PTT Ratio 1.6 Sodium Potassium Chloride Carbon Dioxide Anion Gap BUN Creatinine Est Cr Clr Drug Dosing Est GFR ( Amer) Est GFR (Non-Af Amer) BUN/Creatinine Ratio Glucose POC Glucose 115 H Calcium Phosphorus Cancelled Magnesium Cancelled _ (1) Atrial fibrillation Atrial fibrillation type: chronic Qualified Code(s): I48.2 - Chronic atrial fibrillation (2) Diarrhea Diarrhea type: (3) Renal failure Acute renal failure type: Chronic kidney disease stage: Renal failure chronicity:
[2018-06-03 11:16] LABS: Appearance Urine Turbid (Clear); Bilirubin Urine Negative (Negative); Color Urine Dark Yellow; Glucose Urine UA Negative (Negative); Ketones Urine Negative (Negative); Leukocyte Esterase Urine 2+ (Negative); Nitrite Urine Negative (Negative); Protein Urine 1+ (Negative); Specific Gravity Urine 1.019 (1.000-1.030); Urobilinogen Urine Negative (Negative)
[2018-06-03 12:13] LABS: Bacteria Urine 1+ (Negative); Renal Epithelial Cells Urine >30 /lpf (0-5); WBC Urine >30 /hpf (0-5)
[2018-06-03] MEDS: NORMOSOL-R 1,000 ML IV SCH (12:42)
--- NOTE | 2018-06-03 14:38 | Hospitalist Progress Note ---
Date of Service June 03, 2018 Assessment & Plan (1) Renal failure: (2) Abdominal pain: (3) Acute dehydration: (4) Elevated INR: (5) COPD (chronic obstructive pulmonary disease): (6) Diarrhea: (7) CHF (congestive heart failure): (8) Thrombocytopenia: (9) Atrial fibrillation: (10) CKD (chronic kidney disease) stage 2, GFR 60-89 ml/min: (11) Acute hypokalemia: An 83-year-old white female admitted to ICU on May 28, 2018 because of acute kidney failure with diarrhea severe leukocytosis and Coumadin intoxication, had a PermCath , started dialysis Possible sepsis upon admission associated with hypotension, severe leuko/ cytosis with possible C. diff from diarrhea, later stool C. difficile was negative Leukocytosis, has significantly improved resolved upon admission, source of infection could be pneumonia upon admission, however in abdominal CT in the emergency room, in the lower lung there was no obvious infiltration With no pneumonia no C. difficile, infection source is unknown, had stopped on antibiotic, patient continued doing well Possible fungal UTI initially, Diflucan was started, urine negative was no yeast or fungal growing, had DC Diflucan Abdominal pain, diarrhea with recent hospital stay upon admission no more abdominal pain no more diarrhea, surgery input appreciated [id number] kidney failure significant continue getting worse, now si HD Dialysis dependent Payne catheter in place possible around 300 mL urine every day Renal ultrasound was no hydro-nephrosis, Process Controls Technician input appreciated, Possible end-stage renal disease, continue on dialysis per cpc Thrombocytopenia, stable, continue follow-up Coumadin coagulopathy with INR more than 11 upon admission , restarting Coumadin after medical condition stabilized yesterday, Check INR which is significant high at 3, Because of patient is on dialysis now, should not continue home dose of Coumadin , therefore will decrease Coumadin to 2 mg p.o. daily , check tomorrow INR, discontinue the heparin drip Elevated troponin upon admission likely from troponin leakage secondary to acute kidney, failure, or from sepsis Atrial fibrillation with rapid ventricular response upon admission . Rate improved, Hypotensive on admission, blood pressure improved History of congestive heart failure, need to watch fluid overload, History of hypertension. History of kidney stone. History of chronic obstructive pulmonary disease. Continue PCU, continue dialysis, PT OT evaluation and treatment as ordered, lining caser consultation for discharge plan Subjective Feeling tired, no appetite, however generally feeling better than yesterday, Denies fever and chill, denies chest pain No diarrhea, no more abdominal pain Review of Systems Constitutional: Positive weakness, or fatigue Respiratory: Occasional cough, no sputum, no wheezing, or dyspnea on exertion Cardiac: Denies palpitation, Abdomen: No pain, No nausea, No vomiting, No diarrhea, No constipation Musculoskeletal: No joint pain, No muscle pain, No swelling, No calf pain, No problem reported : No dysuria, No urinary frequency, No incontinence, No hematuria Neurologic: No paralysis, No weakness, No numbness/tingling, No vertigo, No balance problems Psychiatric: No depression symptoms, No anhedonism, Heme: No abnormal bleeding/bruising, No clotting problems Skin: No rash, No itch, No new/changing skin lesions, Physical Exam 2 Vital Signs (Past 24 Hours): Last Vital Signs Temp 36.8 C 06/03/18 11:26 Pulse 94 H 06/03/18 14:10 Resp 18 06/03/18 14:10 BP 107/65 06/03/18 11:26 Pulse Ox 96 06/03/18 14:10 Physical Exam: General Appearance: Looks tired, frainl , no acute distress, pleasant, conversational, WD/WN, Eyes: normal inspection, PERRL, EOMI, sclerae normal ENT: normal ENT inspection, hearing grossly normal, pharynx normal Neck: supple, no adenopathy, thyroid normal, mild JVD, Respiratory/Chest: Right anterior chest wall has PermCath, chest non-tender, no respiratory distress, no accessory muscle use, mild decrease breath sounds, no rales, wheezing Cardiovascular: regular rate, rhythm, no JVD, no murmur Abdomen: normal bowel sounds, non tender, soft, no organomegaly, Extremities: normal range of motion, non-tender, normal inspection, trace pedal edema, no calf tenderness, normal capillary refill, pelvis stable, joint has no limited range of motion, capillary refill is normal, no cyanosis clubbing Neurologic/Psychiatric: sustainability executive director II-XII nml as tested, no motor/sensory deficits, alert Skin: normal color, Lymphatic: no adenopathy Results & Data Laboratory Results Laboratory Results - last 24 hr 06/02/18 06/03/18 06/03/18 18:29 05:52 05:52 PT 28.0 H INR 2.9 H APTT PTT Ratio Sodium 135 L Potassium 3.3 L Chloride 100 Carbon Dioxide 23 Anion Gap 13.0 H BUN 37 H Creatinine 4.39 H D Est Cr Clr Drug Dosing 11.1 Est GFR ( Amer) 10.2 Est GFR (Non-Af Amer) 8.8 BUN/Creatinine Ratio 8.4 L Glucose 132 H POC Glucose Calcium 7.9 L Phosphorus 4.9 D Cancelled Magnesium 2.0 Cancelled Urine Color Urine Appearance Urine pH Ur Specific [place] Urine Protein Urine Glucose (UA) Urine Ketones Urine Blood Urine Nitrite Urine Bilirubin Urine Urobilinogen Ur Leukocyte Esterase Urine RBC Urine WBC Ur Epithelial Cells Ur Renal Epithelial Cell Urine Bacteria Urine Yeast 06/03/18 06/03/18 06/03/18 05:55 07:24 10:55 PT 28.1 H INR 3.0 H APTT 42.2 H PTT Ratio 1.6 Sodium Potassium Chloride Carbon Dioxide Anion Gap BUN Creatinine Est Cr Clr Drug Dosing Est GFR ( Amer) Est GFR (Non-Af Amer) BUN/Creatinine Ratio Glucose POC Glucose 115 H Calcium Phosphorus Magnesium Urine Color Dark Yellow Urine Appearance Turbid H Urine pH 5.0 Ur Specific [place] 1.019 Urine Protein 1+ H Urine Glucose (UA) Negative Urine Ketones Negative Urine Blood 2+ H Urine Nitrite Negative Urine Bilirubin Negative Urine Urobilinogen Negative Ur Leukocyte Esterase 2+ H Urine RBC 5-10 H Urine WBC >30 H Ur Epithelial Cells 5-10 H Ur Renal Epithelial Cell >30 H Urine Bacteria 1+ H Urine Yeast Budding H Microbiology 05/28/18 15:20 Blood Blood Culture - Final No growth 05/28/18 13:56 Blood Blood Culture - Final No growth 05/31/18 08:35 Blood Fungal Smear - Final 05/31/18 08:35 Blood Fungal Culture - Preliminary No yeast or fungus isolated - Report 1, Additional Report to Follow. _ (1) CHF (congestive heart failure) Heart failure chronicity: unspecified Heart failure type: unspecified Qualified Code(s): I50.9 - Heart failure, unspecified (2) Atrial fibrillation Atrial fibrillation type: chronic Qualified Code(s): I48.2 - Chronic atrial fibrillation (3) Diarrhea Diarrhea type: (4) Renal failure Acute renal failure type: Chronic kidney disease stage: Renal failure chronicity: (5) Abdominal pain Abdominal location:
[2018-06-03] MEDS ORDERED: WARFARIN SOD 2 MG TAB PO SCH (16:00)
[2018-06-04] MEDS: IPRATROPIUM BROMIDE NEB SOLN 0.02% 2.5 ML VIAL INH SCH ×2 (01:50→06:57)
[2018-06-04] MEDS: LEVALBUTEROL 1.25MG/0.5ML NEB NEB SCH ×2 (01:50→06:57)
[2018-06-04 06:22] LABS: Prothrombin Time 35.5 Seconds (9.0-12.0)
[2018-06-04 06:31] LABS: INR 3.8 (0.9-1.1)
[2018-06-04] MEDS: METOPROLOL SUCC 50MG EXT REL TAB PO SCH (07:46)
[2018-06-04] MEDS: dilTIAZem HCl 60 MG TAB PO SCH ×4 (07:46→20:53)
[2018-06-04 08:50] LABS: Hematocrit (blood only) 36.5 % (37-47); Hemoglobin 12.1 g/dL (12.0-16.0); Mean Corpuscular Volume 89.5 fL (80-100); Nucleated RBC # (auto) 0.02 K/uL (0-0); Nucleated RBC % (auto) 0.2 %; RDW Coefficient of Variation 16.1 % (11.5-14.5); RDW Standard Deviation 50.2 fL (36.4-46.3); Red Blood Count 4.08 M/uL (4.2-5.4); White Blood Count 9.98 K/uL (4.8-10.8)
[2018-06-04 08:52] LABS: Mean Corpuscular Hgb Conc 33.2 g/dL (32-36); Mean Platelet Volume 11.9 fL (7.4-10.4); Platelet Count 79 K/uL (130-400)
[2018-06-04 09:07] LABS: BUN Creatinine Ratio 8.5 (10-20); Creatinine Clr Calc Pharmacy 10.8 ml/min; Est GFR (African American) 9.9; Est GFR (Non-African American) 8.5
[2018-06-04] MEDS ORDERED: SODIUM CHLORIDE 0.9% 1000ML 1,000 ML IV PRN (09:39)
[2018-06-04] MEDS ORDERED: HEPARIN SOD (PORCINE) 1000 UNIT/ML 10 ML VIAL IV SCH (09:39)
--- NOTE | 2018-06-04 09:42 | Nephrology Progress Note ---
Date of Service June 04, 2018 Assessment & Plan (1) Renal failure: -- Baseline creatinine ~1.3 mg/dL -- Patient remains oliguric and creatinine is increasing in between dialysis treatments. Patient remains within the injury phase of YULIANA -- Will provide HD today for urea clearance. Orders entered into EMR and HD RN notified -- TDC placed and 1st HD treatment 06/01/18 -- Document strict I/O's -- CT abd/plv did not demonstrate obstruction -- UA is now negative for granular casts (2) Thrombocytopenia: -- Has been chronic and stable for ~1 year -- Normal spleen on abdominal CT scan (3) Atrial fibrillation: -- Rate control has been reasonable -- TTE demonstrated LVEF 55-60% with mild LVH/diastolic dysfunction, PASP 35-40 -- Remains asymptomatic -- Anticoagulated with warfarin (supratherapuetic on admission) (4) COPD (chronic obstructive pulmonary disease): -- Severe COPD with asthma, follows with Dr. Reddy as outpatient -- Admitted to [facility] last month with COPD exacerbation, discharged on prednisone 30 mg daily x 6 days (5) Diarrhea: -- CT abdomen on admission demonstrating gaseous distention of right and transverse colon as well as some suspicion of gastritis: possible viral gastroenteritis? -- Diarrhea resolved with Imodium prior to admission, presented with evidence of mild ileus -- C diff testing negative and treatment (IV flagyl and oral vanco) stopped after 4 days of therapy Kayy presented to [facility] with evidence of severe sepsis (tachycardia, tachpnea, notable with increased lactate, mental status changes and YULIANA). Hypotension related to infection and intravascular volume depletion. Clinical history suggests possible GI source of infection given diarrhea and abdominal pain. Blood and urine cultures negative. C diff negative. Subjective Ms. Navarro was seen & examined in her hospital room this morning. She remains oliguric. Ms. Navarro reports that she is breathing comfortably on O2 at 3 L / min NC. Her only complaint is that of weakness. Constitutional: + weakness; no fever Cardiovascular: no chest pain Physical Exam 2 Vital Signs (Past 24 Hours): Last Vital Signs Temp 37.0 C 06/04/18 07:41 Pulse 120 H 06/04/18 07:41 Resp 18 06/04/18 07:41 BP 109/64 06/04/18 07:41 Pulse Ox 96 06/04/18 07:41 Eyes: PERRL, conjunctivae normal, anicteric sclerae Neck: trachea midline, no thyromegaly Respiratory: normal respiratory effort, lungs clear to auscultation Cardiovascular: Rate/Rhythm: regular rhythm and + tachycardic Extremities: + edema (1+ pretibial edema) Gastrointestinal (Abdomen): Inspection/Auscultation: + abdomen distended and + hypoactive bowel sounds Percussion/Palpation: abdomen nontender and no guarding Results & Data Laboratory Results Laboratory Tests 06/04/18 06/04/18 05:23 05:23 WBC 9.98 Hgb 12.1 Hct 36.5 L Plt Count 79 L Sodium 135 L Potassium 3.0 L Chloride 100 Carbon Dioxide 23 BUN 40 H Creatinine 4.52 H* Calcium 8.0 L Laboratory Tests 06/03/18 10:55 Urine Color Dark Yellow Urine Appearance Turbid H Urine pH 5.0 Ur Specific [place] 1.019 Urine Protein 1+ H Urine Glucose (UA) Negative Urine Blood 2+ H Urine Nitrite Negative Ur Leukocyte Esterase 2+ H Urine RBC 5-10 H Urine WBC >30 H Ur Epithelial Cells 5-10 H Ur Renal Epithelial Cell >30 H Urine Bacteria 1+ H Urine Yeast Budding H _ (1) Renal failure Acute renal failure type: Chronic kidney disease stage: Renal failure chronicity: (2) Atrial fibrillation Atrial fibrillation type: chronic Qualified Code(s): I48.2 - Chronic atrial fibrillation (3) Diarrhea Diarrhea type:
--- NOTE | 2018-06-04 16:50 | Hospitalist Progress Note ---
Date of Service June 04, 2018 Assessment & Plan (1) Renal failure: Baseline Cr ~1.3; now requiring dialysis. Presumed YULIANA due to ATN from her hypotension with BP in the 70/50s. - PermaCath placed on 06/01 by vascular team - Continuing HD per nephrology (2) CKD (chronic kidney disease) stage 3, GFR 30-59 ml/min: Prior Cr was ~1.3 with eGFR of ~40. - See above (3) Hypotension: On presentation on 05/28, she was hypotensive to the 70/50s. Only focal complaint was diarrhea. She was initially put on oral vancomycin, but C. diff testing was negative and it was stopped. She was also put on fluconazole for a possible fungal UTI; however, this was stopped prior to 06/04. She was also given a single dose of cefoxitin in the ED, but this was not continued. She was given large quantities of IV fluids (6L, then 4L the next day), so her hypotension may have entirely been from dehydration in the setting of a viral gastroenteritis. - As of 06/04, off all antibiotics or anti-fungals with a stable BP mostly ranging 100/50 to 135/70. (4) Atrial fibrillation: Reports having afib for ~1 year. At home, on warfarin for anticoagulation and diltiazem + metoprolol for rate-control. - Continue warfarin as needed (current INR is 3.8, so presently holding) - Continue diltiazem and metoprolol for rate control (5) Elevated INR: Initial INR was >11.0 on admission with reversal and then heparin gtt for her afib. - Monitor INR - No further heparin gtt needed (6) Diarrhea: Initially presented with diarrhea with CT a/p showing distention of the right and transverse colon measuring up to 7cm. However, diarrhea resolved without any treatment and C. diff testing on 05/30 was negative. At this point, diarrhea has resolved, and was mostly likely a viral gastroenteritis. - Monitor for further diarrhea (7) Thrombocytopenia: Likely due to acute illness. Platelets were 70-100 range over last month. - Monitor for signs of bleeding - Monitor platelets (8) COPD (chronic obstructive pulmonary disease): On long-acting inhaler at home. - Restarted home inhaler on 06/04 - Xopenex PRN (9) CHF (congestive heart failure): Diastolic CHF with echo in 04/2018 showing EF 55-60% with mild mitral regurg and mild LVH. No current shortness of breath or swelling to indicate exacerbation. - Monitor volume status (10) DVT prophylaxis: On anticoagulation for afib Subjective 83yo F w/ hx of afib, COPD, and HTN who presented with sepsis picture and kidney injury, now with resolution of sepsis, but with conitnued YULIANA requiring dialysis. This morning, she reports being weak, but otherwise has not complaints. Reports no fevers/chills, chest pain, shortness of breath, abdominal pain, nausea, or vomiting. Physical Exam 2 Vital Signs (Past 24 Hours): Last Vital Signs Temp 36.7 C 06/04/18 15:38 Pulse 110 H 06/04/18 15:38 Resp 22 06/04/18 15:38 BP 135/67 06/04/18 15:38 Pulse Ox 94 06/04/18 15:38 Constitutional: WD/WN, vitals as above well developed, well nourished, + obese, + frail appearing and comfortable; no acute distress Eyes: PERRL, conjunctivae normal, anicteric sclerae + anicteric sclerae; no conjunctival abnormality ENMT: Ears: no hearing impairment Mouth: oral mucous membranes not dry Mallampati Class: III Neck: trachea midline, no thyromegaly normal visual inspection and trachea midline Respiratory: normal respiratory effort, lungs clear to auscultation normal respiratory effort; no respiratory distress, no labored breathing, no retractions, does not use accessory muscles and not tachypneic Auscultation: lungs clear to auscultation bilaterally, + diminished lung sounds and + rales ( bibasilar) Cardiovascular: RRR, no murmur, no edema Rate/Rhythm: regular rate, regular rhythm and + tachycardic Heart Sounds: normal S1 and normal S2 Vessels: + JVD and dorsalis pedis pulses present Extremities: + edema (1+ pretibial edema) Gastrointestinal (Abdomen): normal bowel sounds, soft, nontender, no hepatosplenomegaly Inspection/Auscultation: abdomen normal to inspection, + abdomen distended, normal bowel sounds and + hypoactive bowel sounds Percussion/Palpation: abdomen soft and + tympanic to percussion; abdomen nontender, no guarding and abdomen not rigid Musculoskeletal: Extremities: no cyanosis and no petechiae Skin: no rashes, warm and dry normal turgor; no rashes Neurologic: normal touch/pain/proprioception, CN's II-XI intact bilaterally and awake; not confused (but does seem mildly forgetful) Motor/Sensory: no tremor and no asterixis Psychiatric: A+Ox3, euthymic affect Orientation: alert and oriented x 3 Lymphatic: no cervical or axillary lymphadenopathy _ (1) Renal failure Acute renal failure type: Chronic kidney disease stage: Renal failure chronicity: (2) Diarrhea Diarrhea type: (3) CHF (congestive heart failure) Heart failure chronicity: unspecified Heart failure type: unspecified Qualified Code(s): I50.9 - Heart failure, unspecified (4) Atrial fibrillation Atrial fibrillation type: chronic Qualified Code(s): I48.2 - Chronic atrial fibrillation
[2018-06-05 05:57] LABS: Hemoglobin 11.5 g/dL (12.0-16.0); Mean Corpuscular Hgb Conc 31.9 g/dL (32-36); Mean Corpuscular Volume 88.7 fL (80-100); RDW Coefficient of Variation 16.3 % (11.5-14.5); RDW Standard Deviation 51.2 fL (36.4-46.3); Red Blood Count 4.06 M/uL (4.2-5.4); White Blood Count 8.89 K/uL (4.8-10.8)
[2018-06-05 05:59] LABS: Platelet Count 79 K/uL (130-400)
[2018-06-05 06:35] LABS: BUN Creatinine Ratio 6.5 (10-20); Calcium 7.6 mg/dl (8.5-10.1); Creatinine Clr Calc Pharmacy 15.2 ml/min; Est GFR (African American) 14.8; Est GFR (Non-African American) 12.7
[2018-06-05] MEDS: METOPROLOL SUCC 50MG EXT REL TAB PO SCH (07:54)
[2018-06-05] MEDS: dilTIAZem HCl 60 MG TAB PO SCH ×4 (07:54→21:21)
[2018-06-05 08:41] LABS: INR 3.2 (0.9-1.1); Prothrombin Time 30.7 Seconds (9.0-12.0)
--- NOTE | 2018-06-05 10:55 | Nephrology Progress Note ---
Date of Service June 05, 2018 Assessment & Plan (1) Renal failure: -- Baseline creatinine ~1.3 mg/dL -- Volume status and electrolyte balance are acceptable at this time. No acute indication for HD today. Will monitor UO and reassess in am -- TDC placed and 1st HD treatment 06/01/18 -- Document strict I/O's -- CT abd/plv did not demonstrate obstruction -- UA is now negative for granular casts (2) Thrombocytopenia: -- Has been chronic and stable for ~1 year -- Normal spleen on abdominal CT scan (3) Atrial fibrillation: -- Rate control has been reasonable -- TTE demonstrated LVEF 55-60% with mild LVH/diastolic dysfunction, PASP 35-40 -- Remains asymptomatic -- Anticoagulated with warfarin (supratherapuetic on admission) (4) COPD (chronic obstructive pulmonary disease): -- Severe COPD with asthma, follows with Dr. Reddy as outpatient -- Admitted to [facility] last month with COPD exacerbation, discharged on prednisone 30 mg daily x 6 days (5) Diarrhea: -- CT abdomen on admission demonstrating gaseous distention of right and transverse colon as well as some suspicion of gastritis: possible viral gastroenteritis? -- Diarrhea resolved with Imodium prior to admission, presented with evidence of mild ileus -- C diff testing negative and treatment (IV flagyl and oral vanco) stopped after 4 days of therapy Kayy presented to [facility] with evidence of severe sepsis (tachycardia, tachpnea, notable with increased lactate, mental status changes and YULIANA). Hypotension related to infection and intravascular volume depletion. Clinical history suggests possible GI source of infection given diarrhea and abdominal pain. Blood and urine cultures negative. C diff negative. Subjective Ms. Navarro was seen & examined in her hospital room this morning. She was dialyzed yesterday without complication. IJ THC ran well. No UF obtained. Patient c/o weakness but denies fever, angina or dyspnea Constitutional: + weakness; no fever Gastrointestinal: as per Subjective / HPI Physical Exam 2 Vital Signs (Past 24 Hours): Last Vital Signs Temp 36.3 C L 06/05/18 07:23 Pulse 98 H 06/05/18 07:23 Resp 24 06/05/18 07:23 BP 120/71 06/05/18 07:23 Pulse Ox 93 06/05/18 07:23 Eyes: PERRL, conjunctivae normal, anicteric sclerae Neck: trachea midline, no thyromegaly Respiratory: normal respiratory effort, lungs clear to auscultation Cardiovascular: Rate/Rhythm: regular rhythm and + tachycardic Extremities: + edema (1+ pretibial edema) Gastrointestinal (Abdomen): Inspection/Auscultation: + abdomen distended and + hypoactive bowel sounds Percussion/Palpation: abdomen nontender and no guarding Results & Data Laboratory Results Laboratory Tests 06/05/18 06/05/18 05:26 05:26 WBC 8.89 Hgb 11.5 L Hct 36.0 L Plt Count 79 L Sodium 136 Potassium 3.0 L Chloride 103 Carbon Dioxide 23 BUN 21 H Creatinine 3.24 H D Glucose 107 H _ (1) Renal failure Acute renal failure type: Chronic kidney disease stage: Renal failure chronicity: (2) Atrial fibrillation Atrial fibrillation type: chronic Qualified Code(s): I48.2 - Chronic atrial fibrillation (3) Diarrhea Diarrhea type:
--- NOTE | 2018-06-05 17:17 | Palliative Care Progress Note ---
Date of Service June 05, 2018 Assessment & Plan (1) Goals of care, counseling/discussion: -This 83 year old female with PMH COPD, chronic diastolic CHF, Afib on warfarin, CKD stage 2 and HTN presented with weakness in the setting of diarrhea x 1 week. Admitted to the ICU for concern of septic shock likely in the setting of viral gastroenteritis vs. possible urinary fungal infection. Initial concern for C. diff but testing negative. Remains in Afib on heparin drip with improved rate control. Continues to have worsening BUN/Cr and remains oliguric. Patient has been stating that she does not want dialysis and would be ok with transitioning to comfort if her kidneys did not improve. Palliative care consulted to establish goals of care. She will likely need SNF for rehab on discharge, possibly for long-term placement. Case management following. -Patient is a DNR and wishes to remain DNR. -Will continue to follow and provide support with medical decision making (2) Renal failure: (3) COPD (chronic obstructive pulmonary disease): (4) CHF (congestive heart failure): (5) Hypoxia: Subjective Patient seen and examined briefly in room 202 just prior to being moved to room 401. Patient seen and examined in room 401. Patient awake and alert, no acute distress. Patient states she finds dialysis fatiguing but is agreeable to continue dialysis at this time. Patient's creatinine is 3.24 with an estimated GFR of 13. Patient is planned for placement at [facility]. Review of Systems Patient denies fever, chills, chest pain, increased shortness of breath, or abdominal pain. Patient does report frequent loose stools Physical Exam 2 Vital Signs (Past 24 Hours): Last Vital Signs Temp 36.6 C 06/05/18 15:40 Pulse 102 H 06/05/18 15:40 Resp 18 06/05/18 15:40 BP 106/68 06/05/18 15:40 Pulse Ox 96 06/05/18 15:40 Physical Exam: PE: NAD HEENT: EOMI, normal hearing Respirations: No rhonchi, no increased work of breathing CV: Tachycardic, bilateral lower extremity edema, left upper extremity edema Abdomen: Soft, nontender Neuro: Alert and oriented x4 Time Spent Attending Total time spent 35 minutes with greater than 50% of the time spent at bedside discussing patient's treatment options and goals of care. _ (1) Renal failure Acute renal failure type: Chronic kidney disease stage: Renal failure chronicity: (2) CHF (congestive heart failure) Heart failure chronicity: unspecified Heart failure type: unspecified Qualified Code(s): I50.9 - Heart failure, unspecified
--- NOTE | 2018-06-05 17:21 | Hospitalist Progress Note ---
Date of Service June 05, 2018 Assessment & Plan (1) Renal failure: Baseline Cr ~1.3; now requiring dialysis. Presumed YULIANA due to ATN from her hypotension with BP in the 70/50s. - PermaCath placed on 06/01 by vascular team - Continuing HD per nephrology - Unclear about long-term HD needs (2) CKD (chronic kidney disease) stage 3, GFR 30-59 ml/min: Prior Cr was ~1.3 with eGFR of ~40. - See above (3) Hypotension: On presentation on 05/28, she was hypotensive to the 70/50s. Only focal complaint was diarrhea. She was initially put on oral vancomycin, but C. diff testing was negative and it was stopped. She was also put on fluconazole for a possible fungal UTI; however, this was stopped prior to 06/04. She was also given a single dose of cefoxitin in the ED, but this was not continued. She was given large quantities of IV fluids (6L, then 4L the next day), so her hypotension may have entirely been from dehydration in the setting of a viral gastroenteritis. - As of 06/05, off all antibiotics or anti-fungals with a stable BP mostly ranging 100/50 to 135/70. (4) Atrial fibrillation: Reports having afib for ~1 year. At home, on warfarin for anticoagulation and diltiazem + metoprolol for rate-control. - Continue warfarin as needed (current INR is 3.8, so presently holding) - Continue diltiazem and metoprolol for rate control - On 06/05, her HR is ~90-100, generally within goal (5) Elevated INR: Initial INR was >11.0 on admission with reversal and then heparin gtt for her afib. - Monitor INR - No further heparin gtt needed - INR on 06/05 was 3.2. (6) Diarrhea: Initially presented with diarrhea with CT a/p showing distention of the right and transverse colon measuring up to 7cm. However, diarrhea resolved without any treatment and C. diff testing on 05/30 was negative. At this point, diarrhea has resolved, and was mostly likely a viral gastroenteritis. - Monitor for further diarrhea (7) Thrombocytopenia: Likely due to acute illness. Platelets were 70-100 range over last month. - Monitor for signs of bleeding - Monitor platelets (8) COPD (chronic obstructive pulmonary disease): On long-acting inhaler at home. - Restarted home inhaler on 06/05 - Xopenex PRN (9) CHF (congestive heart failure): Diastolic CHF with echo in 04/2018 showing EF 55-60% with mild mitral regurg and mild LVH. No current shortness of breath or swelling to indicate exacerbation. - Monitor volume status (10) DVT prophylaxis: On anticoagulation for afib Subjective 83yo F w/ hx of afib, COPD, and HTN who presented with sepsis picture and kidney injury, now with resolution of sepsis, but with continued YULIANA requiring dialysis. This morning, she reports being weak, but otherwise has not complaints. Reports no fevers/chills, chest pain, shortness of breath, abdominal pain, nausea, or vomiting. Physical Exam 2 Vital Signs (Past 24 Hours): Last Vital Signs Temp 36.6 C 06/05/18 15:40 Pulse 102 H 06/05/18 15:40 Resp 18 06/05/18 15:40 BP 106/68 06/05/18 15:40 Pulse Ox 96 06/05/18 15:40 Constitutional: WD/WN, vitals as above well developed, well nourished, + obese, + frail appearing and comfortable; no acute distress Eyes: PERRL, conjunctivae normal, anicteric sclerae + anicteric sclerae; no conjunctival abnormality ENMT: Ears: no hearing impairment Neck: trachea midline, no thyromegaly normal visual inspection and trachea midline Respiratory: normal respiratory effort, lungs clear to auscultation Auscultation: + diminished lung sounds Cardiovascular: Rate/Rhythm: regular rate, regular rhythm and + tachycardic Heart Sounds: normal S1 and normal S2 Gastrointestinal (Abdomen): normal bowel sounds, soft, nontender, no hepatosplenomegaly Inspection/Auscultation: abdomen normal to inspection, + abdomen distended, normal bowel sounds and + hypoactive bowel sounds Percussion/Palpation: abdomen soft and + tympanic to percussion; abdomen nontender, no guarding and abdomen not rigid Musculoskeletal: Extremities: no cyanosis and no petechiae Skin: no rashes, warm and dry normal turgor; no rashes Neurologic: awake Motor/Sensory: no tremor and no asterixis Psychiatric: Orientation: alert and oriented x 3 Lymphatic: no cervical or axillary lymphadenopathy _ (1) Renal failure Acute renal failure type: Chronic kidney disease stage: Renal failure chronicity: (2) Atrial fibrillation Atrial fibrillation type: chronic Qualified Code(s): I48.2 - Chronic atrial fibrillation (3) Diarrhea Diarrhea type: (4) CHF (congestive heart failure) Heart failure chronicity: unspecified Heart failure type: unspecified Qualified Code(s): I50.9 - Heart failure, unspecified
[2018-06-06] MEDS: BREO ELLIPTA ~ ORDER AWAITING ACTION SCH ×3 (00:05→16:16)
[2018-06-06 07:42] LABS: Hematocrit (blood only) 36.5 % (37-47); Hemoglobin 11.6 g/dL (12.0-16.0); Mean Corpuscular Hgb Conc 31.8 g/dL (32-36); Mean Corpuscular Volume 89.2 fL (80-100); RDW Coefficient of Variation 16.4 % (11.5-14.5); RDW Standard Deviation 52.6 fL (36.4-46.3); Red Blood Count 4.09 M/uL (4.2-5.4); White Blood Count 7.81 K/uL (4.8-10.8)
[2018-06-06 07:52] LABS: INR 2.6 (0.9-1.1)
[2018-06-06 07:58] LABS: Mean Platelet Volume 10.6 fL (7.4-10.4); Platelet Count 88 K/uL (130-400)
[2018-06-06 08:09] LABS: Est GFR (African American) 14.6; Est GFR (Non-African American) 12.6; Potassium 2.8 mmol/L (3.5-5.1)
[2018-06-06 08:10] LABS: Calcium 7.9 mg/dl (8.5-10.1); Creatinine Clr Calc Pharmacy 15.1 ml/min
[2018-06-06] MEDS: METOPROLOL SUCC 50MG EXT REL TAB PO SCH (08:45)
[2018-06-06] MEDS: dilTIAZem HCl 60 MG TAB PO SCH ×4 (08:45→20:24)
--- NOTE | 2018-06-06 11:39 | Nephrology Progress Note ---
Date of Service June 06, 2018 Assessment & Plan (1) Renal failure: -- Baseline creatinine ~1.3 mg/dL -- Volume status and electrolyte balance are acceptable at this time. Creatinine remains stable at 3.2. No acute indication for HD today. Will monitor UO and reassess in am -- TDC placed and 1st HD treatment 06/01/18 -- Document strict I/O's -- CT abd/plv did not demonstrate obstruction -- UA is now negative for granular casts (2) Thrombocytopenia: -- Has been chronic and stable for ~1 year -- Normal spleen on abdominal CT scan (3) Atrial fibrillation: -- Rate control has been reasonable -- TTE demonstrated LVEF 55-60% with mild LVH/diastolic dysfunction, PASP 35-40 -- Remains asymptomatic -- Anticoagulated with warfarin (supratherapuetic on admission) (4) COPD (chronic obstructive pulmonary disease): -- Severe COPD with asthma, follows with Dr. Reddy as outpatient -- Admitted to [facility] last month with COPD exacerbation, discharged on prednisone 30 mg daily x 6 days (5) Diarrhea: -- CT abdomen on admission demonstrating gaseous distention of right and transverse colon as well as some suspicion of gastritis: possible viral gastroenteritis? -- Diarrhea resolved with Imodium prior to admission, presented with evidence of mild ileus -- C diff testing negative and treatment (IV flagyl and oral vanco) stopped after 4 days of therapy Kayy presented to [facility] with evidence of severe sepsis (tachycardia, tachpnea, notable with increased lactate, mental status changes and YULIANA). Hypotension related to infection and intravascular volume depletion. Clinical history suggests possible GI source of infection given diarrhea and abdominal pain. Blood and urine cultures negative. C diff negative. Subjective Ms. Navarro was seen & examined in her hospital room this morning. Patient c/o weakness but denies fever, angina or dyspnea. Her last dialysis treatment was 06/04/18. Constitutional: + weakness; no fever Gastrointestinal: as per Subjective / HPI Physical Exam 2 Vital Signs (Past 24 Hours): Last Vital Signs Temp 36.3 C L 06/06/18 07:00 Pulse 99 H 06/06/18 07:00 Resp 16 06/06/18 07:00 BP 122/76 06/06/18 07:00 Pulse Ox 95 06/06/18 07:00 Eyes: PERRL, conjunctivae normal, anicteric sclerae Neck: trachea midline, no thyromegaly Respiratory: normal respiratory effort, lungs clear to auscultation Cardiovascular: Rate/Rhythm: regular rhythm and + tachycardic Extremities: + edema (1+ pretibial edema) Gastrointestinal (Abdomen): Inspection/Auscultation: + abdomen distended and + hypoactive bowel sounds Percussion/Palpation: abdomen nontender and no guarding Results & Data Laboratory Results Laboratory Tests 06/06/18 06/06/18 07:20 07:20 WBC 7.81 Hgb 11.6 L Hct 36.5 L Plt Count 88 L Sodium 139 Potassium 2.8 L Chloride 105 Carbon Dioxide 24 BUN 26 H Creatinine 3.27 H Glucose 104 H _ (1) Renal failure Acute renal failure type: Chronic kidney disease stage: Renal failure chronicity: (2) Atrial fibrillation Atrial fibrillation type: chronic Qualified Code(s): I48.2 - Chronic atrial fibrillation (3) Diarrhea Diarrhea type:
[2018-06-06] MEDS: ONDANSETRON INJ 2 MG/ML 2 ML VIAL IV PRN (14:27)
--- NOTE | 2018-06-06 16:19 | Hospitalist Progress Note ---
Date of Service June 06, 2018 Assessment & Plan (1) Renal failure: Baseline Cr ~1.3; now requiring dialysis. Presumed YULIANA due to ATN from her hypotension with BP in the 70/50s. - PermaCath placed on 06/01 by vascular team - Continuing HD per nephrology - Unclear about long-term HD needs - On 06/06, Cr remained stable, and hemodialysis was held. Hoping that kidneys are recovering (2) CKD (chronic kidney disease) stage 3, GFR 30-59 ml/min: Prior Cr was ~1.3 with eGFR of ~40. - See above (3) Hypotension: On presentation on 05/28, she was hypotensive to the 70/50s. Only focal complaint was diarrhea. She was initially put on oral vancomycin, but C. diff testing was negative and it was stopped. She was also put on fluconazole for a possible fungal UTI; however, this was stopped prior to 06/04. She was also given a single dose of cefoxitin in the ED, but this was not continued. She was given large quantities of IV fluids (6L, then 4L the next day), so her hypotension may have entirely been from dehydration in the setting of a viral gastroenteritis. - As of 06/05, off all antibiotics or anti-fungals with a stable BP mostly ranging 100/50 to 135/70. (4) Atrial fibrillation: Reports having afib for ~1 year. At home, on warfarin for anticoagulation and diltiazem + metoprolol for rate-control. - Continue diltiazem and metoprolol for rate control - On 06/05, her HR is ~90-100, generally within goal - Continue warfarin as needed (discussed with pharmacy and restarted warfarin 2mg daily) (5) Elevated INR: Initial INR was >11.0 on admission with reversal and then heparin gtt for her afib. - Monitor INR - No further heparin gtt needed - INR on 06/06 was 2.6. (6) Diarrhea: Initially presented with diarrhea with CT a/p showing distention of the right and transverse colon measuring up to 7cm. However, diarrhea resolved without any treatment and C. diff testing on 05/30 was negative. At this point, diarrhea has resolved, and was mostly likely a viral gastroenteritis. - Monitor for further diarrhea (7) Thrombocytopenia: Likely due to acute illness. Platelets were 70-100 range over last month. - Monitor for signs of bleeding - Monitor platelets (8) COPD (chronic obstructive pulmonary disease): On long-acting inhaler at home. - Restarted home inhaler on 06/05 - Xopenex PRN (9) CHF (congestive heart failure): Diastolic CHF with echo in 04/2018 showing EF 55-60% with mild mitral regurg and mild LVH. No current shortness of breath or swelling to indicate exacerbation. - Monitor volume status (10) DVT prophylaxis: On anticoagulation for afib Subjective 83yo F w/ hx of afib, COPD, and HTN who presented with sepsis picture and kidney injury, now with resolution of sepsis, but with continued YULIANA requiring dialysis. This morning, she is in better spirits. She is pleased that her Cr is stable and that she may not need HD in the long-term. Reports no fevers/chills, chest pain, shortness of breath, abdominal pain, nausea, or vomiting. Physical Exam 2 Vital Signs (Past 24 Hours): Last Vital Signs Temp 36.2 C L 06/06/18 15:02 Pulse 93 H 06/06/18 15:02 Resp 18 06/06/18 15:02 BP 107/70 06/06/18 15:02 Pulse Ox 93 06/06/18 15:02 Constitutional: WD/WN, vitals as above well developed, well nourished, + obese, + frail appearing and comfortable; no acute distress Eyes: PERRL, conjunctivae normal, anicteric sclerae + anicteric sclerae; no conjunctival abnormality ENMT: Ears: no hearing impairment Mouth: oral mucous membranes not dry Neck: trachea midline, no thyromegaly normal visual inspection and trachea midline Respiratory: normal respiratory effort; no respiratory distress, no labored breathing, no retractions, does not use accessory muscles and not tachypneic Auscultation: lungs clear to auscultation bilaterally, + diminished lung sounds and + rales (bibasilar) Cardiovascular: RRR, no murmur, no edema Rate/Rhythm: regular rate, regular rhythm and + tachycardic Heart Sounds: normal S1 and normal S2 Vessels: + JVD and dorsalis pedis pulses present Extremities: + edema (1+ pretibial edema) Gastrointestinal (Abdomen): normal bowel sounds, soft, nontender, no hepatosplenomegaly Inspection/Auscultation: abdomen normal to inspection, + abdomen distended, normal bowel sounds and + hypoactive bowel sounds Percussion/Palpation: abdomen soft and + tympanic to percussion; abdomen nontender, no guarding and abdomen not rigid Musculoskeletal: Extremities: no cyanosis and no petechiae Skin: no rashes, warm and dry normal turgor; no rashes Neurologic: normal touch/pain/proprioception, CN's II-XI intact bilaterally and awake; not confused (but does seem mildly forgetful) Motor/Sensory: no tremor and no asterixis Psychiatric: A+Ox3, euthymic affect Orientation: alert and oriented x 3 Lymphatic: no cervical or axillary lymphadenopathy _ (1) Renal failure Acute renal failure type: Chronic kidney disease stage: Renal failure chronicity: (2) Atrial fibrillation Atrial fibrillation type: chronic Qualified Code(s): I48.2 - Chronic atrial fibrillation (3) Diarrhea Diarrhea type: (4) CHF (congestive heart failure) Heart failure chronicity: unspecified Heart failure type: unspecified Qualified Code(s): I50.9 - Heart failure, unspecified
[2018-06-06] MEDS ORDERED: POTASSIUM CHLORIDE PWD 20 MEQ PACK PO STA (16:39)
[2018-06-06] MEDS: FLUTICASONE/SALMETEROL 100/50 (ADVAIR) 14 PUFF/1 INHALER INH SCH (20:23)
[2018-06-07 06:33] LABS: Hematocrit (blood only) 35.1 % (37-47); Hemoglobin 11.1 g/dL (12.0-16.0); Mean Corpuscular Hgb Conc 31.6 g/dL (32-36); Mean Corpuscular Volume 90.2 fL (80-100); RDW Coefficient of Variation 16.4 % (11.5-14.5); RDW Standard Deviation 52.6 fL (36.4-46.3); Red Blood Count 3.89 M/uL (4.2-5.4); White Blood Count 7.91 K/uL (4.8-10.8)
[2018-06-07 06:36] LABS: Mean Platelet Volume 11.4 fL (7.4-10.4); Platelet Count 93 K/uL (130-400)
[2018-06-07 06:42] LABS: INR 2.7 (0.9-1.1); Prothrombin Time 26.1 Seconds (9.0-12.0)
[2018-06-07 07:09] LABS: Calcium 7.5 mg/dl (8.5-10.1); Creatinine Clr Calc Pharmacy 16.2 ml/min; Est GFR (African American) 16.1; Est GFR (Non-African American) 13.9
[2018-06-07] MEDS: METOPROLOL SUCC 50MG EXT REL TAB PO SCH (08:22)
[2018-06-07] MEDS: FLUTICASONE/SALMETEROL 100/50 (ADVAIR) 14 PUFF/1 INHALER INH SCH ×2 (08:23→20:07)
[2018-06-07] MEDS: dilTIAZem HCl 60 MG TAB PO SCH ×4 (08:23→20:07)
[2018-06-07] MEDS ORDERED: MICONAZOLE NITRATE POWDER 43 GM ONE (08:53)
[2018-06-07] MEDS ORDERED: POTASSIUM CHLORIDE PWD 20 MEQ PACK PO ONE (09:15)
[2018-06-07] MEDS ORDERED: CALCIUM GLUCONATE 10% 1,000 MG in SODIUM CHLORIDE 0.9% 50 ML IV ONE (09:30)
--- NOTE | 2018-06-07 10:34 | Nephrology Progress Note ---
Date of Service June 07, 2018 Assessment & Plan (1) Renal failure: -- Baseline creatinine ~1.3 mg/dL -- Volume status and electrolyte balance are acceptable at this time. Creatinine has improved to 3.0. UO has increased. No acute indication for HD today. -- Case discussed w/ vascular surgery this am. If creatinine continues to trend down tomorrow Dr. Cotter will remove IJ THC in the afternoon -- Document strict I/O's (2) Thrombocytopenia: -- Has been chronic and stable for ~1 year -- Normal spleen on abdominal CT scan (3) Atrial fibrillation: -- Rate control has been reasonable -- TTE demonstrated LVEF 55-60% with mild LVH/diastolic dysfunction, PASP 35-40 -- Remains asymptomatic -- Anticoagulated with warfarin (supratherapuetic on admission) (4) COPD (chronic obstructive pulmonary disease): -- Severe COPD with asthma, follows with Dr. Reddy as outpatient -- Admitted to [facility] last month with COPD exacerbation, discharged on prednisone 30 mg daily x 6 days (5) Diarrhea: -- CT abdomen on admission demonstrating gaseous distention of right and transverse colon as well as some suspicion of gastritis: possible viral gastroenteritis? -- Diarrhea resolved with Imodium prior to admission, presented with evidence of mild ileus -- C diff testing negative and treatment (IV flagyl and oral vanco) stopped after 4 days of therapy Kayy presented to [facility] with evidence of severe sepsis (tachycardia, tachpnea, notable with increased lactate, mental status changes and YULIANA). Hypotension related to infection and intravascular volume depletion. Clinical history suggests possible GI source of infection given diarrhea and abdominal pain. Blood and urine cultures negative. C diff negative. Subjective Ms. Navarro was seen & examined in her hospital room this morning. She denies fever, angina or dyspnea. Her last dialysis treatment was 06/04/18. She reports improved UO overnight Constitutional: no fever Gastrointestinal: as per Subjective / HPI Physical Exam 2 Vital Signs (Past 24 Hours): Last Vital Signs Temp 36.6 C 06/07/18 07:53 Pulse 100 H 06/07/18 08:24 Resp 20 06/07/18 08:24 BP 113/74 06/07/18 08:24 Pulse Ox 93 06/07/18 08:24 Eyes: PERRL, conjunctivae normal, anicteric sclerae Neck: trachea midline, no thyromegaly Respiratory: normal respiratory effort, lungs clear to auscultation Cardiovascular: Rate/Rhythm: regular rhythm and + tachycardic Extremities: + edema (1+ pretibial edema) Gastrointestinal (Abdomen): Inspection/Auscultation: + abdomen distended and + hypoactive bowel sounds Percussion/Palpation: abdomen nontender and no guarding Results & Data Laboratory Results Laboratory Tests 06/07/18 06/07/18 05:40 05:40 WBC 7.91 Hgb 11.1 L Hct 35.1 L Plt Count 93 L Sodium 139 Potassium 3.0 L Chloride 107 Carbon Dioxide 23 BUN 24 H Creatinine 3.01 H _ (1) Renal failure Acute renal failure type: Chronic kidney disease stage: Renal failure chronicity: (2) Atrial fibrillation Atrial fibrillation type: chronic Qualified Code(s): I48.2 - Chronic atrial fibrillation (3) Diarrhea Diarrhea type:
[2018-06-07] MEDS ORDERED: POTASSIUM CHLORIDE 10 MEQ TABCR PO STA (11:53)
--- NOTE | 2018-06-07 15:42 | Palliative Care Progress Note ---
Date of Service June 07, 2018 Assessment & Plan (1) Goals of care, counseling/discussion: -This 83 year old female with PMH COPD, chronic diastolic CHF, Afib on warfarin, CKD stage 2 and HTN presented with weakness in the setting of diarrhea x 1 week. Admitted to the ICU for concern of septic shock likely in the setting of viral gastroenteritis vs. possible urinary fungal infection. Initial concern for C. diff but testing negative. Patient has been receiving hemodialysis-kidney function is improving, patient's urine output is increasing She will likely need SNF for rehab when medically stable, possibly for long- term placement. Case management following. -Patient is a DNR and wishes to remain DNR. -Will continue to follow and provide support with medical decision making (2) Renal failure: (3) COPD (chronic obstructive pulmonary disease): (4) CHF (congestive heart failure): (5) Hypoxia: Subjective Patient alert and oriented, no acute distress. Patient states her kidneys are improving and she is having increased urine output. Review of Systems Patient denies fever, chills, chest pain, increased shortness of breath, or abdominal pain. Patient continues to have frequent stools. Physical Exam 2 Vital Signs (Past 24 Hours): Last Vital Signs Temp 36.8 C 06/07/18 15:35 Pulse 103 H 06/07/18 15:35 Resp 16 06/07/18 15:35 BP 122/76 06/07/18 15:35 Pulse Ox 95 06/07/18 15:35 Physical Exam: PE: No acute distress HEENT: EOMI, normal hearing Respirations: Unlabored, clear breath sounds CV: Regular rate, positive lower extremity edema-improved Abdomen: Soft, nontender, positive bowel sounds Neuro: Alert and oriented Time Spent Attending Total time spent 25 minutes with greater than 50% of the time spent at bedside discussing patient's goals of care. _ (1) Renal failure Acute renal failure type: Chronic kidney disease stage: Renal failure chronicity: (2) CHF (congestive heart failure) Heart failure chronicity: unspecified Heart failure type: unspecified Qualified Code(s): I50.9 - Heart failure, unspecified
--- NOTE | 2018-06-07 16:43 | Hospitalist Progress Note ---
Date of Service June 07, 2018 Assessment & Plan (1) Renal failure: Baseline Cr ~1.3. Peaked at 6 on 06/01. Required dialysis until 06/06. Presumed YULIANA due to ATN from her hypotension with BP in the 70/50s. - PermaCath placed on 06/01 by vascular team - Continuing HD per nephrology - Unclear about long-term HD needs - On 06/07, Cr improved, and hemodialysis was held. If Cr continues to improve, and she makes more urine, we may be able to remove PermaCath and discharge patient without needing HD. (2) CKD (chronic kidney disease) stage 3, GFR 30-59 ml/min: Prior Cr was ~1.3 with eGFR of ~40. - See above (3) Hypotension: On presentation on 05/28, she was hypotensive to the 70/50s. Only focal complaint was diarrhea. She was initially put on oral vancomycin, but C. diff testing was negative and it was stopped. She was also put on fluconazole for a possible fungal UTI; however, this was stopped prior to 06/04. She was also given a single dose of cefoxitin in the ED, but this was not continued. She was given large quantities of IV fluids (6L, then 4L the next day), so her hypotension may have entirely been from dehydration in the setting of a viral gastroenteritis. - As of 06/05, off all antibiotics or anti-fungals with a stable BP mostly ranging 100/50 to 135/70. (4) Atrial fibrillation: Reports having afib for ~1 year. At home, on warfarin for anticoagulation and diltiazem + metoprolol for rate-control. - Continue diltiazem and metoprolol for rate control - On 06/05, her HR is ~90-100, generally within goal - Continue warfarin as needed (discussed with pharmacy and restarted warfarin 2mg daily) - On 06/07, INR was at 2.7. (5) Elevated INR: Initial INR was >11.0 on admission with reversal and then heparin gtt for her afib. - Monitor INR - No further heparin gtt needed - INR on 06/07 was 2.7. (6) Diarrhea: Initially presented with diarrhea with CT a/p showing distention of the right and transverse colon measuring up to 7cm. However, diarrhea resolved without any treatment and C. diff testing on 05/30 was negative. At this point, diarrhea has resolved, and was mostly likely a viral gastroenteritis. - On 06/07, still having some small-volume diarrhea. Will start with Imodium. (7) Thrombocytopenia: Likely due to acute illness. Platelets were 70-100 range over last month. - Monitor for signs of bleeding - Monitor platelets - As of 06/07, platelets were gradually improving to 93. (8) COPD (chronic obstructive pulmonary disease): On long-acting inhaler at home. - Restarted home inhaler on 06/05 - Xopenex PRN (9) CHF (congestive heart failure): Diastolic CHF with echo in 04/2018 showing EF 55-60% with mild mitral regurg and mild LVH. No current shortness of breath or swelling to indicate exacerbation. - Monitor volume status (10) DVT prophylaxis: On anticoagulation for afib Subjective 83yo F w/ hx of afib, COPD, and HTN who presented with sepsis picture and kidney injury, now with resolution of sepsis, but with continued YULIANA requiring dialysis. This morning, she is in better spirits. She is pleased that her Cr is improving and that she may not need HD in the long-term. Otherwise, does not have any complaints. Reports no fevers/chills, chest pain, shortness of breath, abdominal pain, nausea, or vomiting. Physical Exam 2 Vital Signs (Past 24 Hours): Last Vital Signs Temp 36.8 C 06/07/18 15:35 Pulse 103 H 06/07/18 15:35 Resp 16 06/07/18 15:35 BP 122/76 06/07/18 15:35 Pulse Ox 95 06/07/18 15:35 Constitutional: WD/WN, vitals as above well developed, well nourished, + obese and comfortable; no acute distress Eyes: PERRL, conjunctivae normal, anicteric sclerae + anicteric sclerae; no conjunctival abnormality ENMT: Ears: no hearing impairment Mouth: oral mucous membranes not dry Neck: trachea midline, no thyromegaly normal visual inspection and trachea midline Respiratory: normal respiratory effort, lungs clear to auscultation normal respiratory effort; no respiratory distress, no labored breathing, no retractions, does not use accessory muscles and not tachypneic Cardiovascular: Rate/Rhythm: regular rate, regular rhythm and + tachycardic Heart Sounds: normal S1 and normal S2 Vessels: + JVD and dorsalis pedis pulses present Extremities: + edema (1+ pretibial edema) Gastrointestinal (Abdomen): normal bowel sounds, soft, nontender, no hepatosplenomegaly Inspection/Auscultation: abdomen normal to inspection and + abdomen distended Musculoskeletal: Extremities: no cyanosis and no petechiae Skin: no rashes, warm and dry normal turgor; no rashes Neurologic: awake Motor/Sensory: no tremor and no asterixis Psychiatric: Orientation: alert Lymphatic: no cervical or axillary lymphadenopathy _ (1) Renal failure Acute renal failure type: Chronic kidney disease stage: Renal failure chronicity: (2) Atrial fibrillation Atrial fibrillation type: chronic Qualified Code(s): I48.2 - Chronic atrial fibrillation (3) Diarrhea Diarrhea type: (4) CHF (congestive heart failure) Heart failure chronicity: unspecified Heart failure type: unspecified Qualified Code(s): I50.9 - Heart failure, unspecified
[2018-06-07] MEDS ORDERED: LOPERAMIDE HCL 2 MG CAP PO PRN (16:49)
[2018-06-07] MEDS: WARFARIN SOD 2 MG TAB PO SCH (17:03)
--- NOTE | 2018-06-08 06:59 | History & Physical Bridge Note ---
Date of Service June 08, 2018 History & Physical Bridge Note Patient for posible removal of her permcath today depending on morning labs. I have discussed the risks options and benefits of the procedure with the patient. The patient understands the risks options and benefits and agrees to the procedure. I have examined the patient, reviewed the History & Physical and in the interval since the performance of the History & Physical I have noted the following changes of clinical significance: no changes noted
[2018-06-08 07:34] LABS: Hematocrit (blood only) 34.1 % (37-47); Hemoglobin 10.8 g/dL (12.0-16.0); Mean Corpuscular Hgb Conc 31.7 g/dL (32-36); RDW Coefficient of Variation 16.6 % (11.5-14.5); RDW Standard Deviation 53.5 fL (36.4-46.3); Red Blood Count 3.79 M/uL (4.2-5.4)
[2018-06-08 07:35] LABS: Mean Platelet Volume 10.7 fL (7.4-10.4); Platelet Count 94 K/uL (130-400)
[2018-06-08 08:04] LABS: BUN Creatinine Ratio 8.9 (10-20); Calcium 7.6 mg/dl (8.5-10.1); Creatinine Clr Calc Pharmacy 18.6 ml/min; Est GFR (African American) 19.3; Est GFR (Non-African American) 16.6
[2018-06-08] MEDS: FLUTICASONE/SALMETEROL 100/50 (ADVAIR) 14 PUFF/1 INHALER INH SCH ×3 (08:54→20:47)
[2018-06-08] MEDS: POTASSIUM CHLORIDE 10 MEQ TABCR PO SCH ×2 (08:54→09:42)
[2018-06-08] MEDS: METOPROLOL SUCC 50MG EXT REL TAB PO SCH ×2 (08:54→09:42)
[2018-06-08] MEDS: dilTIAZem HCl 60 MG TAB PO SCH ×2 (08:54→09:41)
[2018-06-08] MEDS ORDERED: LIDOCAINE HCL 1% 20 ML VIAL ONE (08:57)
--- NOTE | 2018-06-08 09:29 | Operative Report ---
Post Operative Report Pre & Post Diagnosis Operation Date: 06/01/18 10:20 Pre-Op Diagnosis: acute renal failure Post-Op Diagnosis: acute renal failure Operation Date: 06/08/18 09:50 Pre-Op Diagnosis: Functioning Kidneys Post-Op Diagnosis: Functioning Kidneys Procedure Operation Date: 06/01/18 10:20 Actual Procedures p Insertion of Perm Catheter, Right Internal Jugular Approach, Ultrasound Localization Of Right Internal Jugular Vein, Fluoroscopy For Positioning, Moderate Concious Sedation 0949 to 1014(Right) - Luis Cotter MD Operation Date: 06/08/18 09:50 Actual Procedures p Perm Catheter Removal(Right) - Luis Cotter MD Surgeon Luis Cotter MD Bacteriology Professor none Estimated Blood Loss 0 Findings Consistent with Post-Op Diagnosis Specimens none Anesthesia Type Local Complications none Disposition Accompanied Patient To Recovery: No Disposition: Recovery Room Indications This is an 83-year-old female who had a PermCath placed. Acute kidney injury. Her kidneys functioning. She is here for PermCath removal. I have discussed the risks options and benefits of the procedure with the patient. The patient understands the risks options and benefits and agrees to the procedure. Description of Procedure The patient was taken to the angio suite and placed in the supine position. The Left side of the neck, chest wall and catheter were prepped and draped in a sterile manner. Local anesthesia was then accomplished. Using sharp and blunt dissection, the cuff of the permcath was freed up from the surrounding fibrous tissue. The permcath and cuff were completely removed. Pressure was then applied and adequate hemostasis was obtained. A sterile dressing was then applied. The patient left the angio suite in good condition and tolerated the procedure well. I attest to the content of the Intraoperative Record and any orders documented therein. Any exceptions are noted below.
[2018-06-08] MEDS ORDERED: CALCIUM GLUCONATE 10% 2,000 MG in SODIUM CHLORIDE 0.9% 50 ML IV STA (10:16)
[2018-06-08] MEDS ORDERED: METOPROLOL SUCC 50MG EXT REL TAB PO STA (10:19)
--- NOTE | 2018-06-08 11:14 | Nephrology Progress Note ---
Date of Service June 08, 2018 Assessment & Plan (1) Renal failure: -- Baseline creatinine ~1.3 mg/dL -- Volume status and electrolyte balance are acceptable at this time. Creatinine has improved to 2.6. UO has increased. No acute indication for HD today. Will recheck PRP in am -- IJ THC has been removed by vascular surgery. Site examined this am. No active bleeding -- Document strict I/O's (2) Thrombocytopenia: -- Has been chronic and stable for ~1 year -- Normal spleen on abdominal CT scan (3) Atrial fibrillation: -- Rate control has been reasonable -- TTE demonstrated LVEF 55-60% with mild LVH/diastolic dysfunction, PASP 35-40 -- Remains asymptomatic -- Anticoagulated with warfarin (supratherapuetic on admission) (4) COPD (chronic obstructive pulmonary disease): -- Severe COPD with asthma, follows with Dr. Reddy as outpatient -- Admitted to [facility] last month with COPD exacerbation, discharged on prednisone 30 mg daily x 6 days (5) Diarrhea: -- CT abdomen on admission demonstrating gaseous distention of right and transverse colon as well as some suspicion of gastritis: possible viral gastroenteritis? -- Diarrhea resolved with Imodium prior to admission, presented with evidence of mild ileus -- C diff testing negative and treatment (IV flagyl and oral vanco) stopped after 4 days of therapy Kayy presented to [facility] with evidence of severe sepsis (tachycardia, tachpnea, notable with increased lactate, mental status changes and YULIANA). Hypotension related to infection and intravascular volume depletion. Clinical history suggests possible GI source of infection given diarrhea and abdominal pain. Blood and urine cultures negative. C diff negative. Subjective Ms. Navarro was seen & examined in her hospital room this morning. She denies fever, angina or dyspnea. Her last dialysis treatment was 06/04/18. She reports good UO Gastrointestinal: as per Subjective / HPI Physical Exam 2 Vital Signs (Past 24 Hours): Last Vital Signs Temp 37.2 C 06/08/18 10:39 Pulse 104 H 06/08/18 10:39 Resp 20 06/08/18 10:39 BP 124/78 06/08/18 10:39 Pulse Ox 94 06/08/18 10:39 Eyes: PERRL, conjunctivae normal, anicteric sclerae Neck: trachea midline, no thyromegaly Respiratory: normal respiratory effort, lungs clear to auscultation Cardiovascular: Rate/Rhythm: regular rhythm and + tachycardic Extremities: + edema (1+ pretibial edema) Gastrointestinal (Abdomen): Inspection/Auscultation: + abdomen distended and + hypoactive bowel sounds Percussion/Palpation: abdomen nontender and no guarding Results & Data Laboratory Results Laboratory Tests 06/08/18 06/08/18 07:02 07:02 WBC 6.70 Hgb 10.8 L Hct 34.1 L Plt Count 94 L Sodium 142 Potassium 3.0 L Chloride 108 H Carbon Dioxide 25 BUN 23 H Creatinine 2.60 H D Glucose 92 _ (1) Renal failure Acute renal failure type: Chronic kidney disease stage: Renal failure chronicity: (2) Atrial fibrillation Atrial fibrillation type: chronic Qualified Code(s): I48.2 - Chronic atrial fibrillation (3) Diarrhea Diarrhea type:
[2018-06-08] MEDS: dilTIAZem HCL 300 MG CAPCR PO SCH (11:20)
--- NOTE | 2018-06-08 15:56 | Hospitalist Progress Note ---
Date of Service June 08, 2018 Assessment & Plan (1) Renal failure: Baseline Cr ~1.3. Peaked at 6 on 06/01. Required dialysis until 06/06. Presumed YULIANA due to ATN from her hypotension with BP in the 70/50s. - PermaCath placed on 06/01 by vascular team - Continuing HD per nephrology - Unclear about long-term HD needs - On 06/07, Cr improved, and hemodialysis was held. - On 06/08, Cr improved to 2.6 and UOP increased. PermaCath removed by Dr. Cotter. (2) CKD (chronic kidney disease) stage 3, GFR 30-59 ml/min: Prior Cr was ~1.3 with eGFR of ~40. - See above (3) Hypotension: On presentation on 05/28, she was hypotensive to the 70/50s. Only focal complaint was diarrhea. She was initially put on oral vancomycin, but C. diff testing was negative, and it was stopped. She was also put on fluconazole for a possible fungal UTI; however, this was stopped prior to 06/04. She was also given a single dose of cefoxitin in the ED, but this was not continued. She was given large quantities of IV fluids (6L, then 4L the next day), so her hypotension may have entirely been from dehydration in the setting of a viral gastroenteritis. - As of 06/05, off all antibiotics or anti-fungals with a stable BP mostly ranging 100/50 to 135/70. (4) Atrial fibrillation: Reports having afib for ~1 year. At home, on warfarin for anticoagulation and diltiazem + metoprolol for rate-control. - Continue diltiazem and metoprolol for rate control - On 06/05, her HR is ~90-100, generally within goal - Continue warfarin as needed (discussed with pharmacy and restarted warfarin 2mg daily) - On 06/07, INR was at 2.7. (5) Elevated INR: Initial INR was >11.0 on admission with reversal and then heparin gtt for her afib. - Monitor INR - No further heparin gtt needed - INR on 06/07 was 2.7. (6) Diarrhea: Initially presented with diarrhea with CT a/p showing distention of the right and transverse colon measuring up to 7cm. However, diarrhea resolved without any treatment and C. diff testing on 05/30 was negative. At this point, diarrhea has resolved, and was mostly likely a viral gastroenteritis. - On 06/07, still having some small-volume diarrhea. Will start with Imodium. - On 06/08, diarrhea has improved without needing any of the Imodium (7) Thrombocytopenia: Likely due to acute illness. Platelets were 70-100 range over last month. - Monitor for signs of bleeding - Monitor platelets - As of 06/08, platelets were gradually improving to 94. (8) COPD (chronic obstructive pulmonary disease): On long-acting inhaler at home. - Restarted Advair in place of home inhaler on 06/05 - Xopenex PRN (9) CHF (congestive heart failure): Diastolic CHF with echo in 04/2018 showing EF 55-60% with mild mitral regurg and mild LVH. No current shortness of breath or swelling to indicate exacerbation. - Monitor volume status (10) DVT prophylaxis: On anticoagulation for afib Subjective 83yo F w/ hx of afib, COPD, and HTN who presented with sepsis picture and kidney injury, now with resolution of sepsis, but with continued YULIANA requiring dialysis. This morning, she is in good spirits. PermaCath was removed by surgery today. Reports no fevers/chills, chest pain, shortness of breath, abdominal pain, nausea, or vomiting. Physical Exam 2 Vital Signs (Past 24 Hours): Last Vital Signs Temp 36.6 C 06/08/18 14:56 Pulse 88 06/08/18 14:56 Resp 20 06/08/18 14:56 BP 111/71 06/08/18 14:56 Pulse Ox 92 06/08/18 15:33 Constitutional: WD/WN, vitals as above well developed, well nourished, + obese, + frail appearing and comfortable; no acute distress Eyes: PERRL, conjunctivae normal, anicteric sclerae + anicteric sclerae; no conjunctival abnormality ENMT: Ears: no hearing impairment Neck: trachea midline, no thyromegaly normal visual inspection and trachea midline Respiratory: normal respiratory effort, lungs clear to auscultation normal respiratory effort; no respiratory distress, no labored breathing, no retractions, does not use accessory muscles and not tachypneic Auscultation: lungs clear to auscultation bilaterally, + diminished lung sounds and + rales ( bibasilar) Cardiovascular: RRR, no murmur, no edema Rate/Rhythm: regular rate, regular rhythm and + tachycardic Heart Sounds: normal S1 and normal S2 Vessels: + JVD and dorsalis pedis pulses present Gastrointestinal (Abdomen): normal bowel sounds, soft, nontender, no hepatosplenomegaly Inspection/Auscultation: abdomen normal to inspection, + abdomen distended, normal bowel sounds and + hypoactive bowel sounds Percussion/Palpation: abdomen soft and + tympanic to percussion; abdomen nontender, no guarding and abdomen not rigid Musculoskeletal: Extremities: no cyanosis and no petechiae Skin: no rashes, warm and dry normal turgor; no rashes Neurologic: normal touch/pain/proprioception, CN's II-XI intact bilaterally and awake; not confused (but does seem mildly forgetful) Motor/Sensory: no tremor and no asterixis Psychiatric: A+Ox3, euthymic affect Orientation: alert and oriented x 3 Lymphatic: no cervical or axillary lymphadenopathy _ (1) Renal failure Acute renal failure type: Chronic kidney disease stage: Renal failure chronicity: (2) Atrial fibrillation Atrial fibrillation type: chronic Qualified Code(s): I48.2 - Chronic atrial fibrillation (3) Diarrhea Diarrhea type: (4) CHF (congestive heart failure) Heart failure chronicity: unspecified Heart failure type: unspecified Qualified Code(s): I50.9 - Heart failure, unspecified
[2018-06-08] MEDS: WARFARIN SOD 2 MG TAB PO SCH (17:04)
[2018-06-08] MEDS: ONDANSETRON INJ 2 MG/ML 2 ML VIAL IV PRN (20:47)
[2018-06-09 06:18] LABS: Hematocrit (blood only) 33.8 % (37-47); Hemoglobin 10.7 g/dL (12.0-16.0); Mean Corpuscular Hgb Conc 31.7 g/dL (32-36); Mean Corpuscular Volume 90.9 fL (80-100); Mean Platelet Volume 10.8 fL (7.4-10.4); Platelet Count 107 K/uL (130-400); RDW Coefficient of Variation 16.8 % (11.5-14.5); RDW Standard Deviation 54.3 fL (36.4-46.3); Red Blood Count 3.72 M/uL (4.2-5.4); White Blood Count 5.33 K/uL (4.8-10.8)
[2018-06-09 06:27] LABS: INR 2.9 (0.9-1.1); Prothrombin Time 27.9 Seconds (9.0-12.0)
[2018-06-09 06:54] LABS: BUN Creatinine Ratio 9.9 (10-20); Calcium 7.4 mg/dl (8.5-10.1); Creatinine Clr Calc Pharmacy 23.8 ml/min; Est GFR (African American) 25.8; Est GFR (Non-African American) 22.3; Magnesium 1.1 mg/dl (1.8-2.4)
[2018-06-09 06:55] LABS: Phosphorus 3.5 mg/dl (2.5-4.9)
[2018-06-09] MEDS: ONDANSETRON INJ 2 MG/ML 2 ML VIAL IV PRN ×2 (09:04→20:00)
[2018-06-09] MEDS: POTASSIUM CHLORIDE 10 MEQ TABCR PO SCH (09:09)
[2018-06-09] MEDS: FLUTICASONE/SALMETEROL 100/50 (ADVAIR) 14 PUFF/1 INHALER INH SCH ×2 (09:09→20:01)
[2018-06-09] MEDS: METOPROLOL SUCC 50MG EXT REL TAB PO SCH (09:10)
[2018-06-09] MEDS: dilTIAZem HCL 300 MG CAPCR PO SCH (09:10)
--- NOTE | 2018-06-09 10:26 | Nephrology Progress Note ---
Date of Service June 09, 2018 Assessment & Plan (1) Renal failure: -- Baseline creatinine ~1.3 mg/dL -- Volume status and electrolyte balance are acceptable at this time. Creatinine has improved to 2.0. UO has increased. -- IJ THC has been removed by vascular surgery. Site examined this am. No active bleeding -- No further Nephrology evaluation indicated at this time. Will sign off. Please call if further assistance is needed Subjective Ms. Navarro was seen & examined in her hospital room this morning. She denies fever, angina or dyspnea. Her last dialysis treatment was 06/04/18. She reports good UO. Her dialysis catheter was removed yesterday. She voices no new medical concerns. Gastrointestinal: as per Subjective / HPI Physical Exam 2 Vital Signs (Past 24 Hours): Last Vital Signs Temp 36.6 C 06/09/18 08:17 Pulse 106 H 06/09/18 08:17 Resp 30 H 06/09/18 08:17 BP 136/86 06/09/18 08:17 Pulse Ox 89 L 06/09/18 08:17 Eyes: PERRL, conjunctivae normal, anicteric sclerae Neck: trachea midline, no thyromegaly Respiratory: normal respiratory effort, lungs clear to auscultation Cardiovascular: Rate/Rhythm: regular rhythm and + tachycardic Extremities: + edema (1+ pretibial edema) Gastrointestinal (Abdomen): Inspection/Auscultation: + abdomen distended and + hypoactive bowel sounds Percussion/Palpation: abdomen nontender and no guarding Results & Data Laboratory Results Laboratory Tests 06/09/18 06/09/18 05:14 05:14 WBC 5.33 Hgb 10.7 L Hct 33.8 L Plt Count 107 L Sodium 142 Potassium 3.0 L Chloride 110 H Carbon Dioxide 24 BUN 20 H Creatinine 2.04 H D Glucose 95 _ (1) Renal failure Acute renal failure type: Chronic kidney disease stage: Renal failure chronicity:
[2018-06-09] MEDS: MAGNESIUM SULFATE / D5W 1 GM/100 ML BAG IV SCH ×3 (10:28→12:49)
--- NOTE | 2018-06-09 14:47 | Hospitalist Progress Note ---
Date of Service June 09, 2018 Assessment & Plan (1) Diarrhea: Initially presented with diarrhea with CT a/p showing distention of the right and transverse colon measuring up to 7cm. However, diarrhea resolved without any treatment and C. diff testing on 05/30 was negative. At this point, diarrhea has resolved, and was mostly likely a viral gastroenteritis. - On 06/07, still having some small-volume diarrhea. Will start with Imodium. - On 06/09, still having watery BMs. C. diff still negative. Stool culture sent with results pending. - If all negative, will likely need outpatient GI follow up for possible colonscopy and/or further stool testing. (2) Renal failure: Baseline Cr ~1.3. Peaked at 6 on 06/01. Required dialysis until 06/06. Presumed YULIANA due to ATN from her hypotension with BP in the 70/50s. - PermaCath placed on 06/01 by vascular team - Continuing HD per nephrology - Unclear about long-term HD needs - On 06/07, Cr improved, and hemodialysis was held. - On 06/08, Cr improved to 2.6 and UOP increased. PermaCath removed by Dr. Cotter. - On 06/09, Cr down to 2.0. Good UOP. Aggressively repleting electrolytes. Likely due to poor kidney regulation from post-ATN. (3) CKD (chronic kidney disease) stage 3, GFR 30-59 ml/min: Prior Cr was ~1.3 with eGFR of ~40. Unclear where baseline will be now that kidneys are recovering. - See above (4) Hypotension: On presentation on 05/28, she was hypotensive to the 70/50s. Only focal complaint was diarrhea. She was initially put on oral vancomycin, but C. diff testing was negative, and it was stopped. She was also put on fluconazole for a possible fungal UTI; however, this was stopped prior to 06/04. She was also given a single dose of cefoxitin in the ED, but this was not continued. She was given large quantities of IV fluids (6L, then 4L the next day), so her hypotension may have entirely been from dehydration in the setting of a viral gastroenteritis. - As of 06/05, off all antibiotics or anti-fungals with a stable BP mostly ranging 100/50 to 135/70. (5) Atrial fibrillation: Reports having afib for ~1 year. At home, on warfarin for anticoagulation and diltiazem + metoprolol for rate-control. - Continue diltiazem and metoprolol for rate control - On 06/05, her HR is ~90-100, generally within goal - Continue warfarin as needed (discussed with pharmacy and restarted warfarin 2mg daily) - On 06/09, INR was at 2.9. (6) Elevated INR: Initial INR was >11.0 on admission with reversal and then heparin gtt for her afib. - Monitor INR - No further heparin gtt needed - INR on 06/09 was 2.9. (7) Thrombocytopenia: Likely due to acute illness. Platelets were 70-100 range over last month. - Monitor for signs of bleeding - Monitor platelets - As of 06/09, platelets were gradually improving to 107. (8) COPD (chronic obstructive pulmonary disease): On long-acting inhaler at home. - Restarted Advair in place of home inhaler on 06/05 - Xopenex PRN (9) CHF (congestive heart failure): Diastolic CHF with echo in 04/2018 showing EF 55-60% with mild mitral regurg and mild LVH. No current shortness of breath or swelling to indicate exacerbation. - Monitor volume status (10) DVT prophylaxis: On anticoagulation for afib Subjective 83yo F w/ hx of afib, COPD, and HTN who presented with sepsis picture and kidney injury, now with resolution of sepsis, but with continued YULIANA requiring dialysis. This morning, she is in good spirits. No pain at PermaCath site. Still having some diarrhea. Reports no fevers/chills, chest pain, shortness of breath, abdominal pain, nausea, or vomiting. Physical Exam 2 Vital Signs (Past 24 Hours): Last Vital Signs Temp 36.9 C 06/09/18 11:54 Pulse 92 H 06/09/18 11:54 Resp 24 06/09/18 11:54 BP 128/76 06/09/18 11:54 Pulse Ox 90 06/09/18 11:54 Constitutional: WD/WN, vitals as above well developed, well nourished, + obese, + frail appearing and comfortable; no acute distress Eyes: PERRL, conjunctivae normal, anicteric sclerae + anicteric sclerae; no conjunctival abnormality ENMT: Ears: no hearing impairment Mouth: oral mucous membranes not dry Neck: trachea midline, no thyromegaly normal visual inspection and trachea midline Respiratory: normal respiratory effort, lungs clear to auscultation normal respiratory effort; no respiratory distress, no labored breathing, no retractions and not tachypneic Auscultation: lungs clear to auscultation bilaterally and + diminished lung sounds Cardiovascular: RRR, no murmur, no edema Rate/Rhythm: regular rate, regular rhythm and + tachycardic Heart Sounds: normal S1 and normal S2 Gastrointestinal (Abdomen): normal bowel sounds, soft, nontender, no hepatosplenomegaly Inspection/Auscultation: abdomen normal to inspection, + abdomen distended, normal bowel sounds and + hypoactive bowel sounds Percussion/Palpation: abdomen soft and + tympanic to percussion; abdomen nontender, no guarding and abdomen not rigid Musculoskeletal: Extremities: no cyanosis and no petechiae Skin: no rashes, warm and dry normal turgor; no rashes Neurologic: awake Motor/Sensory: no tremor and no asterixis Psychiatric: Orientation: alert Lymphatic: no cervical or axillary lymphadenopathy _ (1) Renal failure Acute renal failure type: Chronic kidney disease stage: Renal failure chronicity: (2) Atrial fibrillation Atrial fibrillation type: chronic Qualified Code(s): I48.2 - Chronic atrial fibrillation (3) Diarrhea Diarrhea type: (4) CHF (congestive heart failure) Heart failure chronicity: unspecified Heart failure type: unspecified Qualified Code(s): I50.9 - Heart failure, unspecified
[2018-06-09] MEDS: WARFARIN SOD 2 MG TAB PO SCH (16:43)
[2018-06-10 07:13] LABS: INR 2.5 (0.9-1.1)
[2018-06-10 07:15] LABS: Hematocrit (blood only) 34.4 % (37-47); Hemoglobin 10.9 g/dL (12.0-16.0); Mean Corpuscular Hgb Conc 31.7 g/dL (32-36); Mean Corpuscular Volume 91.5 fL (80-100); Mean Platelet Volume 10.5 fL (7.4-10.4); Platelet Count 110 K/uL (130-400); RDW Standard Deviation 55.5 fL (36.4-46.3); Red Blood Count 3.76 M/uL (4.2-5.4); White Blood Count 4.27 K/uL (4.8-10.8)
[2018-06-10 07:35] LABS: BUN Creatinine Ratio 9.5 (10-20); Calcium 7.4 mg/dl (8.5-10.1); Creatinine Clr Calc Pharmacy 27.3 ml/min; Est GFR (African American) 30.9; Est GFR (Non-African American) 26.7; Magnesium 1.6 mg/dl (1.8-2.4); Phosphorus 3.1 mg/dl (2.5-4.9); Potassium 3.6 mmol/L (3.5-5.1)
[2018-06-10] MEDS: POTASSIUM CHLORIDE 10 MEQ TABCR PO SCH (08:23)
[2018-06-10] MEDS: METOPROLOL SUCC 50MG EXT REL TAB PO SCH (08:23)
[2018-06-10] MEDS: FLUTICASONE/SALMETEROL 100/50 (ADVAIR) 14 PUFF/1 INHALER INH SCH (08:24)
[2018-06-10] MEDS: dilTIAZem HCL 300 MG CAPCR PO SCH (08:24)
[2018-06-10] MEDS ORDERED: MICONAZOLE NITRATE POWDER 43 GM ONE (08:32)
[2018-06-10] MEDS: MAGNESIUM SULFATE / D5W 1 GM/100 ML BAG IV SCH ×2 (11:02→12:21)
--- NOTE | 2018-06-10 16:10 | Discharge Summary ---
Date of Service June 10, 2018 Principal Diagnosis Kidney failure from dehydration and hypotension Discharge Exam Constitutional WD/WN, vitals as above well developed, well nourished, + obese, + frail appearing and comfortable; no acute distress Eyes PERRL, conjunctivae normal, anicteric sclerae + anicteric sclerae; no conjunctival abnormality ENMT Ears: no hearing impairment Mouth: oral mucous membranes not dry Mallampati Class: III Neck trachea midline, no thyromegaly normal visual inspection and trachea midline Respiratory normal respiratory effort, lungs clear to auscultation normal respiratory effort; no respiratory distress, no labored breathing, no retractions, does not use accessory muscles and not tachypneic Auscultation: lungs clear to auscultation bilaterally, + diminished lung sounds and + rales (bibasilar) Cardiovascular RRR, no murmur, no edema Rate/Rhythm: regular rate, regular rhythm and + tachycardic Heart Sounds: normal S1 and normal S2 Vessels: + JVD and dorsalis pedis pulses present Extremities: + edema (1+ pretibial edema) Gastrointestinal (Abdomen) normal bowel sounds, soft, nontender, no hepatosplenomegaly Inspection/Auscultation: abdomen normal to inspection, + abdomen distended, normal bowel sounds and + hypoactive bowel sounds Percussion/Palpation: abdomen soft and + tympanic to percussion; abdomen nontender, no guarding and abdomen not rigid Musculoskeletal Extremities: no cyanosis and no petechiae Skin no rashes, warm and dry normal turgor; no rashes Neurologic normal touch/pain/proprioception, CN's II-XI intact bilaterally and awake; not confused (but does seem mildly forgetful) Motor/Sensory: no tremor and no asterixis Psychiatric A+Ox3, euthymic affect Orientation: alert and oriented x 3 Lymphatic no cervical or axillary lymphadenopathy Discharge Data Allergies Allergy/AdvReac Type Severity Reaction Status Date / Time amoxicillin Allergy Intermediate SWELLING Verified 05/28/18 15:44 Consultations 05/28/18 15:37 ED Decision to Admit Stat 05/28/18 18:51 Consult Case Management - Discharge Planning Routine 05/28/18 20:04 Consult Case Management - Discharge Planning Routine Consult Relocation Counselor Routine 05/28/18 20:26 Consult General Surgery Routine 05/29/18 10:34 Consult Nephrology Routine 05/30/18 08:34 Consult Palliative Care Routine 05/31/18 09:12 Consult Vascular Surgery Routine Procedures Performed Operation Date: 06/01/18 10:20 Actual Procedures p Insertion of Perm Catheter, Right Internal Jugular Approach, Ultrasound Localization Of Right Internal Jugular Vein, Fluoroscopy For Positioning, Moderate Concious Sedation 0954 to 1015(Right) - Luis Cotter MD Operation Date: 06/08/18 09:50 Actual Procedures p Perm Catheter Removal(Right) - Luis Cotter MD Ordered Studies 05/28/18 14:38 CT abd pelvis wo con Stat 05/28/18 20:44 US point of care ultrasound Urgent 05/29/18 10:36 US renal/blad retro comp Routine 06/01/18 07:17 EV cvc insrt tnnl with prt/battery assembler dry cell Routine US guide vascular access Routine Hospital Course (1) Diarrhea: Initially presented with diarrhea with CT a/p showing distention of the right and transverse colon measuring up to 7cm. However, diarrhea resolved without any treatment and C. diff testing on 05/30 was negative. At this point, diarrhea has resolved, and was mostly likely a viral gastroenteritis. - By 06/09, diarrhea had resolved. Only needed 1 or 2 doses of Imodium. Likely viral. (2) Renal failure: Baseline Cr ~1.3. Peaked at 6.0 on 06/01. Required dialysis until 06/06. Presumed YULIANA due to ATN from her hypotension with BP in the 70/50s. - PermaCath placed on 06/01 by vascular team - On 06/08, Cr improved to 2.6 and UOP increased. PermaCath removed by Dr. Cotter. - By discharge, no further HD needs. Nephrology signed off. - Get BMP in 1 week to determine new baseline Cr. (3) CKD (chronic kidney disease) stage 3, GFR 30-59 ml/min: Prior Cr was ~1.3 with eGFR of ~40. Unclear where baseline will be now that kidneys are recovering. - See above (4) Hypotension: On presentation on 05/28, she was hypotensive to the 70/50s. Only focal complaint was diarrhea. She was initially put on oral vancomycin, but C. diff testing was negative, and it was stopped. She was also put on fluconazole for a possible fungal UTI; however, this was stopped prior to 06/04. She was also given a single dose of cefoxitin in the ED, but this was not continued. She was given large quantities of IV fluids (6L, then 4L the next day), so her hypotension may have entirely been from dehydration in the setting of a viral gastroenteritis. - As of 06/05, off all antibiotics or anti-fungals with a stable BP mostly ranging 100/50 to 135/70. - By discharge, BP was stable on her rate-control meds for afib. (5) Atrial fibrillation: Reports having afib for ~1 year. At home, on warfarin for anticoagulation and diltiazem + metoprolol for rate-control. - Increased diltiazem to 300mg PO daily with metoprolol XL 50mg for rate control - Continue warfarin as needed (discussed with pharmacy and restarted warfarin at 2mg daily) - On 06/09, INR was at 2.9. (6) Elevated INR: Initial INR was >11.0 on admission with reversal and then heparin gtt for her afib. - Monitor INR - No further heparin gtt needed - INR on 06/09 was 2.9. (7) Thrombocytopenia: Likely due to acute illness. Platelets were 70-100 range over last month. - Monitor for signs of bleeding - Monitor platelets - As of 06/09, platelets were gradually improving to 107. - On discharge, they were 110. (8) COPD (chronic obstructive pulmonary disease): On long-acting inhaler at home. - Restarted Advair in place of home inhaler on 06/05 - Xopenex PRN (9) CHF (congestive heart failure): Diastolic CHF with echo in 04/2018 showing EF 55-60% with mild mitral regurg and mild LVH. No current shortness of breath or swelling to indicate exacerbation. - Volume status was stable (euvolemic) on discharge. (10) DVT prophylaxis: On anticoagulation for afib Total Time Total Time Spent Total Time Spent (In Minutes): 45 Total Time Includes: Examination of the Patient, Discharge Planning and Medication Reconciliation Discharge Plan Discharge Items Patient Disposition: Transfer [facility]irement Fac Reason For Visit: SEPSIS,HYPOTENSIVE,PNA,CDIFF? Discharge Diagnosis: Diarrhea, dehydration, acute renal failure Condition: Good Discharge Goals: Diagnostic testing, Improve function, Increase independence and Therapeutic intervention Activity: Resume your previous activity Exercise/Sports: Gradually increase as tolerated Non-emergency contact: Primary Care Provider Call non-emergency contact if: you have any medication questions, your symptoms worsen, your pain is not controlled and your temperature is above 100.5 Follow-up/Referrals: Audrey Johnson PA-C [Primary Care Provider] - (Please follow up with Ms. Johnson in 1 week to follow up on your breathing and kidney labs.) Diet: Heart Healthy Add Provider Instructions: Ms. Navarro was admitted for diarrhea, dehydration, low blood pressure, and kidney failure. She required temporary hemodialysis, but her kidney function recovered, and she was able to stop dialysis and have the temporary line taken out. She had some issues with shortness of breath as well that was likely pulmonary edema when she was not making urine. She was temporarily on oxygen, but this was able to be weaned a few days prior to discharge. She is taking a COPD/ asthma medication, and PRN albuterol inhaler could be provided for any further shortness of breath. She had episodes of diarrhea while in the hospital. C. diff was negative on both 05/30 and 06/09. Stool culture on 06/09 is negative so far for Shigella, E. coli, and Campylobacter. By the day of discharge, she had not had any further diarrhea after a single dose of Imodium on 06/09. Her diarrhea can be treated with Imodium as needed. If continues past another 1-2 days, further testing for fecal fat, fecal electrolytes, O&P, etc. could be considered. Potassium was low-normal, and she needed quite a bit of repletion, so she is discharged on low-dose (20 mEq) KCl pills. A BMP should be checked in 3-4 days to ensure kidney function and potassium are normal. For her afib, it was slightly fast initially (100-110 bpm), but with slight adjustment of her diltiazem (240mg -> 300mg), her HR remained in the 90 range. Her blood pressure was stable. She came in with too high of an INR, so we signficantly lowered her warfarin to 2mg PO daily with her INR stable from 2.5 to 2.9 the last 4 days of admission. On discharge, it was 2.5, and should be rechecked in 3-4 days. She was agreeable to going to rehab/SNF temporarily to build strength. Prescriptions: New loperamide 2 mg Capsule 2 mg PO Q6H PRN (Reason: loose stool) Qty: 1 RF: 0 diltiazem HCl [Cardizem CD] 300 mg Capsule,Extended Release 24hr 300 mg PO QAM Qty: 1 RF: 0 warfarin [Coumadin] 2 mg Tablet 2 mg PO DAILY@1600 Qty: 1 RF: 0 potassium chloride [Klor-Con M10] 10 mEq Tablet,Er Particles/Crystals 20 meq PO DAILY Qty: 1 RF: 0 ondansetron HCl 4 mg tablet 4 mg PO Q8H PRN (Reason: nausea and vomiting) 4 Days RF: 0 albuterol sulfate 90 mcg/actuation HFA aerosol inhaler 1 inha INH Q6H PRN (Reason: shortness of breath or wheezing) Qty: 6.7 RF: 0 Continue pravastatin 40 mg tablet 40 mg PO QAM RF: 0 omeprazole 40 mg capsule,delayed release(DR/EC) 40 mg PO QAM RF: 0 sertraline 50 mg tablet 50 mg PO QAM RF: 0 acetaminophen [Tylenol] 325 mg Capsule 325 mg PO Q4 PRN (Reason: Pain) RF: 0 fluticasone-vilanterol 100-25 mcg/dose blister with device 1 inh Inhalation DAILY RF: 0 metoprolol succinate 50 mg tablet extended release 24 hr 50 mg PO DAILY RF: 0 Discontinued diltiazem HCl 240 mg capsule,extended release 24hr 240 mg PO QAM RF: 0 warfarin 2.5 mg tablet 2.5 mg PO 6XWK RF: 0 warfarin 5 mg tablet 5 mg PO 2XWK RF: 0 Stand-Alone Forms: [facility] Discharge Orders: Discharge Order (Routine); Ordered 06/10/18 Ordered By: Alonzo Stein Skilled Items Patient informed of condition?: Yes DNR: Yes Discharge Level of Care: Skilled Communicable Disease: No Discharge Prognosis: Stable Admission Data Admit Date/Time: 05/28/18 18:49 Attending Provider: Alonzo Stein Admit Provider: Josh Mcdonnell Primary Care Provider: Audrey Johnson Other Providers: Audrey Baldwin ; Elmo Erickson ; Rod Major ; Denise Huggins ; Luis Cotter Service: Surgical Services Other Interventions: Discharge Summary Assessment (RN) Last Done: 06/10/18 13:05 DC Date/Time DO NOT enter until pt leaves facility: 06/10/18 15:13
== END 2018-06-10 15:13 | DRG 871 ==
LOC: ED 13:28 → 1E 18:49 → SUATTDRO 18:49 → 1E 19:22 → 2E 05-31 11:59 → 4E 06-05 13:53

== ENCOUNTER 2018-06-30 15:46 | Inpatient (IN) ==
[2018-06-30] MEDS ORDERED: dilTIAZem HCL 300 MG CAPCR PO STA (16:04)
[2018-06-30] MEDS ORDERED: ACETAMINOPHEN 1,000 MG/100 ML VIAL IV STA (16:04)
[2018-06-30] MEDS ORDERED: METOPROLOL SUCC 50MG EXT REL TAB PO STA (16:04)
[2018-06-30 16:48] LABS: Basophils # (auto) 0.01 K/uL (0-0.2); Basophils % (auto) 0.2 %; Eosinophils # (auto) 0.02 K/uL (0-0.5); Eosinophils % (auto) 0.5 %; Hematocrit (blood only) 41.3 % (37-47); Hemoglobin 12.9 g/dL (12.0-16.0); Immature Granulocytes # (auto) 0.05 K/uL (0.00-0.02); Immature Granulocytes % (auto) 1.1 %; Lymphocytes # (auto) 1.01 K/uL (1.2-3.4); Lymphocytes % (auto) 22.9 %; Mean Corpuscular Hgb Conc 31.2 g/dL (32-36); Mean Corpuscular Volume 94.9 fL (80-100); Mean Platelet Volume 12.1 fL (7.4-10.4); Monocytes # (auto) 1.06 K/uL (0.11-0.59); Neutrophils # (auto) 2.26 K/uL (1.4-6.5); Neutrophils % (auto) 51.3 %; Platelet Count 161 K/uL (130-400); RDW Coefficient of Variation 17.7 % (11.5-14.5); Red Blood Count 4.35 M/uL (4.2-5.4); White Blood Count 4.41 K/uL (4.8-10.8)
[2018-06-30 17:01] LABS: INR 2.1 (0.9-1.1); Partial Thromboplastin Ratio 1.2; Partial Thromboplastin Time 31.3 Seconds (21.0-31.0); Prothrombin Time 20.3 Seconds (9.0-12.0)
[2018-06-30 17:12] LABS: BUN Creatinine Ratio 15.4 (10-20); Blood Urea Nitrogen 18 mg/dl (7-18); Calcium 8.1 mg/dl (8.5-10.1); Carbon Dioxide 30 mmol/L (21-32); Chloride 109 mmol/L (98-107); Creatinine Clr Calc Pharmacy 45.8 ml/min; Est GFR (African American) 52.2; Est GFR (Non-African American) 45.1; Glucose 100 mg/dl (70-99); Sodium 144 mmol/L (136-145)
[2018-06-30 17:15] LABS: Troponin I < 0.015 ng/ml (0-0.045)
--- NOTE | 2018-06-30 17:26 | CT Scan Report ---
CT SCAN OF THE CHEST WITHOUT IV CONTRAST CLINICAL HISTORY: Right sternoclavicular joint pain. COMPARISON STUDY: Chest x-ray dated 05/28/2018. Chest CT dated 05/12/2018. TECHNIQUE: CT scan of the thorax was performed from the thoracic inlet to the upper abdomen. Images are reviewed in the axial, sagittal, and coronal planes. IV contrast was not administered for this ex amination as per the referring clinician. A dose lowering technique was utilized adhering to the david Martins. The examination is degraded by motion artifact. CT DOSE: 936.19 mGy.cm FINDINGS: Thyroid: Imaged portions of the thyroid gland are normal in size and attenuation. An 11 mm low-attenu ation nodule is seen in the right lobe. Thoracic aorta: The thoracic aorta is normal in caliber and demonstrates standard 3-vessel arch anato my. Heart: The heart is enlarged and there is trace pericardial effusion. The pulmonary trunk is dilated, measuring 3.7 cm diameter. This suggests pulmonary artery hypertension. Lungs and pleural spaces: Evaluation of the lung parenchyma is modestly degraded by motion artifact. Emphysematous change is noted. There are small pleural effusions, left larger than right with associa inez atelectasis. No airspace consolidation is seen typical for pneumonia. Foci of scarring/atelectasi s are scattered throughout both lungs. There are numerous small calcified granulomas. Mediastinum: There is no mediastinal lymphadenopathy. Desiree: Not well assessed without IV contrast. Axillae: There is no axillary lymphadenopathy. Upper abdomen: There are calcified splenic granulomas. A tiny hiatal hernia is observed. Skeletal structures: The skeletal structures are osteopenic. There is a subtle nondepressed fracture through the manubrium of the sternum with trace retrosternal hemorrhage and overlying soft tissue casa ma. This is new from 05/12/2018. There are numerous chronic bilateral rib fractures. There are subacut e/healing left lateral sixth and seventh rib fractures which are new from 05/12/2018. Degenerative joesph nge is seen at the sternoclavicular joints. No dislocation is identified. There is a severe compressi on deformity of T6 with evidence of previous vertebroplasty. Retropulsed fragments at this level are similar to previous. Moderate to severe compression deformities are noted at T4 and T5. These are unc hanged from 05/12/2018. There is a chronic left transverse process fracture of L1. Degenerative change and hyperkyphosis are noted in the thoracic spine. No lytic or blastic bony lesions are seen. Soft tissues: There is mild body wall edema. IMPRESSION: 1. There is a subtle nondepressed fracture of the manubrium with trace retrosternal hemorrhage and ov erlying soft tissue edema. This is new from 05/12/2018. 2. No additional acute fracture is clearly identified. 3. There are numerous chronic bilateral rib fractures. There are subacute/healing left lateral 6th an d 7th rib fractures which are new from 05/12/2018. 4. Cardiomegaly and small pleural effusions. Pleural effusions are new from 05/12/2018. 5. There is body wall edema. 6. Additional findings as above. Electronically signed by: João Banegas M.D. 06/30/2018 5:23 PM
[2018-06-30] MEDS ORDERED: SODIUM CHLORIDE 0.9% 1000ML 500 ML IV ONE (18:07)
--- NOTE | 2018-06-30 18:07 | Emergency Department Note ---
Entered by Stef Pisano acting as a scribe for João Gordillo MD History of Present Illness General Chief complaint: Chest Pain Stated complaint: CHEST PAIN Time Seen by Provider: 06/30/18 15:56 Source: patient History of Present Illness Onset (ago): day(s) 1 Location: right (chest) Pain Consistency: + other (persistent and worsening) Current Pain Intensity: 8 Quality: + other (right chest pain) Exacerbated By: + other ("pop" in the area after being moved) Associated symptoms: + other (denies shoulder pain; no significant change with breathing) The patient is an 83 year old female who presents to the Emergency Room with complaints of persistent and worsening right-sided chest pain beginning yest erday. Review of records shows that the patient had left [facility] for [facility] on June 10 for renal failure attributed to dehydration. Nursing staff reports that two days ago she was discharged from [facility]. The patient states that her symptoms started yesterday after she was moved, noting that she felt a pop in the region of her right chest. She notes that she was feeling fine prior to the onset. She rates her pain at 8/10 and states that it has been worse today. She reports worsening of her pain with movement but states that there is no significant change with breathing. She denies shoulder pain or known history of broken ribs. She reports that she was unable to take her medications including for pain this morning due to being unable to move around. She reports a history of atrial fibrillation and states that she takes warfarin. She notes that she does not normally use supplemental oxygen at home. Home Medications Home Medications Medication Instructions Recorded Confirmed Type acetaminophen [Tylenol] 325 mg PO Q4 PRN 05/10/18 06/30/18 History omeprazole 40 mg PO QAM 05/10/18 06/30/18 History sertraline 50 mg PO QAM 05/10/18 06/30/18 History metoprolol succinate 50 mg PO DAILY 05/28/18 06/30/18 History albuterol sulfate 1 inha INH Q6H PRN #6.7 gm 06/10/18 06/30/18 Rx diltiazem HCl [Cardizem CD] 300 mg PO QAM #1 cap 06/10/18 06/30/18 Rx potassium chloride [Klor-Con M10] 20 meq PO DAILY #1 tab 06/10/18 06/30/18 Rx warfarin [Coumadin] 2 mg PO DAILY@1600 #1 tab 06/10/18 06/30/18 Rx atorvastatin 10 mg PO HS 06/30/18 06/30/18 History fluticasone-vilanterol [Breo 1 inh INHALATION DAILY 06/30/18 06/30/18 History Ellipta] multivit,stress formula-zinc 1 tab PO DAILY 06/30/18 06/30/18 History [Stress Formula with Zinc] ondansetron HCl [Zofran] 4 mg PO TID PRN 06/30/18 06/30/18 History Allergies Allergy/AdvReac Type Severity Reaction Status Date / Time amoxicillin Allergy Intermediate SWELLING Verified 06/30/18 16:51 Past Med/Surg History Medical History Renal failure (Acute) Diarrhea (Acute) HTN (hypertension) (Chronic) SVT (supraventricular tachycardia) (Chronic) A-fib (Chronic) Acute respiratory failure (Acute 04/26/13) PNA (pneumonia) (Resolved) CHF (congestive heart failure) (Acute) COPD exacerbation (Acute) Acute kidney injury superimposed on chronic kidney disease Acute on chronic diastolic heart failure Surgical History Previous section (Resolved) Family History Other Asthma Depression History of total knee replacement Hypertension Social History Preferred Language: [place] Beliefs That Will Affect Care: None Current Living Situation: Other Current Living Situation Comment: home with son Other Information That Helps Us Care for You: No Feels Safe at Home: Yes Safety Concerns: Feels Safe At This Time Smoking Status: Never smoker Hx Alcohol Use: No Hx Substance Use: No Review of Systems See HPI for pertinent positives & negatives. and A total of 10 systems reviewed and were otherwise negative Physical Exam Vital Signs Vital Signs - 24 hr 06/30/18 15:54 06/30/18 16:09 06/30/18 17:08 Temperature 36.6 C Temperature Source Oral Sepsis Recent Fever Within 48 Hours No Sepsis Action Taken by Nursing No Action Required Pulse Rate 118 H Pulse Rate [Finger] 117 H Respiratory Rate 24 22 Blood Pressure 165/102 H Blood Pressure [Left Arm] Blood Pressure [Right Arm] 140/88 Blood Pressure Mean 123 Blood Pressure Mean [Left Arm] Blood Pressure Mean [Right Arm] 105 Blood Pressure Position [Left Arm] Pulse Oximetry 88 L 93 94 Oxygen Delivery Method Room Air Nasal Cannula Nasal Cannula Oxygen Flow Rate 2 2 06/30/18 19:27 06/30/18 20:15 06/30/18 20:40 Temperature 37.0 C 37.0 C Temperature Source Oral Oral Sepsis Recent Fever Within 48 Hours Sepsis Action Taken by Nursing Pulse Rate Pulse Rate [Finger] 98 H 96 H 96 H Respiratory Rate 17 22 22 Blood Pressure Blood Pressure [Left Arm] 118/76 118/76 Blood Pressure [Right Arm] 132/72 Blood Pressure Mean Blood Pressure Mean [Left Arm] 90 90 Blood Pressure Mean [Right Arm] 92 Blood Pressure Position [Left Arm] Lying Pulse Oximetry 95 97 97 Oxygen Delivery Method Nasal Cannula Nasal Cannula Oxygen Flow Rate 2 2 GENERAL: Patient is in no acute distress. HEENT: No acute trauma, normocephalic atraumatic, mucous membranes dry, no nasal congestion, no scleral icterus. NECK: No stridor, no adenopathy, no meningismus, trachea is midline. LUNGS: Decreased breath sounds on the right, no wheezes, no rhonchi, no respiratory distress, slightly increased respiratory rate. HEART: Irregular and tachycardic, no murmurs. CHEST: There is tenderness to the right superior chest wall near the area where the clavicle attaches to the sternum. The superior sternum is also tender. No contusion. Pain does worsen with movement but does not worsen with breathing. ABDOMEN: Soft, nontender, bowel sounds positive, no hernias, no peritonitis. EXTREMITIES: No cyanosis or edema, full range of motion of all the joints without pain or difficulty, no signs for acute trauma. NEUROLOGIC: Oriented x 3, no acute motor or sensory deficits, no focal weakness. SKIN: No rash, no jaundice, no diaphoresis. Course 1557: Past medical records reviewed. The patient was evaluated in room C2B, and a complete history and physical examination were performed. 1751: I updated the patient on results. 1757: I consulted Kiara Odom PA-C: [facility] Hospitalist with Dr. Mcdonnell. The patient will be reevaluated for hospitalization. Consultations Consultation #1: I consulted Kiara Odom PA-C: [facility] Hospitalist with Dr. Mcdonnell. The patient will be reevaluated for hospitalization. Time: 17:58 Administered Medications Discontinued Medications Diltiazem HCl (Cardizem Cd) 300 mg PO NOW STA Stop: 06/30/18 16:05 Last Admin: 06/30/18 16:40 Dose: 300 mg Documented by: [id number] Acetaminophen (Ofirmev) 1,000 mg in 100 mls @ 400 mls/hr IV NOW STA Stop: 06/30/18 16:18 Last Infusion: 06/30/18 17:06 Dose: 0 mls/hr Documented by: [id number] Admin: 06/30/18 16:41 Dose: 400 mls/hr Documented by: [id number] Sodium Chloride (Nss 1000ml) 500 mls @ 999 mls/hr IV .Q31M ONE Stop: 06/30/18 18:37 Last Infusion: 06/30/18 18:58 Dose: 0 mls/hr Documented by: [id number] Admin: 06/30/18 18:15 Dose: 999 mls/hr Documented by: [id number] Metoprolol Succinate (Toprol Xl) 50 mg PO NOW STA Stop: 06/30/18 16:05 Last Admin: 06/30/18 16:41 Dose: 50 mg Documented by: [id number] Medical Decision Making Differential Diagnosis Differential diagnosis: rib fracture, clavicle dislocation, pneumothorax, pneumonia, rib contusion, atrial fibrillation, dysrhythmia, [place], pleural effusion Medical Records Attestation: I reviewed the patient's medical records. Home Medications Current Medication List: was personally reviewed by ut Laboratory Data Attestation: I reviewed the patient's lab results. Result diagrams: 06/30/18 16:30 06/30/18 17:43 Lab Results 06/30/18 06/30/18 06/30/18 Range/Units 16:30 16:30 16:30 WBC 4.41 L (4.8-10.8) K/uL RBC 4.35 (4.2-5.4) M/uL Hgb 12.9 (12.0-16.0) g/dL Hct 41.3 (37-47) % MCV 94.9 (80-100) fL MCH 29.7 (25-34) pg MCHC 31.2 L (32-36) g/dL RDW Std Deviation 61.0 H (36.4-46.3) fL RDW Coeff of Kathleen 17.7 H (11.5-14.5) % Plt Count 161 (130-400) K/uL MPV 12.1 H (7.4-10.4) fL Immature Gran % (Auto) 1.1 % Neut % (Auto) 51.3 % Lymph % (Auto) 22.9 % [place] % (Auto) 24.0 % Eos % (Auto) 0.5 % Baso % (Auto) 0.2 % Immature Gran # (Auto) 0.05 H (0.00-0.02) K/uL Neut # (Auto) 2.26 (1.4-6.5) K/uL Lymph # (Auto) 1.01 L (1.2-3.4) K/uL [place] # (Auto) 1.06 H (0.11-0.59) K/uL Eos # (Auto) 0.02 (0-0.5) K/uL Baso # (Auto) 0.01 (0-0.2) K/uL PT 20.3 H (9.0-12.0) Seconds INR 2.1 H (0.9-1.1) APTT 31.3 H (21.0-31.0) Seconds PTT Ratio 1.2 Sodium 144 (136-145) mmol/L Potassium (3.5-5.1) mmol/L Chloride 109 H (98-107) mmol/L Carbon Dioxide 30 (21-32) mmol/L Anion Gap 5.0 (3-11) BUN 18 (7-18) mg/dl Creatinine 1.14 (0.6-1.2) mg/dl Est Cr Clr Drug Dosing 45.8 ml/min Est GFR ( Amer) 52.2 Est GFR (Non-Af Amer) 45.1 BUN/Creatinine Ratio 15.4 (10-20) Glucose 100 H (70-99) mg/dl Calcium 8.1 L (8.5-10.1) mg/dl Troponin I < 0.015 (0-0.045) ng/ml 06/30/18 Range/Units 17:43 WBC (4.8-10.8) K/uL RBC (4.2-5.4) M/uL Hgb (12.0-16.0) g/dL Hct (37-47) % MCV (80-100) fL MCH (25-34) pg MCHC (32-36) g/dL RDW Std Deviation (36.4-46.3) fL RDW Coeff of Kathleen (11.5-14.5) % Plt Count (130-400) K/uL MPV (7.4-10.4) fL Immature Gran % (Auto) % Neut % (Auto) % Lymph % (Auto) % [place] % (Auto) % Eos % (Auto) % Baso % (Auto) % Immature Gran # (Auto) (0.00-0.02) K/uL Neut # (Auto) (1.4-6.5) K/uL Lymph # (Auto) (1.2-3.4) K/uL [place] # (Auto) (0.11-0.59) K/uL Eos # (Auto) (0-0.5) K/uL Baso # (Auto) (0-0.2) K/uL PT (9.0-12.0) Seconds INR (0.9-1.1) APTT (21.0-31.0) Seconds PTT Ratio Sodium (136-145) mmol/L Potassium 4.2 (3.5-5.1) mmol/L Chloride (98-107) mmol/L Carbon Dioxide (21-32) mmol/L Anion Gap (3-11) BUN (7-18) mg/dl Creatinine (0.6-1.2) mg/dl Est Cr Clr Drug Dosing ml/min Est GFR ( Amer) Est GFR (Non-Af Amer) BUN/Creatinine Ratio (10-20) Glucose (70-99) mg/dl Calcium (8.5-10.1) mg/dl Troponin I (0-0.045) ng/ml Imaging Data Radiologist's Impression: Radiology results as stated below per my review and the radiologist's interpretation: CT SCAN OF THE CHEST WITHOUT IV CONTRAST CLINICAL HISTORY: Right sternoclavicular joint pain. COMPARISON STUDY: Chest x-ray dated 05/28/2018. Chest CT dated 05/12/2018. TECHNIQUE: CT scan of the thorax was performed from the thoracic inlet to the u pper abdomen. Images are reviewed in the axial, sagittal, and coronal planes. IV contrast was not administered for this examination as per the referring clinician. A dose lowering technique was utilized adhering to the principles of ALARA. The examination is degraded by motion artifact. CT DOSE: 936.19 mGy.cm FINDINGS: Thyroid: Imaged portions of the thyroid gland are normal in size and attenu ation. An 11 mm low-attenuation nodule is seen in the right lobe. Thoracic aorta: The thoracic aorta is normal in caliber and demonstrates standard 3-vessel arch anatomy. Heart: The heart is enlarged and there is trace pericardial effusion. The pulmonary trunk is dilated, measuring 3.7 cm diameter. This suggests pulmonary artery hypertension. Lungs and pleural spaces: Evaluation of the lung parenchyma is modestly degraded by motion artifact. Emphysematous change is noted. There are small pleural effusions, left larger than right with associated atelectasis. No airspace consolidation is seen typical for pneumonia. Foci of scarring/atelectasis are scattered throughout both lungs. There are numerous small calcified granulomas. Mediastinum: There is no mediastinal lymphadenopathy. Desiree: Not well assessed without IV contrast. Axillae: There is no axillary lymphadenopathy. Upper abdomen: There are calcified splenic granulomas. A tiny hiatal hernia is observed. Skeletal structures: The skeletal structures are osteopenic. There is a subtle nondepressed fracture through the manubrium of the sternum with trace retrosternal hemorrhage and overlying soft tissue edema. This is new from 05/12/2018. There are numerous chronic bilateral rib fractures. There are subacute/healing left lateral sixth and seventh rib fractures which are new from 05/12/2018. Degenerative change is seen at the sternoclavicular joints. No dislocation is identified. There is a severe compression deformity of T6 with evidence of previous vertebroplasty. Retropulsed fragments at this level are similar to previous. Moderate to severe compression deformities are noted at T4 and T5. These are unchanged from 05/12/2018. There is a chronic left transverse process fracture of L1. Degenerative change and hyperkyphosis are noted in the thoracic spine. No lytic or blastic bony lesions are seen. Soft tissues: There is mild body wall edema. IMPRESSION: 1. There is a subtle nondepressed fracture of the manubrium with trace retrosternal hemorrhage and overlying soft tissue edema. This is new from 05/12/2018. 2. No additional acute fracture is clearly identified. 3. There are numerous chronic bilateral rib fractures. There are subacute/healing left lateral 6th and 7th rib fractures which are new from 05/12/2018. 4. Cardiomegaly and small pleural effusions. Pleural effusions are new from 05/12/2018. 5. There is body wall edema. 6. Additional findings as above. Electronically signed by: João Banegas M.D. 06/30/2018 5:23 PM ECG Data Attestation: I personally reviewed and interpreted this ECG as follows: Indication: chest pain Rate (beats per minute): 117 Rhythm: atrial fibrillation (with RVR) Findings: + T-wave inversion (inferior and lateral leads); no PVC Comparison ECG Date: from (06/08/2018) Change: no significant change Blood Pressure Blood Pressure Findings: Elevated blood pressure Blood Pressure Disposition: further management by hospitalist [facility] Narrative There is no leukocytosis or concerning anemia. INR is elevated consistent with her Coumadin use. She is therapeutic. There was no significant electrolyte abnormality or kidney failure. EKG shows a rapid A. fib, no ischemia. Cardiac enzyme testing x1 is not consistent with acute cardiac injury. Chest CT shows a sternal fracture with a trace hematoma. The fracture was not depressed. There were some chronic healing rib fractures noted. The patient received IV saline. She was given oral diltiazem and oral metoprolol, she had missed these medications today. She received IV Tylenol for pain. She did require a few liters of oxygen to maintain her saturation. The patient has fractured her sternum. This has caused difficulty breathing and a mild hypoxia. She has pain to move. She presents in rapid A. fib because she missed her typical rate controlling meds today. I do think a hospital stay is warranted. I spoke to case management, I talked to the patient and her family. The on-call hospitalist was consulted. Impression & Plan Sternal fracture, Hypoxia, Atrial fibrillation, rapid, Shortness of breath Discharge Plan Visit Data *Final* Discharge Date/Time: 06/30/18 19:48 Chief Complaint: Chest Pain Stated Complaint: CHEST PAIN ED Provider: João Gordillo Discharge Problem: Sternal fracture, Hypoxia, Atrial fibrillation, rapid, Shortness of breath Patient Disposition: Admitted As Inpatient Discharge Instructions Interventions: ED Discharge Assessment Last Done: 06/30/18 19:48 Discharge Problem: Sternal fracture Qualifiers: Encounter type: initial encounter Sternal location: manubrium Fracture type: closed Qualified Code(s): S22.21XA - Fracture of manubrium, initial encounter for closed fracture The scribe's documentation has been prepared under my direction and personally reviewed by me in its entirety. I confirm that the note above accurately reflects all work, treatment, procedures, and medical decision making performed by me.
--- NOTE | 2018-06-30 18:10 | History & Physical Report ---
Date of Service June 30, 2018 Assessment & Plan (1) Sternal fracture: - Admit to [facility] with tele - Pain control with tylenol 1000 mg Q8H and toradol 30 mg IV Q6H prn - CT reviewed showing nondisplaced noncompressed sternal fracture with trace retrosternal hematoma - reimage with concerns for hematoma. Multiple other subacute rib fractures as per CT appear to be new since 05/12/18. - HOLD coumadin. - Incentive spirometry, encourage ambulation for diminished chance of atelectasis or lung collapse. - Will consult thoracic surgery - PT/OT consults (2) Atrial fibrillation, rapid: - Chronic afib, anticoagulated on coumadin. Will hold anticoagulation with retrosternal hematoma as per CT - Rapid upon presentation to the ER due to missing morning medications, administered meds in ER, and rate is improving. Follow on tele. - Continue home diltiazem 300 mg QAM, metoprolol succinate 50 mg daily - INR =2.1., Follow am INR (3) Hypoxia: - O2 sats in 80s upon presentation - possible acute chf exacerbation in the setting of sternal rib fx. - Give lasix 20 mg IV as not on any diuretic at home and with CKD stage III - Monitor am PRP - Does not wear o2 chronically (4) Asthma: - Chronic, obstructive - Continue Breo ellipta inh daily, albuterol inh prn (5) COPD (chronic obstructive pulmonary disease): - Chronic, as above. (6) CHF (congestive heart failure): - Diastolic CHF with echo in 04/2018 showing EF 55-60% with mild mitral regurg and mild LVH. - Volume status appears slightly volume overloaded, giving lasix as above. - Payne catheter to be placed with pain and difficulty mobility in this setting. - Strict I/Os, daily weights (7) CKD (chronic kidney disease) stage 3, GFR 30-59 ml/min: - Cr. stable, follow daily PRP with administration of lasix and prn toradol for pain. (8) HTN (hypertension): - Continue antihypertensives as above. (9) DVT prophylaxis: teds, scds, holding coumadin as above, resume when medically stable. History of Present Illness Chief Complaint: Sternal pain Primary Care Provider: Audrey Johnson PA-C This is an 83 yo F with PMHx of diastolic CHF, afib on coumadin, HTN, HLD, COPD, chronic obstructive asthma, GERD, CKD stage III, who presents with sternal chest pain x 1 day. Pt reports yesterday morning she was being helped from a sitting to standing position by her son, and felt a pop in her chest, followed by pain. She was able to move about yesterday and continue with normal ADLs, however this morning felt significant pain. She was unable to even move without the pain being unbearable. She missed morning medications due to not being able to physically get to them. She denies waxing and waning chest pain, shortness of breath, palpitations, flutter, headache, weakness. Pt typically uses a walker at baseline for ambulation. She lives with her son at home, and does not want to be in a penitentiary. Upon arrival to the ER, pt was found to be hypoxic with O2 sats in the 80s, and was in afib with RVR likely due to missing medications. CT of the chest reveals sternal fracture, nondisplaced, noncompressed and trace retrosternal hemorrhage and overlying soft tissue edema. There are also numerous chronic bilateral rib fractures. There are subacute/healing left lateral 6th and 7th rib fractures. Allergies Allergy/AdvReac Type Severity Reaction Status Date / Time amoxicillin Allergy Intermediate SWELLING Verified 06/30/18 16:51 Home Medications Home Medications Medication Instructions Recorded Confirmed Type acetaminophen [Tylenol] 325 mg PO Q4 PRN 05/10/18 06/30/18 History omeprazole 40 mg PO QAM 05/10/18 06/30/18 History sertraline 50 mg PO QAM 05/10/18 06/30/18 History metoprolol succinate 50 mg PO DAILY 05/28/18 06/30/18 History albuterol sulfate 1 inha INH Q6H PRN #6.7 gm 06/10/18 06/30/18 Rx diltiazem HCl [Cardizem CD] 300 mg PO QAM #1 cap 06/10/18 06/30/18 Rx potassium chloride [Klor-Con M10] 20 meq PO DAILY #1 tab 06/10/18 06/30/18 Rx warfarin [Coumadin] 2 mg PO DAILY@1600 #1 tab 06/10/18 06/30/18 Rx atorvastatin 10 mg PO HS 06/30/18 06/30/18 History fluticasone-vilanterol [Breo 1 inh INHALATION DAILY 06/30/18 06/30/18 History Ellipta] multivit,stress formula-zinc 1 tab PO DAILY 06/30/18 06/30/18 History [Stress Formula with Zinc] ondansetron HCl [Zofran] 4 mg PO TID PRN 06/30/18 06/30/18 History Past Med/Surg History Medical History Renal failure (Acute) Diarrhea (Acute) HTN (hypertension) (Chronic) SVT (supraventricular tachycardia) (Chronic) A-fib (Chronic) Acute respiratory failure (Acute 04/26/13) PNA (pneumonia) (Resolved) CHF (congestive heart failure) (Acute) COPD exacerbation (Acute) Acute kidney injury superimposed on chronic kidney disease Acute on chronic diastolic heart failure Surgical History Previous section (Resolved) Family History Other Asthma Depression History of total knee replacement Hypertension Social History Preferred Language: Romanian Beliefs That Will Affect Care: None Current Living Situation: Family Current Living Situation Comment: Lives with son Feels Safe at Home: Yes Smoking Status: Former smoker Hx Alcohol Use: No Hx Substance Use: No Review of Systems Constitutional: No fever, sweats or chills Eyes: No diplopia, no worsening or blurred vision ENT: normal hearing, no trouble swallowing Respiratory: No cough, sputum, dyspnea at rest or on exertion Cardiovascular: +sternal pain as per HPI, no deep chest pain, tightness or palpitations Abdomen: No pain, nausea, vomiting, diarrhea or constipation Musculoskeletal: No joint pain, calf pain, + bilateral leg swelling Neurologic: No weakness, numbness/tingling, or balance problems Psychiatric: No anxiety or depression Skin: No rash or itch Physical Exam Vital Signs (Past 24 Hours): Last Vital Signs Temp 36.6 C 06/30/18 15:54 Pulse 117 H 06/30/18 17:08 Resp 22 06/30/18 17:08 BP 140/88 06/30/18 17:08 Pulse Ox 94 06/30/18 17:08 Physical Exam: General: awake, alert, no apparent distress, + morbidly obese Head: Normocephalic, atraumatic ENT: PERRL, EOMI, no pharyngeal exudate, mucous membranes moist Chest: Difficult to auscultate due to body habitus and acute sternal fracture causing pain with movement, clear in anterior alaniz, on 2L via NC. Cardiac: irregularly irregular, HR in low 100s, no murmur, no JVD, normal peripheral pulses, good capillary refill Abdominal: NABS x 4 quadrants, soft, nontender to palpation, no rebound, guarding or tenderness Extremities: Normal inspection, 2+ peripheral edema in BLE, no erythema, calfs nontender to palpation Psych: Normal mood and affect Neuro: AAO x 3, no motor deficits, speech is clear Results & Data Diagnostic Findings CT SCAN OF THE CHEST WITHOUT IV CONTRAST CLINICAL HISTORY: Right sternoclavicular joint pain. COMPARISON STUDY: Chest x-ray dated 05/28/2018. Chest CT dated 05/12/2018. TECHNIQUE: CT scan of the thorax was performed from the thoracic inlet to the upper abdomen. Images are reviewed in the axial, sagittal, and coronal planes. IV contrast was not administered for this examination as per the referring clinician. A dose lowering technique was utilized adhering to the principles of ALARA. The examination is degraded by motion artifact. CT DOSE: 936.19 mGy.cm FINDINGS: Thyroid: Imaged portions of the thyroid gland are normal in size and attenuation. An 11 mm low-attenuation nodule is seen in the right lobe. Thoracic aorta: The thoracic aorta is normal in caliber and demonstrates standard 3-vessel arch anatomy. Heart: The heart is enlarged and there is trace pericardial effusion. The pulmonary trunk is dilated, measuring 3.7 cm diameter. This suggests pulmonary artery hypertension. Lungs and pleural spaces: Evaluation of the lung parenchyma is modestly degraded by motion artifact. Emphysematous change is noted. There are small pleural effusions, left larger than right with associated atelectasis. No airspace consolidation is seen typical for pneumonia. Foci of scarring/atelectasis are scattered throughout both lungs. There are numerous small calcified granulomas. Mediastinum: There is no mediastinal lymphadenopathy. Desiree: Not well assessed without IV contrast. Axillae: There is no axillary lymphadenopathy. Upper abdomen: There are calcified splenic granulomas. A tiny hiatal hernia is observed. Skeletal structures: The skeletal structures are osteopenic. There is a subtle nondepressed fracture through the manubrium of the sternum with trace retrosternal hemorrhage and overlying soft tissue edema. This is new from 05/12/2018. There are numerous chronic bilateral rib fractures. There are subacute/healing left lateral sixth and seventh rib fractures which are new from 05/12/2018. Degenerative change is seen at the sternoclavicular joints. No dislocation is identified. There is a severe compression deformity of T6 with evidence of previous vertebroplasty. Retropulsed fragments at this level are similar to previous. Moderate to severe compression deformities are noted at T4 and T5. These are unchanged from 05/12/2018. There is a chronic left transverse process fracture of L1. Degenerative change and hyperkyphosis are noted in the thoracic spine. No lytic or blastic bony lesions are seen. Soft tissues: There is mild body wall edema. IMPRESSION: 1. There is a subtle nondepressed fracture of the manubrium with trace retrosternal hemorrhage and overlying soft tissue edema. This is new from 05/12/2018. 2. No additional acute fracture is clearly identified. 3. There are numerous chronic bilateral rib fractures. There are subacute/healing left lateral 6th and 7th rib fractures which are new from 05/12/2018. 4. Cardiomegaly and small pleural effusions. Pleural effusions are new from 05/12/2018. 5. There is body wall edema. 6. Additional findings as above. Code Status & VTE Plan Code Status DNR - discussed with pt and son at bedside Supervising Physician Co-Signing Physician Notes Patient seen and examined, discussed with physician circulation assistant about patient condition and care plan, agree current care plan, Subjective: Currently no complaint eating dinner, Review of Systems No fever and chill, denies obvious pain, Respiratory: no cough, sputum, wheezing, or dyspnea on exertion Cardiac: No chest pain, No orthopnea, No PND, No claudication, No palpitations, Abdomen: No pain, No nausea, No vomiting, No diarrhea, No constipation, No GI bleeding : No dysuria, No urinary frequency, No incontinence, No hematuria Skin: No rash, No itch, No new/changing skin lesions, No color change, No bleeding Objective: General Appearance: WD/WN, no apparent distress, obesity, pleasant, conversational, Eyes: normal inspection, PERRL, EOMI, sclerae normal ENT: normal ENT inspection, hearing grossly normal, pharynx normal Neck: supple, no adenopathy, thyroid normal, no JVD, no carotid bruits, trachea midline Respiratory/Chest: Mid chest wall mild tenderness, no cord no bruits, chest non- tender, normal breath sounds, no respiratory distress, no accessory muscle use, breath sounds, rales, wheezing Cardiovascular: irregular rate, rhythm, no JVD, no murmur Abdomen: normal bowel sounds, non tender, soft, no organomegaly, Extremities: normal range of motion, non-tender, normal inspection, Neurologic/Psychiatric: data modeling specialist II-XII nml as tested, no motor/sensory deficits, alert, normal mood/affect, oriented x 3 Skin: normal color, warm/dry, no rash Assessment and plan: 83-year-old white female admitted on June 30, 2018 because of Sternal fracture: Pain controlled, HOLD coumadin. Follow-up H&H, l consult thoracic surgery, check vitamin D Atrial fibrillation, rapid: Resume home medication, telemetry monitoring, Lopressor as needed (1) CHF (congestive heart failure) Heart failure chronicity: unspecified Heart failure type: unspecified Qualified Code(s): I50.9 - Heart failure, unspecified (2) Sternal fracture Encounter type: initial encounter Fracture type: closed Sternal location: manubrium Qualified Code(s): S22.21XA - Fracture of manubrium, initial encounter for closed fracture (3) HTN (hypertension) Hypertension type: essential hypertension Qualified Code(s): I10 - Essential (primary) hypertension
[2018-06-30] MEDS ORDERED: ACETAMINOPHEN 325 MG TAB PO PRN (20:40)
[2018-06-30] MEDS ORDERED: ONDANSETRON 4 MG TAB PO PRN (20:40)
[2018-06-30] MEDS ORDERED: ALBUTEROL HFA 8 GM INHALER INH PRN (20:40)
[2018-06-30] MEDS ORDERED: NON-FORMULARY MEDICATION (Acetaminophen [Tylenol] 325 MG) PO PRN ×2 (20:40)
[2018-06-30] MEDS ORDERED: FUROSEMIDE 20 MG in SYRINGE 0 ML IV ONE (22:15)
[2018-06-30] MEDS: ACETAMINOPHEN 500 MG TAB PO SCH (22:34)
[2018-06-30] MEDS: ATORVASTATIN 10 MG TAB PO SCH (22:34)
[2018-07-01] MEDS: ACETAMINOPHEN 500 MG TAB PO SCH ×3 (07:07→21:55)
[2018-07-01 07:46] LABS: Hematocrit (blood only) 36.8 % (37-47); Hemoglobin 11.4 g/dL (12.0-16.0); Mean Corpuscular Volume 94.1 fL (80-100); Mean Platelet Volume 11.4 fL (7.4-10.4); Platelet Count 129 K/uL (130-400); RDW Coefficient of Variation 17.2 % (11.5-14.5); RDW Standard Deviation 59.2 fL (36.4-46.3); Red Blood Count 3.91 M/uL (4.2-5.4); White Blood Count 3.78 K/uL (4.8-10.8)
[2018-07-01] MEDS: CEROVITE ADV FORMULA TAB PO SCH (07:50)
[2018-07-01] MEDS: SERTRALINE HCL 50 MG TABLET PO SCH (07:50)
[2018-07-01] MEDS: PANTOprazole 40 MG TAB PO SCH (07:50)
[2018-07-01] MEDS: POTASSIUM CHLORIDE 10 MEQ TABCR PO SCH (07:50)
[2018-07-01] MEDS: dilTIAZem HCL 300 MG CAPCR PO SCH (07:50)
[2018-07-01] MEDS: METOPROLOL SUCC 50MG EXT REL TAB PO SCH (07:51)
[2018-07-01 08:23] LABS: INR 2.2 (0.9-1.1); Prothrombin Time 20.9 Seconds (9.0-12.0)
[2018-07-01] MEDS ORDERED: MICONAZOLE NITRATE POWDER 43 GM EXT PRN (08:28)
--- NOTE | 2018-07-01 10:48 | XRay Report ---
XR chest 2V routine CLINICAL HISTORY: pleural effusions COMPARISON STUDY: CT scan dated 06/30/2018 FINDINGS: The heart is enlarged. There is no pneumothorax. Trace pleural effusions are suspected. The re is mild interstitial thickening/edema. There is no lobar consolidation.[ There are several thoraci c vertebral body compression fractures. IMPRESSION: 1. Cardiomegaly and mild interstitial thickening/edema 2. Suspected trace pleural effusions 3. No evidence of lobar consolidation. Electronically signed by: Ernst Mclean M.D. 07/01/2018 10:47 AM
[2018-07-01] MEDS ORDERED: TRAMADOL HCL 50 MG TABLET PO PRN (11:38)
--- NOTE | 2018-07-01 11:44 | Hospitalist Progress Note ---
Date of Service July 01, 2018 Assessment & Plan (1) Sternal fracture: (2) Atrial fibrillation, rapid: (3) Hypoxia: (4) Asthma: (5) COPD (chronic obstructive pulmonary disease): (6) CHF (congestive heart failure): (7) CKD (chronic kidney disease) stage 3, GFR 30-59 ml/min: (8) HTN (hypertension): (9) DVT prophylaxis: 83-year-old white female admitted on June 30, 2018 because of Sternal fracture Sternal fracture: Chest surgeon saw patient, repeat x-ray, stable , ordered tramadol for pain controlled, PT OT evaluation and treatment, taper off nasal cannula oxygen Atrial fibrillation with RVR upon admission, improved and resolved, currently rate controlled, Chronic afib, anticoagulated on coumadin. Will resume Coumadin, and follow am INR mild Hypoxia upon admission, encourage deep breathing, taper off oxygen if possible, Chronic obstructive asthma and COPD, history of CHF , continue Breo ellipta inh daily, albuterol inh prn, continue Lasix, DC Payne catheter, increase activity CKD (chronic kidney disease) stage 3, stable continue follow-up Hypertension stable continue current medication DVT prophylaxis: teds, scds, restart Coumadin Increase activity PTOT, taper off oxygen, discontinue Payne catheter, stool softener for constipation, pain control, possible can be discharged home soon Subjective moderated sternum pain, 5/10, no bowel movement for 2-3 days, otherwise doing well Review of Systems Constitutional: Positive weakness, or fatigue Respiratory: no cough, sputum, wheezing, or dyspnea on exertion Cardiac: No chest pain, No orthopnea, Abdomen: No pain, No nausea, No vomiting, No diarrhea, No GI bleeding : No dysuria, No urinary frequency, No incontinence, No hematuria Neurologic: No paralysis, No weakness, No numbness/tingling, No vertigo, No balance problems Heme: No abnormal bleeding/bruising, No clotting problems, No swollen lymph nodes, No night sweats Physical Exam Vital Signs (Past 24 Hours): Last Vital Signs Temp 36.7 C 07/01/18 07:37 Pulse 83 07/01/18 07:37 Resp 20 07/01/18 07:37 BP 114/68 07/01/18 07:37 Pulse Ox 95 07/01/18 07:37 Physical Exam: General: Pleasant, conversational, awake, alert, no apparent distress, + morbidly obese, nasal cannula in place Head: Normocephalic, atraumatic ENT: PERRL, EOMI, no pharyngeal exudate, mucous membranes moist Chest: Mid chest mild tender when palpation, clear to ausculation, no w/r/c Cardiac: irregularly irregular, HR in low 100s, no murmur, Abdominal: soft, nontender to palpation, no rebound, guarding or tenderness, Payne catheter in place Extremities: Normal inspection, 1+ peripheral edema in BLE, no erythema, calfs nontender to palpation Psych: Normal mood and affect Neuro: AAO x 3, no motor deficits, speech is clear Results & Data Laboratory Results Laboratory Results - last 24 hr 06/30/18 06/30/18 06/30/18 16:30 16:30 16:30 WBC 4.41 L RBC 4.35 Hgb 12.9 Hct 41.3 MCV 94.9 MCH 29.7 MCHC 31.2 L RDW Std Deviation 61.0 H RDW Coeff of Kathleen 17.7 H Plt Count 161 MPV 12.1 H Immature Gran % (Auto) 1.1 Neut % (Auto) 51.3 Lymph % (Auto) 22.9 Reynolds % (Auto) 24.0 Eos % (Auto) 0.5 Baso % (Auto) 0.2 Immature Gran # (Auto) 0.05 H Neut # (Auto) 2.26 Lymph # (Auto) 1.01 L Reynolds # (Auto) 1.06 H Eos # (Auto) 0.02 Baso # (Auto) 0.01 PT 20.3 H INR 2.1 H APTT 31.3 H PTT Ratio 1.2 Sodium 144 Potassium Chloride 109 H Carbon Dioxide 30 Anion Gap 5.0 BUN 18 Creatinine 1.14 Est Cr Clr Drug Dosing 45.8 Est GFR ( Amer) 52.2 Est GFR (Non-Af Amer) 45.1 BUN/Creatinine Ratio 15.4 Glucose 100 H Calcium 8.1 L Troponin I < 0.015 06/30/18 07/01/18 07/01/18 17:43 07:24 07:24 WBC 3.78 L RBC 3.91 L Hgb 11.4 L Hct 36.8 L MCV 94.1 MCH 29.2 MCHC 31.0 L RDW Std Deviation 59.2 H RDW Coeff of Kathleen 17.2 H Plt Count 129 L MPV 11.4 H Immature Gran % (Auto) Neut % (Auto) Lymph % (Auto) Reynolds % (Auto) Eos % (Auto) Baso % (Auto) Immature Gran # (Auto) Neut # (Auto) Lymph # (Auto) Reynolds # (Auto) Eos # (Auto) Baso # (Auto) PT 20.9 H INR 2.2 H APTT PTT Ratio Sodium Potassium 4.2 Chloride Carbon Dioxide Anion Gap BUN Creatinine Est Cr Clr Drug Dosing Est GFR ( Amer) Est GFR (Non-Af Amer) BUN/Creatinine Ratio Glucose Calcium Troponin I (1) CHF (congestive heart failure) Heart failure chronicity: unspecified Heart failure type: unspecified Qualified Code(s): I50.9 - Heart failure, unspecified (2) Sternal fracture Encounter type: initial encounter Fracture type: closed Sternal location: manubrium Qualified Code(s): S22.21XA - Fracture of manubrium, initial encounter for closed fracture (3) HTN (hypertension) Hypertension type: essential hypertension Qualified Code(s): I10 - Essential (primary) hypertension
[2018-07-01] MEDS: DOCUSATE SODIUM 100 MG CAP PO SCH ×2 (13:25→21:56)
[2018-07-01] MEDS ORDERED: WARFARIN SOD 2 MG TAB PO SCH (16:00)
[2018-07-01] MEDS: WARFARIN SOD 2 MG TAB PO SCH (16:59)
[2018-07-01] MEDS: ONDANSETRON INJ 2 MG/ML 2 ML VIAL IV PRN (19:51)
[2018-07-01] MEDS: KETOROLAC TROMETHAMINE 15 MG/ML VIAL IV PRN (19:58)
[2018-07-01] MEDS: ATORVASTATIN 10 MG TAB PO SCH (21:55)
--- NOTE | 2018-07-02 00:51 | Consultation Report ---
DATE OF CONSULTATION: 07/01/2018 REASON FOR CONSULTATION: Sternal fracture. HISTORY OF PRESENT ILLNESS: Kayy Navarro is an obese 83-year-old female who has marked osteoporosis and suffered an apparent fracture when she was being helped from a sitting to a standing position by her son and felt this pop in her upper manubrial sternal area which has been quite painful. She underwent a CT which showed a very subtle fracture. There was a very small reaction around this which may have been a hematoma, but it was very small and superior. The patient was hypoxic with saturations in the 80s, was in AFib, and she also had some pleural effusions which were rather small. The patient was admitted due to her pain and I was asked to evaluate her from a surgical standpoint. We obtained an AP and lateral chest x-ray this morning. It should be noted that the CT scan was done more than 24 hours after her injury. PAST MEDICAL HISTORY: 1. Acute renal failure. 2. Hypertension. 3. Supraventricular tachycardia with atrial fibrillation. 4. Congestive heart failure episodes. 5. Chronic obstructive pulmonary disease. 6. Chronic diastolic heart failure. PAST SURGICAL HISTORY: 1. 3, para 3, abortus 0 (C-sections). 2. Bilateral total knee arthroplasties. 3. Open reduction internal fixation of both wrists after fractures. MEDICATIONS: 1. Zofran. 2. Omeprazole. 3. Breo Ellipta. 4. Atorvastatin. 5. Coumadin. 6. Diltiazem. 7. Albuterol. 8. Potassium supplements. 9. Metoprolol. 10. Sertraline. ALLERGIES: AMOXICILLIN CAUSES IMMEDIATE SWELLING. SOCIAL HISTORY: The patient lives with her son. 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 She states that she has never smoked or used alcohol. She lives with her son and his family. FAMILY MEDICAL HISTORY: The patient's mother in her early 50s after a car accident and a prolonged hospitalization. Father at 81 from "old age." She has 6 siblings, only one of which is alive besides her. She does not really know the etiologies of the other 5 siblings' deaths. She does not know of anyone having cancer and most of them were older when they . Her 3 children, 4 grandchildren, and multiple great grandchildren are all healthy. REVIEW OF SYSTEMS: She denies weight loss. She has had no productive cough. She has had no hemoptysis, hematemesis, or hematochezia. She denies productive cough or fevers. She denies any problems with her vision, although she does wear glasses. She has no decreased hearing acuity. She denies any neurologic events such as amaurosis fugax, transient ischemic attack. She does have some mild swelling in her legs which sounds dependent in nature. She does have a upper sternal pain but no chest pressure and denies palpitations. She denies nausea, vomiting or diarrhea. She has had no skin breakdown. PHYSICAL EXAMINATION: GENERAL: This is a 5-feet 3-inch, 235-pound female, who is awake, alert and oriented. She is in pain. HEENT: Extraocular movements are intact. She wears glasses. She has an upper denture plate, but most of her lower teeth are in place except for her molars and she has no evidence of dental caries or abscess. Tongue is midline. No nasolabial flattening. NECK: Thick but supple. She has no carotid bruits. I detect no supraclavicular or cervical lymphadenopathy. She is tender, but she has no crepitus along her right upper sternoclavicular area. LUNGS: She is moving air well except for some upper airway rhonchi. She has no wheezing. HEART: She has an irregular irregular rhythm about 100 beats per minute. She has no significant rub. ABDOMEN: Obese, but soft and nontender. EXTREMITIES: She has 2+ edema of her lower legs. She has easily palpable pedal pulses. She has well-healed arthrotomy incisions over her knees. She has no joint swelling. NEUROLOGIC: She is completely intact. ASSESSMENT AND PLAN: Bilateral small pleural effusions, left larger than right. Very subtle nondepressed fracture of the right upper manubrium and sternum. On the x-ray done today, I see no increased densities retrosternally. Bilateral pleural effusions, in the face of an upper sternal fracture. I doubt these two are related. I would be worried about congestive heart failure in her. There will be nothing to do about this fracture except pain control. I will follow along while she is in the hospital.
[2018-07-02] MEDS: ACETAMINOPHEN 500 MG TAB PO SCH ×3 (05:03→21:33)
[2018-07-02 06:54] LABS: Hematocrit (blood only) 37.7 % (37-47); Hemoglobin 11.6 g/dL (12.0-16.0); Mean Corpuscular Hgb Conc 30.8 g/dL (32-36); Mean Corpuscular Volume 94.7 fL (80-100); Mean Platelet Volume 11.3 fL (7.4-10.4); Nucleated RBC # (auto) 0.03 K/uL (0-0); Nucleated RBC % (auto) 0.8 %; Platelet Count 124 K/uL (130-400); RDW Coefficient of Variation 17.3 % (11.5-14.5); RDW Standard Deviation 59.9 fL (36.4-46.3); Red Blood Count 3.98 M/uL (4.2-5.4); White Blood Count 3.99 K/uL (4.8-10.8)
[2018-07-02 07:09] LABS: INR 1.8 (0.9-1.1); Prothrombin Time 17.5 Seconds (9.0-12.0)
[2018-07-02] MEDS: POTASSIUM CHLORIDE 10 MEQ TABCR PO SCH (07:37)
[2018-07-02] MEDS: CEROVITE ADV FORMULA TAB PO SCH (07:38)
[2018-07-02] MEDS: METOPROLOL SUCC 50MG EXT REL TAB PO SCH (07:38)
[2018-07-02] MEDS: SERTRALINE HCL 50 MG TABLET PO SCH (07:38)
[2018-07-02] MEDS: DOCUSATE SODIUM 100 MG CAP PO SCH ×2 (07:38→21:33)
[2018-07-02] MEDS: dilTIAZem HCL 300 MG CAPCR PO SCH (07:38)
[2018-07-02] MEDS: PANTOprazole 40 MG TAB PO SCH (07:38)
[2018-07-02] MEDS: ONDANSETRON INJ 2 MG/ML 2 ML VIAL IV PRN ×2 (08:51→18:43)
[2018-07-02] MEDS: KETOROLAC TROMETHAMINE 15 MG/ML VIAL IV PRN ×2 (08:51→21:32)
--- NOTE | 2018-07-02 08:58 | Hospitalist Progress Note ---
Date of Service July 02, 2018 Assessment & Plan (1) Sternal fracture: - Pain control with tylenol 1000 mg Q8H and toradol 30 mg IV Q6H prn - CT reviewed showing nondisplaced noncompressed sternal fracture with trace retrosternal hematoma - Multiple other subacute rib fractures as per CT appear to be new since 05/12/18. - HOLD coumadin. - Incentive spirometry, encourage ambulation for diminished chance of atelectasis or lung collapse. -Thoarcic surgery suggests symptom control (2) Atrial fibrillation, rapid: - Chronic afib, anticoagulated on coumadin. Will hold anticoagulation with retrosternal hematoma as per CT - Rapid upon presentation to the ER due to missing morning medications, administered meds in ER, - Continue home diltiazem 300 mg QAM, metoprolol succinate 50 mg daily - INR =2.1., Follow (3) Hypoxia: - O2 sats in 80s upon presentation - possible acute chf exacerbation in the setting of sternal rib fx.( could also be atelectasis from splinting) - Given lasix 20 mg IV with CKD stage III - Does not wear o2 chronically (4) Asthma: - Chronic, obstructive - Breo ellipta inh daily, albuterol inh prn (5) COPD (chronic obstructive pulmonary disease): (6) CHF (congestive heart failure): - Diastolic CHF with echo in 04/2018 showing EF 55-60% with mild mitral regurg and mild LVH. - Volume status appears slightly volume overloaded on presentation, giving lasix - Payne catheter Strict I/Os, daily weights (7) CKD (chronic kidney disease) stage 3, GFR 30-59 ml/min: (8) HTN (hypertension): - Continue antihypertensives as above. (9) DVT prophylaxis: DVT prophylaxis: teds, scds, restart Coumadin when able Increase activity PTOT, taper off oxygen, discontinue Payne catheter, stool softener for constipation, pain control, possible can be discharged home soon Subjective Patient has significant sternal discomfort as her sternal fracture. She claims just from her son repositioning her in her booster chair. She is only been home for [facility] for a few days. However plan is to return to home. I made attempt to reach out to her family member both her son and daughter today and was unsuccessful at reaching them. They also did not have a voicemail part of their phone number to leave and leave him a message. I am very concerned with the patient returning to home with multiple fractures only 2 days after being released from his [facility] for subacute rehab and do recommend that she likely be revisited to a rehab type facility breath with these pleural effusions her A. fib seems to be rate controlled Review of Systems ROS: well nourished well developed. No double vision blurry vision No problems with speech or swallowing No palpitations, she has chest pain due to her sternal fracture when she moves her shoulder girdle she also some chest wall pain with her previous rib fractures No Wheezing some some splinting and does not feel like she could get a full deep breath No abdominal pain nausea vomiting diarrhea changes in appetite or weight No burning urine urine frequency or changes in color No focal joint pain or muscle pain No skin rashes or oral lesions No unusual bruising or bleeding No focused back pain or numbness or loss of strength No changes in memory or confusion Physical Exam Vital Signs (Past 24 Hours): Last Vital Signs Temp 36.5 C 07/02/18 07:48 Pulse 79 07/02/18 07:48 Resp 20 07/02/18 07:48 BP 131/68 07/02/18 07:48 Pulse Ox 90 07/02/18 07:48 The patient appeared well nourished and normally developed. Obese Vital signs as documented. Head exam is unremarkable. normocephalic, atraumatic Neck is without jugular venous distension, thyromegaly, or lymphademopathy Lungs are imaged bilaterally with splinting Cardiac exam reveals irregularly irregular and rate controlled.. First and sec ond heart sounds normal. Chest wall is tender to palpation Abdominal exam reveals normal bowel sounds, no masses, no organomegaly Extremities are mildly edematous and both pedal pulses are present Neurologic exam is A&Ox3, no focal deficits, strength is equal bilateral (1) CHF (congestive heart failure) Heart failure chronicity: unspecified Heart failure type: unspecified Qualified Code(s): I50.9 - Heart failure, unspecified (2) Sternal fracture Encounter type: initial encounter Fracture type: closed Sternal location: manubrium Qualified Code(s): S22.21XA - Fracture of manubrium, initial encounter for closed fracture (3) HTN (hypertension) Hypertension type: essential hypertension Qualified Code(s): I10 - Essential (primary) hypertension
--- NOTE | 2018-07-02 09:00 | Progress Note ---
DATE: 07/02/2018 Ms. Navarro was seen today. Her pain is better, although she still has some in her upper manubrial area. Her saturations are acceptable on room air. This is an issue with pain control and I think that she is going to be stable from this. I am a little bit more concerned about her pleural effusion, but I think this may be a result of her fluid status. I will be glad to see her back at any time, but will not schedule a followup appointment unless requested.
[2018-07-02] MEDS: WARFARIN SOD 2 MG TAB PO SCH (17:08)
[2018-07-02] MEDS: ATORVASTATIN 10 MG TAB PO SCH (22:13)
[2018-07-03] MEDS: ACETAMINOPHEN 500 MG TAB PO SCH ×3 (05:43→20:41)
[2018-07-03] MEDS: SERTRALINE HCL 50 MG TABLET PO SCH (07:47)
[2018-07-03] MEDS: POTASSIUM CHLORIDE 10 MEQ TABCR PO SCH (07:47)
[2018-07-03] MEDS: dilTIAZem HCL 300 MG CAPCR PO SCH (07:47)
[2018-07-03] MEDS: ONDANSETRON INJ 2 MG/ML 2 ML VIAL IV PRN ×2 (07:50→20:42)
[2018-07-03] MEDS: DOCUSATE SODIUM 100 MG CAP PO SCH ×2 (08:19→20:41)
[2018-07-03] MEDS: METOPROLOL SUCC 50MG EXT REL TAB PO SCH (08:19)
[2018-07-03] MEDS: CEROVITE ADV FORMULA TAB PO SCH (08:19)
[2018-07-03] MEDS: PANTOprazole 40 MG TAB PO SCH (08:19)
[2018-07-03 08:28] LABS: Hematocrit (blood only) 39.3 % (37-47); Hemoglobin 12.3 g/dL (12.0-16.0); Mean Corpuscular Hgb Conc 31.3 g/dL (32-36); Mean Corpuscular Volume 95.2 fL (80-100); Mean Platelet Volume 11.6 fL (7.4-10.4); Platelet Count 131 K/uL (130-400); RDW Coefficient of Variation 17.4 % (11.5-14.5); Red Blood Count 4.13 M/uL (4.2-5.4); White Blood Count 4.89 K/uL (4.8-10.8)
[2018-07-03 08:34] LABS: INR 1.8 (0.9-1.1); Prothrombin Time 17.7 Seconds (9.0-12.0)
--- NOTE | 2018-07-03 18:21 | Hospitalist Progress Note ---
Date of Service July 03, 2018 Assessment & Plan (1) Sternal fracture: - Pain control with tylenol 1000 mg Q8H and toradol 30 mg IV Q6H prn - CT reviewed showing nondisplaced noncompressed sternal fracture with trace retrosternal hematoma - Multiple other subacute rib fractures as per CT appear to be new since 05/12/18. - HOLD coumadin. - Incentive spirometry, encourage ambulation for diminished chance of atelectasis or lung collapse. -Thoarcic surgery suggests symptom control Patient is improved with regard to her symptoms is able to participate in physical therapy we will likely reinstitute Coumadin therapy on 07/04 (2) Atrial fibrillation, rapid: - Chronic afib, anticoagulated on coumadin. We will continue to hold Coumadin with retrosternal hematoma as per CT as above likely resume and on 07/04 - Rapid upon presentation to the ER due to missing morning medications, administered meds in ER, - Continue home diltiazem 300 mg QAM, metoprolol succinate 50 mg daily with resumption of her meds she seems to have good rate control (3) Hypoxia: - O2 sats in 80s upon presentation -likely from splinting and under oxygenation possibly a small component of diastolic heart failure due to rapid atrial fibrillation rate now resolved - Given lasix 20 mg IV with CKD stage III - Does not wear o2 chronically (4) Asthma: - Chronic, obstructive - Breo ellipta inh daily, albuterol inh prn (5) COPD (chronic obstructive pulmonary disease): (6) CHF (congestive heart failure): - Diastolic CHF with echo in 04/2018 showing EF 55-60% with mild mitral regurg and mild LVH. - Volume status appears slightly volume overloaded on presentation, giving lasix - Payne catheter Strict I/Os, daily weights (7) CKD (chronic kidney disease) stage 3, GFR 30-59 ml/min: (8) HTN (hypertension): - Continue antihypertensives as above. (9) DVT prophylaxis: DVT prophylaxis: teds, scds, restart Coumadin when able Increase activity PTOT, taper off oxygen, discontinue Payne catheter, stool softener for constipation, pain control, possible can be discharged home soon Subjective Patient actually is improved somewhat since yesterday she is able to participate in physical therapy today she is able ambulate short distances today Review of Systems ROS: She is obese chronically ill appears weak and tired No double vision blurry vision No problems with speech or swallowing No palpitations, remnants of chest pain especially with moving No Wheezing or breathing issues No abdominal pain nausea vomiting diarrhea changes in appetite or weight No burning urine urine frequency or changes in color No focal joint pain or muscle pain No focused back pain or numbness or loss of strength No changes in memory or confusion Physical Exam Vital Signs (Past 24 Hours): Last Vital Signs Temp 36.5 C 07/03/18 14:59 Pulse 91 H 07/03/18 14:59 Resp 18 07/03/18 14:59 BP 111/71 07/03/18 14:59 Pulse Ox 90 07/03/18 14:59 The patient appeared to kill and weekend Vital signs as documented. Head exam is unremarkable. normocephalic, atraumatic Neck is without jugular venous distension, thyromegaly, or lymphademopathy Lungs are clear to auscultation decreased breath sounds at the bases likely from effort Cardiac exam reveals Rhythm is regular. First and second heart sounds normal. Breastbone is tender to palpation Abdominal exam reveals normal bowel sounds, no masses, no organomegaly Extremities are mildly edematous looks to be chronic and both pedal pulses are present Neurologic exam is A&Ox3, no focal deficits, strength is equal bilateral Psychologically seems neither anxious or depressed (1) Sternal fracture Encounter type: initial encounter Fracture type: closed Sternal location: manubrium Qualified Code(s): S22.21XA - Fracture of manubrium, initial encounter for closed fracture (2) CHF (congestive heart failure) Heart failure chronicity: unspecified Heart failure type: unspecified Qualified Code(s): I50.9 - Heart failure, unspecified (3) HTN (hypertension) Hypertension type: essential hypertension Qualified Code(s): I10 - Essential (primary) hypertension
[2018-07-03] MEDS ORDERED: WARFARIN SOD 2 MG TAB PO SCH (19:00)
[2018-07-03] MEDS: ATORVASTATIN 10 MG TAB PO SCH (20:41)
[2018-07-03] MEDS: KETOROLAC TROMETHAMINE 15 MG/ML VIAL IV PRN (20:42)
[2018-07-04] MEDS: ACETAMINOPHEN 500 MG TAB PO SCH ×2 (06:12→13:50)
[2018-07-04] MEDS: CEROVITE ADV FORMULA TAB PO SCH (08:14)
[2018-07-04] MEDS: PANTOprazole 40 MG TAB PO SCH (08:14)
[2018-07-04] MEDS: DOCUSATE SODIUM 100 MG CAP PO SCH (08:14)
[2018-07-04] MEDS: dilTIAZem HCL 300 MG CAPCR PO SCH (08:14)
[2018-07-04] MEDS: SERTRALINE HCL 50 MG TABLET PO SCH (08:14)
[2018-07-04] MEDS: METOPROLOL SUCC 50MG EXT REL TAB PO SCH (08:14)
[2018-07-04] MEDS: POTASSIUM CHLORIDE 10 MEQ TABCR PO SCH (08:14)
[2018-07-04] MEDS: KETOROLAC TROMETHAMINE 15 MG/ML VIAL IV PRN (09:11)
[2018-07-04] MEDS: ONDANSETRON INJ 2 MG/ML 2 ML VIAL IV PRN (09:11)
[2018-07-04] MEDS: WARFARIN SOD 2 MG TAB PO SCH (15:53)
[2018-07-04] MEDS ORDERED: ONDANSETRON 4 MG TAB PO SCH (16:30)
--- NOTE | 2018-07-04 16:44 | Discharge Summary ---
Date of Service July 04, 2018 Admission HPI Per Admitting Provider This is an 83 yo F with PMHx of diastolic CHF, afib on coumadin, HTN, HLD, COPD, chronic obstructive asthma, GERD, CKD stage III, who presents with sternal chest pain x 1 day. Pt reports yesterday morning she was being helped from a sitting to standing position by her son, and felt a pop in her chest, followed by pain. She was able to move about yesterday and continue with normal ADLs, however this morning felt significant pain. She was unable to even move without the pain being unbearable. She missed morning medications due to not being able to physically get to them. She denies waxing and waning chest pain, shortness of breath, palpitations, flutter, headache, weakness. Pt typically uses a walker at baseline for ambulation. She lives with her son at home, and does not want to be in a penitentiary. Upon arrival to the ER, pt was found to be hypoxic with O2 sats in the 80s, and was in afib with RVR likely due to missing medications. CT of the chest reveals sternal fracture, nondisplaced, noncompressed and trace retrosternal hemorrhage and overlying soft tissue edema. There are also numerous chronic bilateral rib fractures. There are subacute/healing left lateral 6th and 7th rib fractures. Principal Diagnosis sternal fracture retrosternal hematoma Discharge Exam The patient appeared well nourished and normally developed. Vital signs as documented. Head exam is unremarkable. normocephalic, atraumatic Neck is without jugular venous distension, thyromegaly, or lymphademopathy Lungs are clear to auscultation and percussion. Cardiac exam reveals Rhythm is regular. First and second heart sounds normal. Her sternum is tender to palpation and movement of her shoulder girdle Abdominal exam reveals normal bowel sounds, no masses, no organomegaly Extremities are mildly edematous and both pedal pulses are present Neurologic exam is A&Ox3, no focal deficits, strength is equal bilateral Psychologically seems neither anxious or depressed Skin is warm Dry she is changed to chronic venous stasis to her lower extremities Discharge Data Allergies Allergy/AdvReac Type Severity Reaction Status Date / Time amoxicillin Allergy Intermediate SWELLING Verified 06/30/18 16:51 Consultations 06/30/18 18:01 ED Decision to Admit Stat 06/30/18 20:40 Consult Case Management - Discharge Planning Routine Consult Thoracic Surgery Routine Ordered Studies 06/30/18 16:04 CT chest wo con Stat Hospital Course (1) Sternal fracture: - Pain control with tylenol 1000 mg Q8H and Ultram - CT reviewed showing nondisplaced noncompressed sternal fracture with trace retrosternal hematoma - Multiple other subacute rib fractures as per CT appear to be new since 05/12/18. -We will resume Coumadin at time of discharge with typical outpatient INR monitoring -Thoarcic surgery suggests symptom control (2) Atrial fibrillation, rapid: - Chronic afib, anticoagulated on coumadin. - Rapid upon presentation to the ER due to missing morning medications, administered meds in ER, - Continue home diltiazem 300 mg QAM, metoprolol succinate 50 mg daily with resumption of her meds she seems to have good rate control (3) Hypoxia: - O2 sats in 80s upon presentation -likely from splinting and under oxygenation possibly a small component of diastolic heart failure due to rapid atrial fibrillation rate now resolved - Given lasix 20 mg IV with CKD stage III Has been off oxygen at time of discharge (4) Asthma: - Chronic, obstructive - Breo ellipta inh daily, albuterol inh prn (5) COPD (chronic obstructive pulmonary disease): - Chronic, as above. (6) CHF (congestive heart failure): - Diastolic CHF with echo in 04/2018 showing EF 55-60% with mild mitral regurg and mild LVH. - (7) CKD (chronic kidney disease) stage 3, GFR 30-59 ml/min: - Cr. stable, follow daily PRP with administration of lasix and prn Ultram (8) HTN (hypertension): - Continue antihypertensives (9) DVT prophylaxis: Total Time Total Time Spent Total Time Spent (In Minutes): greater than 30 minutes were required to prepare discharge Discharge Plan Discharge Items Patient Disposition: Home - Home Health Services Reason For Visit: STERNAL FRACTURE Discharge Diagnosis: broken breast bone Discharge Goals: Decrease discomfort and Diagnostic testing Activity: Resume your previous activity Non-emergency contact: Primary Care Provider Call non-emergency contact if: you have any medication questions Follow-up/Referrals: Audrey Johnson PA-C [Primary Care Provider] - 07/10/18 10:30 am (Please, follow up with Audrey Johnson PA-C on MondayJuly 10 at 10:30 am. *If you need to change this appointment, call the office at [phone].) Diet: Regular Addtl Provider Instructions: victor hugo have home physical therapy Prescriptions: New ondansetron HCl 4 mg Tablet 4 mg PO ACHS Qty: 120 RF: 3 tramadol 50 mg Tablet 50 mg PO Q4H PRN (Reason: pain) Qty: 60 RF: 0 acetaminophen [Pain Reliever] 500 mg Tablet 1,000 mg PO Q8H Qty: 90 RF: 0 Continued omeprazole 40 mg capsule,delayed release(DR/EC) 40 mg PO QAM RF: 0 sertraline 50 mg tablet 50 mg PO QAM RF: 0 metoprolol succinate 50 mg tablet extended release 24 hr 50 mg PO DAILY RF: 0 diltiazem HCl [Cardizem CD] 300 mg Capsule,Extended Release 24hr 300 mg PO QAM Qty: 1 RF: 0 warfarin [Coumadin] 2 mg Tablet 2 mg PO DAILY@1600 Qty: 1 RF: 0 potassium chloride [Klor-Con M10] 10 mEq Tablet,Er Particles/Crystals 20 meq PO DAILY Qty: 1 RF: 0 albuterol sulfate 90 mcg/actuation HFA aerosol inhaler 1 inha INH Q6H PRN (Reason: shortness of breath or wheezing) Qty: 6.7 RF: 0 atorvastatin 10 mg Tablet 10 mg PO HS RF: 0 ondansetron HCl [Zofran] 4 mg Tablet 4 mg PO TID PRN (Reason: Nausea) RF: 0 Stress Formula with Zinc Tablet 1 tab PO DAILY RF: 0 Breo Ellipta 100-25 mcg/dose Blister With Device 1 inh INHALATION DAILY RF: 0 Discontinued acetaminophen [Tylenol] 325 mg Capsule 325 mg PO Q4 PRN (Reason: Pain) RF: 0 Stand-Alone Forms: [facility] Discharge Orders: Discharge Order (Routine); Ordered 07/04/18 Ordered By: Ulisses Amaya Admission Data Admit Date/Time: 07/03/18 08:20 Attending Provider: Ulisses Amaya Admit Provider: Josh Mcdonnell Primary Care Provider: Audrey Johnson Other Providers: Josh Mcdonnell ; [place] Service: Medical Other Interventions: Discharge Summary Assessment (RN) Last Done: 07/04/18 13:16 DC Date/Time DO NOT enter until pt leaves facility: 07/04/18 18:21
== END 2018-07-04 18:21 | disposition home health service (06) | DRG 565 ==
LOC: ED 15:46 → 2W 15:46 → SUATTDRO 18:18 → 2W 19:48

== ENCOUNTER 2018-07-17 09:28 | Inpatient (IN) ==
[2018-07-17 09:52] LABS: Basophils # (auto) 0.01 K/uL (0-0.2); Basophils % (auto) 0.1 %; Eosinophils # (auto) 0.04 K/uL (0-0.5); Eosinophils % (auto) 0.5 %; Hematocrit (blood only) 37.7 % (37-47); Hemoglobin 11.9 g/dL (12.0-16.0); Immature Granulocytes # (auto) 0.04 K/uL (0.00-0.02); Immature Granulocytes % (auto) 0.5 %; Lymphocytes # (auto) 1.02 K/uL (1.2-3.4); Mean Corpuscular Hgb Conc 31.6 g/dL (32-36); Mean Corpuscular Volume 94.7 fL (80-100); Mean Platelet Volume 10.7 fL (7.4-10.4); Monocytes # (auto) 1.88 K/uL (0.11-0.59); Neutrophils # (auto) 4.85 K/uL (1.4-6.5); Neutrophils % (auto) 61.9 %; Platelet Count 129 K/uL (130-400); RDW Coefficient of Variation 16.9 % (11.5-14.5); RDW Standard Deviation 58.5 fL (36.4-46.3); Red Blood Count 3.98 M/uL (4.2-5.4); White Blood Count 7.84 K/uL (4.8-10.8)
[2018-07-17 10:00] LABS: Base Excess VBG 1.5 mEq/L; Oxygen Saturation VBG 69.7 %; pH VBG 7.32 (7.36-7.41)
[2018-07-17 10:02] LABS: INR 2.6 (0.9-1.1); Prothrombin Time 24.7 Seconds (9.0-12.0)
--- NOTE | 2018-07-17 10:05 | XRay Report ---
XR chest 1V portable HISTORY: 83 years-old Female Chest Pain acute atypical chest pain COMPARISON: Chest radiograph 07/01/2018, chest CT 06/30/2018 TECHNIQUE: Portable AP view of the chest FINDINGS: Cardiac silhouette is enlarged, unchanged. Right infrahilar and left basilar opacities are redemonstr ated suggestive of scarring/atelectasis. Chronic blunting of the costophrenic angles without pneumoth orax, large pleural effusion or overt pulmonary edema. Degenerative changes are seen about the should ers and spine. IMPRESSION: 1. Cardiomegaly without overt pulmonary edema. 2. Left basilar and right infrahilar opacities are suggestive of probable scarring/atelectasis. The above report was generated using voice recognition software. It may contain grammatical, syntax o r spelling errors. Electronically signed by: Ben Dyer M.D. 07/17/2018 10:04 AM
[2018-07-17 10:08] LABS: Albumin Level 2.5 gm/dl (3.4-5.0); BUN Creatinine Ratio 13.8 (10-20); Calcium 8.6 mg/dl (8.5-10.1); Est GFR (African American) 36.6; Est GFR (Non-African American) 31.6; Magnesium 1.5 mg/dl (1.8-2.4); Potassium 4.1 mmol/L (3.5-5.1)
[2018-07-17 10:14] LABS: Albumin Globulin Ratio 0.6 (0.9-2); Bilirubin,Total 0.7 mg/dl (0.2-1); Globulin 4.4 gm/dl (2.5-4.0); Phosphorus 3.3 mg/dl (2.5-4.9); Total Protein 6.9 gm/dl (6.4-8.2); Troponin I 0.02 ng/ml (0-0.045)
[2018-07-17] MEDS ORDERED: ALBUT/IPRATROP 3MG/0.5MG NEB 3 ML VIAL NEB STA (10:37)
[2018-07-17] MEDS ORDERED: methylPREDNISolone 125 MG/2 ML VIAL IV STA (10:37)
--- NOTE | 2018-07-17 11:27 | CT Scan Report ---
CT head/brain wo con CLINICAL HISTORY: 83 years-old Female with pain fall. Acute head injury status post fall TECHNIQUE: Multiple axial CT images of the head were obtained without contrast. A dose lowering tech nique was utilized adhering to the principles of ALARA. CT DOSE: 1526.73 mGy.cm COMPARISON: CT cervical spine of same day. FINDINGS: No acute intracranial hemorrhage, midline shift, intracranial mass, hydrocephalus, territorial ischem ia or abnormal extra-axial collection. Age-related involutional changes. Extensive white matter hypod ensities suggest chronic microvascular ischemic changes. Motion degraded exam. The calvarium is intact. Large left mastoid effusion. Right mastoid air cells are clear. Paranasal s inuses also appear clear. Soft tissues and orbits are unremarkable. IMPRESSION: Motion degraded exam without acute intracranial abnormality or calvarial fracture identi fied. The above report was generated using voice recognition software. It may contain grammatical, syntax o r spelling errors. Electronically signed by: Ben Dyer M.D. 07/17/2018 11:26 AM
--- NOTE | 2018-07-17 11:33 | CT Scan Report ---
CT cervical spine wo con CLINICAL HISTORY: 83 years-old Female with pain fall. Acute neck pain status post fall COMPARISON: CT head of same day. TECHNIQUE: Multiple axial CT images of the cervical spine were obtained without contrast. A dose low ering technique was utilized adhering to the principles of ALARA. FINDINGS: Large left mastoid effusion. Trace fluid also noted about the left middle ear cavity. Right mastoid a ir cells are generally clear. No acute cervical spine fracture or subluxation identified. The mineral ized appearance of the bones. Evaluation of the central canal and neuroforamina is better assessed by MRI. Multilevel foraminal narrowing is noted without definite high-grade central canal stenosis. Mil d multilevel intervertebral disc space narrowing with spondylitic spurring and severe multilevel face t arthrosis. 2 mm anterolisthesis C4 on C5 and C6 on C7 is likely secondary to long-standing facet ar throsis. No prevertebral soft tissue swelling. Heterogeneous appearance of the thyroid. Lung apices appear sel[place] ar. IMPRESSION: No acute cervical spine fracture or subluxation. The above report was generated using voice recognition software. It may contain grammatical, syntax o r spelling errors. Electronically signed by: Ben Dyer M.D. 07/17/2018 11:31 AM
[2018-07-17] MEDS ORDERED: FUROSEMIDE 40 MG/4 ML VIAL IV STA (11:42)
[2018-07-17] MEDS ORDERED: MAGNESIUM SULFATE / D5W 1 GM/100 ML BAG IV ONE (11:42)
--- NOTE | 2018-07-17 13:35 | History & Physical Report ---
Date of Service July 17, 2018 Assessment & Plan (1) Hallucination, visual: Ddx includes hypercapnea or hypoxemia from respiratory issues stemming from CHF vs. medication-induced vs. primary neurologic process. - Will obtain ABG and repeat morning VBG - Overnight O2 testing for NAZARIO or obesity hypoventillation syndrome - Hold Zofran which was standing on prior med list. Per patient and daughter, already not taking her tramadol, so this is not the culprit. - Monitor for hallucinations; if they continue despite above testing being normal, consider psychiatry vs. neurology consult (2) Acute on chronic diastolic heart failure: Diastolic CHF with echo in 04/2018 showing EF 55-60% with mild mitral regurg and mild LVH. 3+ pitting edema in the legs. BNP > 9000 (priors ~4000). CXR on 07/17 did not show overt pulmonary edema, but poor film and large body habitus make it less sensitive. - Lasix 40mg IV BID - I&Os and daily weights - Heart health diet with fluid restriction - Monitor Cr and K+ (3) COPD (chronic obstructive pulmonary disease): No wheezing on exam. No cough or sputum production per patient. Patient has some pursed-lip breathing, but is not hypoxemic on the ED pulse ox (90% on room air) and has good air movement. - Continue home inhaler - DuoNebs PRN (4) A-fib: Permanent. On warfarin for anticoagulation and beta-scot and calcium channel scot for rate control. - Continue warfarin - Monitor INR - Continue rate-control with home meds (5) HTN (hypertension): BP was 100/60 in the ED. Patient often runs borderline low (highs usually in the 130 range with lows in the 90). - Continue beta-scot and calcium channel scot as above - If pressures go too low, would need to stop one and consider digoxin for rate control instead (6) CKD (chronic kidney disease) stage 3, GFR 30-59 ml/min: Baseline Cr ~1.1-1.4. On admission, Cr was 1.5. - Monitor Cr with diuresis - Renally-dose medications (7) DVT prophylaxis: On warfarin for afib History of Present Illness Primary Care Provider: Audrey Johnson PA-C 83-year-old female with a history of CKD, hypertension, CHF who presents with 2- 3 days of hallucinations. Per the daughter the patient was in her normal state of health last week and up into the weekend. She has continued to have some sternal chest pain from her known sternal fracture; however, otherwise reported no complaints to the daughter, including shortness of breath, PND, or orthopnea. The daughter notes that her lower extremities have been swollen since returning from the [facility] several weeks prior, but that they have been stable otherwise. Over the weekend, the daughter noted the patient was having visual hallucinations. These have been sporadic and spaced throughout the day. As far as the daughter and patient know, they are not associated with sleeping or waking. The patient describes small, non-agitating visual hallucinations such as frogs on the ceiling etc. The patient is semi-aware that these are not really there, but in the moment does get confused about whether they are real or not. Otherwise the patient denies any other major symptoms, including shortness of breath, chest pain (except when moving due to her known sternal fracture), fevers, chills, sweats, abdominal pain, nausea, vomiting, dysuria, polyuria, focal weakness or sensation changes. Allergies Allergy/AdvReac Type Severity Reaction Status Date / Time amoxicillin Allergy Intermediate SWELLING Verified 06/30/18 16:51 Home Medications Home Medications Medication Instructions Recorded Confirmed Type omeprazole 40 mg PO QAM 05/10/18 07/17/18 History sertraline 50 mg PO QAM 05/10/18 07/17/18 History metoprolol succinate 50 mg PO DAILY 05/28/18 07/17/18 History albuterol sulfate 1 inha INH Q6H PRN #6.7 gm 06/10/18 07/17/18 Rx diltiazem HCl [Cardizem CD] 300 mg PO QAM #1 cap 06/10/18 07/17/18 Rx potassium chloride [Klor-Con M10] 20 meq PO DAILY #1 tab 06/10/18 07/17/18 Rx warfarin [Coumadin] 2 mg PO DAILY@1600 #1 tab 06/10/18 07/17/18 Rx Breo Ellipta 1 inh INHALATION DAILY 06/30/18 07/17/18 History Stress Formula with Zinc 1 tab PO DAILY 06/30/18 07/17/18 History atorvastatin 10 mg PO HS 06/30/18 07/17/18 History ondansetron HCl [Zofran] 4 mg PO TID PRN 06/30/18 07/17/18 History acetaminophen [Pain Reliever] 1,000 mg PO Q8H #90 tab 07/04/18 07/17/18 Rx ondansetron HCl 4 mg PO ACHS #120 tab 07/04/18 07/17/18 Rx tramadol 50 mg PO Q4H PRN #60 tab 07/04/18 07/17/18 Rx Past Med/Surg History Medical History Renal failure (Acute) Diarrhea (Acute) HTN (hypertension) (Chronic) SVT (supraventricular tachycardia) (Chronic) A-fib (Chronic) Acute respiratory failure (Acute 04/26/13) PNA (pneumonia) (Resolved) CHF (congestive heart failure) (Acute) COPD exacerbation (Acute) Acute kidney injury superimposed on chronic kidney disease Acute on chronic diastolic heart failure Surgical History Previous section (Resolved) Family History Other Asthma Depression History of total knee replacement Hypertension Social History Preferred Language: [place]ian Communication Ability: Effective 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 Beliefs That Will Affect Care: None Current Living Situation: Other Current Living Situation Comment: home with son Other Information That Helps Us Care for You: No Feels Safe at Home: Yes Safety Concerns: Feels Safe At This Time Smoking Status: Never smoker Hx Alcohol Use: No Hx Substance Use: No Review of Systems Constitutional: no fever, no chills and no sweats Eyes: no diplopia Ear, Nose, Mouth, Throat: no ear trauma, no nasal discharge and no dental pain Respiratory: no cough, no chest congestion and no dyspnea Cardiovascular: no chest pain, no dyspnea on exertion, no palpitations and no syncope Gastrointestinal: no abdominal pain, no belching, no constipation, no diarrhea/loose stools, no blood in stools and no melena Musculoskeletal: no back pain, no joint pain and no muscle weakness Integumentary: no rash, no skin ulcer and no erythema Neurologic: no generalized weakness, no loss of sensation, no numbness and no paresthesia Psychiatric: + hallucinations (Visual (see HPI)); no depression and no anxiety Endocrine: no fatigue, no polydipsia and no polyphagia Physical Exam Vital Signs (Past 24 Hours): Last Vital Signs Temp 36.7 C 07/17/18 09:50 Pulse 80 07/17/18 12:58 Resp 16 07/17/18 12:58 BP 101/58 L 07/17/18 12:58 Pulse Ox 98 07/17/18 12:58 Constitutional: WD/WN, vitals as above + acute distress, + morbidly obese and + lethargic Eyes: EOM intact bilaterally; no conjunctival abnormality ENMT: external ear and nose normal, oropharynx normal Neck: trachea midline, no thyromegaly normal visual inspection Respiratory: normal respiratory effort, lungs clear to auscultation no respiratory distress Cardiovascular: RRR, no murmur, no edema Gastrointestinal (Abdomen): Inspection/Auscultation: abdomen normal to inspection; abdomen not distended Percussion/Palpation: abdomen soft; abdomen nontender, no guarding and abdomen not rigid Musculoskeletal: no cyanosis or clubbing, extremities motor strength 5/5 Skin: no rashes, warm and dry Neurologic: moves all extremities and awake Psychiatric: Orientation: alert, oriented to person and cooperative (1) A-fib Atrial fibrillation type: permanent Qualified Code(s): I48.2 - Chronic atrial fibrillation (2) HTN (hypertension) Hypertension type: essential hypertension Qualified Code(s): I10 - Essential (primary) hypertension
[2018-07-17] MEDS ORDERED: ONDANSETRON 4 MG TAB PO PRN (15:01)
[2018-07-17] MEDS ORDERED: ACETAMINOPHEN 325 MG TAB PO PRN (15:01)
[2018-07-17] MEDS ORDERED: ALBUT/IPRATROP 3MG/0.5MG NEB 3 ML VIAL NEB PRN (15:01)
[2018-07-17 15:40] LABS: HCO3 ABG 26 mmol/L (19-24); Oxygen Saturation ABG 97.3 % (90-95); PCO2 ABG 41 mmHg (35-46); PO2 ABG 95 mm/Hg (80-95); pH ABG 7.42 (7.35-7.45)
[2018-07-17 15:43] LABS: Allen Test Pos (Pos)
--- NOTE | 2018-07-17 16:06 | Emergency Department Note ---
Entered by Stephanie Encinas acting as a scribe for Dayton Valladares MD History of Present Illness General Chief complaint: Illness Time Seen by Provider: 07/17/18 09:34 Source: patient and family (daughter) History of Present Illness Onset (ago): day(s) (this morning) Location: head Pain Consistency: + other (episode) Quality: + other (fall) Associated symptoms: + other (bilateral pedal edema); no fever/chills The patient is a 83 year old female who presents to the Emergency Room with complaints of an episode of a fall out of a lift chair this morning. The patients daughter reports that the patient is weak and dizzy at baseline with intermittent hallucinations. Her daughter notes that the patient sleeps in the lift chair and tries to use the controls as she believes she can walk on her own. The daughter believes this caused her to fall out of the chair. Her daughter notes that the patient stays with the patients son, who did not witness the fall but called the patients daughter to inform her about it. The patient denies hitting her head during the fall. She notes that she feels nauseous at baseline. The patients daughter reports the patients legs are not normally swollen as they are today and that she does not take diuretics due to side effects. She states that she is experiencing shortness of breath when moving around but that she does not normally use O2 at home. The daughter reports that the patient cracked her sternum three weeks ago when she was being lifted. The patient notes she has chronic neck pain and weakness. She notes she previously stayed at [facility] but could not tolerate it there. Her daughter notes she take Warfarin. Home Medications Home Medications Medication Instructions Recorded Confirmed Type omeprazole 40 mg PO QAM 05/10/18 07/17/18 History sertraline 50 mg PO QAM 05/10/18 07/17/18 History metoprolol succinate 50 mg PO DAILY 05/28/18 07/17/18 History albuterol sulfate 1 inha INH Q6H PRN #6.7 gm 06/10/18 07/17/18 Rx diltiazem HCl [Cardizem CD] 300 mg PO QAM #1 cap 06/10/18 07/17/18 Rx potassium chloride [Klor-Con M10] 20 meq PO DAILY #1 tab 06/10/18 07/17/18 Rx warfarin [Coumadin] 2 mg PO DAILY@1600 #1 tab 06/10/18 07/17/18 Rx Breo Ellipta 1 inh INHALATION DAILY 06/30/18 07/17/18 History Stress Formula with Zinc 1 tab PO DAILY 06/30/18 07/17/18 History atorvastatin 10 mg PO HS 06/30/18 07/17/18 History ondansetron HCl [Zofran] 4 mg PO TID PRN 06/30/18 07/17/18 History acetaminophen [Pain Reliever] 1,000 mg PO Q8H #90 tab 07/04/18 07/17/18 Rx ondansetron HCl 4 mg PO ACHS #120 tab 07/04/18 07/17/18 Rx tramadol 50 mg PO Q4H PRN #60 tab 07/04/18 07/17/18 Rx Allergies Allergy/AdvReac Type Severity Reaction Status Date / Time amoxicillin Allergy Intermediate SWELLING Verified 06/30/18 16:51 Past Med/Surg History Medical History Renal failure (Acute) Diarrhea (Acute) HTN (hypertension) (Chronic) SVT (supraventricular tachycardia) (Chronic) A-fib (Chronic) Acute respiratory failure (Acute 04/26/13) PNA (pneumonia) (Resolved) CHF (congestive heart failure) (Acute) COPD exacerbation (Acute) Acute kidney injury superimposed on chronic kidney disease Acute on chronic diastolic heart failure Surgical History Previous section (Resolved) Family History Other Asthma Depression History of total knee replacement Hypertension Social History Preferred Language: Kyrgyz Communication Ability: Effective Precision Honer Required: No Beliefs That Will Affect Care: None Current Living Situation: Other Current Living Situation Comment: home with son Other Information That Helps Us Care for You: No Feels Safe at Home: Yes Safety Concerns: Feels Safe At This Time Smoking Status: Never smoker Hx Alcohol Use: No Hx Substance Use: No Review of Systems See HPI for pertinent positives & negatives. and A total of 10 systems reviewed and were otherwise negative Physical Exam Vital Signs Vital Signs - 24 hr 07/17/18 09:50 07/17/18 11:31 07/17/18 11:32 Temperature 36.7 C Temperature Source Oral Sepsis Recent Fever Within 48 Hours No Sepsis New/Unexplained Change in Mental Status No Sepsis Action Taken by Nursing No Action Required Pulse Rate 76 Pulse Rate [Apical] 79 Respiratory Rate 16 16 Respiratory Effort / Characteristics Respiratory Depth Respiratory Pattern Blood Pressure 124/60 Blood Pressure [Left Arm] 126/84 Blood Pressure Mean 81 Blood Pressure Mean [Left Arm] 98 Pulse Oximetry 90 98 98 Oxygen Delivery Method Room Air Nasal Cannula Nasal Cannula Oxygen Flow Rate 2 2 07/17/18 12:36 07/17/18 12:58 07/17/18 13:53 Temperature Temperature Source Sepsis Recent Fever Within 48 Hours Sepsis New/Unexplained Change in Mental Status Sepsis Action Taken by Nursing Pulse Rate 80 Pulse Rate [Apical] 80 Respiratory Rate 16 16 Respiratory Effort / Characteristics Spontaneous Labored Short of Breath Respiratory Depth Normal Respiratory Pattern Regular Blood Pressure 103/64 Blood Pressure [Left Arm] 101/58 L Blood Pressure Mean Blood Pressure Mean [Left Arm] 72 Pulse Oximetry 98 96 Oxygen Delivery Method Nasal Cannula Nasal Cannula Nasal Cannula Oxygen Flow Rate 2 2 07/17/18 15:01 07/17/18 16:00 07/17/18 18:26 Temperature 36.3 C L Temperature Source Oral Sepsis Recent Fever Within 48 Hours Sepsis New/Unexplained Change in Mental Status Sepsis Action Taken by Nursing Pulse Rate 75 Pulse Rate [Apical] 99 H Respiratory Rate 23 Respiratory Effort / Characteristics Non-Labored SOB on Exertion Respiratory Depth Normal Respiratory Pattern Regular Blood Pressure Blood Pressure [Left Arm] 110/73 115/65 Blood Pressure Mean Blood Pressure Mean [Left Arm] 85 81 Pulse Oximetry 94 Oxygen Delivery Method Nasal Cannula Nasal Cannula Oxygen Flow Rate 3 2 07/17/18 19:53 Temperature 36.9 C Temperature Source Oral Sepsis Recent Fever Within 48 Hours Sepsis New/Unexplained Change in Mental Status Sepsis Action Taken by Nursing Pulse Rate Pulse Rate [Apical] 88 Respiratory Rate 22 Respiratory Effort / Characteristics Respiratory Depth Respiratory Pattern Blood Pressure Blood Pressure [Left Arm] 117/70 Blood Pressure Mean Blood Pressure Mean [Left Arm] 85 Pulse Oximetry 96 Oxygen Delivery Method Oxygen Flow Rate GENERAL: Awake, alert, chronically ill-appearing, in no distress HENT: Normocephalic, atraumatic. Oropharynx with dry mucous membranes and otherwise unremarkable. EYES: Normal conjunctiva. Sclera non-icteric. NECK: Supple. No nuchal rigidity. FROM. Mild JVD. RESPIRATORY: Diminished breath sounds through with scant wheezes. CARDIAC: Regular rate, irregular rhythm. Extremities warm and well perfused. Pulses equal. ABDOMEN: Soft, non-distended. No tenderness to palpation. No rebound or guarding. No masses. RECTAL: Deferred. MUSCULOSKELETAL: Chest examination reveals no tenderness. There is no CVA tender ness to palpation. LOWER EXTREMITIES: Bilateral 4+ LE edema, No tenderness, warmth or discoloratio n. NEURO: Normal sensorium. No sensory or motor deficits noted. SKIN: No rash or jaundice noted. Course 1025: The patient was evaluated in room A03, and a complete history and physical examination were performed. 1153: I reviewed the patient's case with SUNDEEP Morel, who will evaluate the patient for further management. 1200: I discussed tonight's findings with the patient. She verbalized agreement of the treatment plan. She will be evaluated for further management and care. Consultations Consultation #1: I reviewed the patient's case with SUNDEEP Morel, who will evaluate the patient for further management. Time: 11:53 Administered Medications Atorvastatin Calcium (Lipitor) 10 mg PO HS [facility] Stop: 08/16/18 20:59 Last Admin: 07/17/18 20:30 Dose: 10 mg Documented by: [id number] Furosemide 40 mg/ Syringe 4 mls @ 4 mls/min IV [id number] JACOB Stop: 08/16/18 16:59 Last Admin: 07/17/18 18:25 Dose: 4 mls/min Documented by: [id number] Ceftriaxone Sodium 1,000 mg/ (Dextrose) 50 mls @ 100 mls/hr IV Q24H JACOB; Protocol Stop: 07/22/18 19:59 Last Admin: 07/17/18 20:29 Dose: 100 mls/hr Documented by: [id number] Miscellaneous (Order Awaiting Action) 1 ea N/A QS JACOB Stop: 08/16/18 15:59 Last Admin: 07/17/18 16:20 Dose: Not Given Documented by: [id number] Warfarin Sodium (Coumadin) 2 mg PO DAILY@1600 JACOB Stop: 08/16/18 15:59 Last Admin: 07/17/18 16:19 Dose: 2 mg Documented by: [id number] Discontinued Medications Albuterol (Duoneb) 3 ml NEB NOW STA Stop: 07/17/18 10:38 Last Admin: 07/17/18 10:49 Dose: 3 ml Documented by: [id number] Furosemide (Lasix) 20 mg IV NOW STA Stop: 07/17/18 11:43 Last Admin: 07/17/18 11:50 Dose: 20 mg Documented by: [id number] Magnesium Sulfate/Dextrose (Magnesium Sulfate / D5w) 1 gm in 100 mls @ 100 mls/hr IV ONE ONE Stop: 07/17/18 12:41 Last Infusion: 07/17/18 12:56 Dose: 0 mls/hr Documented by: [id number] Admin: 07/17/18 11:50 Dose: 100 mls/hr Documented by: [id number] Methylprednisolone (Solumedrol) 125 mg IV NOW STA Stop: 07/17/18 10:38 Last Admin: 07/17/18 10:49 Dose: 125 mg Documented by: [id number] Medical Decision Making Differential Diagnosis Differential includes acute coronary syndrome, myocardial infarction, CVA, TIA, anemia, infection, pneumonia, UTI, pyelonephritis, poor nutrition, dehydration, electrolyte disturbance,hypoglycemia. Medical Records Attestation: I reviewed the patient's medical records. Home Medications Current Medication List: was personally reviewed by me Laboratory Data Attestation: I reviewed the patient's lab results. Result diagrams: 07/17/18 09:43 07/17/18 09:43 Lab Results 07/17/18 07/17/18 07/17/18 Range/Units 09:43 09:43 09:43 WBC 7.84 (4.8-10.8) K/uL RBC 3.98 L (4.2-5.4) M/uL Hgb 11.9 L (12.0-16.0) g/dL Hct 37.7 (37-47) % MCV 94.7 (80-100) fL MCH 29.9 (25-34) pg MCHC 31.6 L (32-36) g/dL RDW Std Deviation 58.5 H (36.4-46.3) fL RDW Coeff of Kathleen 16.9 H (11.5-14.5) % Plt Count 129 L (130-400) K/uL MPV 10.7 H (7.4-10.4) fL Immature Gran % (Auto) 0.5 % Neut % (Auto) 61.9 % Lymph % (Auto) 13.0 % Taney % (Auto) 24.0 % Eos % (Auto) 0.5 % Baso % (Auto) 0.1 % Immature Gran # (Auto) 0.04 H (0.00-0.02) K/uL Neut # (Auto) 4.85 (1.4-6.5) K/uL Lymph # (Auto) 1.02 L (1.2-3.4) K/uL Taney # (Auto) 1.88 H (0.11-0.59) K/uL Eos # (Auto) 0.04 (0-0.5) K/uL Baso # (Auto) 0.01 (0-0.2) K/uL PT 24.7 H (9.0-12.0) Seconds INR 2.6 H (0.9-1.1) ABG pH (7.35-7.45) ABG pCO2 (35-46) mmHg ABG pO2 (80-95) mm/Hg ABG HCO3 (19-24) mmol/L ABG O2 Saturation (90-95) % ABG Base Excess (-9-1.8) mEq/L Jax Test (Pos) VBG pH (7.36-7.41) VBG pCO2 (38-50) mmHg VBG pO2 mmHg VBG HCO3 mmol/L VBG O2 Saturation % VBG Base Excess mEq/L Barometric Pressure mm/Hg Oxygen Given Sodium 145 (136-145) mmol/L Potassium 4.1 (3.5-5.1) mmol/L Chloride 111 H (98-107) mmol/L Carbon Dioxide 29 (21-32) mmol/L Anion Gap 6.0 (3-11) BUN 21 H (7-18) mg/dl Creatinine 1.53 H (0.6-1.2) mg/dl Est Cr Clr Drug Dosing 31.0 ml/min Est GFR ( Amer) 36.6 Est GFR (Non-Af Amer) 31.6 BUN/Creatinine Ratio 13.8 (10-20) Glucose 123 H (70-99) mg/dl Calcium 8.6 (8.5-10.1) mg/dl Phosphorus 3.3 (2.5-4.9) mg/dl Magnesium 1.5 L (1.8-2.4) mg/dl Total Bilirubin 0.7 (0.2-1) mg/dl AST 21 (15-37) U/L ALT 18 (12-78) U/L Alkaline Phosphatase 215 H (45-117) U/L Troponin I 0.020 (0-0.045) ng/ml NT-Pro-B Natriuret Pep (0-1800) pg/ml Total Protein 6.9 (6.4-8.2) gm/dl Albumin 2.5 L (3.4-5.0) gm/dl Globulin 4.4 H (2.5-4.0) gm/dl Albumin/Globulin Ratio 0.6 L (0.9-2) Lipase 96 (73-393) U/L Urine Color Urine Appearance (Clear) Urine pH (4.5-7.5) Ur Specific [place] (1.000-1.030) Urine Protein (Negative) Urine Glucose (UA) (Negative) Urine Ketones (Negative) Urine Blood (Negative) Urine Nitrite (Negative) Urine Bilirubin (Negative) Urine Urobilinogen (Negative) Ur Leukocyte Esterase (Negative) Urine WBC (Auto) (0-5) /hpf Urine RBC (Auto) (0-4) /hpf U Hyaline Cast (Auto) (0-5) /lpf U Epithel Cells (Auto) (0-5) /lpf Urine Bacteria (Auto) (Negative) Urine Yeast 07/17/18 07/17/18 07/17/18 Range/Units 09:43 09:43 15:23 WBC (4.8-10.8) K/uL RBC (4.2-5.4) M/uL Hgb (12.0-16.0) g/dL Hct (37-47) % MCV (80-100) fL MCH (25-34) pg MCHC (32-36) g/dL RDW Std Deviation (36.4-46.3) fL RDW Coeff of Kathleen (11.5-14.5) % Plt Count (130-400) K/uL MPV (7.4-10.4) fL Immature Gran % (Auto) % Neut % (Auto) % Lymph % (Auto) % Taney % (Auto) % Eos % (Auto) % Baso % (Auto) % Immature Gran # (Auto) (0.00-0.02) K/uL Neut # (Auto) (1.4-6.5) K/uL Lymph # (Auto) (1.2-3.4) K/uL Taney # (Auto) (0.11-0.59) K/uL Eos # (Auto) (0-0.5) K/uL Baso # (Auto) (0-0.2) K/uL PT (9.0-12.0) Seconds INR (0.9-1.1) ABG pH 7.42 (7.35-7.45) ABG pCO2 41 (35-46) mmHg ABG pO2 95 (80-95) mm/Hg ABG HCO3 26 H (19-24) mmol/L ABG O2 Saturation 97.3 H (90-95) % ABG Base Excess 1.4 (-9-1.8) mEq/L Jax Test Pos (Pos) VBG pH 7.32 L (7.36-7.41) VBG pCO2 57 H (38-50) mmHg VBG pO2 39 mmHg VBG HCO3 29 mmol/L VBG O2 Saturation 69.7 % VBG Base Excess 1.5 mEq/L Barometric Pressure 737.8 734.9 mm/Hg Oxygen Given 2 Sodium (136-145) mmol/L Potassium (3.5-5.1) mmol/L Chloride (98-107) mmol/L Carbon Dioxide (21-32) mmol/L Anion Gap (3-11) BUN (7-18) mg/dl Creatinine (0.6-1.2) mg/dl Est Cr Clr Drug Dosing ml/min Est GFR ( Amer) Est GFR (Non-Af Amer) BUN/Creatinine Ratio (10-20) Glucose (70-99) mg/dl Calcium (8.5-10.1) mg/dl Phosphorus (2.5-4.9) mg/dl Magnesium (1.8-2.4) mg/dl Total Bilirubin (0.2-1) mg/dl AST (15-37) U/L ALT (12-78) U/L Alkaline Phosphatase (45-117) U/L Troponin I (0-0.045) ng/ml NT-Pro-B Natriuret Pep 9188 H (0-1800) pg/ml Total Protein (6.4-8.2) gm/dl Albumin (3.4-5.0) gm/dl Globulin (2.5-4.0) gm/dl Albumin/Globulin Ratio (0.9-2) Lipase (73-393) U/L Urine Color Urine Appearance (Clear) Urine pH (4.5-7.5) Ur Specific [place] (1.000-1.030) Urine Protein (Negative) Urine Glucose (UA) (Negative) Urine Ketones (Negative) Urine Blood (Negative) Urine Nitrite (Negative) Urine Bilirubin (Negative) Urine Urobilinogen (Negative) Ur Leukocyte Esterase (Negative) Urine WBC (Auto) (0-5) /hpf Urine RBC (Auto) (0-4) /hpf U Hyaline Cast (Auto) (0-5) /lpf U Epithel Cells (Auto) (0-5) /lpf Urine Bacteria (Auto) (Negative) Urine Yeast 07/17/18 Range/Units 18:20 WBC (4.8-10.8) K/uL RBC (4.2-5.4) M/uL Hgb (12.0-16.0) g/dL Hct (37-47) % MCV (80-100) fL MCH (25-34) pg MCHC (32-36) g/dL RDW Std Deviation (36.4-46.3) fL RDW Coeff of Kathleen (11.5-14.5) % Plt Count (130-400) K/uL MPV (7.4-10.4) fL Immature Gran % (Auto) % Neut % (Auto) % Lymph % (Auto) % Taney % (Auto) % Eos % (Auto) % Baso % (Auto) % Immature Gran # (Auto) (0.00-0.02) K/uL Neut # (Auto) (1.4-6.5) K/uL Lymph # (Auto) (1.2-3.4) K/uL Taney # (Auto) (0.11-0.59) K/uL Eos # (Auto) (0-0.5) K/uL Baso # (Auto) (0-0.2) K/uL PT (9.0-12.0) Seconds INR (0.9-1.1) ABG pH (7.35-7.45) ABG pCO2 (35-46) mmHg ABG pO2 (80-95) mm/Hg ABG HCO3 (19-24) mmol/L ABG O2 Saturation (90-95) % ABG Base Excess (-9-1.8) mEq/L Jax Test (Pos) VBG pH (7.36-7.41) VBG pCO2 (38-50) mmHg VBG pO2 mmHg VBG HCO3 mmol/L VBG O2 Saturation % VBG Base Excess mEq/L Barometric Pressure mm/Hg Oxygen Given Sodium (136-145) mmol/L Potassium (3.5-5.1) mmol/L Chloride (98-107) mmol/L Carbon Dioxide (21-32) mmol/L Anion Gap (3-11) BUN (7-18) mg/dl Creatinine (0.6-1.2) mg/dl Est Cr Clr Drug Dosing ml/min Est GFR ( Amer) Est GFR (Non-Af Amer) BUN/Creatinine Ratio (10-20) Glucose (70-99) mg/dl Calcium (8.5-10.1) mg/dl Phosphorus (2.5-4.9) mg/dl Magnesium (1.8-2.4) mg/dl Total Bilirubin (0.2-1) mg/dl AST (15-37) U/L ALT (12-78) U/L Alkaline Phosphatase (45-117) U/L Troponin I (0-0.045) ng/ml NT-Pro-B Natriuret Pep (0-1800) pg/ml Total Protein (6.4-8.2) gm/dl Albumin (3.4-5.0) gm/dl Globulin (2.5-4.0) gm/dl Albumin/Globulin Ratio (0.9-2) Lipase (73-393) U/L Urine Color Dark Yellow Urine Appearance Cloudy H (Clear) Urine pH 5.0 (4.5-7.5) Ur Specific [place] 1.023 (1.000-1.030) Urine Protein Trace H (Negative) Urine Glucose (UA) Negative (Negative) Urine Ketones Trace H (Negative) Urine Blood 3+ H (Negative) Urine Nitrite Positive H (Negative) Urine Bilirubin Negative (Negative) Urine Urobilinogen Negative (Negative) Ur Leukocyte Esterase 2+ H (Negative) Urine WBC (Auto) >30 H (0-5) /hpf Urine RBC (Auto) 0-4 (0-4) /hpf U Hyaline Cast (Auto) >30 H (0-5) /lpf U Epithel Cells (Auto) >30 H (0-5) /lpf Urine Bacteria (Auto) 4+ H (Negative) Urine Yeast Not Reportable Imaging Data Radiologist's Impression: Radiology results as stated below per my review and t he radiologist's interpretation: XR chest 1V portable HISTORY: 83 years-old Female Chest Pain acute atypical chest pain COMPARISON: Chest radiograph 07/01/2018, chest CT 06/30/2018 TECHNIQUE: Portable AP view of the chest FINDINGS: Cardiac silhouette is enlarged, unchanged. Right infrahilar and left basilar opacities are redemonstrated suggestive of scarring/atelectasis. Chronic blunting of the costophrenic angles without pneumothorax, large pleural effusion or overt pulmonary edema. Degenerative changes are seen about the shoulders and spine. IMPRESSION: 1. Cardiomegaly without overt pulmonary edema. 2. Left basilar and right infrahilar opacities are suggestive of probable scarring/atelectasis. The above report was generated using voice recognition software. It may contain grammatical, syntax or spelling errors. Electronically signed by: Ben Dyer M.D. 07/17/2018 10:[address] head/brain wo con CLINICAL HISTORY: 83 years-old Female with pain fall. Acute head injury status post fall TECHNIQUE: Multiple axial CT images of the head were obtained without contrast. A dose lowering technique was utilized adhering to the principles of ALARA. CT DOSE: 1526.73 mGy.cm COMPARISON: CT cervical spine of same day. FINDINGS: No acute intracranial hemorrhage, midline shift, intracranial mass, hydrocephalus, territorial ischemia or abnormal extra-axial collection. Age- related involutional changes. Extensive white matter hypodensities suggest chronic microvascular ischemic changes. Motion degraded exam. The calvarium is intact. Large left mastoid effusion. Right mastoid air cells are clear. Paranasal sinuses also appear clear. Soft tissues and orbits are unremarkable. IMPRESSION: Motion degraded exam without acute intracranial abnormality or calvarial fracture identified. The above report was generated using voice recognition software. It may contain grammatical, syntax or spelling errors. Electronically signed by: Ben Dyer M.D. 07/17/2018 11:[address] cervical spine wo con CLINICAL HISTORY: 83 years-old Female with pain fall. Acute neck pain status post fall COMPARISON: CT head of same day. TECHNIQUE: Multiple axial CT images of the cervical spine were obtained without contrast. A dose lowering technique was utilized adhering to the principles of ALARA. FINDINGS: Large left mastoid effusion. Trace fluid also noted about the left middle ear ca vity. Right mastoid air cells are generally clear. No acute cervical spine fracture or subluxation identified. The mineralized appearance of the bones. Evaluation of the central canal and neuroforamina is better assessed by MRI. Multilevel foraminal narrowing is noted without definite high-grade central canal stenosis. Mild multilevel intervertebral disc space narrowing with spondylitic spurring and severe multilevel facet arthrosis. 2 mm anterolisthesis C4 on C5 and C6 on C7 is likely secondary to long-standing facet arthrosis. No prevertebral soft tissue swelling. Heterogeneous appearance of the thyroid. Lung apices appear clear. IMPRESSION: No acute cervical spine fracture or subluxation. The above report was generated using voice recognition software. It may contain grammatical, syntax or spelling errors. Electronically signed by: Ben Dyer M.D. 07/17/2018 11:31 AM ECG Data Attestation: I personally reviewed and interpreted this ECG as follows: Indication: altered mental status Rate (beats per minute): 74 Rhythm: atrial fibrillation Findings: + other (normal axis) and + nonspecific-ST abn; no ST depression, no ST elevation and no acute ischemic change Comparison ECG Date: from (06/30/2018) Change: no significant change Blood Pressure Blood Pressure Findings: Normal blood pressure MDM Narrative The patient is a pleasant 83-year-old woman with a past medical history of CHF, A. fib, CKD, COPD who presents emergency department from her home for worsening confusion with intermittent hallucinations where she is talking to herself, increased shortness of breath and congestion over the past several days per hpi. On arrival patient is chronically ill-appearing but no acute distress, afebrile stable vital signs. She was found to be hypoxic to 90% on room air with slight dyspnea with intermittent pursed lip breathing. On exam the patient has 4+ b ilateral lower extremity pitting edema without discoloration or pain. She is diminished throughout with scant intermittent wheeze. EKG demonstrates A. fib without overt ischemia. Chest x-ray without overt pulmonary edema but there appears to be mild venous congestion. WBC within normal limits. H/H 11.9/37.7 then patient's prior range of values. Platelets 129 also within patient's prior range. INR 2.6. VBG with pH of 7.32 and PCO2 of 57. Chemistry without acidosis. Creatinine is 1.53 within patient's prior range of values. Magnesium 1.5 with repletion provided. Troponin within normal limits. BNP 9K up from prior value of 4K CT head and C-spine negative in the setting of the patient's fall where she was using her lift chair by herself. The patient's worsening clinical condition with confusion and hypoxia reasonable to admit the patient for further management of likely CHF exacerbation/fluid overload. Patient was given IV Lasix as well as Solu-Medrol and DuoNeb for COPD component. Case was discussed with Dr. Stein, [facility] hospitalist, who will evaluate the patient for admission. Impression & Plan CHF (congestive heart failure), COPD exacerbation Discharge Plan Visit Data *Final* Discharge Date/Time: 07/17/18 13:53 Chief Complaint: Illness ED Provider: Dayton Valladares Discharge Problem: CHF (congestive heart failure), COPD exacerbation Patient Disposition: Admitted As Inpatient Discharge Instructions Interventions: ED Discharge Assessment Last Done: 07/17/18 13:53 The scribe's documentation has been prepared under my direction and personally reviewed by me in its entirety. I confirm that the note above accurately reflects all work, treatment, procedures, and medical decision making performed by me.
[2018-07-17] MEDS: WARFARIN SOD 2 MG TAB PO SCH (16:19)
[2018-07-17] MEDS: BREO ELLIPTA: ORDER AWAITING ACTION SCH (16:20)
[2018-07-17] MEDS: FUROSEMIDE 40 MG in SYRINGE 0 ML IV SCH (18:25)
[2018-07-17 18:44] LABS: Appearance Urine Cloudy (Clear); Bacteria Urine Automated 4+ (Negative); Blood Urine 3+ (Negative); Color Urine Dark Yellow; Epithelial Cell Urine Auto >30 /lpf (0-5); Glucose Urine UA Negative (Negative); Ketones Urine Trace (Negative); Leukocyte Esterase Urine 2+ (Negative); Nitrite Urine Positive (Negative); Protein Urine Trace (Negative); RBC Urine Automated 0-4 /hpf (0-4); Specific Gravity Urine 1.023 (1.000-1.030); Urobilinogen Urine Negative (Negative); WBC Urine Automated >30 /hpf (0-5)
[2018-07-17 18:47] LABS: Bilirubin Urine Negative (Negative); Ictotest Urine Negative (Negative)
[2018-07-17 18:55] LABS: Cast Urine Automated >30 /lpf (0-5)
[2018-07-17] MEDS: cefTRIAXone SODIUM 1,000 MG in DEXTROSE 5% 50 ML IV SCH (20:29)
[2018-07-17] MEDS: ATORVASTATIN 10 MG TAB PO SCH (20:30)
[2018-07-17] MEDS ORDERED: HEPARIN SOD 5,000 UNIT/0.5 ML VIAL SQ SCH (21:00)
[2018-07-18] MEDS: BREO ELLIPTA: ORDER AWAITING ACTION SCH ×2 (00:31→08:21)
[2018-07-18 06:06] LABS: Base Excess VBG 1.4 mEq/L; Oxygen Saturation VBG 88.5 %; pH VBG 7.38 (7.36-7.41)
[2018-07-18 06:07] LABS: Hematocrit (blood only) 34.4 % (37-47); Hemoglobin 11.3 g/dL (12.0-16.0); Mean Corpuscular Hgb Conc 32.8 g/dL (32-36); Mean Platelet Volume 10.9 fL (7.4-10.4); Platelet Count 122 K/uL (130-400); RDW Coefficient of Variation 16.9 % (11.5-14.5); RDW Standard Deviation 57.9 fL (36.4-46.3); Red Blood Count 3.66 M/uL (4.2-5.4); White Blood Count 3.39 K/uL (4.8-10.8)
[2018-07-18 06:18] LABS: Prothrombin Time 28.7 Seconds (9.0-12.0)
[2018-07-18 06:34] LABS: BUN Creatinine Ratio 13.6 (10-20); Calcium 8.3 mg/dl (8.5-10.1); Creatinine Clr Calc Pharmacy 25.8 ml/min; Est GFR (African American) 29.3; Est GFR (Non-African American) 25.3; Magnesium 1.7 mg/dl (1.8-2.4); Potassium 4.3 mmol/L (3.5-5.1)
[2018-07-18] MEDS: FUROSEMIDE 40 MG in SYRINGE 0 ML IV SCH (08:44)
[2018-07-18] MEDS: FLUTICASONE/VILANTEROL INHALER INH SCH (08:44)
[2018-07-18] MEDS: PANTOprazole 40 MG TAB PO SCH (08:44)
[2018-07-18] MEDS: METOPROLOL SUCC 50MG EXT REL TAB PO SCH (08:44)
[2018-07-18] MEDS: SERTRALINE HCL 50 MG TABLET PO SCH (08:44)
[2018-07-18] MEDS: dilTIAZem HCL 300 MG CAPCR PO SCH (08:44)
[2018-07-18] MEDS ORDERED: MAGNESIUM SULFATE / D5W 1 GM/100 ML BAG IV ONE (09:30)
[2018-07-18] MEDS ORDERED: MICONAZOLE NITRATE POWDER 43 GM EXT PRN (09:46)
[2018-07-18] MEDS: WARFARIN SOD 2 MG TAB PO SCH (15:33)
[2018-07-18] MEDS ORDERED: POTASSIUM CHLORIDE 20 MEQ TABCR PO STA (19:29)
[2018-07-18] MEDS ORDERED: FUROSEMIDE 40 MG in SYRINGE 0 ML IV ONE (20:00)
[2018-07-18] MEDS: cefTRIAXone SODIUM 1,000 MG in DEXTROSE 5% 50 ML IV SCH (20:21)
[2018-07-18] MEDS: MAGNESIUM OXIDE 400 MG TAB PO SCH (20:22)
[2018-07-18] MEDS: ATORVASTATIN 10 MG TAB PO SCH (20:22)
--- NOTE | 2018-07-18 20:45 | Hospitalist Progress Note ---
Date of Service July 18, 2018 Assessment & Plan (1) Metabolic encephalopathy: Likely 2nd to UTI. see below. improving already. Present on Admission?: Yes (2) UTI (urinary tract infection): due to GNR. cont rocephin. await final culture result. Present on Admission?: Yes (3) Hallucination, visual: likely a part of her encephalopathy from the UTI. anticipate this will improve with Rx of UTI. if these symptoms persist despite Rx of UTI would need additional w/u. Present on Admission?: Yes (4) Acute on chronic diastolic heart failure: received several doses of diuretic yesterday and creatinine rebecca overnight. she was lying flat in bed w/o orthopnea today but does have considerable peripheral edema. her weight on standing scale IS higher than weight at previous hospital d/c in June. volume status is difficult to determine in general. will give 1 more dose of IV lasix. hold any further until rechecking labs in am and her volume status clinically. she may be intravascularly dry but total body overloaded. Present on Admission?: Yes (5) COPD (chronic obstructive pulmonary disease): no exacerbation at this time. cont home inhalers. likely a contributor to chronic BEY. Present on Admission?: Yes (6) Shortness of breath: suspect multifactorial causes -- COPD, restriction from morbid obesity, obesity-hypoventilation syndrome, pulmonary HTN, deconditioning, etc. agree with overnight oximetry study AND would obtain 2-step O2 test later in discharge would not be surprised if she needs home O2 Present on Admission?: Yes (7) A-fib: Permanent. On warfarin for anticoagulation and beta-scot and calcium channel scot for rate control. INR today 3. repeat INR in am. overall control adequate. Present on Admission?: Yes (8) HTN (hypertension): controlled Present on Admission?: Yes (9) CKD (chronic kidney disease) stage 3, GFR 30-59 ml/min: Baseline Cr ~1.1-1.4. On admission, Cr was 1.5. Needed temporary dialysis earlier this year; fortunately renal function recovered. BMP in am. Hold lasix after tonight until re-evaluating her BMP. (10) Morbid obesity with BMI of 45.0-49.9, adult: BMI 48 (11) Sternal fracture: during previous admission. no c/o pain today. this was managed nonoperatively. (12) DVT prophylaxis: coumadin PT, OT edilberto son updated at bedside today Change to admission status. I certify that the inpatient services were ordered in accordance with Medicare regulations governing the order. This includes certification that hospital inpatient services are reasonable and necessary and in the case of services not specified as inpatient-only under 42 CFR 419.22(n), that they are appropriately provided as inpatient services in accordance to with the 2-midnight benchmark under 43 CFR 412.3(e) Subjective staff state that pt is still having confusion and hallucinations. patient states however that the latter is improved. appetite improved. no fever. no dyspnea at rest but reports BEY here and at home. I spoke with PT - she did poorly, walking only 10 feet. I spoke with pt's son - he is concerned she needs oxygen at home. Constitutional: no fever Respiratory: no cough Cardiovascular: + edema; no chest pain, no orthopnea and no paroxysmal nocturnal dyspnea Gastrointestinal: no abdominal pain Physical Exam Vital Signs (Past 24 Hours): Last Vital Signs Temp 36.4 C L 07/18/18 19:28 Pulse 85 07/18/18 19:28 Resp 23 07/18/18 19:28 BP 134/87 07/18/18 19:28 Pulse Ox 98 07/18/18 19:28 Constitutional: well developed, well nourished and + morbidly obese; no acute distress and not ill appearing ENMT: Mouth: + oral mucosal abnormality (slightly dry MM) Respiratory: normal respiratory effort, lungs clear to auscultation Cardiovascular: Rate/Rhythm: regular rate; + abnormal rhythm (irregular) Heart Sounds: normal S1 and normal S2 Vessels: + JVD, posterior tibial pulses present and dorsalis pedis pulses present Extremities: + edema (2+ b/l) Gastrointestinal (Abdomen): normal bowel sounds, soft, nontender, no hepatosplenomegaly Skin: minimal stasis changes legs Psychiatric: Orientation: alert and oriented x 3 Results & Data Laboratory Results cr 1.8 urine cx with GNR (1) A-fib Atrial fibrillation type: permanent Qualified Code(s): I48.2 - Chronic atrial fibrillation (2) COPD (chronic obstructive pulmonary disease) COPD type: unspecified COPD Qualified Code(s): J44.9 - Chronic obstructive pulmonary disease, unspecified (3) HTN (hypertension) Hypertension type: essential hypertension Qualified Code(s): I10 - Essential (primary) hypertension (4) UTI (urinary tract infection) Urinary tract infection type: acute cystitis Hematuria presence: without hematuria Qualified Code(s): N30.00 - Acute cystitis without hematuria (5) Sternal fracture Encounter type: initial encounter Fracture type: closed Sternal location: manubrium Qualified Code(s): S22.21XA - Fracture of manubrium, initial encounter for closed fracture
[2018-07-19 06:07] LABS: Prothrombin Time 28.1 Seconds (9.0-12.0)
[2018-07-19 06:12] LABS: BUN Creatinine Ratio 13.4 (10-20); Calcium 8.4 mg/dl (8.5-10.1); Est GFR (African American) 25.1; Est GFR (Non-African American) 21.7; Magnesium 1.9 mg/dl (1.8-2.4); Potassium 4.1 mmol/L (3.5-5.1)
[2018-07-19] MEDS: MAGNESIUM OXIDE 400 MG TAB PO SCH ×2 (08:20→20:23)
[2018-07-19] MEDS: SERTRALINE HCL 50 MG TABLET PO SCH (08:20)
[2018-07-19] MEDS: METOPROLOL SUCC 50MG EXT REL TAB PO SCH (08:20)
[2018-07-19] MEDS: FLUTICASONE/VILANTEROL INHALER INH SCH (08:20)
[2018-07-19] MEDS: PANTOprazole 40 MG TAB PO SCH (08:20)
[2018-07-19] MEDS: dilTIAZem HCL 300 MG CAPCR PO SCH (08:20)
--- NOTE | 2018-07-19 10:16 | Nephrology Consultation ---
Date of Consultation July 19, 2018 Assessment & Plan (1) Acute kidney injury superimposed on chronic kidney disease: -- Baseline creatinine has been ~ 1.3. Renal US 06/05 revealed structurally normal kidneys. Urine sediment has been difficult to interpret due to recurrent UTI. Renal impairment is likely on the basis of microvascular disease and poor perfusion related to diastolic dysfunction/pulmonary hypertension -- Clinically suspect rise in creatinine related to diuretic therapy and decrease in EAV. Will check FeNa -- Recommend holding further diuretic therapy and managing peripheral edema with support hose / compression stockings -- Monitor PRP (2) UTI (urinary tract infection): -- Preliminary urine cx shows G- rods. Agree w/ Ceftriaxone therapy. No dosage adjustment needed for renal dysfunction (3) CHF (congestive heart failure): -- 05/05 Echocardiogram: LVEF 55 - 60%, PASP 35 - 40 mmHG, severe LA dilation, diastolic dysfunction (4) Atrial fibrillation: -- On Warfarin therapy History of Present Illness Reason for Consultation: Acute on CKD Attending Physician: Eleni Rios MD History of Present Illness Mrs. Navarro is an 83 year old white female who is seen at the request of Dr. Rios for evaluation of acute on CKD. Medical records in the EMR were reviewed and are summarized as follows: Mrs. Navarro has COPD, pulmonary HTN, dyslipidemia, arterial HTN, chronic atrial fibrillation requiring anticoagulation therapy, and dCHF. She also has CKD w/ baseline creatinine ~ 1.3. Echocardiogram 05/11/18: LVEF 55-60%, PASP 35-60 mmHG, severe LA d ilation, diastolic dysfunction noted. Mrs. Navarro was admitted to [facility] 05/28 - 06/07 due to gastroenteritis complicated by dehydration and YULIANA. She did require acute HD during her stay but recovered kidney function w/ serum creatinine 1.5 prior to discharge. She was readmitted 06/30 - 07/04 following acute sternal fracture when assisted to stand by family member. Mrs. Navarro was admitted 07/17/18 due to progressive weakness, confusion and LE swelling. Creatinine was 1.5 at the time of admission. Urinalysis was suggestive of UTI. Urine culture is positive for G- rods. Patient is clinically improving w/ IV antibiotic therapy. Creatinine has risen to 2.0 following diuretic administration. Allergies Allergy/AdvReac Type Severity Reaction Status Date / Time amoxicillin Allergy Intermediate SWELLING Verified 06/30/18 16:51 Home Medications Home Medications Medication Instructions Recorded Confirmed Type omeprazole 40 mg PO QAM 05/10/18 07/17/18 History sertraline 50 mg PO QAM 05/10/18 07/17/18 History metoprolol succinate 50 mg PO DAILY 05/28/18 07/17/18 History albuterol sulfate 1 inha INH Q6H PRN #6.7 gm 06/10/18 07/17/18 Rx diltiazem HCl [Cardizem CD] 300 mg PO QAM #1 cap 06/10/18 07/17/18 Rx potassium chloride [Klor-Con M10] 20 meq PO DAILY #1 tab 06/10/18 07/17/18 Rx warfarin [Coumadin] 2 mg PO DAILY@1600 #1 tab 06/10/18 07/17/18 Rx Breo Ellipta 1 inh INHALATION DAILY 06/30/18 07/17/18 History Stress Formula with Zinc 1 tab PO DAILY 06/30/18 07/17/18 History atorvastatin 10 mg PO HS 06/30/18 07/17/18 History ondansetron HCl [Zofran] 4 mg PO TID PRN 06/30/18 07/17/18 History acetaminophen [Pain Reliever] 1,000 mg PO Q8H #90 tab 07/04/18 07/17/18 Rx ondansetron HCl 4 mg PO ACHS #120 tab 07/04/18 07/17/18 Rx tramadol 50 mg PO Q4H PRN #60 tab 07/04/18 07/17/18 Rx Patient History Medical History Renal failure (Acute) Diarrhea (Acute) HTN (hypertension) (Chronic) SVT (supraventricular tachycardia) (Chronic) A-fib (Chronic) Acute respiratory failure (Acute 04/26/13) PNA (pneumonia) (Resolved) CHF (congestive heart failure) (Acute) COPD exacerbation (Acute) Acute kidney injury superimposed on chronic kidney disease Acute on chronic diastolic heart failure Surgical History Previous section (Resolved) Family History Other Asthma Depression History of total knee replacement Hypertension Social History Communication Ability: Effective Beliefs That Will Affect Care: None Current Living Situation: Other Current Living Situation Comment: home with son Other Information That Helps Us Care for You: No Feels Safe at Home: Yes Safety Concerns: Feels Safe At This Time Smoking Status: Never smoker Hx Alcohol Use: No Hx Substance Use: No Review of Systems Constitutional: no fever and no body aches Respiratory: no cough and no dyspnea Cardiovascular: + edema; no chest pain at rest and no dyspnea Gastrointestinal: no abdominal pain and no diarrhea/loose stools Genitourinary (Female): no dysuria and no hematuria Physical Exam Vital Signs (Past 24 Hours): Last Vital Signs Temp 36.8 C 07/19/18 08:02 Pulse 82 07/19/18 08:02 Resp 18 07/19/18 08:02 BP 107/63 07/19/18 08:02 Pulse Ox 98 07/19/18 08:02 Constitutional: + obese Eyes: PERRL, conjunctivae normal, anicteric sclerae Neck: trachea midline, no thyromegaly Respiratory: normal respiratory effort, lungs clear to auscultation Cardiovascular: Rate/Rhythm: + abnormal rate and + abnormal rhythm Extremities: + edema Gastrointestinal (Abdomen): normal bowel sounds, soft, nontender, no hepatosplenomegaly Results & Data Laboratory Results Laboratory Tests 07/17/18 07/18/18 07/19/18 18:20 05:47 05:20 WBC 3.39 L Hgb 11.3 L Hct 34.4 L Plt Count 122 L Sodium 143 Potassium 4.1 Chloride 107 Carbon Dioxide 30 BUN 28 H Creatinine 2.09 H Glucose 129 H Urine Color Dark Yellow Urine Appearance Cloudy H Urine pH 5.0 Ur Specific [place] 1.023 Urine Protein Trace H Urine Glucose (UA) Negative Urine Blood 3+ H Urine Nitrite Positive H Ur Leukocyte Esterase 2+ H Urine WBC (Auto) >30 H Urine RBC (Auto) 0-4 U Hyaline Cast (Auto) >30 H U Epithel Cells (Auto) >30 H Urine Bacteria (Auto) 4+ H Microbiology 07/17/18 18:20 Urine,Clean Catch Urine Culture - Preliminary Gram negative bacilli Diagnostic Findings Renal US 06/05: Right kidney: 10.9 cm. No hydronephrosis. Normal corticomedullary differentiation. Mild cortical thinning/scarring. Left kidney: 11.1 cm. No hydronephrosis. Normal corticomedullary differentiation. Mild cortical thinning/scarring. Bladder: Decompressed by a Payne catheter and not well visualized. (1) UTI (urinary tract infection) Urinary tract infection type: acute cystitis Hematuria presence: without hematuria Qualified Code(s): N30.00 - Acute cystitis without hematuria (2) CHF (congestive heart failure) Heart failure chronicity: unspecified Heart failure type: unspecified Qualified Code(s): I50.9 - Heart failure, unspecified (3) Atrial fibrillation Atrial fibrillation type: chronic Qualified Code(s): I48.2 - Chronic atrial fibrillation
[2018-07-19] MEDS: WARFARIN SOD 2 MG TAB PO SCH (16:23)
[2018-07-19 17:12] LABS: Creatinine Urine Random 56.3 mg/dl
--- NOTE | 2018-07-19 19:18 | Hospitalist Progress Note ---
Date of Service July 19, 2018 Assessment & Plan (1) Metabolic encephalopathy: Likely secondary to UTI. Now resolved, but remains with lethargy -Treating UTI (2) UTI (urinary tract infection): due to GNR. Urine culture ID and sensitivity still pending cont rocephin. await final culture result. (3) Hallucination, visual: likely a part of her encephalopathy from the UTI. Now resolved with treatment of UTI (4) Acute on chronic diastolic heart failure: She received several doses of diuretic in the first 36 hours of admission and creatinine continues to rise Is still with considerable peripheral edema. Her weight on standing scale is higher than weight at previous hospital d/c in June. volume status is difficult to determine in general. she may be intravascularly dry but total body overloaded. -Hold off on any further diuretics at this time due to worsening renal failure -Continue strict I's and O's, daily weights, low-sodium diet (5) COPD (chronic obstructive pulmonary disease): no exacerbation at this time. -cont home inhalers. -likely a contributor to chronic BEY. (6) Shortness of breath: suspect multifactorial causes -- COPD, restriction from morbid obesity, obesity-hypoventilation syndrome, pulmonary HTN, deconditioning, etc. Overnight oximetry study qualifies her for nocturnal O2 -would obtain 2-step O2 test later in discharge unless going to rehab (7) A-fib: Permanent, rate controlled. On warfarin for anticoagulation and beta- scot and calcium channel scot for rate control. INR today stable at 3.0 -Continue Coumadin -Follow INR in the a.m. (8) HTN (hypertension): controlled -Continue diltiazem 300 mg once daily, Toprol-XL 50 mg once daily (9) CKD (chronic kidney disease) stage 3, GFR 30-59 ml/min: Baseline Cr ~1.1-1.4. On admission, Cr was 1.5. Needed temporary dialysis earlier this year; fortunately renal function recovered. -Avoid nephrotoxins -Renally dose medications when appropriate (10) Acute kidney injury superimposed on chronic kidney disease: Creatinine up to 2.09 today after receiving several doses of IV Lasix Urine output still adequate Electrolytes within normal limits Volume status with overload as above -Hold Lasix -Appreciate nephrology consultation -Checking FeNa (11) Morbid obesity with BMI of 45.0-49.9, adult: BMI 48 (12) Sternal fracture: during previous admission. no c/o pain today. this was managed nonoperatively. (13) DVT prophylaxis: coumadin PT, OT evals Disposition-remain on medical floor with telemetry Subjective Patient feeling very tired today but was sitting up and ate lunch. Denies headache or lightheadedness. Denies chest pain shortness of breath. Denies abdominal pain. No nausea or vomiting. Reports that all of her hallucinations have resolved. Telemetry with atrial fibrillation with rates in the 70s-80s Review of Systems All systems reviewed & are unremarkable except as noted in HPI & below Physical Exam Vital Signs (Past 24 Hours): Last Vital Signs Temp 36.4 C L 07/19/18 15:50 Pulse 76 07/19/18 15:50 Resp 20 07/19/18 15:50 BP 125/86 07/19/18 15:50 Pulse Ox 95 07/19/18 15:50 Constitutional: WD/WN, vitals as above + morbidly obese Eyes: PERRL, conjunctivae normal, anicteric sclerae ENMT: external ear and nose normal, oropharynx normal Neck: trachea midline, no thyromegaly Respiratory: normal respiratory effort, lungs clear to auscultation Cardiovascular: Rate/Rhythm: regular rate; + abnormal rhythm (Irregularly irregular) Heart Sounds: no murmur Extremities: + edema (3+ pitting edema of the legs to the thighs bilaterally) Gastrointestinal (Abdomen): normal bowel sounds, soft, nontender, no hepatosplenomegaly Musculoskeletal: Extremities: extremities normal to inspection; no cyanosis and no clubbing Skin: no rashes, warm and dry Neurologic: moves all extremities and awake; no focal motor deficits Psychiatric: Orientation: oriented x 3 and cooperative (But very drowsy, however woke up easily and responded to questions appropriately) Results & Data Laboratory Results 07/19/18 07/19/18 07/19/18 Range/Units 16:44 05:20 05:20 PT 28.1 H (9.0-12.0) Seconds INR 3.0 H (0.9-1.1) Sodium 143 (136-145) mmol/L Potassium 4.1 (3.5-5.1) mmol/L Chloride 107 (98-107) mmol/L Carbon Dioxide 30 (21-32) mmol/L Anion Gap 6.0 (3-11) BUN 28 H (7-18) mg/dl Creatinine 2.09 H (0.6-1.2) mg/dl Est Cr Clr Drug Dosing 24.0 ml/min Est GFR ( Amer) 25.1 Est GFR (Non-Af Amer) 21.7 BUN/Creatinine Ratio 13.4 (10-20) Glucose 129 H (70-99) mg/dl Calcium 8.4 L (8.5-10.1) mg/dl Magnesium 1.9 (1.8-2.4) mg/dl Ur Random Creatinine 56.3 mg/dl Ur Random Sodium 103 mmol/L Urine [id number] rods (1) UTI (urinary tract infection) Urinary tract infection type: acute cystitis Hematuria presence: without hematuria Qualified Code(s): N30.00 - Acute cystitis without hematuria (2) COPD (chronic obstructive pulmonary disease) COPD type: unspecified COPD Qualified Code(s): J44.9 - Chronic obstructive pulmonary disease, unspecified (3) A-fib Atrial fibrillation type: permanent Qualified Code(s): I48.2 - Chronic atrial fibrillation (4) HTN (hypertension) Hypertension type: essential hypertension Qualified Code(s): I10 - Essential (primary) hypertension (5) Sternal fracture Encounter type: initial encounter Fracture type: closed Sternal location: manubrium Qualified Code(s): S22.21XA - Fracture of manubrium, initial encounter for closed fracture
[2018-07-19] MEDS: cefTRIAXone SODIUM 1,000 MG in DEXTROSE 5% 50 ML IV SCH (19:49)
[2018-07-19] MEDS: ATORVASTATIN 10 MG TAB PO SCH (20:23)
[2018-07-20 06:31] LABS: Hematocrit (blood only) 38.8 % (37-47); Hemoglobin 11.9 g/dL (12.0-16.0); Mean Corpuscular Hgb Conc 30.7 g/dL (32-36); Mean Corpuscular Volume 95.8 fL (80-100); Platelet Count 114 K/uL (130-400); RDW Coefficient of Variation 16.8 % (11.5-14.5); RDW Standard Deviation 59.2 fL (36.4-46.3); Red Blood Count 4.05 M/uL (4.2-5.4)
[2018-07-20 06:51] LABS: BUN Creatinine Ratio 13.6 (10-20); Calcium 7.7 mg/dl (8.5-10.1); Creatinine Clr Calc Pharmacy 26.6 ml/min; Est GFR (African American) 28.5; Est GFR (Non-African American) 24.6
[2018-07-20] MEDS: MAGNESIUM OXIDE 400 MG TAB PO SCH ×2 (07:25→20:28)
[2018-07-20] MEDS: dilTIAZem HCL 300 MG CAPCR PO SCH (07:25)
[2018-07-20] MEDS: SERTRALINE HCL 50 MG TABLET PO SCH (07:25)
[2018-07-20] MEDS: METOPROLOL SUCC 50MG EXT REL TAB PO SCH (07:25)
[2018-07-20] MEDS: FLUTICASONE/VILANTEROL INHALER INH SCH (07:26)
[2018-07-20] MEDS: PANTOprazole 40 MG TAB PO SCH (07:26)
--- NOTE | 2018-07-20 10:18 | Nephrology Progress Note ---
Date of Service July 20, 2018 Assessment & Plan (1) Acute kidney injury superimposed on chronic kidney disease: -- Clinically suspect YULIANA related to diuretic therapy and decrease in EAV. FeNa 2.5% following diuretic administration -- Patient is now diuresing on her own. Creatinine has improved form 2.0 to 1.8 -- Baseline creatinine has been ~ 1.3. Renal US 06/05 revealed structurally normal kidneys. Urine sediment has been difficult to interpret due to recurrent UTI. Renal impairment is likely on the basis of microvascular disease and poor perfusion related to diastolic dysfunction/pulmonary hypertension -- Recommend holding further diuretic therapy and managing peripheral edema with support hose / compression stockings -- Monitor PRP (2) UTI (urinary tract infection): -- Preliminary urine cx shows G- rods. Agree w/ Ceftriaxone therapy. No dosage adjustment needed for renal dysfunction (3) CHF (congestive heart failure): -- 05/05 Echocardiogram: LVEF 55 - 60%, PASP 35 - 40 mmHG, severe LA dilation, diastolic dysfunction (4) Atrial fibrillation: -- On Warfarin therapy Subjective Mrs. Navarro was seen & examined in her hospital room this morning. She is breathing comfortably flat in bed on O2 at 2 L / min NC. Her legs remain edematous. She reports good UO. Constitutional: no fever Respiratory: no dyspnea Cardiovascular: + edema; no chest pain at rest and no dyspnea Physical Exam Vital Signs (Past 24 Hours): Last Vital Signs Temp 36.5 C 07/20/18 07:00 Pulse 89 07/20/18 07:00 Resp 18 07/20/18 07:00 BP 126/74 07/20/18 07:00 Pulse Ox 92 07/20/18 07:00 Constitutional: + obese Eyes: PERRL, conjunctivae normal, anicteric sclerae Neck: trachea midline, no thyromegaly Respiratory: normal respiratory effort, lungs clear to auscultation Cardiovascular: Rate/Rhythm: + abnormal rate and + abnormal rhythm Extremities: + edema Gastrointestinal (Abdomen): normal bowel sounds, soft, nontender, no hepatosplenomegaly Results & Data Laboratory Results Microbiology 07/17/18 18:20 Urine,Clean Catch Urine Culture - Preliminary Gram negative bacilli 07/17/18 18:20 Urine,Clean Catch Urine Culture - Preliminary Gram negative bacilli Laboratory Tests 07/20/18 07/20/18 06:02 06:02 WBC 6.70 Hgb 11.9 L Hct 38.8 Plt Count 114 L Sodium 145 Potassium 4.0 Chloride 107 Carbon Dioxide 33 H BUN 26 H Creatinine 1.88 H Glucose 81 (1) UTI (urinary tract infection) Urinary tract infection type: acute cystitis Hematuria presence: without hematuria Qualified Code(s): N30.00 - Acute cystitis without hematuria (2) CHF (congestive heart failure) Heart failure chronicity: unspecified Heart failure type: unspecified Qualified Code(s): I50.9 - Heart failure, unspecified (3) Atrial fibrillation Atrial fibrillation type: chronic Qualified Code(s): I48.2 - Chronic atrial fibrillation
--- NOTE | 2018-07-20 13:09 | Hospitalist Progress Note ---
Date of Service July 20, 2018 Assessment & Plan (1) Metabolic encephalopathy: Likely secondary to UTI. Now resolved -Continue treating UTI (2) UTI (urinary tract infection): due to GNR. Urine culture ID and sensitivity still pending but appears to be Klebsiella oxytoca cont rocephin. await final culture result. (3) Hallucination, visual: likely a part of her encephalopathy from the UTI. Now resolved with treatment of UTI (4) Acute on chronic diastolic heart failure: She received several doses of diuretic in the first 36 hours of admission and creatinine continued to rise to 2.0 Now improved creatinine Is still with considerable peripheral edema. Her weight on standing scale is higher than weight at previous hospital d/c in June. volume status is difficult to determine in general. she may be intravascularly dry but total body overloaded. -Continue to hold off on any further diuretics at this time due to worsening renal failure -Continue strict I's and O's, daily weights, low-sodium diet -Manage lower extremity edema by adding CATARINO hose (5) COPD (chronic obstructive pulmonary disease): no exacerbation at this time. -cont home inhalers. -likely a contributor to chronic BEY. -On O2 here which she is not at home-try to wean off oxygen and will need a two- step prior to discharge (6) Shortness of breath: suspect multifactorial causes -- COPD, restriction from morbid obesity, obesity-hypoventilation syndrome, pulmonary HTN, deconditioning, etc. Overnight oximetry study qualifies her for nocturnal O2-now that she has not left within the 48 hours required for insurance, will repeat the overnight oximetry tonight -would obtain 2-step O2 test prior to discharge (7) A-fib: Permanent, rate controlled. On warfarin for anticoagulation and beta- scot and calcium channel scot for rate control. INR not checked today but was 3.0 yesterday -Continue Coumadin -Follow INR in the a.m. (8) HTN (hypertension): controlled -Continue diltiazem 300 mg once daily, Toprol-XL 50 mg once daily (9) CKD (chronic kidney disease) stage 3, GFR 30-59 ml/min: Baseline Cr ~1.1-1.4. On admission, Cr was 1.5. Needed temporary dialysis earlier this year; fortunately renal function recovered. -Avoid nephrotoxins -Renally dose medications when appropriate (10) Acute kidney injury superimposed on chronic kidney disease: Creatinine up to 2.09 after receiving several doses of IV Lasix, now improving to 1.8 with holding Lasix Urine output still adequate Electrolytes within normal limits Volume status with overload as above -Continue to hold Lasix -Appreciate nephrology consultation FeNa 2.5% -Follow BMP in the morning (11) Morbid obesity with BMI of 45.0-49.9, adult: BMI 48 (12) Sternal fracture: during previous admission. no c/o pain today. this was managed nonoperatively. (13) DVT prophylaxis: coumadin PT, OT evals Disposition-remain on medical floor with telemetry and possible discharged home with home health tomorrow if renal function improving and urine culture returned Subjective Feeling better today, less tired, is out of bed to chair and tolerating p.o. Denies abdominal pain. Denies chest pain or shortness of breath. She does not feel she is ready to go home yet today. She is walking a little bit around the room and feels stronger. Telemetry with atrial fibrillation with rates in the 70s-100s Review of Systems All systems reviewed & are unremarkable except as noted in HPI & below Physical Exam Vital Signs (Past 24 Hours): Last Vital Signs Temp 36.8 C 07/20/18 11:43 Pulse 88 07/20/18 11:43 Resp 18 07/20/18 11:43 BP 121/70 07/20/18 11:43 Pulse Ox 93 07/20/18 11:43 Constitutional: WD/WN, vitals as above + morbidly obese Eyes: PERRL, conjunctivae normal, anicteric sclerae Neck: trachea midline, no thyromegaly Respiratory: normal respiratory effort, lungs clear to auscultation Cardiovascular: RRR, no murmur, no edema Rate/Rhythm: regular rate; + abnormal rhythm (Irregularly irregular) Heart Sounds: no murmur Extremities: + edema (3+ pitting edema of the legs to the thighs bilaterally) Gastrointestinal (Abdomen): normal bowel sounds, soft, nontender, no hepatosplenomegaly Musculoskeletal: Extremities: extremities normal to inspection; no cyanosis and no clubbing Skin: no rashes, warm and dry Neurologic: moves all extremities and awake; no focal motor deficits Psychiatric: Orientation: oriented x 3 and cooperative Affect: euthymic affect Results & Data Laboratory Results 07/20/18 07/20/18 Range/Units 06:02 06:02 WBC 6.70 (4.8-10.8) K/uL RBC 4.05 L (4.2-5.4) M/uL Hgb 11.9 L (12.0-16.0) g/dL Hct 38.8 (37-47) % MCV 95.8 (80-100) fL MCH 29.4 (25-34) pg MCHC 30.7 L (32-36) g/dL RDW Std Deviation 59.2 H (36.4-46.3) fL RDW Coeff of Kathleen 16.8 H (11.5-14.5) % Plt Count 114 L (130-400) K/uL MPV 11.0 H (7.4-10.4) fL Sodium 145 (136-145) mmol/L Potassium 4.0 (3.5-5.1) mmol/L Chloride 107 (98-107) mmol/L Carbon Dioxide 33 H (21-32) mmol/L Anion Gap 5.0 (3-11) BUN 26 H (7-18) mg/dl Creatinine 1.88 H (0.6-1.2) mg/dl Est Cr Clr Drug Dosing 26.6 ml/min Est GFR ( Amer) 28.5 Est GFR (Non-Af Amer) 24.6 BUN/Creatinine Ratio 13.6 (10-20) Glucose 81 (70-99) mg/dl Calcium 7.7 L (8.5-10.1) mg/dl Discussed urine culture with [facility]-it is looking like Klebsiella oxytoca but they are having to redo the sensitivities. (1) UTI (urinary tract infection) Hematuria presence: without hematuria Urinary tract infection type: acute cystitis Qualified Code(s): N30.00 - Acute cystitis without hematuria (2) A-fib Atrial fibrillation type: permanent Qualified Code(s): I48.2 - Chronic atrial fibrillation (3) COPD (chronic obstructive pulmonary disease) COPD type: unspecified COPD Qualified Code(s): J44.9 - Chronic obstructive pulmonary disease, unspecified (4) Sternal fracture Encounter type: initial encounter Fracture type: closed Sternal location: manubrium Qualified Code(s): S22.21XA - Fracture of manubrium, initial encounter for closed fracture (5) HTN (hypertension) Hypertension type: essential hypertension Qualified Code(s): I10 - Essential (primary) hypertension
[2018-07-20] MEDS: WARFARIN SOD 2 MG TAB PO SCH (16:54)
[2018-07-20] MEDS: ATORVASTATIN 10 MG TAB PO SCH (20:27)
[2018-07-20] MEDS: cefTRIAXone SODIUM 1,000 MG in DEXTROSE 5% 50 ML IV SCH (20:28)
[2018-07-21] MEDS ORDERED: DiphenhydrAMINE HCL 50 MG/ML VIAL IV STA (02:41)
[2018-07-21 07:57] LABS: Eosinophils # (auto) 0.04 K/uL (0-0.5); Eosinophils % (auto) 0.8 %; Hematocrit (blood only) 37.8 % (37-47); Hemoglobin 11.5 g/dL (12.0-16.0); Immature Granulocytes # (auto) 0.03 K/uL (0.00-0.02); Immature Granulocytes % (auto) 0.6 %; Lymphocytes # (auto) 1.18 K/uL (1.2-3.4); Lymphocytes % (auto) 22.2 %; Mean Corpuscular Hgb Conc 30.4 g/dL (32-36); Mean Corpuscular Volume 95.7 fL (80-100); Monocytes # (auto) 1.17 K/uL (0.11-0.59); Neutrophils # (auto) 2.89 K/uL (1.4-6.5); Neutrophils % (auto) 54.4 %; Platelet Count 122 K/uL (130-400); RDW Coefficient of Variation 16.4 % (11.5-14.5); RDW Standard Deviation 57.7 fL (36.4-46.3); Red Blood Count 3.95 M/uL (4.2-5.4); White Blood Count 5.31 K/uL (4.8-10.8)
[2018-07-21 08:07] LABS: INR 2.1 (0.9-1.1); Prothrombin Time 20.2 Seconds (9.0-12.0)
[2018-07-21 08:12] LABS: BUN Creatinine Ratio 15.6 (10-20); Calcium 7.9 mg/dl (8.5-10.1); Creatinine Clr Calc Pharmacy 33.8 ml/min; Est GFR (African American) 37.5; Est GFR (Non-African American) 32.3; Potassium 3.6 mmol/L (3.5-5.1)
[2018-07-21] MEDS: dilTIAZem HCL 300 MG CAPCR PO SCH (08:15)
[2018-07-21] MEDS: FLUTICASONE/VILANTEROL INHALER INH SCH (08:15)
[2018-07-21] MEDS: MAGNESIUM OXIDE 400 MG TAB PO SCH ×2 (08:15→21:26)
[2018-07-21] MEDS: METOPROLOL SUCC 50MG EXT REL TAB PO SCH (08:15)
[2018-07-21] MEDS: SERTRALINE HCL 50 MG TABLET PO SCH (08:15)
[2018-07-21] MEDS: PANTOprazole 40 MG TAB PO SCH (08:16)
[2018-07-21] MEDS: CIPROFLOXACIN 400 MG/200 ML BAG IV SCH ×2 (10:15→21:26)
--- NOTE | 2018-07-21 10:27 | Nephrology Progress Note ---
Date of Service July 21, 2018 Assessment & Plan (1) Acute kidney injury superimposed on chronic kidney disease: -- Clinically suspect YULIANA related to diuretic therapy and decrease in EAV. -- Patient is now diuresing on her own. Creatinine has improved form 2.0 to 1.5 -- Baseline creatinine has been ~ 1.3. Renal US 06/05 revealed structurally normal kidneys. Urine sediment has been difficult to interpret due to recurrent UTI. Renal impairment is likely on the basis of microvascular disease and poor perfusion related to diastolic dysfunction/pulmonary hypertension -- Recommend holding further diuretic therapy and managing peripheral edema with support hose / compression stockings -- No further Nephrology recommendations at this time. Will sign off. Please call if further assistance is needed (2) UTI (urinary tract infection): -- Urine cx shows Klebsiella resistant to Ceftriaxone. Consider changing to oral Cipro Subjective Mrs. Navarro was seen & examined in her hospital room this morning. She is breathing comfortably on O2 at 2 L / min NC. Her legs remain edematous. She has not yet been fitted for support hose. She does report good UO. Cardiovascular: + edema; no chest pain at rest and no dyspnea Physical Exam Vital Signs (Past 24 Hours): Last Vital Signs Temp 36.3 C L 07/21/18 07:34 Pulse 88 07/21/18 07:34 Resp 18 07/21/18 07:34 BP 129/83 07/21/18 07:34 Pulse Ox 93 07/21/18 07:34 Constitutional: + obese Eyes: PERRL, conjunctivae normal, anicteric sclerae Neck: trachea midline, no thyromegaly Respiratory: normal respiratory effort, lungs clear to auscultation Cardiovascular: Rate/Rhythm: + abnormal rate and + abnormal rhythm Extremities: + edema Gastrointestinal (Abdomen): normal bowel sounds, soft, nontender, no hepatosplenomegaly Results & Data Laboratory Results Laboratory Tests 07/21/18 07/21/18 07:31 07:31 WBC 5.31 Hgb 11.5 L Hct 37.8 Plt Count 122 L Sodium 146 H Potassium 3.6 Chloride 109 H Carbon Dioxide 34 H BUN 23 H Creatinine 1.50 H D Glucose 95 (1) UTI (urinary tract infection) Urinary tract infection type: acute cystitis Hematuria presence: without hematuria Qualified Code(s): N30.00 - Acute cystitis without hematuria
--- NOTE | 2018-07-21 10:53 | Hospitalist Progress Note ---
Date of Service July 21, 2018 Assessment & Plan (1) Metabolic encephalopathy: Likely secondary to UTI. Now resolved but remains very fatigued, likely due to partially treated UTI as below -Continue treating UTI (2) UTI (urinary tract infection): Ur cx now with Klebsiella oxytoca resistant to current ceftriaxone -dc Rocephin -start Cipro IV for now and then convert to po for dc tomorrow, continue 7 day course (3) Hallucination, visual: likely a part of her encephalopathy from the UTI. Now resolved with treatment of UTI (4) Acute on chronic diastolic heart failure: She received several doses of diuretic in the first 36 hours of admission and creatinine continued to rise to 2.0 Now creatinine continues to improve today to 1.5 Is still with considerable peripheral edema. Weight continues to rise volume status is difficult to determine in general. she may be intravascularly dry but total body overloaded. -Continue to hold off on any further diuretics at this time due to YULIANA as per nephro recommendations -Continue strict I's and O's, daily weights, low-sodium diet -Manage lower extremity edema by adding CATARINO hose-have not been placed yet--> asked RN to place them on her today (5) COPD (chronic obstructive pulmonary disease): no exacerbation at this time. -cont home inhalers. -likely a contributor to chronic BEY. -On O2 here which she is not at home-try to wean off oxygen and will need a two- step prior to discharge (6) Shortness of breath: suspect multifactorial causes -- COPD, restriction from morbid obesity, obesity-hypoventilation syndrome, pulmonary HTN, deconditioning, etc. Overnight oximetry study qualifies her for nocturnal O2-now that she has not left within the 48 hours required for insurance, ordered a repeat overnight oximetry but unclear if was performed? -would obtain 2-step O2 test prior to discharge (7) A-fib: Permanent, rate controlled. On warfarin for anticoagulation and beta- scot and calcium channel scot for rate control. INR today is 2.1 -Continue Coumadin -Follow INR in the a.m. (8) HTN (hypertension): controlled -Continue diltiazem 300 mg once daily, Toprol-XL 50 mg once daily (9) CKD (chronic kidney disease) stage 3, GFR 30-59 ml/min: Baseline Cr ~1.1-1.4. Back to baseline just about now Needed temporary dialysis earlier this year; fortunately renal function recovered. -Avoid nephrotoxins -Renally dose medications when appropriate (10) Acute kidney injury superimposed on chronic kidney disease: Creatinine up to 2.09 after receiving several doses of IV Lasix, now improving to 1.5 with holding Lasix Urine output still adequate Electrolytes within normal limits Volume status with overload as above -Continue to hold Lasix -Appreciate nephrology consultation FeNa 2.5% -Follow BMP again in the morning (11) Morbid obesity with BMI of 45.0-49.9, adult: BMI 48 (12) Sternal fracture: during previous admission. no c/o pain today. this was managed nonoperatively. (13) DVT prophylaxis: coumadin PT, OT evals Disposition-remain on medical floor with telemetry; pt still feeling poorly, weak due to incompletely treated UTI. Plan for PT/OT to come back around today to work with her Called both daughter and son's phone numbers and no answer, no available voicemail to leave a message Subjective Pt still feeling very tired. She is eating. She is ambulating around the room with one assist as per RN. Denies CP but feels SOB at times. No abd pain. Afebrile. Legs still swollen, making urine. Tele with Atrial fibrillation with rates in the 80s-90s. Review of Systems All systems reviewed & are unremarkable except as noted in HPI & below Physical Exam Vital Signs (Past 24 Hours): Last Vital Signs Temp 36.3 C L 07/21/18 07:34 Pulse 88 07/21/18 07:34 Resp 18 07/21/18 07:34 BP 129/83 07/21/18 07:34 Pulse Ox 93 07/21/18 07:34 Constitutional: WD/WN, vitals as above + morbidly obese Eyes: PERRL, conjunctivae normal, anicteric sclerae Neck: trachea midline, no thyromegaly Respiratory: normal respiratory effort, lungs clear to auscultation Cardiovascular: RRR, no murmur, no edema Rate/Rhythm: regular rate; + abnormal rhythm (Irregularly irregular) Heart Sounds: no murmur Extremities: + edema (3+ pitting edema of the legs to the thighs bilaterally) Gastrointestinal (Abdomen): normal bowel sounds, soft, nontender, no hepatosplenomegaly Musculoskeletal: Extremities: extremities normal to inspection; no cyanosis and no clubbing Skin: no rashes, warm and dry Neurologic: moves all extremities and awake; no focal motor deficits Psychiatric: Orientation: oriented x 3 and cooperative Affect: euthymic affect Results & Data Laboratory Results 07/21/18 07/21/18 07/21/18 Range/Units 07:31 07:31 07:31 WBC 5.31 (4.8-10.8) K/uL RBC 3.95 L (4.2-5.4) M/uL Hgb 11.5 L (12.0-16.0) g/dL Hct 37.8 (37-47) % MCV 95.7 (80-100) fL MCH 29.1 (25-34) pg MCHC 30.4 L (32-36) g/dL RDW Std Deviation 57.7 H (36.4-46.3) fL RDW Coeff of Kathleen 16.4 H (11.5-14.5) % Plt Count 122 L (130-400) K/uL MPV 11.0 H (7.4-10.4) fL Immature Gran % (Auto) 0.6 % Neut % (Auto) 54.4 % Lymph % (Auto) 22.2 % Clark % (Auto) 22.0 % Eos % (Auto) 0.8 % Baso % (Auto) 0.0 % Immature Gran # (Auto) 0.03 H (0.00-0.02) K/uL Neut # (Auto) 2.89 (1.4-6.5) K/uL Lymph # (Auto) 1.18 L (1.2-3.4) K/uL Clark # (Auto) 1.17 H (0.11-0.59) K/uL Eos # (Auto) 0.04 (0-0.5) K/uL Baso # (Auto) 0.00 (0-0.2) K/uL PT 20.2 H (9.0-12.0) Seconds INR 2.1 H (0.9-1.1) Sodium 146 H (136-145) mmol/L Potassium 3.6 (3.5-5.1) mmol/L Chloride 109 H (98-107) mmol/L Carbon Dioxide 34 H (21-32) mmol/L Anion Gap 3.0 (3-11) BUN 23 H (7-18) mg/dl Creatinine 1.50 H D (0.6-1.2) mg/dl Est Cr Clr Drug Dosing 33.8 ml/min Est GFR ( Amer) 37.5 Est GFR (Non-Af Amer) 32.3 BUN/Creatinine Ratio 15.6 (10-20) Glucose 95 (70-99) mg/dl Calcium 7.9 L (8.5-10.1) mg/dl Ur Cx with Klebsiella oxytoca resistant to ceftriaxone, Unasyn, cefazolin, cefuroxime, and intermediate to ZOsyn, sensitive to FQs (1) UTI (urinary tract infection) Urinary tract infection type: acute cystitis Hematuria presence: without hematuria Qualified Code(s): N30.00 - Acute cystitis without hematuria (2) COPD (chronic obstructive pulmonary disease) COPD type: unspecified COPD Qualified Code(s): J44.9 - Chronic obstructive pulmonary disease, unspecified (3) A-fib Atrial fibrillation type: permanent Qualified Code(s): I48.2 - Chronic atrial fibrillation (4) HTN (hypertension) Hypertension type: essential hypertension Qualified Code(s): I10 - Essential (primary) hypertension (5) Sternal fracture Encounter type: initial encounter Fracture type: closed Sternal location: manubrium Qualified Code(s): S22.21XA - Fracture of manubrium, initial encounter for closed fracture
[2018-07-21] MEDS ORDERED: POTASSIUM CHLORIDE 20 MEQ TABCR PO ONE (11:30)
[2018-07-21] MEDS: WARFARIN SOD 2 MG TAB PO SCH (15:51)
[2018-07-21] MEDS: ATORVASTATIN 10 MG TAB PO SCH (21:27)
[2018-07-22 07:31] LABS: INR 1.7 (0.9-1.1); Prothrombin Time 17.2 Seconds (9.0-12.0)
[2018-07-22 07:34] LABS: BUN Creatinine Ratio 15.9 (10-20); Calcium 8.1 mg/dl (8.5-10.1); Creatinine Clr Calc Pharmacy 47.4 ml/min; Est GFR (Non-African American) 49.2; Potassium 3.7 mmol/L (3.5-5.1)
[2018-07-22] MEDS: SERTRALINE HCL 50 MG TABLET PO SCH (08:25)
[2018-07-22] MEDS: MAGNESIUM OXIDE 400 MG TAB PO SCH ×2 (08:25→21:03)
[2018-07-22] MEDS: dilTIAZem HCL 300 MG CAPCR PO SCH (08:26)
[2018-07-22] MEDS: PANTOprazole 40 MG TAB PO SCH (08:26)
[2018-07-22] MEDS: METOPROLOL SUCC 50MG EXT REL TAB PO SCH (08:26)
[2018-07-22] MEDS: FLUTICASONE/VILANTEROL INHALER INH SCH (08:26)
[2018-07-22] MEDS: CIPROFLOXACIN 400 MG/200 ML BAG IV SCH (10:02)
[2018-07-22] MEDS ORDERED: WARFARIN SOD 2.5 MG TAB PO SCH (16:00)
--- NOTE | 2018-07-22 17:51 | Hospitalist Progress Note ---
Date of Service July 22, 2018 Assessment & Plan (1) Metabolic encephalopathy: Likely secondary to UTI. Now resolved -Continue treating UTI (2) UTI (urinary tract infection): Ur cx now with Klebsiella oxytoca resistant to ceftriaxone she received fo r the first 3 days of hospitalization -Have since discontinued the Rocephin and started her on Cipro -Complete a 7 day course of p.o. Cipro 250 mill grams p.o. twice daily-today is day #2 (3) Hallucination, visual: likely a part of her encephalopathy from the UTI. Now resolved with treatment of UTI (4) Acute on chronic diastolic heart failure: She received several doses of diuretic in the first 36 hours of admission and creatinine continued to rise to 2.0 Now creatinine continues to improve today to 1.0 Is still with considerable peripheral edema which will be managed with CATARINO hose. Weight has risen here volume status is difficult to determine in general. she may be intravascularly dry but total body overloaded. -Continue to hold off on any further diuretics at this time due to history of recurrent YULIANA as per nephro recommendations -Continue strict I's and O's, daily weights, low-sodium diet (5) COPD (chronic obstructive pulmonary disease): no exacerbation at this time. -cont home inhalers. -likely a contributor to chronic BEY. Has now been weaned off oxygen at rest as per her two-step test, she did drop to 87% with ambulation 45 feet very briefly but this recovered on its own with taking deep breaths without requiring oxygen She does however require nocturnal O2 and this will be delivered to the house this evening (6) Shortness of breath: suspect multifactorial causes -- COPD, restriction from morbid obesity, obesity-hypoventilation syndrome, pulmonary HTN, deconditioning, etc. Overnight oximetry study qualifies her for nocturnal O2 (7) A-fib: Permanent, rate controlled. On warfarin for anticoagulation and beta- scot and calcium channel scot for rate control. INR today is 1.7 -Continue Coumadin and increase dose to 2.5 mg -Follow INR in the a.m. (8) HTN (hypertension): controlled -Continue diltiazem 300 mg once daily, Toprol-XL 50 mg once daily (9) CKD (chronic kidney disease) stage 3, GFR 30-59 ml/min: Baseline Cr ~1.1-1.4. Back to baseline just about now Needed temporary dialysis earlier this year; fortunately renal function recovered. -Avoid nephrotoxins -Renally dose medications when appropriate (10) Acute kidney injury superimposed on chronic kidney disease: Creatinine up to 2.09 after receiving several doses of IV Lasix, now improving to 1.0with holding Lasix Urine output still adequate Electrolytes within normal limits Volume status with overload as above -Continue to hold Lasix indefinitely as per nephrology -Appreciate nephrology consultation FeNa 2.5% -Follow BMP again in the morning (11) Morbid obesity with BMI of 45.0-49.9, adult: BMI 48 (12) Sternal fracture: during previous admission. no c/o pain today. this was managed nonoperatively. (13) Nausea: Long-standing issue, related to her hiatal hernia and it is worse in the morning and improves throughout the day She is now having it this evening and says it is worse than usual, it is somewha t relieved with p.o. Zofran She is not vomiting at all and does not at home either I feel is related likely to anxiety, however could be some element of gastroparesis -Start Reglan 5 mg p.o. q. before meals at bedtime (14) DVT prophylaxis: coumadin PT, OT evals Disposition-patient will remain overnight as per her request for acute on chronic nausea, but plan for home with home health tomorrow Subjective Patient walked for her two-step respiratory test today and after about 45 feet felt very short of breath, pulse ox briefly dipped to 87% but recovered without oxygen after she sat down and took a few deep breaths. She became panicked and was very anxious as per the respiratory therapist. After that, she complained all morning of nausea and mild dizziness which she states is chronic for her. The nausea improved with Zofran and she was able to eat lunch. She was ready for discharge, however at dinnertime when her son came to pick her up, she complained of nausea and said she just could not go home. She reports chronic nausea mostly in the mornings for many years and her son confirms this. She is very anxious about going home as she reports her son cannot hear very well if she would have a problem in the middle the night. I suggested to the son that he get a baby monitor for in his bedroom. He also reports that his sister could move in with him and stay overnight. Patient is very resistant to going to a retirement with any kind, yet is fearful of going home with her son. Denies chest pains or abdominal pains. No more hallucinations. Son reports her mental status is completely back to baseline Telemetry with atrial fibrillation with rates in the 90s to 100s Review of Systems All systems reviewed & are unremarkable except as noted in HPI & below Physical Exam Vital Signs (Past 24 Hours): Last Vital Signs Temp 36.8 C 07/22/18 16:00 Pulse 88 07/22/18 16:00 Resp 18 07/22/18 16:00 BP 122/81 07/22/18 16:00 Pulse Ox 90 07/22/18 16:00 Constitutional: WD/WN, vitals as above + morbidly obese Eyes: PERRL, conjunctivae normal, anicteric sclerae Neck: trachea midline, no thyromegaly Respiratory: normal respiratory effort, lungs clear to auscultation Cardiovascular: Rate/Rhythm: regular rate; + abnormal rhythm (Irregularly irregular) Heart Sounds: no murmur Extremities: + edema (3+ pitting edema of the legs to the thighs bilaterally) Gastrointestinal (Abdomen): normal bowel sounds, soft, nontender, no hepatosplenomegaly Musculoskeletal: Extremities: extremities normal to inspection; no cyanosis and no clubbing Skin: no rashes, warm and dry Neurologic: moves all extremities and awake; no focal motor deficits Psychiatric: Orientation: oriented x 3 and cooperative Mood: + anxious mood Results & Data Laboratory Results INR 1.7, creatinine 1.06 (1) UTI (urinary tract infection) Hematuria presence: without hematuria Urinary tract infection type: acute cystitis Qualified Code(s): N30.00 - Acute cystitis without hematuria (2) A-fib Atrial fibrillation type: permanent Qualified Code(s): I48.2 - Chronic atrial fibrillation (3) COPD (chronic obstructive pulmonary disease) COPD type: unspecified COPD Qualified Code(s): J44.9 - Chronic obstructive pulmonary disease, unspecified (4) Sternal fracture Encounter type: initial encounter Fracture type: closed Sternal location: manubrium Qualified Code(s): S22.21XA - Fracture of manubrium, initial encounter for closed fracture (5) HTN (hypertension) Hypertension type: essential hypertension Qualified Code(s): I10 - Essential (primary) hypertension
[2018-07-22] MEDS: METOCLOPRAMIDE HCL 5 MG TABLET PO SCH ×2 (18:40→21:03)
[2018-07-22] MEDS: ATORVASTATIN 10 MG TAB PO SCH (21:03)
[2018-07-22] MEDS: CIPROFLOXACIN 250 MG TAB PO SCH (21:03)
[2018-07-23 06:25] LABS: INR 1.6 (0.9-1.1); Prothrombin Time 15.8 Seconds (9.0-12.0)
[2018-07-23 06:32] LABS: BUN Creatinine Ratio 12.8 (10-20); Calcium 8.1 mg/dl (8.5-10.1); Creatinine Clr Calc Pharmacy 46.9 ml/min; Est GFR (African American) 56.4; Est GFR (Non-African American) 48.6; Potassium 3.9 mmol/L (3.5-5.1)
[2018-07-23] MEDS: METOCLOPRAMIDE HCL 5 MG TABLET PO SCH ×2 (07:42→11:39)
[2018-07-23] MEDS: METOPROLOL SUCC 50MG EXT REL TAB PO SCH (08:26)
[2018-07-23] MEDS: CIPROFLOXACIN 250 MG TAB PO SCH (08:26)
[2018-07-23] MEDS: PANTOprazole 40 MG TAB PO SCH (08:26)
[2018-07-23] MEDS: FLUTICASONE/VILANTEROL INHALER INH SCH (08:26)
[2018-07-23] MEDS: MAGNESIUM OXIDE 400 MG TAB PO SCH (08:26)
[2018-07-23] MEDS: dilTIAZem HCL 300 MG CAPCR PO SCH (08:26)
[2018-07-23] MEDS ORDERED: SERTRALINE HCL 50 MG TABLET PO SCH (09:00)
--- NOTE | 2018-07-23 11:31 | Discharge Summary ---
Date of Service July 23, 2018 Admission HPI Per Admitting Provider 83-year-old female with a history of CKD, hypertension, CHF who presents with 2- 3 days of hallucinations. Per the daughter the patient was in her normal state of health last week and up into the weekend. She has continued to have some sternal chest pain from her known sternal fracture; however, otherwise reported no complaints to the daughter, including shortness of breath, PND, or orthopnea. The daughter notes that her lower extremities have been swollen since returning from the [facility] several weeks prior, but that they have been stable otherwise. Over the weekend, the daughter noted the patient was having visual hallucinations. These have been sporadic and spaced throughout the day. As far as the daughter and patient know, they are not associated with sleeping or waking. The patient describes small, non-agitating visual hallucinations such as frogs on the ceiling etc. The patient is semi-aware that these are not really there, but in the moment does get confused about whether they are real or not. Otherwise the patient denies any other major symptoms, including shortness of breath, chest pain (except when moving due to her known sternal fracture), fevers, chills, sweats, abdominal pain, nausea, vomiting, dysuria, polyuria, focal weakness or sensation changes. Principal Diagnosis UTI, Acute encephalopathy Discharge Exam Constitutional WD/WN, vitals as above + morbidly obese Eyes PERRL, conjunctivae normal, anicteric sclerae ENMT external ear and nose normal, oropharynx normal Neck trachea midline, no thyromegaly Respiratory normal respiratory effort, lungs clear to auscultation Cardiovascular RRR, no murmur, no edema Rate/Rhythm: regular rate; + abnormal rhythm (Irregularly irregular) Heart Sounds: no murmur Extremities: + edema (3+ pitting edema of the legs to the thighs bilaterally) Gastrointestinal (Abdomen) normal bowel sounds, soft, nontender, no hepatosplenomegaly Musculoskeletal Extremities: extremities normal to inspection; no cyanosis and no clubbing Skin no rashes, warm and dry Neurologic moves all extremities and awake; no focal motor deficits Psychiatric Orientation: oriented x 3 and cooperative Mood: + anxious mood Discharge Data Allergies Allergy/AdvReac Type Severity Reaction Status Date / Time amoxicillin Allergy Intermediate SWELLING Verified 06/30/18 16:51 Consultations Nephrology Ordered Studies 07/17/18 10:35 CT cervical spine wo con Stat CT head/brain wo con Stat CXR Hospital Course (1) Metabolic encephalopathy: Likely secondary to UTI. Now resolved -Continue treating UTI (2) UTI (urinary tract infection): Ur cx now with Klebsiella oxytoca resistant to ceftriaxone she received for the first 3 days of hospitalization -Have since discontinued the Rocephin and started her on Cipro -Complete a 7 day course of p.o. Cipro 250 mill grams p.o. twice daily-today is day #3 (3) Hallucination, visual: likely a part of her encephalopathy from the UTI. Now resolved with tr eatment of UTI (4) Acute on chronic diastolic heart failure: She received several doses of diuretic in the first 36 hours of admission and creatinine continued to rise to 2.0 Now creatinine continues to improve today to 1.07 Is still with considerable peripheral edema which will be managed with CATARINO hose. Weight has risen here volume status is difficult to determine in general. she may be intravascularly dry but total body overloaded. -Continue to hold off on any further diuretics at this time due to history of recurrent YULIANA as per nephro recommendations -Continue low-sodium diet at home (5) COPD (chronic obstructive pulmonary disease): no exacerbation at this time. -cont home inhalers. -likely a contributor to chronic BEY. Has now been weaned off oxygen at rest as per her two-step test, she did drop to 87% with ambulation 45 feet very briefly but this recovered on its own with taking deep breaths without requiring oxygen She does however require nocturnal O2 and this has been delivered to the house (6) Shortness of breath: suspect multifactorial causes -- COPD, restriction from morbid obesity, obesity-hypoventilation syndrome, pulmonary HTN, deconditioning, etc. Overnight oximetry study qualifies her for nocturnal O2 (7) A-fib: Permanent, rate controlled. On warfarin for anticoagulation and beta- scot and calcium channel scot for rate control. INR today is 1.6 -Continue Coumadin and increase dose to 3 mg x 2 days then check INR with outpt doctor (8) HTN (hypertension): controlled -Continue diltiazem 300 mg once daily, Toprol-XL 50 mg once daily (9) CKD (chronic kidney disease) stage 3, GFR 30-59 ml/min: Baseline Cr ~1.1-1.4. Back to baseline now Needed temporary dialysis earlier this year; fortunately renal function recovered. -Avoid nephrotoxins -Renally dose medications when appropriate (10) Acute kidney injury superimposed on chronic kidney disease: Creatinine up to 2.09 after receiving several doses of IV Lasix, now improving to 1.0 with holding Lasix Urine output still adequate Electrolytes within normal limits Volume status with overload as above -Continue to hold Lasix indefinitely as per nephrology -Appreciate nephrology consultation FeNa 2.5% -Follow BMP as an outpt with PCP (11) Morbid obesity with BMI of 45.0-49.9, adult: BMI 48 (12) Sternal fracture: during previous admission. no c/o pain today. this was managed nonoperatively. (13) Nausea: Long-standing issue, related to her hiatal hernia and it is worse in the morning and improves throughout the day - it is somewhat relieved with p.o. Zofran -She is not vomiting at all and does not at home either -I feel is related likely to anxiety, however could be some element of gastroparesis -Started Reglan 5 mg p.o. q. before meals at bedtime prn and had great relief- continue this at home and f/u with PCP (14) DVT prophylaxis: coumadin PT, OT evals recommend rehab vs home with home health, she has 24/ care at home Disposition-dc to [facility] with home health today Total Time Total Time Spent Total Time Spent (In Minutes): >30 min Total Time Includes: Examination of the Patient, Discharge Planning and Medication Reconciliation Discharge Plan Discharge Items Patient Disposition: Home - Home Health Services Reason For Visit: HALLUCINATIONS Discharge Diagnosis: Acute encephalopathy due to UTI Condition: Fair Discharge Goals: Diagnostic testing, Improve disease control, Learn about illness and Therapeutic intervention Activity: Resume your previous activity Bathing: No limitations Exercise/Sports: As tolerated Non-emergency contact: Primary Care Provider Call non-emergency contact if: you have any medication questions, your symptoms worsen, your pain is not controlled, your pain is worsening, your pain is unusual for you, your pain is concerning for you and your temperature is above 100.5 Follow-up/Referrals: Audrey Johnson PA-C [Primary Care Provider] - 07/30/18 3:50 pm (Please call for a follow up with Audrey Johnson PA-C on MondayJuly 30 at 3:50 pm. *If you need to change this appointment, call the office at [phone].) Diet: Low Sodium (2gm) Addtl Provider Instructions: Please finish out the course of antibiotics for your urinary tract infection. You had low oxygen levels at nighttime and will need to wear oxygen every night. Your oxygen levels did drop some with walking 45 feet, but you did not drop low enough to qualify for oxygen with walking. Please continue physical and occupational therapy at home. Your INR was slightly low at the time of discharge and you should increase your coumadin dose to 3mg for 2 days, then go back to the 2mg dose. Check your PT/INR on Monday07/25/18. Your doctor can then tell you what to do with your coumadin dose. For your leg swelling, you cannot take water pills like lasix because they affect your kidneys too much. It is important that you wear HELEN wraps to compress your feet and legs to reduce the swelling every day. You can remove the HELEN wraps at nighttime for sleeping. Also, your Zoloft (sertraline) dose for anxiety was increased to 75mg daily and a new prescription was sent to your pharmacy for this. Please follow up with your PCP within 1-2 weeks after discharge. Prescriptions: New ciprofloxacin HCl 250 mg Tablet 250 mg PO Q12 Qty: 12 RF: 0 magnesium oxide 400 mg (241.3 mg magnesium) Tablet 400 mg PO BID Qty: 60 RF: 0 Desenex 2 % Powder 1 % EXT PRN PRN (Reason: skin rash in folds) Qty: 43 RF: 0 metoclopramide HCl 5 mg Tablet 5 mg PO ACHS PRN (Reason: nausea and vomiting) Qty: 30 RF: 0 Continued omeprazole 40 mg capsule,delayed release(DR/EC) 40 mg PO QAM RF: 0 metoprolol succinate 50 mg tablet extended release 24 hr 50 mg PO DAILY RF: 0 diltiazem HCl [Cardizem CD] 300 mg Capsule,Extended Release 24hr 300 mg PO QAM Qty: 1 RF: 0 albuterol sulfate 90 mcg/actuation HFA aerosol inhaler 1 inha INH Q6H PRN (Reason: shortness of breath or wheezing) Qty: 6.7 RF: 0 atorvastatin 10 mg Tablet 10 mg PO HS RF: 0 ondansetron HCl [Zofran] 4 mg Tablet 4 mg PO TID PRN (Reason: Nausea) RF: 0 Stress Formula with Zinc Tablet 1 tab PO DAILY RF: 0 Breo Ellipta 100-25 mcg/dose Blister With Device 1 inh INHALATION DAILY RF: 0 tramadol 50 mg Tablet 50 mg PO Q4H PRN (Reason: pain) Qty: 60 RF: 0 acetaminophen [Pain Reliever] 500 mg Tablet 1,000 mg PO Q8H Qty: 90 RF: 0 sertraline 50 mg tablet 75 mg PO QAM Qty: 45 RF: 0 Changed warfarin [Coumadin] 2 mg Tablet 3 mg PO DAILY@1600 Qty: 1 RF: 0 potassium chloride [Klor-Con M10] 10 mEq Tablet,Er Particles/Crystals 10 meq PO DAILY Qty: 1 RF: 0 Discontinued sertraline 50 mg tablet 50 mg PO QAM RF: 0 ondansetron HCl 4 mg Tablet 4 mg PO ACHS Qty: 120 RF: 3 Stand-Alone Forms: [facility] Discharge Orders: Discharge Order (Routine); Ordered 07/23/18 Ordered By: Eleni Rios Admission Data Admit Date/Time: 07/18/18 19:32 Attending Provider: Eleni Rios Admit Provider: Alonzo Stein Primary Care Provider: Audrey Johnson Other Providers: Kenny Finn Service: Telemetry Other Interventions: Discharge Summary Assessment (RN) Last Done: 07/23/18 15:19 Pending Studies at Discharge: No DC Date/Time DO NOT enter until pt leaves facility: 07/23/18 16:54
[2018-07-23] MEDS ORDERED: WARFARIN SOD 3 MG TAB PO SCH (16:00)
== END 2018-07-23 16:54 | disposition home health service (06) | DRG 291 ==
LOC: ED 09:28 → 2N 09:28 → SUATTDRO 13:15 → 2N 13:53 → SUATTDRO 07-18 19:32
DX: I48.2 Chronic atrial fibrillation; Z82.49 Family history of ischemic heart disease and other diseases of the circulatory system; I50.33 Acute on chronic diastolic (congestive) heart failure; K44.9 Diaphragmatic hernia without obstruction or gangrene; Z91.81 History of falling; Z88.0 Allergy status to penicillin; I13.0 Hypertensive heart and chronic kidney disease with heart failure and stage 1 through stage 4 chronic kidney disease, or unspecified chronic kidney disease; G93.41 Metabolic encephalopathy; T50.2X5A Adverse effect of carbonic-anhydrase inhibitors, benzothiadiazides and other diuretics, initial encounter; N18.3 Chronic kidney disease, stage 3 (moderate); E66.2 Morbid (severe) obesity with alveolar hypoventilation; N17.9 Acute kidney failure, unspecified; Z68.42 Body mass index [BMI] 45.0-49.9, adult; R11.2 Nausea with vomiting, unspecified; Z79.899 Other long term (current) drug therapy; Z16.19 Resistance to other specified beta lactam antibiotics; N39.0 Urinary tract infection, site not specified; Z81.8 Family history of other mental and behavioral disorders; Z82.5 Family history of asthma and other chronic lower respiratory diseases; B96.89 Other specified bacterial agents as the cause of diseases classified elsewhere; W17.89XD Other fall from one level to another, subsequent encounter; I27.20 Pulmonary hypertension, unspecified; Z51.81 Encounter for therapeutic drug level monitoring; J44.9 Chronic obstructive pulmonary disease, unspecified; Z79.01 Long term (current) use of anticoagulants; K31.84 Gastroparesis; S22.20XD Unspecified fracture of sternum, subsequent encounter for fracture with routine healing